=== PATIENT | female | born 1955 | race Caucasian/White ===

== ENCOUNTER 2017-01-24 13:56 | Inpatient (IN) | payer MEDICAID ==
[~2017-01-24] VITALS: Ht 160 cm; Wt 67.1 kg
[2017-01-24 14:07] VITALS: BP 159/74
[2017-01-24] MEDS ORDERED: ALBUTEROL 0.083% 2.5 MG/3 ML NEBU INH ONE (14:10)
[2017-01-24] MEDS ORDERED: IPRATROPIUM 0.02% 0.5 MG/2.5 ML NEBU INH ONE (14:10)
[2017-01-24] MEDS ORDERED: methylPREDNISolone SS 125 MG/2 ML VIAL IVP ONE (14:10)
[2017-01-24] MEDS ORDERED: ACETAMINOPHEN 325 MG SUPP RC ONE (14:15)
[2017-01-24] MEDS ORDERED: IBUPROFEN 600 MG TAB PO ONE (14:20)
[2017-01-24] MEDS ORDERED: cefTRIAXone 2,000 MG in DEXTROSE 5% 100 ML IV ONE (14:20)
[2017-01-24] MEDS ORDERED: cefTRIAXone 2,000 MG VIAL ONE (14:39)
[2017-01-24 14:40] LABS: HEMOGLOBIN 13.6 g/dL (12.0-16.0)
[2017-01-24 14:43] LABS: HEMATOCRIT 41.5 % (36-48); MEAN CORPUSCULAR HEMOGLOBIN 28 pg (27-31); MEAN CORPUSCULAR HGB CONC 33 g/dL (33-37); MEAN CORPUSCULAR VOLUME 84 fL (80-94); PLATELET COUNT (AUTO) 279 K/uL (140-450); RED BLOOD CELL COUNT(AUTO) 4.93 MIL/uL (4.20-5.40); WHITE BLOOD COUNT (AUTO) 12.2 K/uL (4.8-10.8)
[2017-01-24 14:58] LABS: BAND % (MANUAL) 24 % (0-8); LYMPHOCYTES % (MANUAL) 7 % (20-46); MONOCYTES % (MANUAL) 4 % (5-12); NEUTROPHILS % (MANUAL) 65 (43-65); PLATELET ESTIMATE ADEQUATE
[2017-01-24 15:06] LABS: INR 1.1 (0.8-1.2); PARTIAL THROMBOPLASTIN TIME 20.8 secs (22-35.6); PROTHROMBIN TIME 11.4 secs (10.8-13.4)
[2017-01-24 15:08] LABS: ANION GAP 17.2 (8-16); CALCIUM 9.8 mg/dL (8.5-10.1); CARBON DIOXIDE 23.9 mmol/L (21-32); CREATININE 0.8 mg/dL (0.6-1.3); POTASSIUM 4.1 mmol/L (3.5-5.1)
[2017-01-24 15:15] LABS: ALBUMIN 2.8 g/dL (3.4-5.0); TOTAL BILIRUBIN 0.5 mg/dL (0.0-1.0); TOTAL PROTEIN, SERUM 8.3 g/dL (6.4-8.2)
[2017-01-24 15:22] LABS: LACTIC ACID 2.5 mmol/L (0.4-2.0)
[2017-01-24] MEDS ORDERED: NACL 0.9% 1,000 ML IV ONE (15:25)
[2017-01-24] MEDS ORDERED: METO25TA GT (15:51)
[2017-01-24] MEDS ORDERED: SENN-72 GT (15:51)
[2017-01-24] MEDS ORDERED: ASCO500T45 GT (15:51)
[2017-01-24] MEDS ORDERED: CRAN450C GT (15:51)
[2017-01-24] MEDS ORDERED: KEP500L GT (15:51)
[2017-01-24] MEDS ORDERED: DOCU250S72 GT (15:51)
[2017-01-24] MEDS ORDERED: LACT1CAP92 GT (15:51)
[2017-01-24] MEDS ORDERED: MEDI237S4 GT (15:51)
[2017-01-24] MEDS ORDERED: MULT-2253 GT (15:51)
[2017-01-24] MEDS ORDERED: [UNRECOGNIZED DRUG - CODE] GT (15:51)
[2017-01-24] MEDS ORDERED: HYDROcodone/APAP 5/325 MG 1 TAB TAB GT PRN (16:25)
[2017-01-24] MEDS ORDERED: ACETAMINOPHEN 650 MG/20.3 ML UDC GT PRN (16:25)
[2017-01-24] MEDS: DEXT 5% /NACL 0.9% 1,000 ML IV SCH (16:25)
[2017-01-24] MEDS ORDERED: LORazepam 2 MG/ML VIAL IVP PRN (16:25)
[2017-01-24] MEDS ORDERED: ONDANSETRON 4 MG/2 ML VIAL IVP PRN (16:25)
[2017-01-24] MEDS ORDERED: ALBUTEROL SULFATE/IPRATROPIU 3 ML SOL IH PRN (16:45)
[2017-01-24 20:00] VITALS: BP 87/43
[2017-01-24] MEDS: AMANTADINE 100 MG CAP GT SCH (21:00)
[2017-01-24] MEDS ORDERED: LACTOBACILLUS ACIDOPHILUS GT SCH (21:00)
[2017-01-24] MEDS ORDERED: PIPERACILLIN/TAZOBACTAM 3.375 GM VIAL IV ONE (21:33)
[2017-01-24] MEDS: METOPROLOL 25 MG TAB GT SCH (21:36)
[2017-01-24] MEDS: SENNA 8.6 MG TAB GT SCH (21:36)
[2017-01-24] MEDS: ASCORBIC ACID 500 MG/5 ML ORASYR GT SCH (21:37)
[2017-01-24] MEDS: PIPERACILLIN/TAZOBACTAM 3.375 GM in DEXTROSE 5% 50 ML IV SCH (21:38)
[2017-01-24] MEDS ORDERED: DEXTROSE 50% 50 ML SYR IVP PRN (21:40)
[2017-01-24 22:00] VITALS: BP 90/48
[2017-01-25] VITALS (7 sets, daily range): BP systolic 97–124; BP diastolic 51–63
[2017-01-25 05:07] LABS: HEMATOCRIT 35.9 % (36-48); HEMOGLOBIN 11.5 g/dL (12.0-16.0); MEAN CORPUSCULAR HEMOGLOBIN 28 pg (27-31); MEAN CORPUSCULAR HGB CONC 32 g/dL (33-37); MEAN CORPUSCULAR VOLUME 86 fL (80-94); PLATELET COUNT (AUTO) 232 K/uL (140-450); RED BLOOD CELL COUNT(AUTO) 4.15 MIL/uL (4.20-5.40); RED CELL DISTRIBUTION WIDTH 13.2 % (11.6-13.7); WHITE BLOOD COUNT (AUTO) 12.4 K/uL (4.8-10.8)
[2017-01-25] MEDS: DEXT 5% /NACL 0.9% 1,000 ML IV SCH ×3 (05:11→22:25)
[2017-01-25] MEDS: PIPERACILLIN/TAZOBACTAM 3.375 GM in DEXTROSE 5% 50 ML IV SCH (05:11)
[2017-01-25 06:26] LABS: BAND % (MANUAL) 19 % (0-8); LYMPHOCYTES % (MANUAL) 22 % (20-46); MONOCYTES % (MANUAL) 8 % (5-12); NEUTROPHILS % (MANUAL) 51 (43-65)
[2017-01-25] MEDS: BLOOD GLUCOSE MONITORING 1 DEV DEV FS SCH ×4 (06:48→20:50)
[2017-01-25] MEDS: INSULIN LISPRO SLIDING SCALE 100 UNITS/ML VIAL SUBQ PRN ×4 (06:49→21:54)
[2017-01-25 06:55] LABS: ALBUMIN 2.2 g/dL (3.4-5.0); ANION GAP 12.5 (8-16); CALCIUM 9.2 mg/dL (8.5-10.1); CREATININE 0.6 mg/dL (0.6-1.3); POTASSIUM 3.5 mmol/L (3.5-5.1); TOTAL BILIRUBIN 0.4 mg/dL (0.0-1.0); TOTAL PROTEIN, SERUM 7.1 g/dL (6.4-8.2)
[2017-01-25] MEDS: METOPROLOL 25 MG TAB GT SCH ×2 (09:00→20:51)
[2017-01-25] MEDS ORDERED: PROBIOTIC SCREEN 1 EA MISC MC PRN (09:05)
[2017-01-25] MEDS: DOCUSATE 100 MG/10 ML UDC GT SCH (09:51)
[2017-01-25] MEDS: LACTOBACILLUS RHAMNOSUS GG 1 EACH CAP GT SCH ×2 (09:52→20:49)
[2017-01-25] MEDS: AMANTADINE 100 MG CAP GT SCH ×2 (09:52→20:50)
[2017-01-25] MEDS: levETIRAcetam 100 MG/ML ORASYR GT SCH (09:52)
[2017-01-25] MEDS: MULTIVITAMIN 5 ML ORASYR GT SCH (09:53)
[2017-01-25] MEDS: ASCORBIC ACID 500 MG/5 ML ORASYR GT SCH ×2 (09:53→20:49)
[2017-01-25 13:39] LABS: BLOOD GAS PCO2 39.4 mmHg (20-50); BLOOD GAS PH 7.411 (7.35-7.45); BLOOD GAS PO2 90.9 mmHg
[2017-01-25 13:40] LABS: BLOOD GAS BASE EXCESS -0.1 mmol/L (-2.0-2.0); BLOOD GAS HCO3 24.5 mmol/L
[2017-01-25 13:41] LABS: BLOOD GAS O2 SAT% 96.5 % (92.0-98.5)
[2017-01-25] MEDS: PIPER/TAZO 3.375GM/D5W PREMIX 50 ML IV SCH ×2 (14:44→20:49)
[2017-01-25] MEDS ORDERED: VANCOMYCIN PER PHARMACY MC PRN (16:55)
[2017-01-25] MEDS: VANCOMYCIN 750 MG in DEXTROSE 5% 250 ML IV SCH (19:10)
[2017-01-25] MEDS: SENNA 8.6 MG TAB GT SCH (20:49)
[2017-01-26] VITALS: BP 138/68
[2017-01-26 04:00] VITALS: BP 151/76
[2017-01-26] MEDS: PIPER/TAZO 3.375GM/D5W PREMIX 50 ML IV SCH ×3 (05:16→20:35)
[2017-01-26] MEDS: VANCOMYCIN 750 MG in DEXTROSE 5% 250 ML IV SCH (06:22)
[2017-01-26] MEDS: BLOOD GLUCOSE MONITORING 1 DEV DEV FS SCH ×4 (06:36→21:35)
[2017-01-26] MEDS: INSULIN LISPRO SLIDING SCALE 100 UNITS/ML VIAL SUBQ PRN ×4 (06:37→21:37)
[2017-01-26 08:00] VITALS: BP 121/52
[2017-01-26 08:25] LABS: ANION GAP 10.7 (8-16); CALCIUM 8.4 mg/dL (8.5-10.1); CREATININE 0.6 mg/dL (0.6-1.3)
[2017-01-26 08:54] LABS: POTASSIUM 2.7 mmol/L (3.5-5.1)
[2017-01-26] MEDS: METOPROLOL 25 MG TAB GT SCH ×2 (09:00→21:00)
[2017-01-26] MEDS: AMANTADINE 100 MG CAP GT SCH ×2 (09:04→21:24)
[2017-01-26] MEDS: levETIRAcetam 100 MG/ML ORASYR GT SCH (09:04)
[2017-01-26] MEDS: ASCORBIC ACID 500 MG/5 ML ORASYR GT SCH ×2 (09:04→21:25)
[2017-01-26] MEDS: DOCUSATE 100 MG/10 ML UDC GT SCH (09:04)
[2017-01-26] MEDS: LACTOBACILLUS RHAMNOSUS GG 1 EACH CAP GT SCH ×2 (09:05→21:24)
[2017-01-26] MEDS: MULTIVITAMIN 5 ML ORASYR GT SCH (09:05)
[2017-01-26] MEDS: KCL 20 MEQ/WATER INJ PREMIX 100 ML IV SCH ×2 (09:30→11:52)
[2017-01-26] MEDS: DEXT 5% /NACL 0.9% 1,000 ML IV SCH ×2 (11:48→18:25)
[2017-01-26 12:00] VITALS: BP 133/57
[2017-01-26] MEDS: CHLORHEXADINE GLUC 2% CLOTH TP SCH (12:00)
[2017-01-26] MEDS: MUPIROCIN 2% OINT 22 GM TUBE TP SCH (14:23)
[2017-01-26 16:00] VITALS: BP 122/57
[2017-01-26 20:00] VITALS: BP 148/64
[2017-01-26] MEDS: VANCOMYCIN 1GM/DEXT 5% PREMIX 200 ML IV SCH (20:52)
[2017-01-26] MEDS: SENNA 8.6 MG TAB GT SCH (21:24)
[2017-01-27] VITALS: BP 137/63
[2017-01-27 04:00] VITALS: BP 154/68
[2017-01-27] MEDS: PIPER/TAZO 3.375GM/D5W PREMIX 50 ML IV SCH ×3 (04:43→22:30)
[2017-01-27] MEDS: DEXT 5% /NACL 0.9% 1,000 ML IV SCH (04:44)
[2017-01-27] MEDS: INSULIN LISPRO SLIDING SCALE 100 UNITS/ML VIAL SUBQ PRN ×4 (06:43→23:01)
[2017-01-27] MEDS: BLOOD GLUCOSE MONITORING 1 DEV DEV FS SCH ×4 (06:43→21:00)
[2017-01-27 07:00] LABS: HEMATOCRIT 34.8 % (36-48); HEMOGLOBIN 11.5 g/dL (12.0-16.0); MEAN CORPUSCULAR HEMOGLOBIN 28 pg (27-31); MEAN CORPUSCULAR HGB CONC 33 g/dL (33-37); MEAN CORPUSCULAR VOLUME 85 fL (80-94); PLATELET COUNT (AUTO) 241 K/uL (140-450); RED BLOOD CELL COUNT(AUTO) 4.12 MIL/uL (4.20-5.40); RED CELL DISTRIBUTION WIDTH 12.9 % (11.6-13.7); WHITE BLOOD COUNT (AUTO) 12.9 K/uL (4.8-10.8)
[2017-01-27 07:21] LABS: ANION GAP 7.9 (8-16); CALCIUM 8.9 mg/dL (8.5-10.1); CREATININE 0.6 mg/dL (0.6-1.3)
[2017-01-27 07:24] LABS: POTASSIUM 2.9 mmol/L (3.5-5.1)
[2017-01-27 08:00] VITALS: BP 151/74
[2017-01-27] MEDS: AMANTADINE 100 MG CAP GT SCH ×2 (08:11→22:30)
[2017-01-27] MEDS: ASCORBIC ACID 500 MG/5 ML ORASYR GT SCH ×2 (08:11→22:30)
[2017-01-27] MEDS: VANCOMYCIN 1GM/DEXT 5% PREMIX 200 ML IV SCH ×2 (08:11→20:00)
[2017-01-27] MEDS: levETIRAcetam 100 MG/ML ORASYR GT SCH (08:11)
[2017-01-27] MEDS: MULTIVITAMIN 5 ML ORASYR GT SCH (08:11)
[2017-01-27] MEDS: DOCUSATE 100 MG/10 ML UDC GT SCH (08:12)
[2017-01-27] MEDS: METOPROLOL 25 MG TAB GT SCH ×2 (08:12→22:30)
[2017-01-27] MEDS: LACTOBACILLUS RHAMNOSUS GG 1 EACH CAP GT SCH ×2 (08:12→22:30)
[2017-01-27 09:52] LABS: BAND % (MANUAL) 4 % (0-8); EOSINOPHILS % (MANUAL) 3 % (0-4); LYMPHOCYTES % (MANUAL) 9 % (20-46); MONOCYTES % (MANUAL) 6 % (5-12); NEUTROPHILS % (MANUAL) 78 (43-65); PLATELET ESTIMATE ADEQUATE
[2017-01-27] MEDS: KCL 20 MEQ/WATER INJ PREMIX 200 ML IV SCH ×2 (11:14→14:09)
[2017-01-27] MEDS: MUPIROCIN 2% OINT 22 GM TUBE TP SCH (11:54)
[2017-01-27] MEDS: CHLORHEXADINE GLUC 2% CLOTH TP SCH (11:54)
[2017-01-27 12:00] VITALS: BP 146/76
[2017-01-27 16:00] VITALS: BP 141/113
[2017-01-27 20:00] VITALS: BP 121/68
[2017-01-27] MEDS: SENNA 8.6 MG TAB GT SCH (22:30)
[2017-01-28] VITALS: BP 136/68
[2017-01-28 04:00] VITALS: BP 129/68
[2017-01-28] MEDS: PIPER/TAZO 3.375GM/D5W PREMIX 50 ML IV SCH ×2 (04:08→12:17)
[2017-01-28] MEDS: BLOOD GLUCOSE MONITORING 1 DEV DEV FS SCH ×2 (06:25→12:16)
[2017-01-28] MEDS: INSULIN LISPRO SLIDING SCALE 100 UNITS/ML VIAL SUBQ PRN ×2 (06:28→12:24)
[2017-01-28 07:14] LABS: HEMATOCRIT 35.2 % (36-48); HEMOGLOBIN 11.6 g/dL (12.0-16.0); MEAN CORPUSCULAR HEMOGLOBIN 28 pg (27-31); MEAN CORPUSCULAR HGB CONC 33 g/dL (33-37); MEAN CORPUSCULAR VOLUME 85 fL (80-94); PLATELET COUNT (AUTO) 239 K/uL (140-450); RED BLOOD CELL COUNT(AUTO) 4.14 MIL/uL (4.20-5.40); RED CELL DISTRIBUTION WIDTH 12.8 % (11.6-13.7); WHITE BLOOD COUNT (AUTO) 12.5 K/uL (4.8-10.8)
[2017-01-28 07:44] LABS: ANION GAP 7.2 (8-16); CARBON DIOXIDE 30.1 mmol/L (21-32); CREATININE 0.5 mg/dL (0.6-1.3); POTASSIUM 3.3 mmol/L (3.5-5.1)
[2017-01-28 08:00] VITALS: BP 122/60
[2017-01-28 08:02] LABS: BAND % (MANUAL) 6 % (0-8); EOSINOPHILS % (MANUAL) 2 % (0-4); LYMPHOCYTES % (MANUAL) 19 % (20-46); MONOCYTES % (MANUAL) 5 % (5-12); NEUTROPHILS % (MANUAL) 60 (43-65)
[2017-01-28] MEDS: VANCOMYCIN 1GM/DEXT 5% PREMIX 200 ML IV SCH (08:52)
[2017-01-28] MEDS: MULTIVITAMIN 5 ML ORASYR GT SCH (08:53)
[2017-01-28] MEDS: levETIRAcetam 100 MG/ML ORASYR GT SCH (08:53)
[2017-01-28] MEDS: DOCUSATE 100 MG/10 ML UDC GT SCH (08:54)
[2017-01-28] MEDS: ASCORBIC ACID 500 MG/5 ML ORASYR GT SCH (08:55)
[2017-01-28] MEDS: METOPROLOL 25 MG TAB GT SCH (08:55)
[2017-01-28] MEDS: AMANTADINE 100 MG CAP GT SCH (08:55)
[2017-01-28] MEDS: LACTOBACILLUS RHAMNOSUS GG 1 EACH CAP GT SCH (08:55)
[2017-01-28 12:00] VITALS: BP 139/74
[2017-01-28] MEDS: CHLORHEXADINE GLUC 2% CLOTH TP SCH (12:16)
[2017-01-28] MEDS: MUPIROCIN 2% OINT 22 GM TUBE TP SCH (12:16)
== END 2017-01-28 15:00 | DRG 720 ==
LOC: MED 14:02 → MIC 16:34 → UNDOADMIN 18:15 → MIC 18:15 → MTU 01-25 17:15
PROVIDERS: ADMIT Preventive Medicine Preventive Medicine/Occupational Environmental Medicine; ATTEND Preventive Medicine Preventive Medicine/Occupational Environmental Medicine
DX: A41.9 Sepsis, unspecified organism (principal); J96.00 Acute respiratory failure, unspecified whether with hypoxia or hypercapnia; J69.0 Pneumonitis due to inhalation of food and vomit; R13.10 Dysphagia, unspecified; E11.65 Type 2 diabetes mellitus with hyperglycemia; E83.39 Other disorders of phosphorus metabolism; Z93.1 Gastrostomy status; I10 Essential (primary) hypertension; D64.9 Anemia, unspecified; E78.00 Pure hypercholesterolemia, unspecified; K44.9 Diaphragmatic hernia without obstruction or gangrene; N39.0 Urinary tract infection, site not specified; E87.6 Hypokalemia; Z98.2 Presence of cerebrospinal fluid drainage device; G40.909 Epilepsy, unspecified, not intractable, without status epilepticus; E78.5 Hyperlipidemia, unspecified; Z87.820 Personal history of traumatic brain injury; Z79.899 Other long term (current) drug therapy
CPT/HCPCS: 36415; 36600; 71010; 71260; 80048; 80053; 80202; 82553; 82803; 82948; 83605; 83880; 84484; 85025; 85610; 85651; 85730; 86140; 87040; 87070; 87081; 87086; 87205; 89220; 93005; 94640; 96374; 99285; J0696; J1815; J2543; J2930; J3370; J3480; J7030; J7042; J7060; J7613; J7644; Q0092; Q9967

== ENCOUNTER 2017-02-04 12:34 | Inpatient (IN) | payer MEDICAID ==
[~2017-02-04] VITALS: Ht 167.6 cm; Wt 67.6 kg
[~2017-02-04 12:34] MED LIST: ASCO500T45 GT; CRAN450C GT; DOCU250S72 GT; KEP500L GT; LACT1CAP92 GT; MEDI237S4 GT; METO25TA GT; MULT-2253 GT; SENN-72 GT; [UNRECOGNIZED DRUG - CODE] GT
--- NOTE | 2017-02-04 12:36 | NUR ---
Patient BIBA to bed 5 at this time.
[2017-02-04 12:37] VITALS: BP 125/71
--- NOTE | 2017-02-04 13:04 | NUR ---
61 YO FEMALE BIB EMS FROM [facility] FOR G TUBE REPLACEMENT; ACCORDING TO REPORT FROM ISHAAN MANAGER POWER, RN AT [facility] TRIED TO USE G-TUBE AND IT WOULDN'T FLUSHED, ALSO PT IS AT HER NEURO BASELINE; PT HAS HX OF TBI; NO DRAINAGE TO G-TUBE; SKIN IS PINK/WARM/DRY; LUNGS CLEAR BL; VSS; PATIENT POSITIONED FOR COMFORT; HOB ELEVATED; BEDRAILS UP X2; BED DOWN. ER MD MADE AWARE OF PT STATUS.
--- NOTE | 2017-02-04 14:00 | NUR ---
MD ATTEMPTING TO REPLACE G-TUBE; VSS; PT IN NO ACUTE DISTRESS; WILL CONTINUE TO MONITOR
[2017-02-04] MEDS ORDERED: DEXTROSE 50% 50 ML SYR IVP PRN (15:55)
[2017-02-04] MEDS ORDERED: HYDROcodone/APAP 5/325 MG 1 TAB TAB GT PRN (15:55)
[2017-02-04] MEDS ORDERED: ONDANSETRON 4 MG/2 ML VIAL IVP PRN (15:55)
[2017-02-04] MEDS ORDERED: ACETAMINOPHEN 325 MG TAB GT PRN (15:55)
[2017-02-04] MEDS ORDERED: LORazepam 2 MG/ML VIAL IVP PRN (15:55)
[2017-02-04] MEDS: BLOOD GLUCOSE MONITORING 1 DEV DEV FS SCH ×2 (16:30→21:32)
--- NOTE | 2017-02-04 17:45 | NUR ---
RECEIVED PATIENT FROM ER. PATIENT AWAKE AND ALERT, NO SIGNS OF ACUTE DISTRESS. PT APHASIC, LOCALIZES TO PAIN. DOESN'T FOLLOW COMMANDS. BOWEL SOUNDS ACTIVE IN ALL 4 QUADRANTS, BOWEL AND BLADDER INCONTINENCE. G-TUBE OUT OF ABDOMEN. SKIN INTACT. BEDBOUND. IV PATENT AND ASYMPTOMATIC. FLACC SCORE 0. ORIENTED PATIENT AND SON TO HOSPITAL AND TO UNIT, SON VERBALIZED UNDERSTANDING, PATIENT UNABLE TO COMPREHEND. BED IN LOW POSITION WITH BILATERAL HALF SIDE RAILS UP, CALL LIGHT WITHIN REACH. BED ALARM ON. VITAL SIGNS STABLE BLOOD PRESSURE 127/75, PULSE 84, TEMPERATURE 97.2, 97% OXYGEN SATURATION ON 2L O2 NC. WILL CONTINUE TO MONITOR.
[2017-02-04] MEDS: DEXT 5% /NACL 0.9% 1,000 ML IV SCH (18:22)
[2017-02-04] MEDS: INSULIN LISPRO SLIDING SCALE 100 UNITS/ML VIAL SUBQ PRN ×2 (18:26→21:33)
--- NOTE | 2017-02-04 18:30 | NUR ---
DR ACOSTA AT BEDSIDE. RE-INSERTED G-TUBE. PT TOLERATED PROCEDURE WELL. ORDERED KUB WITH GASTROGRAPHY TO ENSURE PLACEMENT. DO NOT USE G-TUBE UNTIL CALL Addendum: 02/04/17 at 1847 by Nelda Nova RN DR ACOSTA AT BEDSIDE. RE-INSERTED G-TUBE. PT TOLERATED PROCEDURE WELL. ORDERED KUB WITH GASTROGRAPHY TO ENSURE PLACEMENT. DO NOT USE G-TUBE UNTIL RESULTS. CALL DR AOCSTA WITH RESULTS.
--- NOTE | 2017-02-04 19:10 | NUR ---
PT AWAKE AND ALERT, NO SIGNS OF ACUTE DISTRESS. ENDORSED TO LAP CUTTER TRUER OPERATOR NURSE FOR CONTINUITY OF CARE.
--- NOTE | 2017-02-04 19:11 | NUR ---
RECEIVED REPORT FROM AM NURSE, PT IS AWAKE ALERT BUT APHASIC, RESPONDS TO PAINFUL STIMULI, NO S/S OF DISTRESS. FLACC - 0. NOTED WITH LEFT SKULL INDENTATION. G TUBE IN PLACE, AWAITING FOR KUB WITH CONTRAST PROCEDURE TO BE DONE. IS INCONTINENT, BLADDER AND BOWEL. SKIN INTACT. ON O2 VIA NC AT 2 L, WELL TOLERATED BY PT. BED LOW POSITION, SAFETY CHECKS IN PLACE. CALL LIGHT WITHIN REACH. REORIENTED PATIENT TO THE UNIT, NEEDS REINFORCEMENT. WILL CONTINUE TO MONITOR. ALL NEEDS ATTENDED
--- NOTE | 2017-02-04 20:00 | NUR ---
KUB WITH CONTRAST DONE AT BEDSIDE. WILL CONTINUE TO MONITOR.
[2017-02-04] MEDS ORDERED: AMANTADINE HCL GT SCH (21:00)
[2017-02-04] MEDS ORDERED: ASCORBIC ACID 500 MG TAB GT SCH (21:00)
[2017-02-04] MEDS ORDERED: DOCUSATE SODIUM 250 MG GELCAP PO SCH (21:00)
[2017-02-04] MEDS ORDERED: LACTOBACILLUS ACIDOPHILUS GT SCH (21:00)
[2017-02-04 21:17] VITALS: BP 154/96
[2017-02-04] MEDS: DOCUSATE 100 MG/10 ML UDC GT SCH (21:25)
[2017-02-04] MEDS: METOPROLOL 25 MG TAB GT SCH (21:25)
[2017-02-04] MEDS: SENNA 8.6 MG TAB GT SCH (21:25)
[2017-02-04] MEDS: LACTOBACILLUS RHAMNOSUS GG 1 EACH CAP GT SCH (21:26)
--- NOTE | 2017-02-04 21:30 | NUR ---
DUE MEDS GIVEN THROUGH G-TUBE. NO RESIDUAL NOTED. WILL CONTINUE TO MONITOR. ALL NEEDS ATTENDED. CALL LIGHT WITHIN REACH. SAFETY CHECKS IN PLACE.
[2017-02-04] MEDS: AMANTADINE 100 MG CAP GT SCH (21:46)
--- NOTE | 2017-02-04 22:40 | NUR ---
GAVE DR. ACOSTA THE RESULTS THAT THE G-TUBE IS IN PLACE. WILL CONTINUE TO MONITOR. Addendum: 02/04/17 at 2334 by Barbara Rodríguez RN GAVE RESULTS AT 1263
[2017-02-05] VITALS: BP 150/72
--- NOTE | 2017-02-05 | NUR ---
VITAL SIGNS STABLE. NO S/S OF DISTRESS. FLACC - 0. PT ASLEEP. WILL CONTINUE TO MONITOR. ALL NEEDS ATTENDED. CALL LIGHT WITHIN REACH. SAFETY CHECKS IN PLACE.
[2017-02-05] MEDS: DEXT 5% /NACL 0.9% 1,000 ML IV SCH ×3 (01:55→14:40)
--- NOTE | 2017-02-05 02:00 | NUR ---
MADE ROUNDS. PATIENT ASLEEP. NO S/S OF DISTRESS. FLACC - 0. WILL CONTINUE TO MONITOR.
--- NOTE | 2017-02-05 03:54 | NUR ---
MADE ROUNDS, PT ASLEEP. NO S/S OF DISTRESS. WILL CONTINUE TO MONITOR.
--- NOTE | 2017-02-05 04:00 | NUR ---
SEQUENTIALS APPLIED TO THE PATIENT. WILL CONTINUE TO MONITOR.
--- NOTE | 2017-02-05 04:30 | NUR ---
STARTED G TUBE FEEDING, 20 ML RESIDUAL NOTED. ELEVATED THE HEAD OF THE BED TO 30 DEGREES. WILL CONTINUE TO MONITOR. NO S/S OF DISTRESS. FLACC - 0. WILL CONTINUE TO MONITOR.
[2017-02-05 05:32] LABS: HEMATOCRIT 38.5 % (36-48); HEMOGLOBIN 12.2 g/dL (12.0-16.0); MEAN CORPUSCULAR HEMOGLOBIN 27 pg (27-31); MEAN CORPUSCULAR HGB CONC 32 g/dL (33-37); MEAN CORPUSCULAR VOLUME 85 fL (80-94); PLATELET COUNT (AUTO) 307 K/uL (140-450); RED BLOOD CELL COUNT(AUTO) 4.53 MIL/uL (4.20-5.40); RED CELL DISTRIBUTION WIDTH 13.2 % (11.6-13.7); WHITE BLOOD COUNT (AUTO) 19.5 K/uL (4.8-10.8)
[2017-02-05 05:56] LABS: CARBON DIOXIDE 31.1 mmol/L (21-32); CREATININE 0.7 mg/dL (0.6-1.3); POTASSIUM 4.1 mmol/L (3.5-5.1)
[2017-02-05] MEDS: INSULIN LISPRO SLIDING SCALE 100 UNITS/ML VIAL SUBQ PRN ×4 (06:22→20:40)
--- NOTE | 2017-02-05 06:25 | NUR ---
BLOOD SUGAR AT 209. GAVE 4 UNITS HUMALOG.
[2017-02-05 06:32] LABS: LYMPHOCYTES % (MANUAL) 10 % (20-46); MONOCYTES % (MANUAL) 5 % (5-12)
--- NOTE | 2017-02-05 07:15 | NUR ---
ENDORSED TO AM SHIFT NURSE FOR CONTINUITY OF CARE, IN STABLE CONDITION.
--- NOTE | 2017-02-05 07:16 | NUR ---
RECEIVED REPORT FROM THE ELECTRIC BLANKET PACKER NURSE AT BEDSIDE FOR CONTINUITY OF CARE. PT IS SLEEPING. PER ELECTRIC BLANKET PACKER NURSE, PT IS APHASIC AND ONLY RESPONDS WITH PAINFUL STIMULI. INTRODUCED MYSELF AND UPDATED THE BOARD. PT IS BEDBOUND AND INCONTINENT. PT HAS A NC O2 AT 2L FLOWING. GTUBE FEEDING IN PLACE. 50ML/HR AND 250ML FLUSH Q 6 HRS. SKIN IS INTACT, EXCEPT FOR THE GTUBE. NOTED THE INDENTATION ON THE L FRONTAL LOBE. S/P CRANIOTOMY. IV ON L HAND 24G, INFUSING D5 NS AT 100ML. PT TOLERATING WELL. V/S WITHIN NORMAL RANGE. WILL CONTINUE TO MONITOR PT.
[2017-02-05 08:00] VITALS: BP 145/85
[2017-02-05] MEDS ORDERED: ACETAMINOPHEN 650 MG/20.3 ML UDC GT PRN (08:02)
[2017-02-05] MEDS: BLOOD GLUCOSE MONITORING 1 DEV DEV FS SCH ×4 (08:16→20:34)
[2017-02-05] MEDS ORDERED: MULTIVITAMIN 1 TAB PO SCH (09:00)
[2017-02-05] MEDS: METOPROLOL 25 MG TAB GT SCH ×2 (09:22→20:52)
[2017-02-05] MEDS: MULTIVITAMIN 5 ML ORASYR GT SCH (09:22)
[2017-02-05] MEDS: LACTOBACILLUS RHAMNOSUS GG 1 EACH CAP GT SCH ×2 (09:22→20:43)
[2017-02-05] MEDS: ASCORBIC ACID 500 MG/5 ML ORASYR GT SCH ×2 (09:22→20:51)
[2017-02-05] MEDS: levETIRAcetam 100 MG/ML ORASYR GT SCH (09:22)
[2017-02-05] MEDS: DOCUSATE 100 MG/10 ML UDC GT SCH ×2 (09:22→20:43)
[2017-02-05] MEDS: AMANTADINE 100 MG CAP GT SCH ×2 (09:23→20:44)
--- NOTE | 2017-02-05 09:31 | NUR ---
ADMINISTERED MORNING MEDS. CHECKED FOR PLACEMENT, RESIDUAL (40ML), AND PATENCY. PT TOLERATED WELL. RESUMING TUBE FEEDING. IV STILL PATENT. PT IS AWAKE. TRACKING ME WITH HER EYES. NO SIGNS OF DISTRESS. FLACC-0. WILL CONTINUE TO MONITOR PT.
--- NOTE | 2017-02-05 11:18 | NUR ---
PATIENT HAS BEEN SCREENED AND CATEGORIZED HIGH NUTRITION RISK. PATIENT WILL BE SEEN WITHIN 1-2 DAYS OF ADMISSION. 02/05/17-02/06/[address]
--- NOTE | 2017-02-05 12:53 | NUR ---
FAMILY AT BEDSIDE. NO SIGNS OF DISTRESS. FLACC-0. WILL CONTINUE TO MONITOR PT.
--- NOTE | 2017-02-05 14:35 | NUR ---
PT RESTING COMFORTABLY. PT IS CLEAN AND JUST TURNED. FAMILY IS GONE. NEED HANG ANOTHER IV FLUID. WILL DO SO.
--- NOTE | 2017-02-05 14:40 | NUR ---
02/05/17 RD INITIAL ASSESSMENT COMPLETED PLEASE REFER TO NUTRITION ASSESSMENT UNDER CARE ACTIVITY FOR ESTIMATED NUTRITIONAL NEEDS. 1. CONTINUE DIABETISOURCE TUBE FEEDING AT GOAL RATE OF 50 ML WITH 250 ML OF FWF Q8H - THIS MEETS 85% OF KCAL, 100% OF PROTEIN, AND 100% OF FLUID NEEDS (PROVIDES 1440 KCAL AND 60GM OF PROTEIN AND 1734ML OF FLUID) 2. RD TO FOLLOW UP WITHIN 2-3 DAYS; HIGH RISK MASON MENDEZ RD
[2017-02-05 16:00] VITALS: BP 138/67
--- NOTE | 2017-02-05 17:07 | NUR ---
SEARCHLIGHT OPERATOR WITH PT. CHANGING AND TURNING PT. PT TOLERATING WELL. WILL CONTINUE TO MONITOR PT.
--- NOTE | 2017-02-05 19:20 | NUR ---
ENDORSED PT TO THE WEIGHT ENGINEER AT BEDSIDE FOR CONTINUITY OF CARE. PT IS IN STABLE CONDITION.
--- NOTE | 2017-02-05 19:21 | NUR ---
RECEIVED REPORT FROM AM NURSE. PT IS ASLEEP, BUT IS AWOKEN TO PAINFUL STIMULI AND IS APHASIC. PT IS BEDBOUND AND INCONTINENT. HAS O2 VIA NC AT 2 L. SKIN INTACT, WITH G TUBE FEEDING IN PLACE. NOTED WITH A LEFT SKULL INDENTATION. IV ON ON THE LEFT HAND G, INTACT AND PATENT. REORIENTED PATIENT TO THE UNIT, NEEDS REINFORCEMENT. WILL CONTINUE TO MONITOR. ALL NEEDS ATTENDED. CALL LIGHT WITHIN REACH. SAFETY CHECKS IN PLACE.
[2017-02-05 20:40] VITALS: BP 132/79
[2017-02-05] MEDS: SENNA 8.6 MG TAB GT SCH (20:52)
--- NOTE | 2017-02-05 21:00 | NUR ---
DUE MEDS GIVEN VIA G TUBE, NOTED WITH 20 ML RESIDUAL, WILL CONTINUE TO MONITOR. ALL NEEDS ATTENDED. CALL LIGHT WITHIN REACH. SAFETY CHECKS IN PLACE.
--- NOTE | 2017-02-05 22:43 | NUR ---
PAGED DR. Mary JOHNSTON, AWAITING CALL BACK.
--- NOTE | 2017-02-05 22:46 | NUR ---
DR. Mary JOHNSTON CALLED BACK, TOLD HIM THAT THE ORIGINAL ORDER OF THE FREE FLUSH OF 250 ML WAS EVERY 6 HOURS, BUT WHEN DIETARY CAME AND REASSESSED THE PATIENT AND SUGGESTED [address] JOHNSTON AGREED. ALSO TOLD DR. JOHNSTON THAT THE PT'S WBC WAS 19.5 BUT THERE WAS NO ANTIBIOTIC ORDERED. PUT IN ORDERS FOR A CONSULT WITH DR. EDWARDS, BLOOD CULTURE, AND URINALYSIS.
[2017-02-06] VITALS: BP 135/68
--- NOTE | 2017-02-06 | NUR ---
VITAL SIGNS STABLE. NO S/S OF DISTRESS. WILL CONTINUE TO MONITOR.
[2017-02-06] MEDS: DEXT 5% /NACL 0.9% 1,000 ML IV SCH ×3 (00:57→21:06)
--- NOTE | 2017-02-06 00:57 | NUR ---
IV FLUID FINISHED, HANGED A NEW BAG OF D5NS.
--- NOTE | 2017-02-06 02:00 | NUR ---
MADE ROUNDS. PATIENT ASLEEP, NO S/S OF DISTRESS. NO COMPLAINTS OF PAIN. WILL CONTINUE TO MONITOR. FOR CHANGES.
--- NOTE | 2017-02-06 04:30 | NUR ---
HANGED A NEW TUBE FEEDING OF DIABETISOURCE, CHANGED THE TUBING. NOTED A RESIDUAL OF 30 ML. WILL CONTINUE TO MONITOR FOR CHANGES.
[2017-02-06] MEDS: BLOOD GLUCOSE MONITORING 1 DEV DEV FS SCH ×4 (06:46→21:03)
[2017-02-06] MEDS: INSULIN LISPRO SLIDING SCALE 100 UNITS/ML VIAL SUBQ PRN ×3 (06:47→21:11)
--- NOTE | 2017-02-06 07:22 | NUR ---
ENDORSED TO AM SHIFT NURSE FOR CONTINUITY OF CARE, IN STABLE CONDITION
--- NOTE | 2017-02-06 07:25 | NUR ---
RECEIVED PATIENT REPORT AT BEDSIDE FROM NIGHT NURSE. PATIENT IS APHASIC AND NON VERBAL, FLACC IS 0. IV NOTED ON THE L HAND WITH IVF'S RUNNING HOWEVER LEFT HAND IS PUFFY AND IV IS INFILTRATED. WILL INSERT NEW IV. SKIN IS INTACT. PATIENT IS ON O2 2L VIA NC. PATIENT HAS GT FEEDING RUNNING AT 50ML/HR AND FREE WATER FLUSH 250 ML Q6H. GTUBE WAS CHECKED FOR PLACEMENT AND ASPIRATED 50 ML OF RESIDUAL WAS NOTED. GTUBE WAS FLUSHED WITH 100CC OF STERILE WATER. PATIENT CANNOT COMPREHEND POC, I WILL PERFORM HOURLY ROUNDS. WHEN PATIENT FAMILY ARRIVE WILL EDUCATED THEM ABOUT POC FOR TODAY. THE BED IS LOWERED WITH HOB AT 45 DEGREES. WILL CONTINUE TO MONITOR.
--- NOTE | 2017-02-06 07:25 | NUR ---
RECEIVED PATIENT REPORT AT BEDSIDE FROM NIGHT NURSE. PATIENT IS AAOX4 AND SHOWS NO S/S OF DISTRESS ON ROOM AIR. PATIENT SKIN IS INTACT. IV NOTED ON THE L AC WITH IVF'S INFUSING WELL. PATIENT WAS EXPLAINED POC FOR TODAY AND VERBALIZED UNDERSTANDING. BED IS LOWERED WITH CALL LIGHT WITHIN REACH. PATIENT VERBALIZED UNDERSTANDING ON HOW TO USE IT. WILL CONTINUE TO MONITOR. Addendum: 02/06/17 at 1437 by Celina Mejia RN WRONG PATIENT
[2017-02-06 07:34] LABS: BASOPHILS # (AUTO) 0.1 K/uL (0.00-0.22); BASOPHILS % (AUTO) 0.8 % (0.0-2.0); EOSINOPHILS # (AUTO) 0.3 K/uL (0-0.4); EOSINOPHILS % (AUTO) 2.4 % (0.0-4.0); HEMATOCRIT 37.1 % (36-48); HEMOGLOBIN 11.8 g/dL (12.0-16.0); LYMPHOCYTES # (AUTO) 1.4 K/uL (2.5-16.5); LYMPHOCYTES % (AUTO) 12.5 % (20.5-51.1); MEAN CORPUSCULAR HEMOGLOBIN 27 pg (27-31); MEAN CORPUSCULAR HGB CONC 32 g/dL (33-37); MEAN CORPUSCULAR VOLUME 85 fL (80-94); MONOCYTES # (AUTO) 0.7 K/uL (0.8-1.0); NEUTROPHILS # (AUTO) 8.7 K/uL (1.8-7.7); NEUTROPHILS % (AUTO) 78.3 % (42.2-75.2); PLATELET COUNT (AUTO) 204 K/uL (140-450); RED BLOOD CELL COUNT(AUTO) 4.36 MIL/uL (4.20-5.40); RED CELL DISTRIBUTION WIDTH 13.1 % (11.6-13.7); WHITE BLOOD COUNT (AUTO) 11.2 K/uL (4.8-10.8)
[2017-02-06 08:00] VITALS: BP 161/87
[2017-02-06 08:03] LABS: ANION GAP 9.5 (8-16); CREATININE 0.6 mg/dL (0.6-1.3); POTASSIUM 3.5 mmol/L (3.5-5.1)
--- NOTE | 2017-02-06 09:50 | NUR ---
PATIENT WAS REPOSITIONED AND GIVEN PERINEAL CARE. PATIENT WAS INCONTINENT OF URINE. PATIENT IS NOW LAYING ON HER R SIDE AND SHOWS NO S/S OF DISTRESS ON O2 2L VIA NC.
[2017-02-06] MEDS: MULTIVITAMIN 5 ML ORASYR GT SCH (10:34)
[2017-02-06] MEDS: AMANTADINE 100 MG CAP GT SCH ×2 (10:34→20:51)
[2017-02-06] MEDS: METOPROLOL 25 MG TAB GT SCH ×2 (10:34→20:50)
[2017-02-06] MEDS: DOCUSATE 100 MG/10 ML UDC GT SCH ×2 (10:34→20:51)
[2017-02-06] MEDS: levETIRAcetam 100 MG/ML ORASYR GT SCH (10:34)
[2017-02-06] MEDS: ASCORBIC ACID 500 MG/5 ML ORASYR GT SCH ×2 (10:34→20:52)
--- NOTE | 2017-02-06 10:34 | NUR ---
ADMINISTERED SCHEDULE MEDICATIONS. G TUBE WAS ASPIRATED WITH 10 ML OF RESIDUAL NOTED. MEDICATIONS WERE ADMINISTERED ONE BY ONE WITH 10 CC OF STERILE WATER TO FLUSH G TUBE BETWEEN EACH MEDICATION. TUBE FEEDING IS INFUSING WELL. THE HOB IS AT 45 DEGREES. PATIENT SHOWS NO S/S OF DISTRESS ON O2 2L VIA NC. WILL CONTINUE TO MONITOR.
[2017-02-06] MEDS: LACTOBACILLUS RHAMNOSUS GG 1 EACH CAP GT SCH ×2 (10:35→20:49)
--- NOTE | 2017-02-06 10:50 | NUR ---
PATIENT FAMILY IS AT BEDSIDE. FAMILY WAS EXPLAINED ABOUT PATIENT POC FOR TODAY. FAMILY VERBALIZED UNDERSTANDING.
--- NOTE | 2017-02-06 13:00 | NUR ---
THERE IS AN ORDER FOR URINALYSIS. PATIENT WAS GIVEN A STRAIGHT CATH. PATIENT VOIDED CLEAR YELLOW URINE. URINE SPECIMEN WAS COLLECTED AND SENT TO LAB.
[2017-02-06 13:40] LABS: APPEARANCE,URINE CLEAR (CLEAR); BILIRUBIN,URINE NEGATIVE (NEGATIVE); BLOOD, URINE NEGATIVE (NEGATIVE); COLOR,URINE YELLOW (YELLOW); LEUKOCYTE ESTERASE ,URINE NEGATIVE (NEGATIVE); NITRITE, URINE NEGATIVE (NEGATIVE); PH,URINE 7.5 (5.0-9.0); UGLUCOSE NEGATIVE (NEGATIVE)
--- NOTE | 2017-02-06 14:50 | NUR ---
PATIENT IS SLEEPING AND SHOWS NO S/S OF DISTRESS ON O2 2L VIA NC. GTUBE FEEDING IS INFUSING WELL. PATIENT HAS FLACC OF 0. THE BED IS LOWERED WITH CALL LIGHT WITHIN REACH.
[2017-02-06 16:00] VITALS: BP 149/80
--- NOTE | 2017-02-06 17:15 | NUR ---
PATIENT IS SLEEPING AND SHOWS NO S/S OF DISTRESS ON O2 2L VIA NC. THE BED IS LOWERED WITH HOB AT 45 DEGREES. G TUBE FEEDING IS INFUSING WELL AND IVF'S RUNNING WELL ALSO.
--- NOTE | 2017-02-06 19:25 | NUR ---
PATIENT REPORT WAS GIVEN AT BEDSIDE TO NIGHT NURSE. PATIENT IS SLEEPING AND SHOWS NO S/S OF DISTRESS ON O2 2L VIA NC. THE BED IS LOWERED WITH CALL LIGHT WITHIN REACH.
--- NOTE | 2017-02-06 19:30 | NUR ---
REPORT RECEIVED FROM AM NURSE. PT IS STABLE, APHASIC WITH FLACC-0. IV ACCESS ON LEFT WRIST 24G INFUSING FLUIDS AT 100ML/HR. G-TUBE CHECKED FOR PLACEMENT AND ASPIRATED, 50ML/HR AND FREE WATER FLUSH 250 ML Q6H. BED ON LOW POSITION WITH ALARM ACTIVATED. PT TURNED TO LATERAL POSITION, SDC IN PLACE. WILL CONTINUE TO MONITOR.
[2017-02-06 20:45] VITALS: BP 174/80
[2017-02-06] MEDS: SENNA 8.6 MG TAB GT SCH (20:50)
--- NOTE | 2017-02-06 21:00 | NUR ---
BLOOD GLUCOSE OF 183. 2 UNITS OF INSULIN ADMINISTERED.
--- NOTE | 2017-02-06 23:30 | NUR ---
PATIENT VOIDED, NO BM. CLEANED AND KEPT DRY. REPOSITIONED PT FOR COMFORT.
[2017-02-07 00:07] VITALS: BP 161/84
--- NOTE | 2017-02-07 00:45 | NUR ---
DR. EDWARDS CAME AND EXAMINED PT. NO NEW ORDER.
--- NOTE | 2017-02-07 01:45 | NUR ---
MADE ROUND. PT IS AWAKE WITH NO S/S OF DISCOMFORT NOTED.
[2017-02-07] MEDS: BLOOD GLUCOSE MONITORING 1 DEV DEV FS SCH ×3 (06:17→16:57)
[2017-02-07] MEDS: INSULIN LISPRO SLIDING SCALE 100 UNITS/ML VIAL SUBQ PRN ×3 (06:20→16:58)
--- NOTE | 2017-02-07 06:20 | NUR ---
BLOOD GLUCOSE CHECKED, RESULT 214. INSULIN COVERAGE GIVEN OF 4 UNITS.
[2017-02-07 07:00] LABS: HEMATOCRIT 35.6 % (36-48); HEMOGLOBIN 11.6 g/dL (12.0-16.0); MEAN CORPUSCULAR HEMOGLOBIN 28 pg (27-31); MEAN CORPUSCULAR HGB CONC 33 g/dL (33-37); MEAN CORPUSCULAR VOLUME 85 fL (80-94); PLATELET COUNT (AUTO) 291 K/uL (140-450); RED CELL DISTRIBUTION WIDTH 13.1 % (11.6-13.7); WHITE BLOOD COUNT (AUTO) 12.9 K/uL (4.8-10.8)
[2017-02-07 07:08] LABS: ANION GAP 7.3 (8-16); CARBON DIOXIDE 30.6 mmol/L (21-32); CREATININE 0.6 mg/dL (0.6-1.3)
[2017-02-07 07:21] LABS: POTASSIUM 2.9 mmol/L (3.5-5.1)
--- NOTE | 2017-02-07 07:23 | NUR ---
LAB CALLED @7802 FOR CRITICAL K LEVEL2.[address] Mary JOHNSTON . LEFT MESSAGE ON PAGER. WILL WAIT FOR CALL BACK. WILL ENDORSE TO AM NURSE.
--- NOTE | 2017-02-07 07:42 | NUR ---
ENDORSED TO AM NURSE FOR CONTINUITY OF CARE, PT IN STABLE CONDITION.
--- NOTE | 2017-02-07 07:45 | NUR ---
RECEIVED PATIENT REPORT AT BEDSIDE FROM NIGHT NURSE. PATIENT IS APHASIC AND NON VERBAL, FLACC IS 0. IV NOTED ON THE L WRIST WITH IVF'S RUNNING HOWEVER LEFT HAND IS PUFFY AND IV IS INFILTRATED. WILL INSERT NEW IV. SKIN IS INTACT. PATIENT IS ON O2 2L VIA NC. PATIENT HAS GT FEEDING RUNNING AT 50ML/HR AND FREE WATER FLUSH 250 ML Q8H. GTUBE WAS CHECKED FOR PLACEMENT AND ASPIRATED WITH 0 ML OF RESIDUAL WAS NOTED. GTUBE WAS FLUSHED WITH 100CC OF STERILE WATER. PATIENT CANNOT COMPREHEND POC, I WILL PERFORM HOURLY ROUNDS. WHEN PATIENT FAMILY ARRIVE WILL EDUCATED THEM ABOUT POC FOR TODAY. THE BED IS LOWERED WITH HOB AT 45 DEGREES. WILL CONTINUE TO MONITOR.
[2017-02-07 08:00] VITALS: BP 154/78
[2017-02-07 08:02] LABS: BASOPHILS % (MANUAL) 0 % (0-2); EOSINOPHILS % (MANUAL) 3 % (0-4); LYMPHOCYTES % (MANUAL) 11 % (20-46); MONOCYTES % (MANUAL) 5 % (5-12)
--- NOTE | 2017-02-07 08:40 | NUR ---
PAGED DR JOHNSTON REGARDING PATIENTS POTASSIUM OF 2.9. WILL AWAIT CALL BACK.
--- NOTE | 2017-02-07 09:37 | NUR ---
PAGED DR JOHNSTON AGAIN REGARDING PATIENT'S POTASSIUM OF 2.9. WILL AWAIT FOR CALL BACK.
[2017-02-07] MEDS: DOCUSATE 100 MG/10 ML UDC GT SCH (09:47)
--- NOTE | 2017-02-07 09:47 | NUR ---
CHECKED FOR G TUBE PLACEMENT AND ASPIRATED 0 ML OF RESIDUAL. FLUSHED 10 CC OF WATER AND ADMINISTERED SCHEDULED MEDICATIONS. G TUBE IS PATENT AND FLUSHES WELL TO GRAVITY. PATIENT TOLERATED ACTIVITY WELL. GT FEEDING IS INFUSING WELL AT 50 ML/HR. IV WAS DISCONTINUED AND NEW IV IS ON THE L FOREARM 24G WITH IVF'S INFUSING WELL. PATIENT WAS THEN REPOSITIONED AND GIVEN PERINEAL CARE. THE BED IS LOWERED WITH CALL LIGHT WITHIN REACH. WILL CONTINUE TO MONITOR.
[2017-02-07] MEDS: AMANTADINE 100 MG CAP GT SCH (09:48)
[2017-02-07] MEDS: MULTIVITAMIN 5 ML ORASYR GT SCH (09:48)
[2017-02-07] MEDS: levETIRAcetam 100 MG/ML ORASYR GT SCH (09:48)
[2017-02-07] MEDS: METOPROLOL 25 MG TAB GT SCH (09:48)
[2017-02-07] MEDS: LACTOBACILLUS RHAMNOSUS GG 1 EACH CAP GT SCH (09:48)
[2017-02-07] MEDS: ASCORBIC ACID 500 MG/5 ML ORASYR GT SCH (09:50)
--- NOTE | 2017-02-07 09:50 | NUR ---
RECEIVED ORDERS FROM DR JOHNSTON FOR ONE TIME DOSE OF K RIDER 40 MEQ WITH L[address]AINE. WILL PLACE ORDERS.
[2017-02-07] MEDS ORDERED: POTASSIUM CHLORIDE 40 MEQ, LIDOCAINE 1% 25 MG in NACL 0.9% 250 ML IV SCH (11:40)
--- NOTE | 2017-02-07 12:30 | NUR ---
PATIENT TUBE FEEDING WAS CHANGED WITH ALL NEW LINES. IT IS RUNNING WELL AT 50 ML/HR WITH FREE H20 FLUSH AT 250ML Q8H. ADMINISTERED SCHEDULED MEDICATION WELL AND IS INFUSING WELL. THE BED IS LOWERED AND HOB IS AT 45 DEGREES. PATIENT SHOWS NO S/S OF ACUTE DISTRESS ON O2 2L VIA NC. WILL CONTINUE TO MONITOR.
--- NOTE | 2017-02-07 13:00 | NUR ---
PATIENT IS BEING SEEN BY DR JOHNSTON. PATIENT IS RESTING AND SHOWS NO S/S OF ACUTE DISTRESS.
[2017-02-07] MEDS: DEXT 5% /NACL 0.9% 1,000 ML IV SCH (13:58)
--- NOTE | 2017-02-07 15:00 | NUR ---
PATIENT SHOWS NO S/S OF ACUTE DISTRESS ON O2 2L VIA NC. FLACC 0. THE BED IS LOWERED WITH CALL LIGHT WITHIN REACH. WILL CONTINUE TO MONITOR.
[2017-02-07 16:00] VITALS: BP 153/85
--- NOTE | 2017-02-07 17:00 | NUR ---
PATIENT WAS GIVEN PERINEAL CARE AND REPOSITIONED. PATIENT WAS CHANGED INTO ORANGE GOWN. IV WAS DISCONTINUED WITH CANNULA INTACT. GT FEEDING STILL INFUSING WELL. THE BED IS LOWERED WITH CALL LIGHT WITHIN REACH.
--- NOTE | 2017-02-07 17:10 | NUR ---
LEFT VOICEMAIL FOR UGO HAMILTON AT [phone] REGARDING PATIENT BEING TRANSFERRED TO [facility] AT 1900. LEFT [facility]'S PHONE NUMBER IF HE HAD FURTHER QUESTIONS.
--- NOTE | 2017-02-07 17:15 | NUR ---
SPOKE WITH MILANA FROM [facility] REGARDING PATIENT REPORT. MILANA VERBALIZED UNDERSTANDING AND ALL QUESTIONS WERE ANSWERED.
--- NOTE | 2017-02-07 19:40 | NUR ---
[facility] ARRIVED ONTO UNIT AND IS TRANSFERRING PATIENT TO SNF. PATIENT IS APHASIC AND NONVERBAL. SHE IS RESTING AND IS EASILY AWAKEN WITH VOICE. PATIENT WAS DISCONNECTED FROM TUBE FEEDING. PATIENT SHOWS NO S/S OF DISTRESS ON O2 2L VIA NC. PATIENT IS UNABLE TO SIGN DISCHARGE INSTRUCTIONS. TWO RN'S SIGNED DISCHARGE INSTRUCTIONS. ALL BELONGINGS ARE IN PATIENT'S POSSESSION. IV WAS DISCONTINUED. WRISTBANDS WERE REMOVED. PATIENT LEFT UNIT IN STABLE CONDITION.
== END 2017-02-07 19:40 | DRG 252 ==
LOC: MED 12:34 → MTU 15:56
PROVIDERS: ADMIT Preventive Medicine Preventive Medicine/Occupational Environmental Medicine; ATTEND Preventive Medicine Preventive Medicine/Occupational Environmental Medicine
PROC: 0D20XUZ Change Feeding Device in Upper Intestinal Tract, External Approach (ICD-10-PCS; principal; 2017-02-06)
DX: K94.23 Gastrostomy malfunction (principal); F07.81 Postconcussional syndrome; I10 Essential (primary) hypertension; E11.9 Type 2 diabetes mellitus without complications; D72.829 Elevated white blood cell count, unspecified; E87.6 Hypokalemia; G40.909 Epilepsy, unspecified, not intractable, without status epilepticus; J45.909 Unspecified asthma, uncomplicated; Y83.3 Surgical operation with formation of external stoma as the cause of abnormal reaction of the patient, or of later complication, without mention of misadventure at the time of the procedure; Z87.820 Personal history of traumatic brain injury; Y92.89 Other specified places as the place of occurrence of the external cause
CPT/HCPCS: 36415; 43760; 74241; 80048; 81003; 82948; 85025; 85651; 86140; 87040; 87081; 99285; J1815; J2001; J3480; J7030; J7042; Q0092

== ENCOUNTER 2017-02-15 18:31 | Inpatient (IN) | payer MEDICAID ==
[2017-02-15] VITALS (11 sets, daily range): BP systolic 110–134; BP diastolic 62–92
[~2017-02-15] VITALS: Ht 167.6 cm; Wt 70.8 kg
--- NOTE | 2017-02-15 18:31 | NUR ---
Patient BIBA ACLS, transferred to bed 3. Dr. Weber and RN evaluating patient at bedside.
--- NOTE | 2017-02-15 18:31 | NUR ---
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 ER MD MADE AWARE OF PT STATUS.
--- NOTE | 2017-02-15 18:32 | NUR ---
Dr. Weber, RT and RN at bedside for endotracheal intubation.
--- NOTE | 2017-02-15 18:39 | NUR ---
ETOMIDATE 2O MG WAS GIVEN BY CHARGE NURSE AT 1839;SUCCINYLCHOLINE WAS GIVEN AT 100 MG WAS GIVEN BY CHARGE NURSE AT AROUND 1840.
--- NOTE | 2017-02-15 18:41 | NUR ---
CASS GARCÍA INTUBATE PT;SUCCESSFULLY DONE BY CASS GARCÍA;
[2017-02-15] MEDS ORDERED: PROPOFOL 200 MG/20 ML VIAL IV ONE (18:45)
[2017-02-15] MEDS ORDERED: PROPOFOL 1000 MG/100 ML PREMIX 100 ML IV ONE ×2 (18:57→19:15)
[2017-02-15 19:00] LABS: HEMATOCRIT 37.7 % (36-48); MEAN CORPUSCULAR HEMOGLOBIN 27 pg (27-31); MEAN CORPUSCULAR VOLUME 86 fL (80-94); PLATELET COUNT (AUTO) 284 K/uL (140-450); RED BLOOD CELL COUNT(AUTO) 4.39 MIL/uL (4.20-5.40); RED CELL DISTRIBUTION WIDTH 14.4 % (11.6-13.7)
[2017-02-15] MEDS ORDERED: VANCOMYCIN PER PHARMACY MC PRN (19:05)
[2017-02-15] MEDS ORDERED: VANCOMYCIN 1GM/DEXT 5% PREMIX 200 ML IV ONE (19:05)
[2017-02-15] MEDS ORDERED: PIPERACILLIN/TAZOBACTAM 4.5 GM in DEXTROSE 5% 100 ML IV ONE (19:05)
--- NOTE | 2017-02-15 19:05 | NUR ---
1830 PT BROUGHT IN BY PARAMEDICS GETTING A HHNTX. PT WAS NOT ALERT. PT TAKEN TO BED 3 AND INTUBATED WITH 7.0 TUBE AT 22CM LIP. SXNED PT FOR SPUTUM SAMPLE AND WAS SENT TO LAB. PT ON AC 12 VT 450 PEEP 5 AND 50% FIO2.
[2017-02-15] MEDS ORDERED: NACL 0.9% 3,000 ML IV ONE (19:10)
[2017-02-15] MEDS ORDERED: ACETAMINOPHEN 325 MG TAB GT PRN (19:20)
[2017-02-15] MEDS ORDERED: LORazepam 2 MG/ML VIAL IVP PRN (19:20)
[2017-02-15] MEDS ORDERED: HYDROcodone/APAP 5/325 MG 1 TAB TAB GT PRN (19:20)
[2017-02-15] MEDS ORDERED: ONDANSETRON 4 MG/2 ML VIAL IVP PRN (19:20)
[2017-02-15] MEDS ORDERED: SUCCINYLCHOLINE CHLORIDE 200 MG/10 ML VIAL IVP ONE (19:25)
[2017-02-15] MEDS ORDERED: ETOMIDATE 20 MG/10 ML VIAL IVP ONE (19:25)
[2017-02-15] MEDS ORDERED: PIPERACILLIN/TAZOBACTAM 2.25 GM VIAL IV ONE (19:27)
[2017-02-15] MEDS ORDERED: VANCOMYCIN 1,000 MG VIAL ONE (19:29)
--- NOTE | 2017-02-15 19:29 | NUR ---
Patient will be admitted to care of Dr. Valadez. Admited to ICU. Will go to room ICU 1 . Belongings list completed. Report to Christel AGUSTIN.
--- NOTE | 2017-02-15 19:38 | NUR ---
Vancomycin not administer in er d/t pt currently receiving zosyn.
--- NOTE | 2017-02-15 19:45 | NUR ---
RECIEVED PATIENT FROM ER. PATIENT IS SEDATED.PATIENT ON ETT NO 7 CONNECT TO VENT WITH VENT SETTING FI02 50,TV 450,RATE 12 PEEP 5 TOLERATED WELL,NO SOB NOTED. PATEINT CONT ON PROFOPOL ORDERED.IV LINE INTACT WELL. ON RIGHT HAND G22 AND LEFT HAND G 22. CONT ON CARDIAC MONITORING SHOW SR. JOHN LUNGS SOUND CRACKLES. GT IN PLACE,NPO AT THIS TIME.ABD SOFT NON DISTENDED.F/C INPLACE WITH YELLOW CLEAR URINE.NO EDEMA NOTED..
--- NOTE | 2017-02-15 19:48 | NUR ---
1939 TRANSFERED PT TO ICU BED 1. PT BEING BAGGED WITH 100% FIO2. REPLACED PT BACK ON VENT. AC 12 VT 450 PEEP 5 AND FIO2 50%.
[2017-02-15 19:50] LABS: APPEARANCE,URINE CLOUDY (CLEAR); BILIRUBIN,URINE NEGATIVE (NEGATIVE); BLOOD, URINE 2+ (NEGATIVE); COLOR,URINE YELLOW (YELLOW); LEUKOCYTE ESTERASE ,URINE 3+ (NEGATIVE); NITRITE, URINE NEGATIVE (NEGATIVE); PH,URINE 6.5 (5.0-9.0); UGLUCOSE TRACE (NEGATIVE)
[2017-02-15 19:52] LABS: RBC,URINE 0-5 (RARE) /HPF (0-5)
[2017-02-15 19:53] LABS: WBC,URINE TOO MANY TO COUNT /HPF (0-5)
--- NOTE | 2017-02-15 20:30 | NUR ---
SPECIMEN MRSA NARES COLLECTED. BLOOD WAS DRAWN BY FRONT OFFICE AGENT.
[2017-02-15 20:41] LABS: WHITE BLOOD COUNT (AUTO) 21.1 K/uL (4.8-10.8)
[2017-02-15 20:42] LABS: ANION GAP 13.2 (8-16); CARBON DIOXIDE 27.4 mmol/L (21-32); CREATININE 0.9 mg/dL (0.6-1.3); HEMOGLOBIN 11.8 g/dL (12.0-16.0); MEAN CORPUSCULAR HGB CONC 31 g/dL (33-37); POTASSIUM 3.6 mmol/L (3.5-5.1)
[2017-02-15 20:44] LABS: EOSINOPHILS % (MANUAL) 2 % (0-4); LYMPHOCYTES % (MANUAL) 25 % (20-46); MONOCYTES % (MANUAL) 1 % (5-12)
[2017-02-15 20:48] LABS: ALBUMIN 2.7 g/dL (3.4-5.0); TOTAL BILIRUBIN 0.8 mg/dL (0.0-1.0)
[2017-02-15] MEDS: DEXT 5% /NACL 0.9% 1,000 ML IV SCH ×2 (21:00→21:32)
[2017-02-15] MEDS ORDERED: LACTOBACILLUS ACIDOPHILUS GT SCH (21:00)
[2017-02-15] MEDS ORDERED: AMANTADINE HCL GT SCH (21:00)
[2017-02-15] MEDS ORDERED: ASCORBIC ACID 500 MG TAB GT SCH (21:00)
[2017-02-15 21:06] LABS: PROTHROMBIN TIME 12.2 secs (10.8-13.4)
--- NOTE | 2017-02-15 21:16 | NUR ---
PAGED DR. Mary JOHNSTON TO RELAY CRITICAL LAB RESULT.
[2017-02-15] MEDS: METOPROLOL 25 MG TAB GT SCH (21:29)
--- NOTE | 2017-02-15 21:29 | NUR ---
DR. TIRADO RETURN MY PAGED; REPORTED THE CRITICAL LAB RESULT AND ASKED HIM IF WE ARE GOING TO CONTINUE THE 3 LITER NS BOLUS ORDERED FROM THE ER, HE ORDERED NO NEED SINCE PATIENT'S BP IS OK,120-130 SYSTOLIC.
[2017-02-15] MEDS: SENNA 8.6 MG TAB GT SCH (21:30)
--- NOTE | 2017-02-15 21:30 | NUR ---
MEDICATION GIVEN VIA GT SWETHA WELL.
--- NOTE | 2017-02-15 22:00 | NUR ---
APPLY SCD SWETHA WELL
--- NOTE | 2017-02-15 22:18 | NUR ---
PATIENT'S SON UGO INFORMED BY TELEPHONE THAT HER MOTHER IS ADMITTED IN THIS HOSPITAL.
[2017-02-16] VITALS (38 sets, daily range): BP systolic 107–145; BP diastolic 58–79
--- NOTE | 2017-02-16 | NUR ---
MOUTH CARE GIVEN
[2017-02-16] MEDS ORDERED: PROPOFOL 1000 MG/100 ML PREMIX 100 ML IV PRN (00:05)
--- NOTE | 2017-02-16 01:00 | NUR ---
PATIENT TRIES TO OPEN EYES WHEN CALLING HER NAME.
--- NOTE | 2017-02-16 03:00 | NUR ---
HAVE LARGE BM SOFT PASTE BROWN COLOR PERINEAL CARE GIVEN.
[2017-02-16] MEDS ORDERED: PIPERACILLIN/TAZOBACTAM 3.375 GM VIAL IV ONE (03:50)
[2017-02-16] MEDS ORDERED: PIPERACILLIN/TAZOBACTAM 3.375 GM in DEXTROSE 5% 50 ML IV SCH (04:00)
--- NOTE | 2017-02-16 05:00 | NUR ---
ZOSYN IV GIVEN ORDERED. AM CARE GIVEN.
--- NOTE | 2017-02-16 06:26 | NUR ---
REC'D PT ON [place]ES[place]E VENT SETTINGS AC12 VT450 PEEP 5 FIO2 50% ALARMS ON AND FUNCTIONING PROPERLY, AMBU BAG AT SIDE OF VENTILATOR AND VENTILATOR IS PLUGGED INTO RED OUTLET, SXN PT MODERATE AMT OF THICK YELLOW SECRETIONS, B\S ARE CLEAR BILATERALLY, PT IS ORALLY INTUBATED WITH 7.0 ET TUBE SECURED WITH ANCHOR FAST AT 22CM MIDLINE AND SKIN INTEGRITY IS INTACT, PT IS RESTING WITH NO SIGNS OF DISTRESS NOTED AT THIS TIME
--- NOTE | 2017-02-16 07:30 | NUR ---
RECEIVED REPORT FROM JEEPER OPERATOR RN. PT IS SEDATED, ON PROPOFOL 5MCG/KG/MIN, RASS -3. BEDSIDE MONITOR SHOWS SR. PT ETT TO VENT WITH SETTING FIO2 50%, RR 12, TV 450, PEEP 5. LUNGS SOUND CLEAR, ABDOMEN SOFT WITH ACTIVE BOWEL SOUND, IV SITE INTACT AND PATENT, CEDEÑO CATH IN PLACE WITH SMALL AMOUNT OF CLEAR YELLOW URINE. SCDS IN PLACE, RASHES NOTED TO CEZAR AREA. SIDE RAILS UP X2, HOB ELEVATED 30 DEGREES WITH LOW BED POSITION, WILL CONTINUE TO MONITOR.
[2017-02-16] MEDS: DEXT 5% /NACL 0.9% 1,000 ML IV SCH (07:40)
--- NOTE | 2017-02-16 07:40 | NUR ---
ORAL CARE AND CEZAR CARE GIVEN.
--- NOTE | 2017-02-16 08:10 | NUR ---
CALLED DR. MENESES. NOTIFIED OF CXR CRITICAL RESULT. STATES SHE WILL BE HERE TO SEE PT. AND CHECK THE CXR WHEN SHE COMES.
[2017-02-16] MEDS ORDERED: ACETAMINOPHEN 650 MG/20.3 ML UDC GT PRN (08:48)
[2017-02-16] MEDS ORDERED: PROBIOTIC SCREEN 1 EA MISC MC PRN (08:50)
[2017-02-16] MEDS: METOPROLOL 25 MG TAB GT SCH ×2 (08:59→20:19)
[2017-02-16] MEDS ORDERED: VANCOMYCIN PER PHARMACY MC PRN (09:00)
[2017-02-16] MEDS: LACTOBACILLUS RHAMNOSUS GG 1 EACH CAP GT SCH ×2 (09:00→20:18)
[2017-02-16] MEDS ORDERED: ASCORBIC ACID 500 MG/5 ML ORASYR GT SCH ×2 (09:00→21:00)
[2017-02-16] MEDS: levETIRAcetam 100 MG/ML ORASYR GT SCH (09:00)
[2017-02-16] MEDS: AMANTADINE 100 MG CAP GT SCH ×2 (09:09→20:19)
--- NOTE | 2017-02-16 09:36 | NUR ---
PT'S SON APOLINAR AND DAUGHTER CAME IN, UPDATED PT'S CONDITION AND QUESTIONS ANSWERED.
[2017-02-16] MEDS: PANTOPRAZOLE 40 MG INJ VIAL IVP SCH (09:54)
--- NOTE | 2017-02-16 10:00 | NUR ---
IN TO SEE PT. UPDATED PT'S CONDITION, PER DR. MENESES, D/C PROPOFOL DRIP, WILL CARRY OUT.
--- NOTE | 2017-02-16 10:08 | NUR ---
AT PTS BEDSIDE TO PULL ET TUBE BACK TO 21CM AT RIGHT CORNER OF MOUTH WITH THE HELP OF RT TEJA AND AT 1010 SNX PT FOR SECOND SPUTUM COLLECTION SMALL AMT OF THICK YELLOW SECRETIONS
--- NOTE | 2017-02-16 11:02 | NUR ---
VENT CHECK, NO SXN REQUIRED AT THIS TIME, B\S ARE CLEAR AND AIRWAY IS PATENT
--- NOTE | 2017-02-16 11:32 | NUR ---
PATIENT HAS BEEN SCREENED AND CATEGORIZED HIGH NUTRITION RISK. PATIENT WILL BE SEEN WITHIN 1-2 DAYS OF ADMISSION. 02/16/17-02/17/[address]
--- NOTE | 2017-02-16 12:05 | NUR ---
PT OPENS EYES, BUT UNABLE TO FOLLOW COMMANDS.
[2017-02-16] MEDS: PIPER/TAZO 3.375GM/D5W PREMIX 50 ML IV SCH ×2 (12:33→20:04)
--- NOTE | 2017-02-16 13:00 | NUR ---
STARTED PT ON TUBE FEEDING, PLACEMENT CHECKED.
--- NOTE | 2017-02-16 13:04 | NUR ---
02/16/17 RD INITIAL ASSESSMENT COMPLETED PLEASE REFER TO NUTRITION ASSESSMENT UNDER CARE ACTIVITY FOR ESTIMATED NUTRITIONAL NEEDS. 1. CONTINUE CURRENT ENTERAL NUTRITION SUPPORT - NUTREN PULMONARY AT 30 ML/HR + 50 ML FWF Q4H (PROVIDES 1080 KCAL, 48 G PROTEIN - MEETS 83% KCAL + 50% PROTEIN NEEDS) 2. ADD PROSOURCE VIA G-TUBE 3X/DAILY TO BETTER MEET PROTEIN NEEDS (PROVIDES ADDITIONAL 180 KCAL & 45 G PROTEIN) 3. RD TO FOLLOW-UP 2-3 DAYS, HIGH RISK MASON MENDEZ RD
--- NOTE | 2017-02-16 13:28 | NUR ---
VENT CHECK, SXN PT SMALL AMT OF YELLOW SECRETIONS, PT IS RESTING WITH NO SIGNS OF DISTRESS NOTED
--- NOTE | 2017-02-16 14:10 | NUR ---
REPOSITIONED PT, OFF LOAD PRESSURE AREA. NO S/S OF RESPIRATORY DISTRESS NOTED.
--- NOTE | 2017-02-16 15:03 | NUR ---
vent check, no sxn required at this time, b\s are clear and airway is patent
--- NOTE | 2017-02-16 16:55 | NUR ---
VENT CHECK, SXN PT SMALL AMT OF YELLOW SECRETIONS, PT IS RESTING WITH NO SIGNS OF DISTRESS NOTED AT THIS TIME
--- NOTE | 2017-02-16 18:10 | NUR ---
PT OPENS EYES, UNABLE TO FOLLOW COMMANDS, VITALS STABLE. NO SOB.
--- NOTE | 2017-02-16 19:04 | NUR ---
LOWERED FIO2 TO 40%. MOVED TUBE TO RT SIDE OF LIP. SXNED SMALL AMT CLEAR SECRETIONS.. NO SOB NOTED
--- NOTE | 2017-02-16 19:18 | NUR ---
REPORT GIVEN TO WHARFINGER CHIEF RN. PT IN STABLE CONDITION.
[2017-02-16] MEDS: SENNA 8.6 MG TAB GT SCH (20:18)
[2017-02-16] MEDS: DOCUSATE 100 MG/10 ML UDC GT SCH (20:18)
[2017-02-16] MEDS: ASCORBIC ACID 500 MG TAB GT SCH (20:18)
[2017-02-16] MEDS ORDERED: VANCOMYCIN 1GM/DEXT 5% PREMIX 200 ML IV SCH (21:00)
--- NOTE | 2017-02-16 21:10 | NUR ---
LOWERED FIO2 TO 30% SATS 99% NO SOB NOTED. PT IS MORE AWAKE
--- NOTE | 2017-02-16 22:00 | NUR ---
OPEN EYES TO TACTILE STIMULUS, SR ON THE MONITOR, ETT TO VENT, NO RESPIRATORY DISTRESS, GT FEEDING NUTREN PULMONARY AT 30 ML/HR, TOLERATING FEEDING WELL, NO GT RESIDUAL OBTAINED, HOB ELEVATED AT 30 DEGREES, GT DRESSING CHANGED.IV SITE ON RIGHT HAND NOTED SWOLLEN AND TENDER TO TOUCH, IVF OF D5 1/2 NS INFUSED TO IV SITE ON LEFT HAND G#22. CEDEÑO CATH DRAINING YELLOW URINE, CEDEÑO CATH CARE PROVIDED. TURNED AND REPOSITIONED, FLACC 0. Addendum: 02/17/17 at 0250 by Magdalena Dolan RN WRONG TIME ENTRY, NOT AT 2200, SHOULD BE 1999
--- NOTE | 2017-02-16 22:15 | NUR ---
IV SITE ON LEFT HAND NOTED RED, VANCOMYCIN IVPB INFUSING, STOPPED INFUSION AND PLACED NEW IV LINE ON LEFT WRIST G#22. PATIENT TURNED AND REPOSITIONED, FLACC 0.
[2017-02-17] VITALS (24 sets, daily range): BP systolic 107–140; BP diastolic 60–76
--- NOTE | 2017-02-17 00:21 | NUR ---
NO RESPIRATORY DISTRESS, GT FEEDING TOLERATING WELL, FLACC 0.
[2017-02-17] MEDS: DEXT 5% /NACL 0.9% 1,000 ML IV SCH ×3 (01:20→21:20)
--- NOTE | 2017-02-17 02:30 | NUR ---
RESTING COMFORTABLY, NO DISTRESS NOTED.
--- NOTE | 2017-02-17 04:00 | NUR ---
NEW IV PERIPHERAL LINE PLACED ON RIGHT HAND G#22 WITH GOOD BLOOD RETURN. ORAL CARE WITH VAP KIT PROVIDED, NO RESIDUAL OBTAINED FROM GT , NO RESPIRATORY DISTRESS, FLACC 0.
[2017-02-17 04:52] LABS: HEMATOCRIT 29.6 % (36-48); HEMOGLOBIN 9.3 g/dL (12.0-16.0); MEAN CORPUSCULAR HEMOGLOBIN 27 pg (27-31); MEAN CORPUSCULAR HGB CONC 31 g/dL (33-37); MEAN CORPUSCULAR VOLUME 86 fL (80-94); PLATELET COUNT (AUTO) 219 K/uL (140-450); RED BLOOD CELL COUNT(AUTO) 3.43 MIL/uL (4.20-5.40); RED CELL DISTRIBUTION WIDTH 14.6 % (11.6-13.7); WHITE BLOOD COUNT (AUTO) 18.2 K/uL (4.8-10.8)
[2017-02-17] MEDS: PIPER/TAZO 3.375GM/D5W PREMIX 50 ML IV SCH (04:55)
[2017-02-17 06:05] LABS: ANION GAP 9.6 (8-16); CREATININE 0.6 mg/dL (0.6-1.3)
[2017-02-17 06:09] LABS: POTASSIUM 2.6 mmol/L (3.5-5.1)
--- NOTE | 2017-02-17 06:20 | NUR ---
REC'D PT ON CARESCAPE VENT SETTINGS AC12 VT 450 PEEP 5 FIO2 30% ALARMS ON AND FUNCTIONING PROPERLY, AMBU BAG AT SIDE OF VENTILATOR AND VENTILATOR IS PLUGGED INTO RED OUTLET, SXN PT SMALL AMT OF THIN YELLOW SECRETIONS, B\S ARE CLEAR BILATERALLY, PT IS ORALLY INTUBATED WITH 7.0 ET TUBE SECURED WITH ANCHOR FAST AT 20 CM AT MIDLINE
[2017-02-17] MEDS ORDERED: NACL 0.9% IV SCH (06:30)
[2017-02-17] MEDS ORDERED: POTASSIUM CHLORIDE IV SCH (06:30)
--- NOTE | 2017-02-17 06:46 | NUR ---
AM CARE PROVIDED, GT FEEDING TOLERATED WELL, NO RESPIRATORY DISTRESS, TURNED AND REPOSITIONED, HOB ELEVATED, FLACC 0.
[2017-02-17 07:05] LABS: EOSINOPHILS % (MANUAL) 1 % (0-4); LYMPHOCYTES % (MANUAL) 8 % (20-46); MONOCYTES % (MANUAL) 4 % (5-12)
--- NOTE | 2017-02-17 07:20 | NUR ---
RECEIVED REPORT FROM NIGHT RN FOR CONTINUITY OF CARE.
[2017-02-17] MEDS ORDERED: COMMUNICATION ORDER MC PRN (07:25)
--- NOTE | 2017-02-17 08:58 | NUR ---
VENT CHECK, NO SXN REQUIRED AT THIS TIME, B\S CLEAR AND AIRWAY IS PATENT RN RAWI AT BEDSIDE
[2017-02-17] MEDS: POTASSIUM CHLORIDE 60 MEQ, LIDOCAINE 1% 25 MG in NACL 0.9% 500 ML IV SCH ×2 (09:05→15:13)
[2017-02-17] MEDS: levETIRAcetam 100 MG/ML ORASYR GT SCH (09:24)
[2017-02-17] MEDS: AMANTADINE 100 MG CAP GT SCH ×2 (09:24→21:46)
[2017-02-17] MEDS: DOCUSATE 100 MG/10 ML UDC GT SCH ×2 (09:24→21:35)
[2017-02-17] MEDS: LACTOBACILLUS RHAMNOSUS GG 1 EACH CAP GT SCH ×2 (09:24→21:36)
[2017-02-17] MEDS: PANTOPRAZOLE 40 MG INJ VIAL IVP SCH (09:24)
--- NOTE | 2017-02-17 09:24 | NUR ---
DR.DHAWAN Kee WAS NOTIFIED OF URINE CULTURE REPORT WITH E.COLI-ESBL AND MDRO. CONTINUE SAME ANTIBIOTICS PER . PLACED PATIENT ON CONTACT ISOLATION PRECAUTIONS.
[2017-02-17] MEDS: MULTIVITAMIN 5 ML ORASYR GT SCH (09:25)
[2017-02-17] MEDS: ASCORBIC ACID 500 MG TAB GT SCH ×2 (09:25→21:37)
[2017-02-17] MEDS: METOPROLOL 25 MG TAB GT SCH ×2 (09:26→21:39)
--- NOTE | 2017-02-17 11:14 | NUR ---
VENT CHECK, SXN PT SMALL AMT OF THIN YELLOW SECRETIONS, B\S ARE CLEAR AND AIRWAY IS PATENT PT IS RESTING
--- NOTE | 2017-02-17 11:27 | NUR ---
CHANGED VENT SETTINGS TO CPAP [address] MENESES FOR WEANING
--- NOTE | 2017-02-17 12:30 | NUR ---
PLACED PT BACK ON AC MODE DUE TO PT APNEIC
[2017-02-17] MEDS ORDERED: KCL 20 MEQ/WATER INJ PREMIX 200 ML IV ONE (12:45)
[2017-02-17] MEDS: Z-GUARD PASTE TP SCH (13:00)
--- NOTE | 2017-02-17 13:00 | NUR ---
WOUND CARE EVALUATION NOTES: REASON FOR EVALUATION: SACROCOCCYX ERYTHEMA COMPLETE SKIN ASSESSMENT DONE ON THIS 61 Y/O FEMALE PATIENT FROM [facility] TO [facility], WITH INITIAL DIAGNOSIS SOB, ALTERED MENTAL STATUS. PAST MEDICAL AND SURGICAL HISTORY INCLUDE HTN, SEIZURE, DM, G-TUBING, MULTIPLE SKULL FRACTURES AND CRANIECTOMY. ALL ABOVE INFORMATION WAS OBTAINED FROM THE ADMISSION H&P. LABS ARE WBC 18.2, H/H 9.3/29.6, GLUCOSE 289, PT/INR 12.2/1.2 AND PTT 21. CURRENT MEDS INCLUDE VANCOMYCIN, PIPERACILLIN, LORAZEPAM, LEVETIRACETAM AND HYDROCODONE. PT IS ON CONTACT PRECAUTION FOR E-COLI ESBL, MDRO. PATIENT IS NON-VERBAL, OPENS EYES WHEN TOUCHED. PT ABLE TO TRACK MOVEMENT. FC 16FR PATENT WITH CLEAR YELLOW URINE OUTPUT. SKIN WARM TO TOUCH WNL, S/P CRANIOTOMY LEFT SIDE OF HEAD, FULL HAIR GROWTH. +1 EDEMA BLE, CAPILLARY REFILLED <3 SEC. BILATERAL PEDAL PULSES PRESENT AND STRONG. LUQ G-TUBE PATENT AND RECEIVING NUTREN PULMONARY AT 30ML/HR + 50ML FWF Q4H. PT. NEEDS MAX ASSISTANCE IN TURNING. INITIAL PLAN OF CARE AND PRESSURE PREVENTIVE MEASURES DISCUSSED WITH PRIMARY CARE NURSE. INTEGUMENTARY: SKIN DRY AND INTACT MID ABDOMEN.-OLD SURGICAL SCAR RIGHT HAND-EDEMA( PREVIOUS IV SITE) SACROCOCCYX-BLANCHABLE REDNESS LEFT AND RIGHT MEDIAL THIGHS-INCONTINENT ASSOCIATE DERMATITIS PERINEAL- INCONTINENT ASSOCIATE DERMATITIS G-TUBE STOMA SITE DRY AND CLEAN RECOMMENDATIONS: -CLEANSE LEFT AND RIGHT MEDIAL THIGHS WITH SOAP AND WATER, PAT DRY, APPLY ANTIFUNGAL CREAM BID AND PRN IF SOILING, VIVIANA -CLEANSE PERINEAL AREA WITH SOAP AND WATER, PAT DRY, APPLY Z GUARD BID AND PRN IF SOILING, DIRECTOR OF RESTAURANT -ASSESS AND MONITOR BLANCHABLE REDNESS ON SACROCOCCYX AREA DURING POSITION CHANGE AND NOTIFY MD OF ANY ABNORMAL CHANGES -TURN AND REPOSITION PATIENT Q2H -OFFLOAD BILATERAL HEELS BY PLACING PILLOWS UNDER CALVES AT ALL TIMES, UNLESS OTHERWISE CONTRAINDICATED -KEEP SKIN CLEAN AND DRY AT ALL TIMES. -PRESSURE REDISTRIBUTION SURFACE THERAPY. -FOLLOW RD RECOMMENDATIONS TO MEET NUTRITIONAL/ HYDRATION NEEDS RECOMMENDATIONS DISCUSSED WITH PRIMARY RN. WILL FOLLOW UP PATIENT Q 7-10 DAYS AND PRN. PLEASE CONTACT WOUND CARE NURSE FOR ANY CONCERNS, QUESTIONS AND CHANGES IN SKIN CONDITION.
[2017-02-17] MEDS: MEROPENEM 1,000 MG in NACL 0.9% 100 ML IV SCH ×2 (13:20→21:42)
--- NOTE | 2017-02-17 13:20 | NUR ---
VENT CHECK, PT SLEEPING WITH NO SIGNS OF DISTRESS NOTED AT THIS TIME
--- NOTE | 2017-02-17 13:41 | NUR ---
SS NOTE: SENT CURRENT MICROBIOLOGY TO [facility], RECEIVED FAX CONFIRMATION
[2017-02-17] MEDS ORDERED: MILD SOAP AND WATER TP PRN (14:10)
--- NOTE | 2017-02-17 15:05 | NUR ---
VENT CHECK, NO SXN REQUIRED AT THIS TIME, B\S ARE CLEAR AND AIRWAY IS PATENT
--- NOTE | 2017-02-17 17:40 | NUR ---
VENT CHECK, NO SXN REQUIRED AT THIS TIME, PT IS RESTING
--- NOTE | 2017-02-17 19:06 | NUR ---
RECEIVED PT STABLE ON VENT SUPPORT AT DOCUMENTED SETTINGS, SXN'D SMALL THIN YELLOW SECRETIONS, NO RESP DISTRESS OR SOB NOTED, 7.0 ETT SECURED AT 20 CM AT THE LIP, ALARMS SET AND AUDIBLE, BAG MASK AT BEDSIDE, VENT PLUGGED INTO RED OUTLETS, WILL CONTINUE TO MONITOR.
--- NOTE | 2017-02-17 19:10 | NUR ---
Report taken from Day Nurse Kaylen - RN with resume care. Pt's on vent AC 12, TC 450, PEEP 5 via ETT 7.0 LIP 20 CM, tolerating well. PEG TUBE Feeding on Nutren rate at 40 mls , tolerating well. Hartman Cath insitu, gravity to floor, clear urine , light yellow, no odor noted. Keep HOB 30 , lung sound bi laterally diminish.
--- NOTE | 2017-02-17 20:00 | NUR ---
PT'S ASLEEP, REPOSITION DONE, KEEP HOB 30 WITH TOLERATING WELL. BACK RUB DONE , SKIN CARE DONE , SMEAR STOOL NOTED WITH MATTY ANAL CARE DONE . ORAL CARE DONE , WHITISH SECRETION NOTED.
--- NOTE | 2017-02-17 21:00 | NUR ---
DUE MEDICATION GIVEN ORDER WITH NO REACTION NOTED
--- NOTE | 2017-02-17 21:30 | NUR ---
DR EDWARDS VISIT TO PT, NO NEW AT THIS TIME
[2017-02-17] MEDS: SENNA 8.6 MG TAB GT SCH (21:38)
[2017-02-17] MEDS: MILD SOAP AND WATER TP SCH (21:43)
--- NOTE | 2017-02-17 22:00 | NUR ---
RE POSITION DONE , FEEDING TOLERATING WELL, NO STRESS, NO SIGN AND SYMPTOM OF PAIN, KEEP HOB @ 30 WITH TOLERATING WELL.
[2017-02-18] VITALS (24 sets, daily range): BP systolic 107–160; BP diastolic 60–86
--- NOTE | 2017-02-18 | NUR ---
ORAL CARE DONE, SUCTION DONE WITH WHITISH, MUCOUS NOTED, MODERATE AMOUNT NOTED. REPOSITION DONW , PARTIAL SKIN CARE GIVEN .
[2017-02-18] MEDS: Z-GUARD PASTE TP SCH ×2 (01:49→13:00)
--- NOTE | 2017-02-18 02:00 | NUR ---
PT'S ASLEEP , NO STRESS. NO PAIN, COMFORTABLE AT HOB 30 , FEEDING TOLERATING WELL
--- NOTE | 2017-02-18 04:00 | NUR ---
TOTAL CARE DONE, BED BATH GIVEN, BEDSHEET, ALL LINEN CHANGED CHANGED. ORAL CARE GIVEN. MATTY ANAL CARE DONE, CEDEÑO CATH GIVEN , WASH WITH SOAP AND WATER AT PUBIC AREA, SKIN CARE DONE . PEG TUBE CARE AND SURROUNDING SKIN CARE DONE , NEW DRESSING APPLIED. KEEP HOB AT 30 WITH TOLERATING WELL. PT'S RESTING WELL AFTER CARE WITH TOLERATING WELL.
[2017-02-18 04:53] LABS: BASOPHILS # (AUTO) 0.1 K/uL (0.00-0.22); BASOPHILS % (AUTO) 0.6 % (0.0-2.0); EOSINOPHILS # (AUTO) 0.3 K/uL (0-0.4); EOSINOPHILS % (AUTO) 2.1 % (0.0-4.0); HEMATOCRIT 28.4 % (36-48); HEMOGLOBIN 8.6 g/dL (12.0-16.0); LYMPHOCYTES # (AUTO) 1.1 K/uL (2.5-16.5); LYMPHOCYTES % (AUTO) 8.1 % (20.5-51.1); MEAN CORPUSCULAR HEMOGLOBIN 26 pg (27-31); MEAN CORPUSCULAR HGB CONC 31 g/dL (33-37); MEAN CORPUSCULAR VOLUME 86 fL (80-94); MONOCYTES # (AUTO) 0.7 K/uL (0.8-1.0); MONOCYTES % (AUTO) 5.7 % (1.7-9.3); NEUTROPHILS # (AUTO) 10.9 K/uL (1.8-7.7); NEUTROPHILS % (AUTO) 83.5 % (42.2-75.2); PLATELET COUNT (AUTO) 208 K/uL (140-450); RED BLOOD CELL COUNT(AUTO) 3.29 MIL/uL (4.20-5.40); RED CELL DISTRIBUTION WIDTH 14.8 % (11.6-13.7)
[2017-02-18] MEDS: MEROPENEM 1,000 MG in NACL 0.9% 100 ML IV SCH ×3 (05:10→22:26)
[2017-02-18 05:59] LABS: ANION GAP 11.4 (8-16); CREATININE 0.5 mg/dL (0.6-1.3); POTASSIUM 3.4 mmol/L (3.5-5.1)
--- NOTE | 2017-02-18 06:00 | NUR ---
MORNING CARE DONE . REFRESHMENT DONE. TOTAL URINE OUTPUT 1900 WITH ELLOW , CLEAR URINE, NO BM NOTED. KEEP HOB AT 30 WITH TOLERATING WELL.
[2017-02-18] MEDS: DEXT 5% /NACL 0.9% 1,000 ML IV SCH ×2 (07:20→12:43)
[2017-02-18 07:22] LABS: WHITE BLOOD COUNT (AUTO) 13.1 K/uL (4.8-10.8)
--- NOTE | 2017-02-18 07:45 | NUR ---
REPORT ENDORSE TO DAY NURSE MARCIAI -RN WITH RESUME CARE
--- NOTE | 2017-02-18 08:00 | NUR ---
RECEIVED PATIENT WITH STABLE CONDITION FROM THE NIGHT NURSE. PATIENT OPENS EYES TO NAME,BUT NOT TRACKING. DOES NOT FOLLOW COMMAND. ORALLY INTUBATED AND ON VENTILATOR FIO2=30%,TV 450 ML,AC 12,PEEP 5 CM. NO SIGN OF RESP DISTRESS. LUNG SOUNDS EQUAL WITH SOME RHONCHI IN BASES. SUCTIONED VIA ETT WITH SMALL THICK BLOOD TINGED MUCUS. WEAK COUGH NOTED. ORAL CARE GIVEN W/VAP ORAL CARE KIT. SINUS RHYTHM ON MONITOR. ABDOMEN IS SOFT. G-TUBE IN PLACE W/10 ML RESIDUAL. CONTINUE TUBE FEEDING NUTREN PULMONARY @ 40 ML/HR AND WATER FLUSH @ 50 ML Q4H. CEDEÑO CATH IN PLACE W/FAIR AMT OF CLEAR YELLOW URINE. GENERALIZED SEVERE WEAKNESS WITH STIFF LEGS. ERYTHEMA TO SACROCOCCYX TO PERINEAL AREA. 1+EDEMA OF BOTH ARMS AND FEET. PATIENT HAS IV OF D5/NS @ 100 ML/HR. REPOSITIONED,OFF LOAD PRESSURE AREA. CONTINUE TO MONITOR PATIENT.
[2017-02-18] MEDS: levETIRAcetam 100 MG/ML ORASYR GT SCH (09:45)
[2017-02-18] MEDS: DOCUSATE 100 MG/10 ML UDC GT SCH ×2 (09:45→22:26)
[2017-02-18] MEDS: LACTOBACILLUS RHAMNOSUS GG 1 EACH CAP GT SCH ×2 (09:45→22:27)
[2017-02-18] MEDS: METOPROLOL 25 MG TAB GT SCH ×2 (09:46→22:27)
[2017-02-18] MEDS: ASCORBIC ACID 500 MG TAB GT SCH ×2 (09:48→22:28)
[2017-02-18] MEDS: AMANTADINE 100 MG CAP GT SCH ×2 (09:48→22:26)
[2017-02-18] MEDS: MULTIVITAMIN 5 ML ORASYR GT SCH (09:48)
[2017-02-18] MEDS: PANTOPRAZOLE 40 MG INJ VIAL IVP SCH (09:49)
[2017-02-18] MEDS: MILD SOAP AND WATER TP SCH ×2 (09:51→21:00)
--- NOTE | 2017-02-18 10:00 | NUR ---
CONDITION IS UNCHANGED. SUCTIONED AND REPOSITIONED. OFF LOAD PRESSURE AREA.
--- NOTE | 2017-02-18 11:30 | NUR ---
RESP THERAPIST PLACED PATIENT ON CPAP WITH PRESSURE SUPPORT 15 , PEEP 5 CM AND FIO2=30%. CONTINUE TO MONITOR RESPIRATORY STATUS.
--- NOTE | 2017-02-18 12:00 | NUR ---
SINUS RHYTHM ON MONITOR. BP IS WITHIN NORMAL. BOTH ARMS 2+EDEMA. ELEVATED BOTH ARMS ON PILLOWS. ORAL CARE GIVEN,SUCTIONED AND REPOSITIONED. G-TUBE IN PLACE WITH 10 ML RESIDUAL. HANG NEW TUBE FEEDING BAG WITH NEW TUBING.
[2017-02-18] MEDS ORDERED: POTASSIUM CHLORIDE 10 MEQ TABER PO SCH (12:15)
--- NOTE | 2017-02-18 12:15 | NUR ---
REPORT GIVEN TO NURSE MARIA TERESA AGUSTIN FOR CONTINUITY OF CARE.
[2017-02-18] MEDS ORDERED: POTASSIUM CHLORIDE 20% 40 MEQ/15 ML UDC GT SCH (12:35)
--- NOTE | 2017-02-18 14:04 | NUR ---
PATIENT IS ON VENT WITH CPAP MODE. TOLERATING FAIRLY WELL. RESP RATE 18/MIN , O2 SAT 99%. CONT TO MONITOR PATIENT.
--- NOTE | 2017-02-18 16:09 | NUR ---
PT OPENS EYES, UNABLE TO FOLLOW COMMANDS. TURNED AND REPOSITIONED PT.NO S/S OF RESPIRATORY DISTRESS NOTED. ORAL CARE GIVEN.
--- NOTE | 2017-02-18 18:10 | NUR ---
PT AWAKE, NO S/S OF RESPIRATORY DISTRESS NOTED. VITALS STABLE. WILL CONTINUE TO MONITOR.
[2017-02-18] MEDS ORDERED: DEXTROSE 50% 50 ML SYR IVP PRN (18:15)
[2017-02-18] MEDS: BLOOD GLUCOSE MONITORING 1 DEV DEV FS SCH (18:53)
[2017-02-18] MEDS: INSULIN LISPRO SLIDING SCALE 100 UNITS/ML VIAL SUBQ PRN (19:01)
--- NOTE | 2017-02-18 19:15 | NUR ---
REPORT TAKEN FROM DAY NURSE WITH RESUME CARE, PT'S ON VENT AC 12 , TV 500, PEEP 5 , FIO2 30% VIA ETT 7.0, LIP 24 CM , TOLERATING WELL. KEEP HOB 30 WITH PREVENTION FROM ASPIRATION VIA PEG TUBE FEEDING . CONTINUE PEG TUBE FEEDING WITH NUTREN @30 MLS / HOURS , TOLERATING WELL. CEDEÑO CATH IN SITU , GRAVITY TO FLOOR , LIGHT YELLOW COLOR WITH CLEAR. PT'S CONTACT ISOLATION ESBL, MEDRO . FIRST VISIT TO PT, PT'S ASLEEP. NO PAIN DISTRESS, NO RESPIRATORY DISTRESS. KEEP HOB @ 30 WITH TOLERATING WELL.
--- NOTE | 2017-02-18 19:28 | NUR ---
REPORT GIVEN TO BRIM MOLDER RN. PT IN STABLE CONDITION AT THIS TIME.
--- NOTE | 2017-02-18 20:00 | NUR ---
ORAL CARE DONE. PARTIAL SKIN CARE GIVEN, LOTION APPLIED. REPOSITION DONE TO LEFT LATERAL, KEEP HOB @ 30 DEGREE WITH TOLERATING WELL. CLEAN WITH SOUP AND WATER AT PUBIC PART AND SKIN CARE APPLIED. FEEDING TOLERATING WELL, NO RESIDUAL NOTED.
--- NOTE | 2017-02-18 21:00 | NUR ---
REPOSITION DONE , DUE MEDS GIVEN
--- NOTE | 2017-02-18 22:00 | NUR ---
REPOSITION DONE , FEEDING TOLERATING WELL. DR EDWARDS CAME AND NO NEW ORDER
[2017-02-18] MEDS: SENNA 8.6 MG TAB GT SCH (22:27)
[2017-02-19] VITALS (24 sets, daily range): BP systolic 118–168; BP diastolic 60–82
--- NOTE | 2017-02-19 | NUR ---
PARTIAL SKIN CARE DONE , ORAL CARE DONE . REPOSITION DONE , KEEP HOB 30 WITH RESUME CARE
[2017-02-19] MEDS: INSULIN LISPRO SLIDING SCALE 100 UNITS/ML VIAL SUBQ PRN ×3 (00:43→13:04)
[2017-02-19] MEDS: BLOOD GLUCOSE MONITORING 1 DEV DEV FS SCH ×4 (00:44→18:02)
[2017-02-19] MEDS: Z-GUARD PASTE TP SCH ×2 (01:00→13:32)
--- NOTE | 2017-02-19 02:00 | NUR ---
PT IS ASLEEP WITH NO STRESS, NO GARCÍA
--- NOTE | 2017-02-19 04:00 | NUR ---
RE POSITION DONE, TOTAL CARE DONE , ORAL CARE DONE. LINEN CHANGED, BLOOD WORK DONE .PT'S ASLEEP, RESTING COMFORTABLE. KEEP HOB 30 WITH TOLERATING WELL.
[2017-02-19] MEDS: MEROPENEM 1,000 MG in NACL 0.9% 100 ML IV SCH ×3 (05:19→20:24)
--- NOTE | 2017-02-19 06:00 | NUR ---
ACCU CHECK DONE, SLIDING SCALE GIVEN
[2017-02-19 06:16] LABS: ANION GAP 11.5 (8-16); CARBON DIOXIDE 24.7 mmol/L (21-32); CREATININE 0.5 mg/dL (0.6-1.3); POTASSIUM 3.2 mmol/L (3.5-5.1)
--- NOTE | 2017-02-19 07:13 | NUR ---
REPORT ENDORSE TO DAY NURSE WITH RESUME CARE
--- NOTE | 2017-02-19 07:13 | NUR ---
RECEIVED PT STABLE ON VENT SUPPORT AT DOC. SETTINGS SUCTIONED SCANT AMOUNT CLEAR THIS SECRETIONS, NO RESPIRATORY /SOB NOTED. 7.0 ETT SECURED @20 CM @ LIP,ALARMS SET AN AUDOIBLE, BMV AT BEDSIDE,VENT PLUGGED INTO RED OUTLET, WILL CONT. TO MONITOR
--- NOTE | 2017-02-19 07:30 | NUR ---
RECEIVED REPORT FROM HUMAN RESOURCES ASSISTANT RN. PT OPENS EYES SPONTANEOUSLY, BEDSIDE MONITOR SHOWS SR. ETT TO VENT WITH FIO2 30%, TV 450, AC 12, PEEP 5, NO S/S OF RESPIRATORY DISTRESS NOTED. ABDOMEN SOFT, WITH ACTIVE BOWEL SOUND NOTED, G-TUBE IN PLACE, RESIDUAL CHECKED 20 ML, RETURNED IT BACK. SKIN ( SEE WOUND ASSESSMENT), CEDEÑO CATH IN PLACE WITH CLEAR YELLOW URINE NOTED. IV TO LEFT HAND AND WRIST, SITE INTACT AND PATENT. VITALS STABLE. WILL CONTINUE TO MONITOR.
[2017-02-19] MEDS: MILD SOAP AND WATER TP SCH ×2 (09:00→20:28)
--- NOTE | 2017-02-19 09:00 | NUR ---
DUE MEDS GIVEN, TOLERATED WELL
--- NOTE | 2017-02-19 09:22 | NUR ---
PLACED ON CPAP 5 PSV 15 FIO2 30% PER WEAN ORDER, MARIA TERESA AGSUTIN AWARE, WILL CONTINUE TO MONITOR.
[2017-02-19] MEDS: MULTIVITAMIN 5 ML ORASYR GT SCH (09:40)
[2017-02-19] MEDS: METOPROLOL 25 MG TAB GT SCH ×2 (09:41→20:28)
[2017-02-19] MEDS: AMANTADINE 100 MG CAP GT SCH ×2 (09:41→20:25)
[2017-02-19] MEDS: DOCUSATE 100 MG/10 ML UDC GT SCH ×2 (09:41→20:24)
[2017-02-19] MEDS: levETIRAcetam 100 MG/ML ORASYR GT SCH (09:41)
[2017-02-19] MEDS: LACTOBACILLUS RHAMNOSUS GG 1 EACH CAP GT SCH ×2 (09:42→20:24)
[2017-02-19] MEDS: ASCORBIC ACID 500 MG TAB GT SCH ×2 (09:42→20:25)
[2017-02-19] MEDS: PANTOPRAZOLE 40 MG INJ VIAL IVP SCH (09:43)
--- NOTE | 2017-02-19 12:00 | NUR ---
ORAL CARE GIVEN, TURNED AND REPOSITIONED PT. NO S/S OF RESPIRATORY DISTRESS NOTED.
[2017-02-19] MEDS: NACL 0.9% 1,000 ML IV SCH (12:25)
--- NOTE | 2017-02-19 12:27 | NUR ---
PAGED DR. Mary JOHNSTON REGARDING LOW POTASSIUM: 3.2. AWAITING CALLBACK.
--- NOTE | 2017-02-19 12:34 | NUR ---
RECEIVED CALLBACK FROM DR. Mary JOHNSTON, NEW ORDERS RECEIVED
--- NOTE | 2017-02-19 12:40 | NUR ---
02/19/17 RD FOLLOW-UP ASSESSMENT COMPLETED PLEASE REFER TO NUTRITION ASSESSMENT UNDER CARE ACTIVITY FOR ESTIMATED NUTRITIONAL NEEDS. 1. CONTINUE CURRENT ENTERAL NUTRITION SUPPORT VIA G-TUBE - NUTREN PULMONARY AT 30 ML/HR + 50 ML FWF Q4H 2. ADD PROSOURCE TID (PROVIDES ADDITIONAL 180 KCAL, 45G PROTEIN) TO BETTER MEET NUTRIENT NEEDS 3. RD TO FOLLOW-UP 2-3 DAYS, HIGH RISK MASON MENDEZ, JAY
[2017-02-19] MEDS: KCL 20 MEQ/WATER INJ PREMIX 100 ML IV SCH ×2 (13:32→15:21)
--- NOTE | 2017-02-19 14:00 | NUR ---
PT SLEEPING AT THIS TIME. VITALS STABLE.
--- NOTE | 2017-02-19 14:52 | NUR ---
CLINICAL REVIEW DONE.
--- NOTE | 2017-02-19 15:10 | NUR ---
PT PLACED ON CPAP 5 PS15 FIO2 30% PER DR MENESES WEAN ORDER, MARIA TERESA AGUSTIN AWARE
--- NOTE | 2017-02-19 16:35 | NUR ---
ABG RESULTS AND WEANING PARAMETERS REPORTED TO DR MENESES
--- NOTE | 2017-02-19 18:00 | NUR ---
TURNED AND REPOSITIONED PT, NO SOB, VITALS STABLE.
--- NOTE | 2017-02-19 18:40 | NUR ---
RCV'D PT INTUBATED WITH 7.0 ETT AT 20 AT LIP AND ON MECHANICAL VENTILATOR VENT SETTINGS ARE AC 12,450,5,30%. VENT IS CONNECTED TO RED OUTLET. ALARMS ARE WORKING AND AUDIBLE. AMBU BAG AT BEDSIDE. BS CLEAR. SPO2 98%. NO SOB OR DISTRESS NOTED. WILL CONTINUE TO MONITOR.
--- NOTE | 2017-02-19 19:05 | NUR ---
REPORT GIVEN TO FORGE SHOP MACHINE REPAIRER RN. PT IN STABLE CONDITION AT THIS TIME.
--- NOTE | 2017-02-19 19:10 | NUR ---
RECEIVED REPORT FROM VAMSI MOREL. PT IS A/O TO SELF ONLY. DOES NOT RESPOND TO VOICE/NAME. AWAKE TO GENTLE SHAKING. UNABLE TO ASSESS FOR PERRLA. PT DOES NOT FOLLOW COMMAND. BILATERAL PERRL NOTED. NO S/SX OF PAIN OR DISCOMFORT NOTED. NO S/SX OF SOB NOTED. PT IS 98 % TRACH TO VENT. TOLERATING WELL. SR ON MONITOR. BEDBOUND. UNABLE TO ASSESS MOBILITY OR STRENGTH. PT SKIN IS INTACT. REDNESS NOTED ON CEZAR AREA AND ON BILATERAL HEELS. BLANCHABLE. LEFT WRIST 22 GAUGE PERIPHERAL IV NOTED. INTACT AND PATENT. LEFT HAND 22 GAUGE IV NOTED. SALINE LOCKED. CONTINUE TUBE FEEDING ORDERED. 10 CC RESIDUAL NOTED. TOLERATING WELL. BOWEL SOUNDS HEARD ON ALL 4 QUADRANT. CEDEÑO CATHETER NOTED. DRAINING CLEAR YELLOW URINE. SAFETY PRECAUTION MAINTAINED. BED AT LOWEST SETTING. CALL LIGHT WITHIN REACH. WILL CONTINUE TO MONITOR. Addendum: 02/19/17 at 2112 by Adam Costa RN PT IS NOT TRACH TO VENT. PT IS ETT TO VENT
[2017-02-19] MEDS: SENNA 8.6 MG TAB GT SCH (20:28)
--- NOTE | 2017-02-19 20:29 | NUR ---
NOTED 10 CC RESIDUAL IN PEG TUBE. MEDICATION ADMINISTERED ORDERED. TOLERATED WELL. BP 112/60, P 65. WILL CONTINUE TO MONITOR.
--- NOTE | 2017-02-19 21:00 | NUR ---
PT SLEEPING AT BEDSIDE. A/O TO SELF. UNABLE TO FOLLOW COMMAND. NO S/SX OF PAIN OR DISCOMFORT. NO S/SX OF SOB. VITAL SIGNS STABLE. WILL CONTINUE TO MONITOR.
[2017-02-20] VITALS (21 sets, daily range): BP systolic 112–173; BP diastolic 60–96
--- NOTE | 2017-02-20 | NUR ---
PATIENT IN BED, BLOOD SUGAR 154, PATIENT WAS GIVEN 2 UNITS OF INSULIN.
--- NOTE | 2017-02-20 | NUR ---
Q2H TURN DONE. NOTED THAT BILATERAL ARMS APPEAR TO BE SWOLLEN. +2 PITTING EDEMA. BOTH ARM ELEVATED. L HAND 22 GAUGE D/C D/T SALINE LOCKED STATUS. L WRIST 22 GAUGE CHECKED. INTACT AND PATENT. NO SIGNS OF INFILTRATION. WILL CONTINUE TO MONITOR.
[2017-02-20] MEDS: BLOOD GLUCOSE MONITORING 1 DEV DEV FS SCH ×4 (00:01→18:46)
[2017-02-20] MEDS: Z-GUARD PASTE TP SCH ×2 (00:02→13:00)
[2017-02-20] MEDS: INSULIN LISPRO SLIDING SCALE 100 UNITS/ML VIAL SUBQ PRN ×3 (00:04→12:26)
--- NOTE | 2017-02-20 01:00 | NUR ---
PT NOTED IN BED APPEARS TO BE SLEEPING. NO S/SX OF ACUTE DISTRESS NOTED. PT APPEARS TO BE COMFORTABLE WILL CONTINUE TO MONITOR FOR CHANGES.
--- NOTE | 2017-02-20 02:00 | NUR ---
PT NOTED IN BED APPEARS TO BE SLEEPING. NO S/SX OF ACUTE DISTRESS NOTED. PT APPEARS TO BE COMFORTABLE WILL CONTINUE TO MONITOR FOR CHANGES.
--- NOTE | 2017-02-20 03:00 | NUR ---
PT NOTED IN BED APPEARS TO BE SLEEPING. NO S/SX OF ACUTE DISTRESS NOTED. PT APPEARS TO BE COMFORTABLE WILL CONTINUE TO MONITOR FOR CHANGES.
--- NOTE | 2017-02-20 03:15 | NUR ---
PATIENT SLEEPING, NO LONGER AGITATED
--- NOTE | 2017-02-20 04:33 | NUR ---
PT NOTED IN BED APPEARS TO BE SLEEPING. NO S/SX OF ACUTE DISTRESS NOTED. PT APPEARS TO BE COMFORTABLE WILL CONTINUE TO MONITOR FOR CHANGES.
[2017-02-20] MEDS: MEROPENEM 1,000 MG in NACL 0.9% 100 ML IV SCH ×3 (04:58→22:06)
--- NOTE | 2017-02-20 05:00 | NUR ---
HYGIENE CARE GIVEN. BED BATH AND ORAL CARE PROVIDED. LINEN CHANGED. PT TOLERATED WELL. WILL CONTINUE TO MONITOR.
--- NOTE | 2017-02-20 05:10 | NUR ---
ETT CUFF PRESSURE 26 CM H2O.
[2017-02-20 06:26] LABS: BASOPHILS # (AUTO) 0.1 K/uL (0.00-0.22); EOSINOPHILS # (AUTO) 0.6 K/uL (0-0.4); EOSINOPHILS % (AUTO) 5.5 % (0.0-4.0); HEMATOCRIT 29.7 % (36-48); HEMOGLOBIN 9.3 g/dL (12.0-16.0); LYMPHOCYTES # (AUTO) 1.6 K/uL (2.5-16.5); LYMPHOCYTES % (AUTO) 15.2 % (20.5-51.1); MEAN CORPUSCULAR HEMOGLOBIN 27 pg (27-31); MEAN CORPUSCULAR HGB CONC 31 g/dL (33-37); MEAN CORPUSCULAR VOLUME 86 fL (80-94); MONOCYTES # (AUTO) 0.8 K/uL (0.8-1.0); MONOCYTES % (AUTO) 7.4 % (1.7-9.3); NEUTROPHILS # (AUTO) 7.5 K/uL (1.8-7.7); NEUTROPHILS % (AUTO) 70.9 % (42.2-75.2); PLATELET COUNT (AUTO) 230 K/uL (140-450); RED BLOOD CELL COUNT(AUTO) 3.45 MIL/uL (4.20-5.40); RED CELL DISTRIBUTION WIDTH 14.6 % (11.6-13.7); WHITE BLOOD COUNT (AUTO) 10.6 K/uL (4.8-10.8)
[2017-02-20 06:37] LABS: ANION GAP 11.4 (8-16); CREATININE 0.5 mg/dL (0.6-1.3); POTASSIUM 3.4 mmol/L (3.5-5.1)
--- NOTE | 2017-02-20 06:44 | NUR ---
REC'D PT ON CARESCAPE VENT SETTINGS AC 12 VT 450 PEEP 5 FIO2 30% ALARMS ON AND FUNCTIONING PROPERLY, AMBU BAG AT SIDE OF VENTILATOR AND VENTILATOR IS PLUGGED INTO RED OUTLET, PT IS ORALLY INTUBATED WITH 7.0 ET TUBE SECURED WITH ANCHOR FAST AT 20 CM AT MIDLINE AND SKIN INTEGRITY IS INTACT PT IS RESTING WITH NO SIGNS OF DISTRESS NOTED
--- NOTE | 2017-02-20 07:30 | NUR ---
RECEIVED PATIENT FROM ENTRY OPERATOR NURSE, PT OPENS EYES BUT UNABLE TO FOLLOW COMMANDS. BEDSIDE MONITOR SHOWS SINUS RHYTHM. ON ETT TO VENT AND SETTING IS FiO2 30%, TV 450, AC 12, PEEP 5. NO S/Sx OF RESPIRATORY DISTRESS NOTED. ABDOMEN SOFT AND NONTENDER WITH ACTIVE BOWEL SOUNDS, G-TUBE FEEDING WITH NUTROPULMONARY AT 30CC/HR AND TOLERATES WELL. RESIDUAL 20CC NOTED. CEDEÑO CATHETER IN PLACE AND DRAINING CLEAR YELLOW URINE. EDEMA TO BILATERAL UPPER EXTREMITIES NOTED. HOB 30 DEGREE WITH BED TO LOWEST POSITION. WILL CONTINUE TO MONITOR.
[2017-02-20] MEDS: levETIRAcetam 100 MG/ML ORASYR GT SCH (08:44)
[2017-02-20] MEDS: MULTIVITAMIN 5 ML ORASYR GT SCH (08:44)
[2017-02-20] MEDS: PANTOPRAZOLE 40 MG INJ VIAL IVP SCH (08:45)
[2017-02-20] MEDS: DOCUSATE 100 MG/10 ML UDC GT SCH ×2 (08:45→22:07)
[2017-02-20] MEDS: METOPROLOL 25 MG TAB GT SCH ×2 (08:45→22:07)
[2017-02-20] MEDS: ASCORBIC ACID 500 MG TAB GT SCH ×2 (08:46→22:07)
[2017-02-20] MEDS: AMANTADINE 100 MG CAP GT SCH ×2 (08:46→21:55)
[2017-02-20] MEDS: LACTOBACILLUS RHAMNOSUS GG 1 EACH CAP GT SCH ×2 (08:46→22:07)
[2017-02-20] MEDS: MILD SOAP AND WATER TP SCH ×2 (09:00→21:55)
--- NOTE | 2017-02-20 09:00 | NUR ---
DUE MEDICATIONS GIVEN AND PT TOLERATED WELL. PROVIDED ORAL CARE.
--- NOTE | 2017-02-20 09:00 | NUR ---
VENT CHECK, NO SXN REQUIRED AT THIS TIME, B\S ARE CLEAR AND AIRWAY IS PATENT
[2017-02-20] MEDS ORDERED: KCL 20 MEQ/WATER INJ PREMIX 200 ML IV ONE (11:20)
--- NOTE | 2017-02-20 11:25 | NUR ---
VENT CHECK, SXN PT SMALL AMT OF YELLOW SECRETIONS FAMILY AT BEDSIDE
--- NOTE | 2017-02-20 12:00 | NUR ---
TURNED AND REPOSITION PT, NO S/S OF RESPIRATORY DISTRESS NOTED. WILL CONTINUE TO MONITOR.
[2017-02-20] MEDS: NACL 0.9% 1,000 ML IV SCH (12:37)
--- NOTE | 2017-02-20 13:20 | NUR ---
VENT CHECK, NO SXN REQUIRED B\S ARE CLEAR AND AIRWAY IS PATENT
--- NOTE | 2017-02-20 15:02 | NUR ---
vent check, no sxn required at this time b\s are clear
[2017-02-20] MEDS ORDERED: PROBIOTIC SCREEN 1 EA MISC MC PRN (15:40)
--- NOTE | 2017-02-20 17:01 | NUR ---
VENT CHECK, NO SXN REQUIRED AT THIS TIME, AIRWAY IS PATENT
--- NOTE | 2017-02-20 17:11 | NUR ---
DR. EDWARDS IN TO SEE PT, UPDATED PT'S CONDITION, WILL FOLLOW UP.
--- NOTE | 2017-02-20 17:12 | NUR ---
AT BEDSIDE CHANGED VENT SETTING TO CPAP 5 PS10 AND TO DO ABG IN 30 MINUTES
--- NOTE | 2017-02-20 18:00 | NUR ---
PT OPEN EYES, UNABLE TO FOLLOW COMMANDS. NO SOB.
--- NOTE | 2017-02-20 19:08 | NUR ---
REPORT GIVEN TO SAMY AGUSTIN. PT IN STABLE CONDITION AT THIS TIME.
--- NOTE | 2017-02-20 19:15 | NUR ---
REPORT RECEIVED FROM MARIA TERESA AGUSTIN
--- NOTE | 2017-02-20 19:18 | NUR ---
PATIENT IN BED, PATIENT ONLY OPENS EYES, NO TRACKING. LUNG SOUNDS DIMINISHED, PATIENT INTUBATED, ETT ON CPAP MODE, FIO2 30%, PEEP 5. GTUBE IN PLACE, WITH NUTREN PULMONARY TUBE FEEDING RUNNING AT 30ML/HR. PATIENT HAS A CEDEÑO CATHETER IN PLACE. NON AMBULATORY. EDEMA ON LEFT HAND, IV ON RIGHT HAND 22GAUGE. PATIENT CLOSE TO NURSING STATION. FREQUENT VISUAL CHECKS.
--- NOTE | 2017-02-20 19:20 | NUR ---
PT RECEIVED FROM DAYSHIFT ON CPAP 5 PS 10 FIO2 30% WITH ORDER TO EXTUBATE AND KEEP SATURATION ABOVE 92%. PT AWAKE, EXPLAINED PROCEDURE TO PT. PT'S VITAL PRE-EXTUBATION: HR 87, RR 14, SAT 100%, BREATH SOUNDS CLEAR, PT LAVAGED AND SUCTIONED SMALL AMOUNT PALE YELLOW SECRETIONS. PT GIVEN 100% FIO2 PRIOR TO EXTUBATION, ETT CUFF DEFLATED AND REMOVED WITHOUT COMPLICATIONS AND PT PLACED ON 3 L/M NC. PT'S VITALS POST EXTUBATON: HR 90 RR 23 SAT 99%. CONTINUOUS PROCESS COFFEE ROASTER, DWAYNE Galan AND PT'S RNSAMY NOTIFIED OF PT'S EXTUBATION.
--- NOTE | 2017-02-20 19:25 | NUR ---
PATIENT EXTUBATED BY MILADYS, RT AND ROE RT. PATIENT TOLERATED WELL. O2 SATURATION AT 100% ON 3L OF OXYGEN.
--- NOTE | 2017-02-20 20:30 | NUR ---
PATIENT TOLERATING EXTUBATION WELL. O2 SAT AT 100 ON 3L VIA. WILL CONTINUE TO MONITOR.
--- NOTE | 2017-02-20 21:16 | NUR ---
PATIENT IN BED, NO SIGNS OF DISTRESS.
[2017-02-20] MEDS: SENNA 8.6 MG TAB GT SCH (22:07)
--- NOTE | 2017-02-20 22:45 | NUR ---
PATIENT HAVE A MODERATE BOWEL MOVEMENT, SHE WAS CHANGED AND CLEANED. WILL CONTINUE TO MONITOR. PATIENTS CALL LIGHT WITHIN REACH.
--- NOTE | 2017-02-20 23:23 | NUR ---
PT CHECKED POST EXTUBATION, VITALS: HR 65, RR 17, SAT 100% ON 3 L/M NC. NO DISTRESS/SOB/WHEEZING NOTED.
[2017-02-21] VITALS (10 sets, daily range): BP systolic 119–141; BP diastolic 66–79
[2017-02-21] MEDS: BLOOD GLUCOSE MONITORING 1 DEV DEV FS SCH ×4 (00:01→18:00)
[2017-02-21] MEDS: INSULIN LISPRO SLIDING SCALE 100 UNITS/ML VIAL SUBQ PRN (00:06)
[2017-02-21] MEDS: Z-GUARD PASTE TP SCH ×2 (01:00→12:28)
--- NOTE | 2017-02-21 01:19 | NUR ---
PATIENT IN BED, NO SIGNS IF DISTRESS. CALL LIGHT WITHIN REACH.
--- NOTE | 2017-02-21 02:54 | NUR ---
PATIENT IN BED, RESTING, NO SIGN OF ACUTE DISTRESS.
--- NOTE | 2017-02-21 03:48 | NUR ---
PATIENT RESTING, NO DISTRESS NOTED. WILL CONTINUE TO MONITOR.
--- NOTE | 2017-02-21 04:15 | NUR ---
PATIENT WAS CLEANED
--- NOTE | 2017-02-21 05:00 | NUR ---
PATIENT RESTING IN BED, TOLERATED BATH WELL. WILL CONTINUE TO MONITOR
[2017-02-21] MEDS: MEROPENEM 1,000 MG in NACL 0.9% 100 ML IV SCH ×3 (05:10→22:11)
[2017-02-21 05:38] LABS: EOSINOPHILS # (AUTO) 0.4 K/uL (0-0.4)
[2017-02-21 05:55] LABS: ANION GAP 8.8 (8-16); CARBON DIOXIDE 27.6 mmol/L (21-32); CREATININE 0.5 mg/dL (0.6-1.3); POTASSIUM 3.4 mmol/L (3.5-5.1)
[2017-02-21 06:21] LABS: BASOPHILS # (AUTO) 0.1 K/uL (0.00-0.22); BASOPHILS % (AUTO) 1.5 % (0.0-2.0); EOSINOPHILS % (AUTO) 4.7 % (0.0-4.0); HEMOGLOBIN 9.6 g/dL (12.0-16.0); LYMPHOCYTES # (AUTO) 1.5 K/uL (2.5-16.5); LYMPHOCYTES % (AUTO) 16.6 % (20.5-51.1); MEAN CORPUSCULAR HEMOGLOBIN 27 pg (27-31); MEAN CORPUSCULAR HGB CONC 32 g/dL (33-37); MEAN CORPUSCULAR VOLUME 85 fL (80-94); MONOCYTES # (AUTO) 0.5 K/uL (0.8-1.0); MONOCYTES % (AUTO) 5.6 % (1.7-9.3); NEUTROPHILS # (AUTO) 6.8 K/uL (1.8-7.7); NEUTROPHILS % (AUTO) 71.6 % (42.2-75.2); PLATELET COUNT (AUTO) 252 K/uL (140-450); RED BLOOD CELL COUNT(AUTO) 3.52 MIL/uL (4.20-5.40); RED CELL DISTRIBUTION WIDTH 14.3 % (11.6-13.7); WHITE BLOOD COUNT (AUTO) 9.3 K/uL (4.8-10.8)
--- NOTE | 2017-02-21 06:50 | NUR ---
PATIENT SLEEPING, NO SIGNS OF DISTRESS.
--- NOTE | 2017-02-21 07:20 | NUR ---
REPORT GIVEN TO MARIA TERESA AGUSTIN
--- NOTE | 2017-02-21 07:25 | NUR ---
RECEIVED REPORT FROM SAMY AGUSTIN. PT OPENS EYES, NO TRACKING, BEDSIDE MONITOR SHOWS SR. ON O2 NC 3L/MIN, NO S/S OF RESPIRATORY DISTRESS NOTED. G-TUBE IN PLACE RUNNING NUTREN PULMONARY AT 30 ML/HR, RESIDUAL CHECKED ZERO. PT HAS IV TO RIGHT HAND, SITE INTACT AND PATENT, EDEMA NOTED TO UPPER EXTREMITIES,ABDOMEN SOFT WITH ACTIVE BOWEL SOUND. CEDEÑO CATH IN PLACE WITH PALE YELLOW URINE NOTED. PT UNABLE TO MOVE ALL HER EXTREMITIES, REPOSITIONED PT, OFF LOADING PRESSURE AREA. ORAL CARE GIVEN. WILL CONTINUE TO MONITOR.
--- NOTE | 2017-02-21 08:16 | NUR ---
[employer] R860 VENTILATOR IN ROOM AT BEDSIDE
--- NOTE | 2017-02-21 08:45 | NUR ---
DUE MEDS GIVEN, PT TOLERATED WELL.
[2017-02-21] MEDS: LACTOBACILLUS RHAMNOSUS GG 1 EACH CAP GT SCH ×2 (08:46→21:45)
[2017-02-21] MEDS: ASCORBIC ACID 500 MG TAB GT SCH ×2 (08:47→21:45)
[2017-02-21] MEDS: METOPROLOL 25 MG TAB GT SCH ×2 (08:47→21:45)
[2017-02-21] MEDS: DOCUSATE 100 MG/10 ML UDC GT SCH ×2 (08:47→21:45)
[2017-02-21] MEDS: AMANTADINE 100 MG CAP GT SCH ×2 (08:48→21:45)
[2017-02-21] MEDS: MULTIVITAMIN 5 ML ORASYR GT SCH (08:48)
[2017-02-21] MEDS: PANTOPRAZOLE 40 MG INJ VIAL IVP SCH (08:48)
[2017-02-21] MEDS: levETIRAcetam 100 MG/ML ORASYR GT SCH (08:49)
[2017-02-21] MEDS: MILD SOAP AND WATER TP SCH ×2 (09:00→21:45)
--- NOTE | 2017-02-21 10:15 | NUR ---
TURNED AND REPOSITIONED PT, NO S/S OF RESPIRATORY DISTRESS NOTED. WILL CONTINUE TO MONITOR PT.
[2017-02-21] MEDS ORDERED: KCL 20 MEQ/WATER INJ PREMIX 200 ML IV ONE (11:05)
[2017-02-21] MEDS: NACL 0.9% 1,000 ML IV SCH (12:28)
--- NOTE | 2017-02-21 12:42 | NUR ---
PT RESTING IN BED, NO RESPIRATORY DISTRESS NOTED.
--- NOTE | 2017-02-21 14:05 | NUR ---
IN TO SEE PT, WILL FOLLOW UP.
--- NOTE | 2017-02-21 16:15 | NUR ---
TURNED AND REPOSITIONED PT, NO SOB, NO FEVER, ORAL CARE GIVEN, WILL CONTINUE TO MONITOR.
--- NOTE | 2017-02-21 19:05 | NUR ---
ENDORSED PT TO SAMY AGUSTIN FOR THE CONTINUITY OF CARE.
--- NOTE | 2017-02-21 19:15 | NUR ---
RECEIVED REPORT FROM MARIA TERESA AGUSTIN
--- NOTE | 2017-02-21 19:20 | NUR ---
PATIENT IN BED, NO SIGNS OF DISTRESS. PATIENT HAD A LEFT SIDED CRANIOTOMY. PATIENT HAS NEURO DEFICITS, ONLY OPENS HER EYES. PATIENT ON 3L OF OXYGEN VIA NASAL CANNULA. PATIENT DOES NOT SPEAK, SOMETIMES MUMBLES. PATIENT SINUS RHYTHM ON THE MONITOR. ACTIVE BOWEL SOUNDS, GTUBE PRESENT. CEDEÑO CATHETER IN PLACE. PATIENT NONAMBULATORY. SCD'S IN PLACE. PATIENT CLOSE TO NURSES STATION. FREQUENT VISUAL CHECKS. IV 22 GAUGE ON RIGHT HAND. CALL LIGHT WITHIN REACH.
[2017-02-21] MEDS: SENNA 8.6 MG TAB GT SCH (21:45)
--- NOTE | 2017-02-21 21:50 | NUR ---
PATIENT SOILED THE BED AND HAD A BOWEL MOVEMENT, PATIENT WAS CHANGED AND CLEANED.
--- NOTE | 2017-02-21 22:10 | NUR ---
PATIENTS CEDEÑO CATHETER LEAKING, CEDEÑO CATHETER WAS CHANGED.
--- NOTE | 2017-02-21 23:00 | NUR ---
PATIENT SLEEPING, NO SIGNS OF DISTRESS. PATIENT CLOSE TO NURSING STATION. WILL CONTINUE TO MONITOR. O2 SATURATION 100%.
[2017-02-22] VITALS: BP 118/72
[2017-02-22] MEDS: BLOOD GLUCOSE MONITORING 1 DEV DEV FS SCH ×4 (00:59→17:47)
[2017-02-22] MEDS: Z-GUARD PASTE TP SCH ×2 (01:00→13:05)
--- NOTE | 2017-02-22 01:30 | NUR ---
PATIENT SLEEPING, NO SIGNS OF DISTRESS. WILL CONTINUE TO MONITOR.
--- NOTE | 2017-02-22 03:17 | NUR ---
PATIENT SLEEPING IN BED, TOLERATING 3L NC WELL. O2 SATUATION 100%
[2017-02-22 04:00] VITALS: BP 119/70
[2017-02-22] MEDS: MEROPENEM 1,000 MG in NACL 0.9% 100 ML IV SCH ×3 (05:00→20:59)
--- NOTE | 2017-02-22 05:00 | NUR ---
PATIENT GIVEN A BATH, TOLERATED WELL.
[2017-02-22 05:32] LABS: BASOPHILS # (AUTO) 0.1 K/uL (0.00-0.22); BASOPHILS % (AUTO) 1.1 % (0.0-2.0); EOSINOPHILS # (AUTO) 0.4 K/uL (0-0.4); EOSINOPHILS % (AUTO) 4.4 % (0.0-4.0); HEMATOCRIT 30.6 % (36-48); HEMOGLOBIN 9.8 g/dL (12.0-16.0); LYMPHOCYTES # (AUTO) 1.6 K/uL (2.5-16.5); LYMPHOCYTES % (AUTO) 16.8 % (20.5-51.1); MEAN CORPUSCULAR HEMOGLOBIN 27 pg (27-31); MEAN CORPUSCULAR HGB CONC 32 g/dL (33-37); MEAN CORPUSCULAR VOLUME 85 fL (80-94); MONOCYTES # (AUTO) 0.7 K/uL (0.8-1.0); MONOCYTES % (AUTO) 7.5 % (1.7-9.3); NEUTROPHILS # (AUTO) 6.4 K/uL (1.8-7.7); NEUTROPHILS % (AUTO) 70.2 % (42.2-75.2); PLATELET COUNT (AUTO) 321 K/uL (140-450); RED BLOOD CELL COUNT(AUTO) 3.59 MIL/uL (4.20-5.40); RED CELL DISTRIBUTION WIDTH 14.3 % (11.6-13.7); WHITE BLOOD COUNT (AUTO) 9.2 K/uL (4.8-10.8)
[2017-02-22 06:58] LABS: ALBUMIN 2.2 g/dL (3.4-5.0); ANION GAP 11.9 (8-16); CARBON DIOXIDE 25.7 mmol/L (21-32); CREATININE 0.4 mg/dL (0.6-1.3); POTASSIUM 3.6 mmol/L (3.5-5.1); TOTAL BILIRUBIN 0.2 mg/dL (0.0-1.0)
--- NOTE | 2017-02-22 07:36 | NUR ---
REPORT GIVEN TO SACHI AGUSTIN
[2017-02-22 08:00] VITALS: BP 148/84
--- NOTE | 2017-02-22 08:00 | NUR ---
INITIAL SHIFT ASSESSMENT DONE (SEE ASSESSMENT PART). OPEN EYES SPONTANEOUSLY BUT NOT FOLLOWING ANY COMMAND. HISTORY OF CRANIOTOMY ON LEFT SIDE. NOTED GENERALIZED SEVERE WEAKNESS. NO SIGNS OF PAIN OR DYSPNEA. O2 SAT 100% ON O2 AT 2 L/MIN VIA NC. SR ON MONITOR. SBP IN 140'S. NO ECTOPY NOTED. ON TUBE FEEDING VIA G-TUBE, TOLERATING WELL. NO RESIDUALS NOTED. HOB ELEVATED. UPDATED OF PLAN OF CARE. ON TELEMETRY STATUS, WAITING FOR A BED IN TELEMETRY UNIT. WILL CONTINUE TO MONITOR.
[2017-02-22] MEDS: ASCORBIC ACID 500 MG TAB GT SCH ×2 (09:16→20:59)
[2017-02-22] MEDS: LACTOBACILLUS RHAMNOSUS GG 1 EACH CAP GT SCH ×2 (09:16→20:58)
[2017-02-22] MEDS: PANTOPRAZOLE 40 MG INJ VIAL IVP SCH (09:16)
[2017-02-22] MEDS: levETIRAcetam 100 MG/ML ORASYR GT SCH (09:16)
[2017-02-22] MEDS: DOCUSATE 100 MG/10 ML UDC GT SCH ×2 (09:16→20:58)
[2017-02-22] MEDS: MULTIVITAMIN 5 ML ORASYR GT SCH (09:16)
[2017-02-22] MEDS: METOPROLOL 25 MG TAB GT SCH ×2 (09:17→20:59)
[2017-02-22] MEDS: AMANTADINE 100 MG CAP GT SCH ×2 (09:17→20:58)
[2017-02-22] MEDS: MILD SOAP AND WATER TP SCH ×2 (09:17→21:00)
--- NOTE | 2017-02-22 10:45 | NUR ---
DR JOHNSTON IS IN THE ROOM. UPDATED OF STATUS. NEW ORDERS RECEIVE.
--- NOTE | 2017-02-22 11:20 | NUR ---
FAMILY MEMBERS ARE IN THE ROOM. UPDATED OF STATUS AND PLAN OF CARE.
--- NOTE | 2017-02-22 11:25 | NUR ---
02/22/17 RD FOLLOW UP COMPLETED. PLEASE REFER TO NUTRITION PROGRESS NOTES UNDER CARE ACTIVITY FOR ESTIMATED NUTRITIONAL NEEDS. RD RECOMMENDATIONS: 1. CONTINUE CURRENT ENTERAL NUTRITION SUPPORT VIA G-TUBE - NUTREN PULMONARY AT 30 ML/HR + 100 ML WATER FLUSH Q4H 2. CONTINUE ADD PROSOURCE TID (PROVIDES ADDITIONAL 180 KCAL, 45G PROTEIN) TO BETTER MEET NUTRIENT NEEDS 3. RD TO FOLLOW-UP 2-3 DAYS, HIGH RISK RAMANA BARRIOS MBA, RD
--- NOTE | 2017-02-22 11:51 | NUR ---
RECEIVED ORDER FOR DISCHARGE PLANING TO [facility]. I CALLED [facility] AND SPOKE WITH VANESSA AND FAXED INFORMATION TO HER. I INFORMED HER NO DISCHARGE ORDER YET, ONLY DISCHARGE PLANNING. SHE SAID [facility] WILL TAKE HER BACK WHEN DISCHARGED.
[2017-02-22 12:00] VITALS: BP 139/79
--- NOTE | 2017-02-22 12:00 | NUR ---
REASSESSMENT DONE. NEURO STATUS UNCHANGED. NO SIGNS OF PAIN OR AGITATION NOTED. TOLERATING CURRENT VENTILATOR SETTINGS WELL. O2 SAT 99-100%. SR ON MONITOR. SBP IN 120'S-130'S. NO ECTOPY NOTED. TOLERATING TUBE FEEDING WELL. NO RESIDUALS NOTED. HOB ELEVATED. UPDATED OF PLAN OF CARE. WILL CONTINUE TO MONITOR.
--- NOTE | 2017-02-22 12:47 | NUR ---
SPOKE WITH VANESSA FROM [facility]. I ASKED HER WILL [facility] TAKE [place]IENT BACK IF OVER THE 7 DAY BED HOLD. SHE CALLED ME BACK AFTER SPEAKING WITH [facility] AND TOLD ME THAT THEY WILL TAKE THE PATIENT BACK EVEN AFTER THE 7 DAY BED HOLD. THEY WILL HAVE TO MAKE AN ISOLATION BED, BUT THEY WILL TAKE THE PATIENT BACK.
[2017-02-22] MEDS: NACL 0.9% 1,000 ML IV SCH (13:06)
[2017-02-22 16:00] VITALS: BP 131/75
--- NOTE | 2017-02-22 16:00 | NUR ---
REASSESSMENT DONE. NEURO STATUS STILL THE SAME. NO SIGNS OF PAIN OR DYSPNEA. O2 SAT 98-100% ON O2 AT 2 L/MIN VIA NC. SR ON MONITOR. SBP IN 120'S-130'S. NO ECTOPY NOTED. TOLERATING TUBE FEEDING WELL. NO RESIDUALS NOTED. HOB ELEVATED. UPDATED OF PLAN OF CARE. WILL CONTINUE TO MONITOR.
--- NOTE | 2017-02-22 18:30 | NUR ---
TRANSFER TO TELEMETRY ROOM 113 BY BED WITH PORTABLE CUSTOMS INSPECTOR AND O2 TANK, ACCOMPANIED BY TWO RN'S.
--- NOTE | 2017-02-22 18:40 | NUR ---
REPORT GIVEN TO FOOD SERVICE COORDINATOR JENNIFER AT BEDSIDE.
--- NOTE | 2017-02-22 18:40 | NUR ---
PT ARRIVED TO UNIT VIA GURNEY. RECEIVED REPORT FROM SACHI MINE SAFETY ENGINEER. NO SIGNS OF ACUTE DISTRESS NOTED AT THIS TIME. FLACC 0. PT IS APHASIC. OPENS EYES BUT DOES NOT FOLLOW COMMANDS. PT IS ON O2 2L/MIN NC. IV TO RIGHT HAND #22 PATENT AND INTACT. G TUBE IN PLACE TO TUBE FEEDING. CEDEÑO CATHETER IN PLACE TO GRAVITY DRAINAGE BAG. ERYTHEMA NOTED TO PERINEUM WELL BILATERAL LOWER EXTREMITIES. PT IS ON CONTACT ISOLATION WITH SIGNS POSTED OUTSIDE OF PT'S ROOM. SAFETY PRECAUTIONS IN PLACE WITH BED IN LOWEST POSITION AND SIDE RAILS UP X2. PT IS CURRENTLY SINUS RHYTHM ON THE MONITOR. CALL LIGHT WITHIN REACH. WILL CONTINUE TO MONITOR. TEMP: 97.0, BP: 119/71, O2: 98%, HR: 80, RR: 18. Addendum: 02/22/17 at 1919 by Lucia Coughlin RN LEFT CRANIOTOMY NOTED
--- NOTE | 2017-02-22 19:18 | NUR ---
ENDORSED CARE TO VAMSI GOULD. PT IN STABLE CONDITION.
--- NOTE | 2017-02-22 19:19 | NUR ---
RECEIVED REPORT FROM DAY RN FOR CONTINUITY OF CARE. PATIENT IS APHASIC, OPENS EYES TO STIMULUS, UNABLE TO FOLLOW COMMANDS. FLACC 0 AT THIS TIME, NO IMMEDIATE RESPIRATORY DISTRESS NOTED ON 2L NASAL CANNULA. IV PATENT AND INFUSING FLUIDS WELL. CEDEÑO CATHETER IN PLACE DRAINING LIGHT YELLOW URINE TO GRAVITY. G-TUBE NOTED WITH LESS THAN 10 ML RESIDUAL, TUBE FEEDING IN PLACED. ERYTHEMA NOTED TO CEZAR AREA. SAFETY/ CONTACT/ SEIZURE PRECAUTIONS IN PLACE. WILL CONTINUE TO MONITOR FREQUENTLY.
[2017-02-22 20:00] VITALS: BP 128/76
[2017-02-22] MEDS: SENNA 8.6 MG TAB GT SCH (20:59)
--- NOTE | 2017-02-22 20:59 | NUR ---
DUE MEDICATIONS ADMINISTERED PED MD ORDER VIA G TUBE, NO RESIDUAL NOTED. SAFETY PRECAUTIONS ENFORCED, SEIZURE PADS PLACED. WILL CONTINUE TO MONITOR FREQUENTLY.
--- NOTE | 2017-02-22 22:25 | NUR ---
PATIENT RESTING IN BED, OPENS EYES TO STIMULUS. SAFETY MEASURES ENFORCED, WILL CONTINUE TO MONITOR.
[2017-02-23] VITALS: BP 129/73
--- NOTE | 2017-02-23 00:06 | NUR ---
VITAL SIGNS STABLE. BLOOD SUGAR 140, NO COVERAGE NEEDED AT THIS TIME. PATIENT REPOSITIONED AND MADE COMFORTABLE. SAFETY PRECAUTIONS IN PLACE. WILL CONTINUE TO MONITOR.
[2017-02-23] MEDS: BLOOD GLUCOSE MONITORING 1 DEV DEV FS SCH ×4 (00:33→18:10)
[2017-02-23] MEDS: Z-GUARD PASTE TP SCH ×2 (00:57→13:55)
--- NOTE | 2017-02-23 02:12 | NUR ---
PROVIDED PATIENT WITH WARM BLANKET AND REPOSITIONED. CEDEÑO CATHETER DRAINING WELL. SAFETY MEASURES ENFORCED, CALL LIGHT WITHIN REACH.
[2017-02-23 04:00] VITALS: BP 115/65
--- NOTE | 2017-02-23 04:10 | NUR ---
TURNED AND REPOSITIONED PATIENT, AM CARE PROVIDED. IV PATENT AND INFUSING WELL. WILL CONTINUE TO MONITOR.
[2017-02-23] MEDS: MEROPENEM 1,000 MG in NACL 0.9% 100 ML IV SCH ×2 (04:22→12:56)
[2017-02-23] MEDS: INSULIN LISPRO SLIDING SCALE 100 UNITS/ML VIAL SUBQ PRN (06:01)
--- NOTE | 2017-02-23 06:01 | NUR ---
BLOOD SUGAR TAKEN AND INSULIN ADMINISTERED PER MD ORDER. SAFETY MEASURES IN PLACE, CALL LIGHT WITHIN REACH, WILL CONTINUE TO MONITOR.
[2017-02-23 06:33] LABS: BASOPHILS % (AUTO) 0.4 % (0.0-2.0); EOSINOPHILS # (AUTO) 0.4 K/uL (0-0.4); EOSINOPHILS % (AUTO) 4.2 % (0.0-4.0); HEMATOCRIT 32.1 % (36-48); HEMOGLOBIN 10.4 g/dL (12.0-16.0); LYMPHOCYTES # (AUTO) 1.8 K/uL (2.5-16.5); LYMPHOCYTES % (AUTO) 18.8 % (20.5-51.1); MEAN CORPUSCULAR HEMOGLOBIN 28 pg (27-31); MEAN CORPUSCULAR HGB CONC 33 g/dL (33-37); MEAN CORPUSCULAR VOLUME 85 fL (80-94); MONOCYTES # (AUTO) 0.8 K/uL (0.8-1.0); MONOCYTES % (AUTO) 8.4 % (1.7-9.3); NEUTROPHILS # (AUTO) 6.5 K/uL (1.8-7.7); NEUTROPHILS % (AUTO) 68.2 % (42.2-75.2); PLATELET COUNT (AUTO) 323 K/uL (140-450); RED BLOOD CELL COUNT(AUTO) 3.76 MIL/uL (4.20-5.40); RED CELL DISTRIBUTION WIDTH 14.4 % (11.6-13.7); WHITE BLOOD COUNT (AUTO) 9.5 K/uL (4.8-10.8)
[2017-02-23 06:54] LABS: ANION GAP 11.3 (8-16); CARBON DIOXIDE 27.1 mmol/L (21-32); CREATININE 0.4 mg/dL (0.6-1.3); POTASSIUM 3.4 mmol/L (3.5-5.1)
--- NOTE | 2017-02-23 07:15 | NUR ---
ENDORSED PATIENT TO DAY RN AT BEDSIDE, PATIENT IN STABLE CONDITION.
--- NOTE | 2017-02-23 07:15 | NUR ---
ASSUMED CONTINUITY OF CARE. NO SIGNS AND SYMPTOMS OF ACUTE DISTRESS NOTED. INITIAL ASSESSMENT DONE. HOB ELEVATED. CONTACT ISOLATION PRECAUTION, SEIZURE AND FALL PRECAUTION APPLIED. CALL LIGHT WITHIN REACH.
[2017-02-23 08:00] VITALS: BP 141/78
--- NOTE | 2017-02-23 08:00 | NUR ---
Patient's Plan of Care was discussed and reviewed with SENIOR TECHNICAL ARCHITECT: DEBRA CALIX
--- NOTE | 2017-02-23 08:55 | NUR ---
PT. DAUGHTER -LOLI AND PT. SON -HERNANDEZ CAME, EXPLAINED ABOUT CONTACT ISOLATION PRECAUTION. THEY VERBALIZED UNDERSTANDING.
[2017-02-23] MEDS: LACTOBACILLUS RHAMNOSUS GG 1 EACH CAP GT SCH (09:01)
[2017-02-23] MEDS: MULTIVITAMIN 5 ML ORASYR GT SCH (09:01)
[2017-02-23] MEDS: DOCUSATE 100 MG/10 ML UDC GT SCH (09:01)
[2017-02-23] MEDS: levETIRAcetam 100 MG/ML ORASYR GT SCH (09:01)
[2017-02-23] MEDS: METOPROLOL 25 MG TAB GT SCH (09:02)
[2017-02-23] MEDS: ASCORBIC ACID 500 MG TAB GT SCH (09:02)
[2017-02-23] MEDS: AMANTADINE 100 MG CAP GT SCH (09:02)
[2017-02-23] MEDS: MILD SOAP AND WATER TP SCH (09:03)
--- NOTE | 2017-02-23 10:39 | NUR ---
SPOKE WITH APRIL FROM [facility]. PATIENT CAN GO TO ROOM 34B UNDER DR. Lars JOHNSTON. ITZ AGUSTINMETAL HANGING HELPER NURSE AWARE.
[2017-02-23] MEDS: PANTOPRAZOLE 40 MG INJ VIAL IVP SCH (11:12)
--- NOTE | 2017-02-23 11:36 | NUR ---
DR. JOHNSTON [facility] CAME, SEEN PT. AND CHECKED PT. CHART. INFORMED OF PT. K 3.4.
[2017-02-23] MEDS ORDERED: POTASSIUM CHLORIDE 10 MEQ TABER PO SCH (11:44)
[2017-02-23 12:00] VITALS: BP 132/72
[2017-02-23] MEDS ORDERED: POTASSIUM CHLORIDE 20% 40 MEQ/15 ML UDC GT SCH (12:21)
[2017-02-23] MEDS: NACL 0.9% 1,000 ML IV SCH (12:25)
[2017-02-23 16:00] VITALS: BP 129/79
--- NOTE | 2017-02-23 16:56 | NUR ---
SAHIL HASKINS CAME, CHECKED PT. CHART.
--- NOTE | 2017-02-23 17:19 | NUR ---
CALLED APOLINAR HAMILTON AT REGARDING PT. TRANSFER TO [facility] [place]. LEFT MESSAGE AND CALL BACK NUMBER.
--- NOTE | 2017-02-23 17:25 | NUR ---
CALLED [facility] AND GAVE REPORT TO NAYLA ESTES REGARDING PT. TRANSFER. INFORMED CHARGE NURSE CRISTIANA MAHAN.
--- NOTE | 2017-02-23 17:33 | NUR ---
CALLED UGO HAMILTON AT REGARDING PT. TRANSFER TO [facility] [place]. LEFT MESSAGE AND CALL BACK NUMBER. INFORMED CHARGE NURSE CRISTIANA MAHAN.
--- NOTE | 2017-02-23 18:00 | NUR ---
SKIN ASSESSMENT DONE WITH ASSISTANCE FROM MONICA ROMO. PT. INCONTINENT DERMATITIS WAS HEALED AND NO ERYTHEMA NOTED ON PERINEAL AREA AND SACRALCOCCYX AREA. INFORMED CHARGE NURSE CRISTIANA MAHAN.
--- NOTE | 2017-02-23 18:35 | NUR ---
CALLED UGO HAMILTON PT. SON AND INFORMED THAT PT. WILL BE TRANSFER TO [facility]. UGO VERBALIZED UNDERSTANDING VIA PHONE.
--- NOTE | 2017-02-23 19:20 | NUR ---
D/C VIA GURNEY WITH MEDICAL TRANSPORTER. NO SIGNS AND SYMPTOMS OF ACUTE DISTRESS NOTED. IN STABLE CONDITION. INFORMED CHARGE NURSE.
== END 2017-02-23 19:20 | DRG 720 ==
LOC: MED 18:31 → MIC 19:22 → MTU 02-22 18:49
PROVIDERS: ADMIT Preventive Medicine Preventive Medicine/Occupational Environmental Medicine; ATTEND Preventive Medicine Preventive Medicine/Occupational Environmental Medicine
PROC: 0BH17EZ Insertion of Endotracheal Airway into Trachea, Via Natural or Artificial Opening (ICD-10-PCS; principal; 2017-02-15)
PROC: 5A1955Z Respiratory Ventilation, Greater than 96 Consecutive Hours (ICD-10-PCS; 2017-02-15)
DX: A41.9 Sepsis, unspecified organism (principal); J96.01 Acute respiratory failure with hypoxia; R65.21 Severe sepsis with septic shock; J69.0 Pneumonitis due to inhalation of food and vomit; J44.0 Chronic obstructive pulmonary disease with (acute) lower respiratory infection; Z99.11 Dependence on respirator [ventilator] status; J15.211 Pneumonia due to Methicillin susceptible Staphylococcus aureus; R13.10 Dysphagia, unspecified; E87.0 Hyperosmolality and hypernatremia; E11.22 Type 2 diabetes mellitus with diabetic chronic kidney disease; N39.0 Urinary tract infection, site not specified; I12.9 Hypertensive chronic kidney disease with stage 1 through stage 4 chronic kidney disease, or unspecified chronic kidney disease; N18.9 Chronic kidney disease, unspecified; E11.65 Type 2 diabetes mellitus with hyperglycemia; G40.909 Epilepsy, unspecified, not intractable, without status epilepticus; D64.9 Anemia, unspecified; B96.20 Unspecified Escherichia coli [E. coli] as the cause of diseases classified elsewhere; Z16.12 Extended spectrum beta lactamase (ESBL) resistance; E78.00 Pure hypercholesterolemia, unspecified; Z22.322 Carrier or suspected carrier of Methicillin resistant Staphylococcus aureus; F03.90 Unspecified dementia, unspecified severity, without behavioral disturbance, psychotic disturbance, mood disturbance, and anxiety; Z16.24 Resistance to multiple antibiotics; E87.6 Hypokalemia; Z87.820 Personal history of traumatic brain injury; Z93.1 Gastrostomy status; Z79.899 Other long term (current) drug therapy
CPT/HCPCS: 31500; 36415; 36600; 51702; 71010; 80048; 80053; 80202; 81001; 82803; 82948; 83605; 83735; 83880; 84484; 85025; 85610; 85651; 85730; 86140; 87040; 87070; 87077; 87081; 87086; 87186; 87205; 89220; 93005; 94002; 94003; 96374; 99291; C9113; J0330; J1815; J2001; J2185; J2543; J2704; J3370; J3480; J3490; J7030; J7042; J7060; Q0092

== ENCOUNTER 2017-03-02 13:51 | Inpatient (IN) | payer MEDICAID ==
[~2017-03-02] VITALS: Ht 157.5 cm; Wt 68.5 kg
[2017-03-02] VITALS (18 sets, daily range): BP systolic 92–136; BP diastolic 49–103
--- NOTE | 2017-03-02 13:51 | NUR ---
Patient BIBA ACLS accompanied by Frankie SHANKAR, transferred to bed 7. Dr. Madsen, RT and RN evaluating patient at bedside.
--- NOTE | 2017-03-02 13:55 | NUR ---
PT BIBA ON TX AT 10L BY MASK FOR SOB ABG WAS DRAWN ON RR WITHOUT INCIDENT AND RESULTS GIVEN TO AND THEN PLACED ON BIPAP FOR LOW O2 SAT, SETTINGS 12\6 RR12 FIO2 60% ALARMS ON AND FUNCTIONING PROPERLY. AMBU BAG AT SIDE OF BIPAP, BIPAP PLUGGED INTO RED OUTLET, I\L TX GIVEN WITH ALBUTEROL 5MG AND ATROVENT 0.5MG WITH NO ADVERSE REACTION, B\S ARE RHONCHI BILATERALLY, PT HAS MED FACE MASK ON AND SKIN INTEGRITY IS INTACT PT IS NON VERBAL AND NOT ALERT,
[2017-03-02] MEDS ORDERED: PIPERACILLIN/TAZOBACTAM 3.375 GM in DEXT 5% MINI-BAG PLUS 50 ML IV ONE (14:00)
[2017-03-02] MEDS ORDERED: ALBUTEROL 0.083% 2.5 MG/3 ML NEBU INH ONE (14:00)
[2017-03-02] MEDS ORDERED: IPRATROPIUM 0.02% 0.5 MG/2.5 ML NEBU INH ONE (14:00)
[2017-03-02] MEDS ORDERED: NACL 0.9% 2,500 ML IV ONE (14:00)
[2017-03-02] MEDS ORDERED: VANCOMYCIN 1,000 MG in DEXTROSE 5% 250 ML IV ONE (14:00)
--- NOTE | 2017-03-02 14:10 | NUR ---
PT BIBA FROM SNF FOR EVALUATION OF RESPIRATORY DISTRESS/DYSPNEA SINCE THIS AM. HX CHRONIC RESPIRATORY FAILURE, DM, HTN, SEIZURE DISORDER, TBI, PEG TUBE, PNA, MDRO URINE, UTI. DENIES N/V/D; SKIN IS PINK/WARM/DRY; LUNGS CLEAR BL; HR EVEN AND REGULAR; PT DENIES ANY FEVER, CP, OR COUGH AT THIS TIME; PATIENT NON VERBAL NO C/O PAIN AT THIS TIME; VSS; PATIENT POSITIONED FOR COMFORT; HOB ELEVATED; BEDRAILS UP X2; BED DOWN. ER MD MADE AWARE OF PT STATUS.
--- NOTE | 2017-03-02 14:16 | NUR ---
durable medical equipment technician at bedside.
[2017-03-02] MEDS ORDERED: PIPERACILLIN/TAZOBACTAM 3.375 GM VIAL IV ONE (14:22)
[2017-03-02] MEDS ORDERED: VANCOMYCIN 1,000 MG VIAL ONE (14:23)
[2017-03-02 14:34] LABS: HEMOGLOBIN 11.8 g/dL (12.0-16.0); MEAN CORPUSCULAR HEMOGLOBIN 27 pg (27-31); MEAN CORPUSCULAR HGB CONC 31 g/dL (33-37); MEAN CORPUSCULAR VOLUME 87 fL (80-94); PLATELET COUNT (AUTO) 176 K/uL (140-450); RED BLOOD CELL COUNT(AUTO) 4.35 MIL/uL (4.20-5.40); RED CELL DISTRIBUTION WIDTH 15.8 % (11.6-13.7); WHITE BLOOD COUNT (AUTO) 26.2 K/uL (4.8-10.8)
[2017-03-02] MEDS ORDERED: ACETAMINOPHEN 325 MG SUPP RC ONE (14:47)
[2017-03-02 14:48] LABS: LYMPHOCYTES % (MANUAL) 9 % (20-46)
[2017-03-02 14:49] LABS: ANION GAP 11.4 (8-16); CARBON DIOXIDE 29.3 mmol/L (21-32); CREATININE 0.9 mg/dL (0.6-1.3); POTASSIUM 3.7 mmol/L (3.5-5.1)
[2017-03-02 14:52] LABS: BILIRUBIN,URINE NEGATIVE (NEGATIVE); BLOOD, URINE 3+ (NEGATIVE); COLOR,URINE YELLOW (YELLOW); LEUKOCYTE ESTERASE ,URINE 2+ (NEGATIVE); NITRITE, URINE NEGATIVE (NEGATIVE); PH,URINE 5.5 (5.0-9.0); UGLUCOSE NEGATIVE (NEGATIVE)
[2017-03-02 14:57] LABS: APPEARANCE,URINE CLOUDY (CLEAR)
[2017-03-02 15:03] LABS: ALBUMIN 2.7 g/dL (3.4-5.0); TOTAL BILIRUBIN 0.4 mg/dL (0.0-1.0)
[2017-03-02 15:05] LABS: RBC,URINE 11-20 (MOD) /HPF (0-5); WBC,URINE 20-60 /HPF (0-5)
[2017-03-02 15:06] LABS: YEAST,URINE Many /HPF (None Seen)
--- NOTE | 2017-03-02 15:11 | NUR ---
PT INTUBATED BY FOR ALOC PLACED ON CARESCAPE VENT AT 1515 SETTINGS AC12 VT 500 PEEP 5 FIO2 60% ALARMS ON AND FUNCTIONING PROPERLY AMBU BAG AT SIDE OF VENT AND VENT IS PLUGGED INTO RED OUTLET, B\S ARE RHONCHI BILATERALLY, PT IS ORALLY INTUBATED WITH 7.5 ET TUBE SECURED AT 23 CM AT RIGHT CORNER OF MOUTH AND SKIN INTEGRITY IS INTACT, PT IS NON VERBAL UNABLE TO GET SPUTUM AT THIS TIME
[2017-03-02] MEDS ORDERED: PROPOFOL 1000 MG/100 ML PREMIX 100 ML IV ONE (15:15)
[2017-03-02] MEDS ORDERED: ROCURONIUM 50 MG/5 ML VIAL IV ONE (15:15)
[2017-03-02] MEDS ORDERED: ACETAMINOPHEN 650 MG SUPP RC ONE (15:15)
[2017-03-02] MEDS ORDERED: ETOMIDATE 20 MG/10 ML VIAL IVP ONE (15:15)
--- NOTE | 2017-03-02 16:14 | NUR ---
RASS SCORE -4 DR. RUVALCABA STILL WANTED TO START PROPOFOL AT 5MCG
[2017-03-02] MEDS ORDERED: HYDROcodone/APAP 5/325 MG 1 TAB TAB GT PRN (16:15)
[2017-03-02] MEDS ORDERED: LORazepam 2 MG/ML VIAL IVP PRN (16:15)
[2017-03-02] MEDS ORDERED: ACETAMINOPHEN 650 MG/20.3 ML UDC GT PRN (16:15)
[2017-03-02] MEDS ORDERED: ONDANSETRON 4 MG/2 ML VIAL IVP PRN (16:15)
--- NOTE | 2017-03-02 16:17 | NUR ---
WITH NARENDRA ET TUBE FROM 23 CM TO 20CM AND SECURED ET TUBE WITH ANCHOR FAST AT RIGHT CORNER OF MOUTH AND CRX DONE
[2017-03-02] MEDS ORDERED: VANCOMYCIN PER PHARMACY MC PRN (16:20)
--- NOTE | 2017-03-02 16:30 | NUR ---
Patient will be admitted to care of DR JOHNSTON. Admited to ICU. Will go to room ICU7. Belongings list completed. Report to VAMSI LEUNG.
--- NOTE | 2017-03-02 16:31 | NUR ---
RECEIVED REPORT FROM RALPH CUELLAR RN. AWAITING ARRIVAL OF PT TO UNIT.
--- NOTE | 2017-03-02 16:58 | NUR ---
PT MOVED TO ICU 7 PLACED BACK ON CARESCAPE VENT WITH SAME SETTINGS AND SPUTUM COLLECTION DONE SMALL AMT OF THICK YELLOW SECRETIONS.
--- NOTE | 2017-03-02 17:00 | NUR ---
PT ARRIVED TO UNIT VIA GURNEY. NO SIGNS OF ACUTE DISTRESS AT THIS TIME, FLACC 0. PT HAS LEFT SIDED CRANIOTOMY WITH SIGN POSTED NOT TO TURN PT TO LEFT SIDE. PT IS NONVERBAL, PT IS ON SEDATION. RASS -4. PT IS ON PROPOFOL DRIP. IV TO RIGHT AC #20 PATENT AND INTACT. IV TO LEFT FA #22 LEAKING, WILL DISCONTINUE. PT IS ETT TO VENT. FIO2: 60%, AC: 12, TV: 500, PEEP: 5. G TUBE IN PLACE. CEDEÑO CATHETER IN PLACE DRAINING TO GRAVITY DRAINAGE BAG. SKIN IS INTACT. SAFETY PRECAUTIONS IN PLACE WITH BED IN LOWEST POSITION AND SIDE RAILS UP. PT IS CURRENTLY SINUS TACHYCARDIA ON THE MONITOR. CALL LIGHT WITHIN REACH. WILL CONTINUE TO MONITOR. ADMISSION ASSESSMENT COMPLETE. MRSA SWAB OBTAINED. TEMP: 100.7, BP: 110/55, HR: 123, RR: 18, O2: 98%.
--- NOTE | 2017-03-02 17:16 | NUR ---
RECEIVED CALL FROM DR. EDWARDS. UPDATED HIM ON PT'S STATUS. INFORMED HE WILL BE IN TO SEE PT.
--- NOTE | 2017-03-02 17:33 | NUR ---
DR. EDWARDS AND DR. POSADA IN TO SEE PT. WILL FOLLOW UP ON ORDERS.
[2017-03-02] MEDS: METOPROLOL 25 MG TAB GT SCH (18:00)
--- NOTE | 2017-03-02 18:22 | NUR ---
IV TO LEFT AC #22 DC'ED WITH CANNULA INTACT. IV TO RIGHT AC #20 INFUSING WELL
--- NOTE | 2017-03-02 18:45 | NUR ---
RE-CHECKED TEMP: 99.4. COOLING MEASURES IN PLACE. NEW IV INSERTED TO RIGHT HAND #22, PATENT AND INTACT.
[2017-03-02] MEDS: DEXT 5% /NACL 0.9% 1,000 ML IV SCH (18:51)
--- NOTE | 2017-03-02 18:56 | NUR ---
PAGED DR. Mary JOHNSTON REGARDING PROPOFOL ORDER, AWAITING CALLBACK.
--- NOTE | 2017-03-02 19:02 | NUR ---
RECEIVED CALLBACK FROM DR. Mary JOHNSTON. NEW ORDERS RECEIVED.
[2017-03-02] MEDS ORDERED: PROPOFOL 1000 MG/100 ML PREMIX 100 ML IV PRN (19:05)
--- NOTE | 2017-03-02 19:25 | NUR ---
RECEIVED PT ON THE SAME VENT SETTINGS, ALARMS ON, SX LARGE CLOUDY SECRETION, NO DISTRESS NOTED
--- NOTE | 2017-03-02 19:32 | NUR ---
ENDORSED CARE TO KATI PEREZ RN. PT IS STABLE.
--- NOTE | 2017-03-02 20:00 | NUR ---
REPORT TAKEN FROM DAY NURSE WITH RESUME CARE
[2017-03-02] MEDS ORDERED: PIPER/TAZO 3.375GM/D5W PREMIX 50 ML IV SCH (21:00)
[2017-03-02] MEDS: AMANTADINE 100 MG CAP GT SCH (21:00)
[2017-03-02] MEDS: SENNA 8.6 MG TAB GT SCH (21:00)
[2017-03-02] MEDS: LACTOBACILLUS RHAMNOSUS GG 1 EACH CAP GT SCH (21:00)
[2017-03-02] MEDS: DOCUSATE 100 MG/10 ML UDC GT SCH (21:00)
[2017-03-02] MEDS ORDERED: ASCORBIC ACID 500 MG/5 ML ORASYR GT SCH (21:00)
--- NOTE | 2017-03-02 22:00 | NUR ---
ORAL CARE DONE , REPOSITION DONE .PT'S ASLEEP
--- NOTE | 2017-03-02 22:05 | NUR ---
PT STARTING TO DESAT TO 82%, INCREASED FIO2 TO 80%
[2017-03-03] VITALS (24 sets, daily range): BP systolic 91–226; BP diastolic 54–81
--- NOTE | 2017-03-03 | NUR ---
REPOSITION DONE , ORAL CARE DONE .
[2017-03-03] MEDS: PIPER/TAZO 3.375GM/D5W PREMIX 50 ML IV SCH ×4 (00:47→17:08)
--- NOTE | 2017-03-03 02:00 | NUR ---
PT'S ASLEEP. NO OTHERS C/O
[2017-03-03] MEDS: DEXT 5% /NACL 0.9% 1,000 ML IV SCH ×2 (02:16→04:56)
[2017-03-03 05:15] LABS: HEMATOCRIT 30.6 % (36-48); HEMOGLOBIN 9.9 g/dL (12.0-16.0); MEAN CORPUSCULAR HEMOGLOBIN 28 pg (27-31); MEAN CORPUSCULAR HGB CONC 32 g/dL (33-37); MEAN CORPUSCULAR VOLUME 87 fL (80-94); PLATELET COUNT (AUTO) 106 K/uL (140-450); RED BLOOD CELL COUNT(AUTO) 3.54 MIL/uL (4.20-5.40); RED CELL DISTRIBUTION WIDTH 15.9 % (11.6-13.7); WHITE BLOOD COUNT (AUTO) 15.4 K/uL (4.8-10.8)
--- NOTE | 2017-03-03 05:24 | NUR ---
PT ON 80% ALL NIGHT, VHANGED HME, NO DISTRESS NOTED.
[2017-03-03 05:31] LABS: ALBUMIN 2.1 g/dL (3.4-5.0); ANION GAP 10.6 (8-16); CARBON DIOXIDE 25.5 mmol/L (21-32); CREATININE 0.7 mg/dL (0.6-1.3); POTASSIUM 3.1 mmol/L (3.5-5.1); TOTAL BILIRUBIN 0.9 mg/dL (0.0-1.0)
[2017-03-03 06:37] LABS: LYMPHOCYTES % (MANUAL) 10 % (20-46); MONOCYTES % (MANUAL) 4 % (5-12)
--- NOTE | 2017-03-03 07:07 | NUR ---
REC'D PT ON CARESCAPE VENT SETTINGS AC12 VT 500 PEEP 5 FIO2 80% ALARMS ON AND FUNCTIONING PROPERLY, AMBU BAG AT SIDE OF VENT AND VENT IS PLUGGED INTO RED OUT LET, SXN PT SMALL AMT OF THICK YELLOW SECRETIONS, B\S ARE RHONCHI BILATERALLY, PT IS ORALLY INTUBATED WITH 7.5 ET TUBE, SECURED WITH ANCHOR FAST AT 20 CM AT MIDLINE WITH SKIN INTEGRITY INTACT PT IS RESTING WITH NO SIGNS OF DISTRESS NOTED CUFF PRESSURE MEASURED BY MOV 20 CM H20
--- NOTE | 2017-03-03 07:20 | NUR ---
REPORT ENDORSE TO DAY NURSE LUIS FERNANDO Pak RN WITH RESUME CARE
--- NOTE | 2017-03-03 07:25 | NUR ---
RECEIVED REPORT FROM VAMSI PEREZ. NO SIGNS OF ACUTE DISTRESS AT THIS TIME, FLACC 0. PT IS SEDATED. PT IS ON PROPOFOL DRIP. PT IS ETT TO VENT. FIO2: 60%, AC: 12, TV: 500, PEEP: 5. IV TO RIGHT AC #20 AND RIGHT HAND #22 PATENT AND INTACT. SKIN IS INTACT. LEFT CRANIOTOMY NOTED. G TUBE IN PLACE. CEDEÑO CATHETER IN PLACE DRAINING TO GRAVITY DRAINAGE BAG. SAFETY PRECAUTIONS IN PLACE WITH BED IN LOWEST POSITION AND SIDE RAILS UP. CALL LIGHT WITHIN REACH. WILL CONTINUE TO MONITOR. Addendum: 03/03/17 at 0918 by Lucia Coughlin RN CHARTED FIO2 60% IN ERROR, PT IS ON FIO2 80%. PT IS SINUS TACHYCARDIA ON THE MONITOR.
--- NOTE | 2017-03-03 07:29 | NUR ---
PT DOES NOT APPEAR TO REQUIRE PROPOFOL DRIP AT THIS TIME FOR SEDATION. PT APPEARS TO BE RESTING COMFORTABLY. HELD PROPOFOL DRIP AT THIS TIME. WILL CONTINUE TO MONITOR.
--- NOTE | 2017-03-03 07:53 | NUR ---
PAGED DR. Mary JOHNSTON REGARDING LOW POTASSIUM: 3.1 AND HIGH SODIUM: 155. AWAITING CALLBACK.
--- NOTE | 2017-03-03 08:00 | NUR ---
RECEIVED CALLBACK FROM DR. Mary JOHNSTON. NEW ORDERS RECEIVED.
--- NOTE | 2017-03-03 08:05 | NUR ---
RECEIVED CRITICAL RADIOLOGY REPORT REGARDING CHEST X RAY RESULTS. PAGED DR. Mary JOHNSTON, AWAITING CALLBACK.
[2017-03-03] MEDS ORDERED: POTASSIUM CHLORIDE 20% 40 MEQ/15 ML UDC GT SCH (08:16)
--- NOTE | 2017-03-03 08:26 | NUR ---
PULLED ET TUBE BACK TO 18CM AT LIP LINE AND SXN PT LARGE AMT OF BLOOD TINT SECRETIONS, CXR CALLED
--- NOTE | 2017-03-03 08:29 | NUR ---
VENT CHECK, SXN PT SMALL AMT OF BLOOD TINT SECRETIONS, PT NO RESTING
--- NOTE | 2017-03-03 08:29 | NUR ---
RECEIVED CALLBACK FROM Mary JOHNSTON. NEW ORDERS RECEIVED.
[2017-03-03] MEDS: LACTOBACILLUS RHAMNOSUS GG 1 EACH CAP GT SCH ×2 (08:40→21:00)
[2017-03-03] MEDS: AMANTADINE 100 MG CAP GT SCH ×2 (08:41→21:00)
[2017-03-03] MEDS: ASCORBIC ACID 500 MG TAB GT SCH ×2 (08:41→21:00)
[2017-03-03] MEDS: levETIRAcetam 100 MG/ML ORASYR GT SCH (08:41)
[2017-03-03] MEDS: MULTIVITAMIN 5 ML ORASYR GT SCH (08:41)
--- NOTE | 2017-03-03 08:41 | NUR ---
PATIENT HAS BEEN SCREENED AND CATEGORIZED HIGH NUTRITION RISK. PATIENT WILL BE SEEN WITHIN 1-2 DAYS OF ADMISSION. 03/03/17-03/04/[address]
[2017-03-03] MEDS: DOCUSATE 100 MG/10 ML UDC GT SCH ×2 (08:42→21:00)
[2017-03-03] MEDS: DEXT 5% / NACL 0.45% 1,000 ML IV SCH ×3 (08:42→21:37)
[2017-03-03] MEDS: METOPROLOL 25 MG TAB GT SCH ×2 (08:42→17:08)
--- NOTE | 2017-03-03 08:44 | NUR ---
G TUBE PLACEMENT CONFIRMED WITH AIR BOLUS. CHECKED HR: 112, BP: 140/74. ADMINISTERED MEDICATION ORDERED. PT TOLERATED WELL.
--- NOTE | 2017-03-03 09:30 | NUR ---
PT'S DAUGHTERS PRESENT AT BEDSIDE.
--- NOTE | 2017-03-03 09:47 | NUR ---
DR. Mary JOHNSTON IN TO SEE PT. WILL FOLLOW UP ON ORDERS.
--- NOTE | 2017-03-03 11:09 | NUR ---
VENT CHECK, SXN PT LARGE AMT OF BLOOD TINT SECRETIONS VAMSI GOULD AT BEDSIDE, MOVED ET TUBE TO MIDLINE OF MOUTH
--- NOTE | 2017-03-03 11:10 | NUR ---
03/03/17 RD INITIAL ASSESSMENT COMPLETED PLEASE REFER TO NUTRITION ASSESSMENT UNDER CARE ACTIVITY FOR ESTIMATED NUTRITIONAL NEEDS. 1. WHEN MEDICALLY FEASIBLE, INITIATE ENTERAL NUTRITION SUPPORT VIA G-TUBE - DIABETISOURCE AC TO START AT 30 ML/HR, ADVANCE 10 ML Q8H TO A GOAL RATE OF 50 ML/HR (PROVIDES 1440 KCAL, 72G PROTEIN, 981 ML FREE WATER - MEETS 100% KCAL + 69% PROTEIN ESTIMATED NEEDS). ADD PROSOURCE 2X/DAILY (PROVIDES ADDITIONAL 120 KCAL, 30G PROTEIN) 2. RD TO FOLLOW-UP 2-3 DAYS, HIGH RISK MASON MENDEZ RD
--- NOTE | 2017-03-03 11:11 | NUR ---
PT TOLERATED MEDS WELL.
--- NOTE | 2017-03-03 13:32 | NUR ---
VENT CHECK, NO SXN REQUIRED AT THIS TIME, PT RESTING
--- NOTE | 2017-03-03 14:52 | NUR ---
PT TOLERATED MEDS WELL. NO SIGNS OF ACUTE DISTRESS NOTED AT THIS TIME. FLACC 0. CALL LIGHT WITHIN REACH. WILL CONTINUE TO MONITOR.
[2017-03-03] MEDS ORDERED: VANCOMYCIN 1GM/DEXT 5% PREMIX 200 ML IV SCH (15:00)
--- NOTE | 2017-03-03 15:06 | NUR ---
VENT CHECK, NO SXN REQUIRED AT THIS TIME, B\S ARE RHONCHI AND PT IS RESTING WITH NO SIGNS OF DISTRESS NOTED AT THIS TIME, DECREASED FIO2 TO 60% AND VAMSI GOULD NOTIFIED OF CHANGES MADE
[2017-03-03] MEDS ORDERED: WARFARIN 5 MG TAB PO SCH (16:00)
--- NOTE | 2017-03-03 16:51 | NUR ---
VENT CHECK, SXN PT SMALL AMT OF BLOOD TINT SECRETIONS, B\S ARE RHONCHI AND AIRWAY IS PATENT
--- NOTE | 2017-03-03 17:19 | NUR ---
CHECKED HR: 107 AND BP: 128/64. ADMINISTERED METOPROLOL ORDERED PT TOLERATED WELL.
--- NOTE | 2017-03-03 17:20 | NUR ---
DR. EDWARDS IN TO SEE PT. WILL FOLLOW UP ON ORDERS.
--- NOTE | 2017-03-03 17:33 | NUR ---
DR. POSADA IN TO SEE PT. WILL FOLLOW UP ON ORDERS
--- NOTE | 2017-03-03 19:15 | NUR ---
REPORT TAKEN FROM DAY NURSE LUIS FERNANDO - RN WITH RESUME CARE, PT'S ON VENT AC 12,TV 500, PEEP 5, FIO2 60 % , VIA ETT 7.5 LIP @ 18 CM WITH PT'S TOLERATING WELL , O2 SAT 100% . KEEP PT HOB @ 30 UP WITH RESUME CARE. CEDEÑO CATH GRAVITY TO FLOOR, PEG TUBE IN SITU @ LUQ , PATENT DRESSING INTACT AND STILL NPO AT THIS TIME.
--- NOTE | 2017-03-03 19:15 | NUR ---
ENDORSED CARE TO VAMSI PEREZ. PT IN STABLE CONDITION.
--- NOTE | 2017-03-03 19:25 | NUR ---
RECEIVED PT ON SAME VENT SETTINGS, AC 12, 500, PEEP 5, 60%, SX PT LARGE [place] THICK AND BLOODY SECRETION, .I DID ORAL CARE , CHANGE ET THE POSITION FROM RIGHT SIDE TO MIDDLE, DUE TO REDNESS OF THE LIP. CHANGED HME AND ROBBINS.
--- NOTE | 2017-03-03 20:00 | NUR ---
TOTAL CARE DONE , REPOSITION TO SUPINE WITH ORAL CARE DONE . PT 'S TOLERATING WELL
[2017-03-03] MEDS: SENNA 8.6 MG TAB GT SCH (21:00)
--- NOTE | 2017-03-03 22:00 | NUR ---
REPOSITION WITH TOLERATING WELL
[2017-03-04] VITALS (24 sets, daily range): BP systolic 106–147; BP diastolic 50–78
--- NOTE | 2017-03-04 | NUR ---
DUE MEDICATION GIVEN, RE POSITION WITH SKIN CARE DONE . PT'S ASLEEP, REST IN COMFORTABLE
[2017-03-04] MEDS: PIPER/TAZO 3.375GM/D5W PREMIX 50 ML IV SCH ×4 (00:04→17:16)
--- NOTE | 2017-03-04 02:00 | NUR ---
REPOSITION DONE SKIN CARE DONE
--- NOTE | 2017-03-04 04:00 | NUR ---
ORAL CARE DONE , TOTAL CARE DONE BED BATH GIVEN , ARUN CHANGES, REPOSITION DONE , KEEP HOB 30 UP WITH TOLERATING WELL
[2017-03-04 05:02] LABS: HEMOGLOBIN 8.6 g/dL (12.0-16.0); MEAN CORPUSCULAR HEMOGLOBIN 28 pg (27-31); MEAN CORPUSCULAR HGB CONC 32 g/dL (33-37); MEAN CORPUSCULAR VOLUME 87 fL (80-94); PLATELET COUNT (AUTO) 127 K/uL (140-450); RED BLOOD CELL COUNT(AUTO) 3.11 MIL/uL (4.20-5.40); RED CELL DISTRIBUTION WIDTH 15.6 % (11.6-13.7); WHITE BLOOD COUNT (AUTO) 15.5 K/uL (4.8-10.8)
--- NOTE | 2017-03-04 05:12 | NUR ---
PT WAS STABLE ALL DURING THE NIGHT, DECREASED FIO2 TO 45%, PT WAS SAT 1005.
--- NOTE | 2017-03-04 06:00 | NUR ---
REPOSITION DONE , KEEP HOB AT 30 PT'S TOLERATING WELL
[2017-03-04 06:29] LABS: ANION GAP 11.7 (8-16); CARBON DIOXIDE 24.2 mmol/L (21-32); CREATININE 0.6 mg/dL (0.6-1.3)
[2017-03-04 06:53] LABS: POTASSIUM 2.9 mmol/L (3.5-5.1)
--- NOTE | 2017-03-04 07:15 | NUR ---
REPORT ENDORSE TO MARIA TERESA AGUSTIN WITH RESUME CARE.
--- NOTE | 2017-03-04 07:15 | NUR ---
RECEIVED ON A EVOFEMSCAPE R860 VENTILATOR ON AND FUNCTIONING WELL PLUGGED INTO RED OUTLET PATIENT TOLERATING WELL WITHOUT ADVERSE REACTIONS NOTED TO A PORTEX ENDOTRACHEAL TUBE #7.5 SECURED AR [id number] WITH AN ANCHOR FAST IRRITATION NOTED AT RIGHT SIDE OF MOUTH AMBU BAG NOTED AT HOB LOC ASLEEP BREATH SOUNDS CLEAR BILATERAL WITH GOOD CHEST RISE AIRWAY PATENT SATURATION 99% ON FIO2 OF 45% TITRATED FIO2 TO 40% MARIA TERESA/RN NOTIFIED
[2017-03-04 07:18] LABS: EOSINOPHILS % (MANUAL) 4 % (0-4); LYMPHOCYTES % (MANUAL) 10 % (20-46); MONOCYTES % (MANUAL) 4 % (5-12)
--- NOTE | 2017-03-04 07:30 | NUR ---
RECEIVED PT FROM PITCH FLAKER RN, PT OPENS EYES, UNABLE TO FOLLOW COMMANDS, BEDSIDE MONITOR SHOWS SR, ETT TO VENT, NO S/S OF RESPIRATORY DISTRESS NOTED. ABDOMEN SOFT WITH ACTIVE BOWEL SOUND, G-TUBE IN PLACE, PT NPO. CEDEÑO CATH IN PLACE WITH CLOUDY URINE NOTED. PT UNABLE TO TURN HERSELF. SKIN NON INTACT ( SACRAL AREA AND GROIN AREA SKIN MOIST NOTED. CLEANED PT, SMALL OPEN WOUND NOTED TO SACRAL AREA) OFF LOAD PRESSURE AREA, WILL CHECK PT FREQUENTLY, TURN PT Q2HR, WILL CONTINUE TO MONITOR.
[2017-03-04] MEDS ORDERED: KCL 20 MEQ/WATER INJ PREMIX 200 ML IV SCH (08:00)
[2017-03-04] MEDS: levETIRAcetam 100 MG/ML ORASYR GT SCH (08:10)
[2017-03-04] MEDS: DOCUSATE 100 MG/10 ML UDC GT SCH ×2 (08:10→21:22)
[2017-03-04] MEDS: PANTOPRAZOLE 40 MG INJ VIAL IVP SCH (08:10)
[2017-03-04] MEDS: MULTIVITAMIN 5 ML ORASYR GT SCH (08:10)
[2017-03-04] MEDS: METOPROLOL 25 MG TAB GT SCH ×2 (08:11→17:14)
[2017-03-04] MEDS: AMANTADINE 100 MG CAP GT SCH ×2 (08:11→21:26)
[2017-03-04] MEDS: LACTOBACILLUS RHAMNOSUS GG 1 EACH CAP GT SCH ×2 (08:12→21:22)
[2017-03-04] MEDS: ASCORBIC ACID 500 MG TAB GT SCH ×2 (08:12→21:22)
--- NOTE | 2017-03-04 09:27 | NUR ---
Social Service Note: I faxed inquiries to the following snfs: [facility] and [facility] : Per Ute, no beds available at this time. [facility] Dixie Torres
[2017-03-04] MEDS ORDERED: PROBIOTIC SCREEN 1 EA MISC MC PRN (09:45)
--- NOTE | 2017-03-04 09:50 | NUR ---
PT'S SON AND DAUGHTER AT BEDSIDE, UPDATED PT'S CONDITION, QUESTIONS ANSWERED.
--- NOTE | 2017-03-04 10:08 | NUR ---
ASLEEP RESTING COMFORTABLY NO EVIDENCE OF PULMONARY DISTRESS NOTED ENDOTRACHEAL SUCTION FOR MODERATE THICK YELLOW WITH BLOOD TINGE SECRETIONS AIRWAY PATENT SATURATION 99% ON FIO2 OF 40% TITRATED FIO2 TO 35% MARIA TERESA/RN NOTIFIED
--- NOTE | 2017-03-04 11:50 | NUR ---
NO SHORTNESS OF BREATH NOTED BREATH SOUNDS RHONCHI BILATERAL WITH GOOD CHEST RISE ENDOTRACHEAL SUCTION FOR MODERATE THICK YELLOW WITH BLOOD TINGE SECRETIONS AIRWAY PATENT
--- NOTE | 2017-03-04 11:58 | NUR ---
TURNED AND REPOSITIONED PT, NO SOB NOTED.
--- NOTE | 2017-03-04 13:37 | NUR ---
NO CHANGE LOC FROM 1150 NO EVIDENCE OF PULMONARY DISTRESS NOTED BREATH SOUNDS RHONCHI BILATERAL WITH GOOD CHEST RISE ENDOTRACHEAL SUCTION FOR MODERATE THIN YELLOW WITH BLOOD TINGE SECRETIONS AIRWAY PATENT
[2017-03-04] MEDS: DEXT 5% / NACL 0.45% 1,000 ML IV SCH (14:05)
[2017-03-04] MEDS: VANCOMYCIN 750 MG in DEXTROSE 5% 250 ML IV SCH (15:14)
--- NOTE | 2017-03-04 15:20 | NUR ---
AWAKE TOLERATING VENTILATOR SUPPORT WELL WITHOUT ADVERSE REACTIONS NOTED BREATH SOUNDS DIFFUSED RHONCHI BILATERAL GOOD CHEST RISE ENDOTRACHEAL SUCTION FOR MODERATE THIN YELLOW SECRETIONS WITH BLOOD TINGE SECRETIONS AIRWAY PATENT
--- NOTE | 2017-03-04 15:45 | NUR ---
TURNED AND REPOSITIONED PT, PT HAD LARGE AMOUNT OF YELLOW BROWNISH SOFT STOOL, CLEANED PT.
[2017-03-04] MEDS ORDERED: DEXTROSE 50% 50 ML SYR IVP PRN (16:50)
--- NOTE | 2017-03-04 17:00 | NUR ---
NOTIFIED DR. JOHNSTON, A PT 'S LAB REPORT, GLUC 301 AND NA 156. PER Lars HASKINS. DECREASE IVF D51/2 NS FROM 100 MLS/ HR TO 10 MLS/HR, CHECK FINGER BLOOD SUGAR Q 6HR, FOLLOW SLIDING SCALE INSULIN SUBQ AND START DIABETISOURCE AC FEEDING AT 30 ML/HR FREE WATER FLUSH 200 ML Q4HR. WILL CARRY OUT.
--- NOTE | 2017-03-04 17:03 | NUR ---
NO DISTRESS NOTED BREATH SOUNDS DIFFUSED RHONCHI BILATERAL WITH GOOD CHEST RISE ENDOTRACHEAL SUCTION FOR SMALL THIN YELLOW WITH SMALL SCATTERED BLOOD TINGE SECRETIONS AIRWAY PATENT SATURATION 100% ON FIO2 OF 35% TITRATED FIO2 TO 30% MARIA TERESA/RN NOTIFIED
[2017-03-04] MEDS: BLOOD GLUCOSE MONITORING 1 DEV DEV FS SCH (17:16)
[2017-03-04] MEDS: INSULIN LISPRO SLIDING SCALE 100 UNITS/ML VIAL SUBQ PRN (17:42)
--- NOTE | 2017-03-04 18:05 | NUR ---
PT OPENS EYES, NO S/S OF RESPIRATORY DISTRESS NOTED. SKIN CARE GIVEN. VITALS STABLE.
--- NOTE | 2017-03-04 20:00 | NUR ---
REPORT TAKEN FROM FRANKLYN Ga WITH RESUME CARE. PT'S AWAKE , ALERT, ORIENTED X 3, CEDEÑO CATH GRAVITY TO FLOOR. PT'S ON HEPRIN DRIP AT 1000 UNIT PER HOURS VIA TLC @ RIGHT SUBCLAVIAN , LINE PATENT Addendum: 03/05/17 at 0206 by Agency 03 RN RN DISREGARD, PREVIOUS NOTED, ERROR ENTRY . REPORT TAKEN FROM MARIA TERESA Pak RN WITH RESUME CARE. PT'S OPEN EYE, LEFT FINGER MOVING NOTED, CEDEÑO CATH GRAVITY TO FLOOR. PT'S ON VENT VIA ETT 7.5, LIP 18 CM WITH FIO2 30% RR 12 TV 500 PEEP 5 WITH TOLERATING WELL.
[2017-03-04] MEDS: SENNA 8.6 MG TAB GT SCH (21:22)
--- NOTE | 2017-03-04 22:00 | NUR ---
PT ASLEEP , REPOSITION DONE , SKIN CARE DONE
[2017-03-05] VITALS (24 sets, daily range): BP systolic 97–135; BP diastolic 44–76
--- NOTE | 2017-03-05 | NUR ---
REPOSITION DONE , ORAL CARE DONE . KEEP HOB 30 WITH TOLERATING WELL
[2017-03-05] MEDS: PIPER/TAZO 3.375GM/D5W PREMIX 50 ML IV SCH ×4 (00:01→17:38)
[2017-03-05] MEDS: BLOOD GLUCOSE MONITORING 1 DEV DEV FS SCH ×4 (00:04→18:04)
[2017-03-05] MEDS: INSULIN LISPRO SLIDING SCALE 100 UNITS/ML VIAL SUBQ PRN ×4 (00:07→18:06)
--- NOTE | 2017-03-05 02:00 | NUR ---
REPOSITION DONE, ORAL CARE GIVEN. SKIN CARE DONE .
[2017-03-05] MEDS: VANCOMYCIN 750 MG in DEXTROSE 5% 250 ML IV SCH ×2 (03:08→15:53)
--- NOTE | 2017-03-05 04:00 | NUR ---
REPOSITION DONE , ORAL CARE GIVEN , SKIN CARE DONE,PT'S TOLERATING WELL.
--- NOTE | 2017-03-05 05:11 | NUR ---
PT STABLE NO RESP DISTRESS NO SHORTNESS OF BREATH, NO CHANGE IN RESP STATUS AT THIS TIME. MIN AMOUNT OF SECRETIONS.
--- NOTE | 2017-03-05 06:00 | NUR ---
DUE MEDICATION GIVEN MD ORDER. ACCU CHECK DONE 197 MG/DL WITH HUMALOG 2 UNIT GIVEN NEEDED. PT'S TOLERATING WELL. REPOSITION DONE , KEEP HOB 30 WITH TOLERATING WELL.
--- NOTE | 2017-03-05 07:06 | NUR ---
RECEIVED INTUBATED PT WITH ETT SIZE 7.5 SECURED @18 TEETH/GUM ON VENT. SETTINGS AC 12, VT 500, PEEP 5 AND FIO2 30. PT SUCTIONED OBTAINED BROWN/REDDISH COLORED SECRETIONS, VISCOSITY IS THICK AND SMALL IN AMOUNT. AIRWAY IS PATENT, ETT IS SECURE. VENT ALARMS ARE ON AND FUNCTIONING. VENT IS PLUGGED INTO RED OUTLET WITH AMBU BAG PRESENT AT BEDSIDE. CUFF PRESSURE IS WNL. WILL CONTINUE TO MONITOR.
--- NOTE | 2017-03-05 07:09 | NUR ---
REPORT ENDORSE TO MIYA - RN WITH RESUME CARE.
--- NOTE | 2017-03-05 07:20 | NUR ---
RECEIVED PT FROM TEACHERS ASSISTANT RN, PT OPENS EYES, UNABLE TO FOLLOW COMMANDS, BEDSIDE MONITOR SHOWS SR, ETT TO VENT, NO S/S OF RESPIRATORY DISTRESS NOTED. ABDOMEN SOFT WITH ACTIVE BOWEL SOUND, G-TUBE IN PLACE WITH DIABETISOURCE AC RUNNING AT 30 ML/HR, RESIDUAL CHECKED, ZERO. CEDEÑO CATH IN PLACE WITH CLOUDY URINE NOTED. PT UNABLE TO TURN HERSELF. SKIN NON INTACT ( SEE WOUND ASSESSMENT). OFF LOAD PRESSURE AREA, WILL CONTINUE TO MONITOR.
--- NOTE | 2017-03-05 08:15 | NUR ---
TURNED AND REPOSITIONED PT, ORAL CARE GIVEN. PT HAD MODERATE AMOUNT OF BM, CLEANED PT.
[2017-03-05] MEDS: ASCORBIC ACID 500 MG TAB GT SCH ×2 (08:49→20:33)
[2017-03-05] MEDS: DOCUSATE 100 MG/10 ML UDC GT SCH ×2 (08:49→20:32)
[2017-03-05] MEDS: FLUCONAZOLE 100 MG TAB GT SCH (08:50)
[2017-03-05] MEDS: PANTOPRAZOLE 40 MG INJ VIAL IVP SCH (08:50)
[2017-03-05] MEDS: LACTOBACILLUS RHAMNOSUS GG 1 EACH CAP GT SCH ×2 (08:50→20:33)
[2017-03-05] MEDS: METOPROLOL 25 MG TAB GT SCH ×2 (08:50→17:38)
[2017-03-05] MEDS: levETIRAcetam 100 MG/ML ORASYR GT SCH (08:51)
[2017-03-05] MEDS: AMANTADINE 100 MG CAP GT SCH ×2 (08:51→20:33)
[2017-03-05] MEDS: MULTIVITAMIN 5 ML ORASYR GT SCH (08:52)
--- NOTE | 2017-03-05 10:11 | NUR ---
BY REQUEST OF PT PLACED ON CPAP 5 PS 10 FOR SBT. WILL MONITOR CLOSELY.
--- NOTE | 2017-03-05 10:43 | NUR ---
PT TOLERATED 30 MIN SBT ON CPAP 5 PS 10 FIO2 30%. WILL KEEP PT ON CPAP AND WILL MONITOR CLOSELY. DR POSADA AWARE OF FIRST 30 MIN SUCCESS. Addendum: 03/05/17 at 1044 by Agapito Mejia RT PT UNABLE TO FOLLOW COMMANDS OR RESPOND.
--- NOTE | 2017-03-05 11:00 | NUR ---
WOUND CARE EVALUATION NOTES: REASON FOR EVALUATION: SACROCOCCYX WOUND COMPLETE SKIN ASSESSMENT DONE ON THIS 61 Y/O FEMALE PATIENT FROM [facility] [place] TO [facility], WITH INITIAL DIAGNOSIS SOB. PAST MEDICAL AND SURGICAL HISTORY INCLUDE HTN, SEIZURE, DM, G-TUBING, MULTIPLE SKULL FRACTURES AND CRANIECTOMY. ALL ABOVE INFORMATION WAS OBTAINED FROM THE ADMISSION H&P. LABS ARE WBC 11.1, H/H 8.0/25.6, GLUCOSE 198. PT IS ON CONTACT PRECAUTION FOR E-COLI ESBL. PATIENT IS NON-VERBAL, OPENS EYES WHEN TOUCHED. PT ABLE TO TRACK MOVEMENT. FC 16FR PATENT WITH CLEAR YELLOW URINE OUTPUT. SKIN WARM TO TOUCH WNL, S/P CRANIOTOMY LEFT SIDE OF HEAD, FULL HAIR GROWTH. +1 EDEMA LLE, CAPILLARY REFILLED <3 SEC. BILATERAL PEDAL PULSES PRESENT AND STRONG. LUQ G-TUBE PATENT AND RECEIVING DIABETISOURCE 30ML/HR + 200ML FWF Q4H. PT. NEEDS MAX ASSISTANCE IN TURNING. INITIAL PLAN OF CARE AND PRESSURE PREVENTIVE MEASURES DISCUSSED WITH PRIMARY CARE NURSE. INTEGUMENTARY: SKIN DRY AND INTACT MID ABDOMEN.-OLD SURGICAL SCAR RIGHT HAND-EDEMA SACROCOCCYX-BLANCHABLE REDNESS, SKIN ALTERATION FROM FRICTION/INCONTINENCE ASSOCIATE 0.5X0.5 CM, PW PINK LEFT AND RIGHT GROINS-INCONTINENT ASSOCIATE DERMATITIS, FUNGAL RASHES PERINEAL- INCONTINENT ASSOCIATE DERMATITIS, FUNGAL RASHES G-TUBE STOMA SITE DRY AND CLEAN RECOMMENDATIONS: -CLEANSE LEFT AND RIGHT GROINS WITH SOAP AND WATER, PAT DRY, APPLY ANTIFUNGAL CREAM BID AND PRN IF SOILING, PROMOTIONS DIRECTOR -CLEANSE PERINEAL AREA WITH SOAP AND WATER, PAT DRY, APPLY Z GUARD BID AND PRN IF SOILING, PROMOTIONS DIRECTOR -CLEANSE SACROCOCCYX SKIN ALTERATION AREA WITH NS. PAT DRY , APPLY OPTIFORM CHANGE Q3 DAYS AND PRN IF SOILING -ASSESS AND MONITOR BLANCHABLE REDNESS ON SACROCOCCYX AREA DURING POSITION CHANGE AND NOTIFY MD OF ANY ABNORMAL CHANGES -TURN AND REPOSITION PATIENT Q2H -OFFLOAD BILATERAL HEELS BY PLACING PILLOWS UNDER CALVES AT ALL TIMES, UNLESS OTHERWISE CONTRAINDICATED -KEEP SKIN CLEAN AND DRY AT ALL TIMES. -PRESSURE REDISTRIBUTION SURFACE THERAPY. -FOLLOW RD RECOMMENDATIONS TO MEET NUTRITIONAL/ HYDRATION NEEDS RECOMMENDATIONS DISCUSSED WITH PRIMARY RN. WILL FOLLOW UP PATIENT Q 7-10 DAYS AND PRN. PLEASE CONTACT WOUND CARE NURSE FOR ANY CONCERNS AND CHANGES IN SKIN CONDITION.
[2017-03-05 11:13] LABS: CARBON DIOXIDE 23.4 mmol/L (21-32); CREATININE 0.5 mg/dL (0.6-1.3)
[2017-03-05 11:14] LABS: POTASSIUM 2.4 mmol/L (3.5-5.1)
[2017-03-05 11:17] LABS: HEMATOCRIT 25.6 % (36-48); MEAN CORPUSCULAR HEMOGLOBIN 27 pg (27-31); MEAN CORPUSCULAR HGB CONC 31 g/dL (33-37); MEAN CORPUSCULAR VOLUME 86 fL (80-94); PLATELET COUNT (AUTO) 146 K/uL (140-450); RED BLOOD CELL COUNT(AUTO) 2.97 MIL/uL (4.20-5.40); WHITE BLOOD COUNT (AUTO) 11.1 K/uL (4.8-10.8)
[2017-03-05 11:28] LABS: EOSINOPHILS % (MANUAL) 7 % (0-4); LYMPHOCYTES % (MANUAL) 8 % (20-46); MONOCYTES % (MANUAL) 5 % (5-12)
--- NOTE | 2017-03-05 11:40 | NUR ---
Received CRITICAL LAB REPORT K 2.4, CALLED DR.PALIWAL Mack WHO COVER DR. PRESTON Sousa [phone] AT [phone], VOICE MESSAGE LEFT REGARDING K LEVEL. CALLED OFFICE [phone] AGAIN AT [phone], WILL FOLLOW UP.
--- NOTE | 2017-03-05 12:09 | NUR ---
PT RETURNED TO ORIGINAL VENT SETTINGS. PT NOT SOB AND NOT IN RESPIRATORY DISTRESS AT THIS TIME. WILL CONTINUE TO MONITOR. Addendum: 03/05/17 at 1253 by Agapito Mejia RT DUE TO PT BECOMING TACHYPNEIC , SLIGHT INCREASE IN HR.
--- NOTE | 2017-03-05 12:15 | NUR ---
03/05/17 RD FOLLOW-UP ASSESSMENT COMPLETED PLEASE REFER TO NUTRITION ASSESSMENT UNDER CARE ACTIVITY FOR ESTIMATED NUTRITIONAL NEEDS. 1. CONTINUE EN SUPPORT - DIABETISOURCE AC AT 30 ML/HR + 200 ML FWF Q4H, ADVANCE TOLERATED TO A GOAL RATE OF 60 ML/HR 2. RD TO FOLLOW-UP 2-3 DAYS, HIGH RISK MASON MENDEZ, RD
--- NOTE | 2017-03-05 13:25 | NUR ---
CALLED DR.HOURANY Looney, NOTIFIED HIM K 2.4, ORDER RECEIVED, WILL CARRY OUT.
[2017-03-05] MEDS ORDERED: POTASSIUM CHLORIDE 20% 40 MEQ/15 ML UDC GT SCH ×2 (13:30→19:00)
[2017-03-05] MEDS ORDERED: KCL 20 MEQ/WATER INJ PREMIX 200 ML IV SCH (13:30)
--- NOTE | 2017-03-05 13:32 | NUR ---
PT SUCTIONED OBTAINED LARGE AMOUNT OF THICK SECRETIONS, AIRWAY IS PATENT AND ETT IS SECURE. NO BITING OR KINKING OF ETT. WILL CONTINUE TO MONITOR.
[2017-03-05] MEDS: POTASSIUM CHL 20 MEQ/D5-1/2NS 1,000 ML IV SCH (13:38)
--- NOTE | 2017-03-05 16:08 | NUR ---
TURNED AND REPOSITIONED PT, ORAL CARE GIVEN.
--- NOTE | 2017-03-05 17:24 | NUR ---
VENT CHECK COMPLETED NO CHANGES MADE TO VENT AT THIS TIME. PT SUCTIONED OBTAINED SMALL AMOUNT OF THICK SECRETIONS. AIRWAY IS PATENT. ETT REMAINS SECURE. VENT ALARMS ARE ON AND FUNCTIONING. PT IS NOT SOB AND NOT IN RESPIRATORY DISTRESS AT THIS TIME.
[2017-03-05] MEDS: NYSTATIN/TRIAMCINOLONE CRM 15 GM TUBE TP SCH (17:39)
--- NOTE | 2017-03-05 17:50 | NUR ---
PT HAD MODERATE AMOUNT OF LOOSE STOOL. CLEANED PT.
--- NOTE | 2017-03-05 18:30 | NUR ---
DR. JOHNSTON Y IN TO SEE PT, UPDATED LAB REPORT.
--- NOTE | 2017-03-05 19:10 | NUR ---
REPORT GIVEN TO RAND CEMENTER RN. PT IN STABLE CONDITION.
--- NOTE | 2017-03-05 19:30 | NUR ---
RECEIVED REPORT FROM RN AT BEDSIDE. RECEIVED PATIENT ON ETT TO VENT WITH SETTINGS ORDERED. SKIN WARM AND DRY TO TOUCH. RESPIRATIONS EVEN AND UNLABORED, NO APPARENT PHYSICAL DISTRESS. FLACC 0. LUNG SOUNDS EQUAL BILATERALLY. BOWEL SOUNDS ACTIVE. GT SITE INTACT AND PATENT, AUSCULTATED, ASPIRATED 40 ML RESIDUAL. ON CONTINUOUS FEEDING DIABETISOURCE @ 30 ML/HR. IV SITE TO RIGHT HAND AND RIGHT AC INTACT AND PATENT, NO SIGNS OF INFILTRATION NOTED. NOTED +1 EDEMA TO BILATERAL HANDS. SAFETY PRECAUTIONS MAINTAINED, CALL LIGHT WITHIN REACH, BED ON LOWEST POSITION. WILL CONTINUE TO MONITOR.
[2017-03-05] MEDS ORDERED: Z-GUARD PASTE TP ONE (20:00)
--- NOTE | 2017-03-05 20:15 | NUR ---
ALL DUE MEDS ADMINISTERED AT THIS TIME AND TOLERATED WELL. TURNED AND REPOSITIONED TO OFFLOAD PRESSURE AREAS. ORAL CARE DONE. SUCTIONED SECRETION VIA ETT.
[2017-03-05] MEDS: SENNA 8.6 MG TAB GT SCH (20:33)
--- NOTE | 2017-03-05 22:10 | NUR ---
TURNED AND REPOSITIONED PATIENT TO OFFLOAD PRESSURE AREAS.
[2017-03-06] VITALS (24 sets, daily range): BP systolic 102–157; BP diastolic 2–78
--- NOTE | 2017-03-06 00:15 | NUR ---
DUE MEDS ADMINISTERED. BLOOD SUGAR CHECK DONE: 240 MG/DL GIVEN COVERAGE OF 4 UNITS HUMALOG SUBQ ON RIGHT LOWER ABDOMEN. ORAL CARE PROVIDED. TURNED AND REPOSITIONED TO OFFLOAD PRESSURE AREAS.
[2017-03-06] MEDS: POTASSIUM CHL 20 MEQ/D5-1/2NS 1,000 ML IV SCH ×2 (00:25→19:20)
[2017-03-06] MEDS: PIPER/TAZO 3.375GM/D5W PREMIX 50 ML IV SCH ×4 (00:33→18:07)
[2017-03-06] MEDS: BLOOD GLUCOSE MONITORING 1 DEV DEV FS SCH ×4 (00:33→18:11)
[2017-03-06] MEDS: INSULIN LISPRO SLIDING SCALE 100 UNITS/ML VIAL SUBQ PRN ×4 (00:43→18:13)
--- NOTE | 2017-03-06 02:00 | NUR ---
TURNED AND REPOSITIONED PATIENT TO OFFLOAD PRESSURE AREAS. SAFETY PRECAUTIONS MAINTAINED AT ALL TIMES. BED AT LOWEST POSITION, CALL LIGHT WITHIN REACH. WILL CONTINUE TO MONITOR.
[2017-03-06] MEDS: VANCOMYCIN 750 MG in DEXTROSE 5% 250 ML IV SCH (02:59)
--- NOTE | 2017-03-06 03:15 | NUR ---
DUE IV VANCOCIN ADMINISTERED ORDERED.
--- NOTE | 2017-03-06 04:00 | NUR ---
ORAL CARE PROVIDED. SUCTIONED SMALL AMOUNT OF THICK BLOODY SECRETIONS. TURNED AND REPOSITIONED TO OFFLOAD PRESSURE AREAS. SAFETY PRECAUTIONS MAINTAINED AT ALL TIMES. WILL CONTINUE TO MONITOR.
--- NOTE | 2017-03-06 05:15 | NUR ---
MORNING CARE RENDERED, SPONGE BATH IN BED. INCONTINENT OF BM, CHANGED. TURNED AND REPOSITIONED TO OFFLOAD PRESSURE AREAS. SAFETY PRECAUTIONS MAINTAINED AT ALL TIMES. WILL CONTINUE TO MONITOR.
--- NOTE | 2017-03-06 05:40 | NUR ---
IV SITE TO RIGHT AC NOTED REDDENED, UNABLE TO START ANOTHER PERIPHERAL LINE. IVF D5 1/2 NS + 20 MEQ KCL HELD AT THIS TIME.
--- NOTE | 2017-03-06 05:50 | NUR ---
BANKING CENTER MANAGER HAVING A HARD TIME TO DRAW BLOOD. RIGHT HAND 22G SALINE LOCK INFILTRATED, REDNESS NOTED ON THE RIGHT AC IV ACCESS. DIFFICULTY OF GETTING ANOTHER IV ACCESS. DR. SAHIL JOHNSTON NOTIFIED WITH ORDERS MADE, FOR PICCLINE INSERTION. NURSE PLANT SUPERVISOR NOTIFIED.
--- NOTE | 2017-03-06 06:09 | NUR ---
SPOKE TO UGO, SON AND APOLINAR, DAUGHTER REGARDING PICLLINE INSERTION. BOTH THE CHILDREN CONSENT PICCLINE INSERTION. UGO WILL BE HERE TO SIGN CONSENT TODAY. NURSE YEAST TENDER AWARE.
--- NOTE | 2017-03-06 06:20 | NUR ---
DR. MYRICK AT BEDSIDE AND ASSESSED PATIENT, UPDATED OF PATIENT CONDITION. DR. MYRICK WOULD LIKE TO BE CALLED FOR ABNORMAL LAB RESULTS TO CALL HIM. WILL ENDORSE TO INCOMING SHIFT.
--- NOTE | 2017-03-06 07:42 | NUR ---
RECEIVED ON A [employer]APE R860 VENTILATOR PLUGGED INTO RED OUTLET TOLERATING WELL WITHOUT INCIDENT TO A PORTEX ENDOTRACHEAL TUBE #7.5 SECURED AT [id number] LIP LINE WITH AN ANCHOR PAST REPOSITIONED TO LEFT SIDE OF MOUTH CUFF PRESS CHECKED [id number] AMBU BAG NOTED AT HOB LOC ASLEEP EASILY AWAKENS WITH MOVEMENT BREATH SOUNDS DIFFUSED RHONCHI BILATERAL ENDOTRACHEAL SUCTION FOR SMALL THICK WITH BLOOD TINGE SECRETIONS AIRWAY PATENT
--- NOTE | 2017-03-06 07:58 | NUR ---
ARTERIAL BLOOD GAS PROCESSED ORDERED PUNCTURE SITE AT LEFT RADIAL PATIENT TOLERATED PROCEDURE WELL WITHOUT ADVERSE REACTIONS NOTED
[2017-03-06 08:13] LABS: ANION GAP 12.7 (8-16); CARBON DIOXIDE 24.5 mmol/L (21-32); CREATININE 0.5 mg/dL (0.6-1.3); POTASSIUM 3.2 mmol/L (3.5-5.1)
--- NOTE | 2017-03-06 08:30 | NUR ---
FAMILY AT BEDSIDE AT THIS TIME. CONSENT FOR PICC LINE INSERTION SIGNED BY SON UGO. CONCERNS AND QUESTIONS ANSWERED.
[2017-03-06] MEDS: levETIRAcetam 100 MG/ML ORASYR GT SCH (08:46)
[2017-03-06] MEDS: METOPROLOL 25 MG TAB GT SCH (08:46)
[2017-03-06] MEDS: MULTIVITAMIN 5 ML ORASYR GT SCH (08:47)
[2017-03-06] MEDS: FLUCONAZOLE 100 MG TAB GT SCH (08:47)
[2017-03-06] MEDS: AMANTADINE 100 MG CAP GT SCH ×2 (08:47→21:12)
[2017-03-06] MEDS: PANTOPRAZOLE 40 MG INJ VIAL IVP SCH (08:47)
[2017-03-06] MEDS: NYSTATIN/TRIAMCINOLONE CRM 15 GM TUBE TP SCH ×3 (08:48→17:00)
[2017-03-06] MEDS: ASCORBIC ACID 500 MG TAB GT SCH ×2 (08:48→21:13)
[2017-03-06] MEDS: LACTOBACILLUS RHAMNOSUS GG 1 EACH CAP GT SCH ×2 (08:48→21:12)
[2017-03-06] MEDS: DOCUSATE 100 MG/10 ML UDC GT SCH ×2 (08:56→21:12)
--- NOTE | 2017-03-06 09:08 | NUR ---
DR. JOHNSTON MADE AWARE OF THE PTT RESULT OF >150. NO ORDERS MADE AT THIS TIME
--- NOTE | 2017-03-06 09:30 | NUR ---
DR. JOHNSTON TALK TO PT SON UGO REGARDING PT CONDITION AND PLAN OF CARE.
--- NOTE | 2017-03-06 09:34 | NUR ---
PLACED ON SPONTANEOUS BREATHING TRIAL WITH SETTINGS NOTED BREATH SOUNDS DECREASED BILATERAL WITH GODD CHEST RISE AND AERATION THROUGHOUT AIRWAY PATENT DUE TO NEUROLOGICAL STATUS PATIENT UNABLE TO PERFORM NIF AND VC MEASURES LIV/RN NOTIFIED
[2017-03-06] MEDS ORDERED: KCL 20 MEQ/WATER INJ PREMIX 200 ML IV SCH (09:35)
[2017-03-06] MEDS: Z-GUARD PASTE TP SCH ×3 (09:46→17:00)
--- NOTE | 2017-03-06 10:00 | NUR ---
DR. JOHNSTON IN AND SEEN PATIENT. WITH ORDERS TO REDRAW PTT AND IF STILL HIGH WILL CONSULT DR. BARONE.
--- NOTE | 2017-03-06 10:05 | NUR ---
MANUAL WINDER AT BEDSIDE TO REDRAW PTT.
[2017-03-06 10:32] LABS: PROTHROMBIN TIME 11.9 secs (10.8-13.4)
--- NOTE | 2017-03-06 11:10 | NUR ---
PTT LEVEL CAME BACK 22.8. PICC LINE NURSE PEDRO INFORMED OF PT/INR, PTT LEVEL AND THAT CONSENT HAD BEEN SIGNED. SHE STATED THAT SHE WILL COME IN.
--- NOTE | 2017-03-06 11:40 | NUR ---
TOLERATING SPONTANEOUS BREATHING TRIAL WELL WITHOUT ANY EVIDENCE OF PULMONARY DISTRESS NOTED BREATH SOUNDS DECREASED BILATERAL WITH GOOD CHEST RISE ENDOTRACHEAL SUCTION FOR MODERATE THICK YELLOW WITH BLOOD STREAKED SECRETIONS AIRWAY PATENT OROPHARYNX SUCTION FOR COPIOUS THICK CLOUDY WITH YELLOW TINGE SECRETIONS
[2017-03-06] MEDS: POTASSIUM CHLORIDE 40 MEQ, LIDOCAINE 1% 25 MG in NACL 0.9% 250 ML IV SCH ×2 (12:06→16:23)
--- NOTE | 2017-03-06 12:20 | NUR ---
PICC LINE NURSE AT BEDSIDE DOING PICC LINE INSERTION WITH US TECH AT BEDSIDE. TIME OUT PERFORMED PRIOR TO PROCEDURE.
--- NOTE | 2017-03-06 13:15 | NUR ---
PICC PROCEDURE IN PROGRESS CELL MANAGER TO ATTEMPT PATIENT AND VENTILATOR ASSESSMENT AT A LATER TIME NO EVIDENCE OF PULMONARY DISTRESS NOTED
--- NOTE | 2017-03-06 13:57 | NUR ---
PICC LINE PROCEDURE IN PROGRESS PATIENT TOLERATING SPONTANEOUS BREATHING TRAIL WITHOUT PULMONARY DISTRESS NOTED GOOD CHEST RISE BREATH SOUNDS UNDETERMINED AT THIS TIME DO TO STERILE FIELD OF PICC LINE PROCEDURE
--- NOTE | 2017-03-06 16:08 | NUR ---
AWAKE STABLE NO EVIDENCE OF PULMONARY DISTRESS NOTED TOLERATING SPONTANEOUS BREATHING TRIAL WELL WITHOUT INCIDENT BREATH SOUNDS RHONCHI BILATERAL WITH GOOD CHEST RISE ENDOTRACHEAL SUCTION FOR MODERATE SCATTERED THICK YELLOW SECRETIONS AIRWAY PATENT
--- NOTE | 2017-03-06 16:40 | NUR ---
DR. EDWARDS IN AND SEEN PATIENT, NO NEW ORDERS MADE AT THIS TIME.
[2017-03-06] MEDS: VANCOMYCIN 500 MG in DEXTROSE 5% 100 ML IV SCH (17:00)
--- NOTE | 2017-03-06 17:48 | NUR ---
STABLE NO EVIDENCE OF PULMONARY DISTRESS NOTED TOLERATING SPONTANEOUS BREATHING TRIAL WITH ADVERSE REACTIONS NOTED BREATH SOUNDS DECREASED BILATERAL WITH GOOD CHEST RISE ENDOTRACHEAL TUBE SUCTION FOR SMALL THICK YELLOW SECRETIONS AIRWAY PATENT
--- NOTE | 2017-03-06 19:20 | NUR ---
REPORT GIVEN TO NIGHT RN FOR CONTINUITY OF CARE. PATIENT IN STABLE CONDITION.
--- NOTE | 2017-03-06 19:20 | NUR ---
RECEIVED PATIENT FROM LIV AGUSTIN. PATIENT AWAKE,OPEN HER EYES,NO EYES CONTACT. ON ETT TO VENT WITH CPAP SETTING TOLERATED WELL,NO S/S OF RESP DISTRESS AT THIS TIME. BILATERAL LUNGS SOUND CLEAR. YELLOW THICK SMALL SECRETION NOTED DURING ETT SUCTION. PICC LINE ON LEFT UPPER ARM 2 LUMENS INTACT WELL. CONT DIABETIC SOURCE AT 30 CC/HR,AND IV DEX 5% IN NACL 0.45% WITH 20 MEQ KCL AT 100 CC/HR. EDEMA BUE AND BLE . BOTH HANDS EDEMA +3 NON PITTING.BOTH HAND WITH DISCOLORATION. RIGHT UPPER ARM IV LINE NO 20 GAUGE. ABD SOFT NON DISTENDED.F/C NO 16 FR /[address] WITH YELLOW CLEAR URINE NOTED.DRY AND CLEAN DRESSING ON COCCYX AREA. Addendum: 03/06/17 at 2021 by Christel Lcoo RN EDEMA BOTH HANDS PITTING +3,ELEVATED BUE WITH PILLOWS.
--- NOTE | 2017-03-06 20:30 | NUR ---
PATIENT HAS MEDIUM BM SOFT,YELLOW COLOR.GOOD CEZAR ANAL CARE GIVEN.
[2017-03-06] MEDS: SENNA 8.6 MG TAB GT SCH (21:13)
--- NOTE | 2017-03-06 21:30 | NUR ---
INCREASE THE GT FEEDING DIABETIC SOURCE TO 40 CC/HR,PATIENT TOLERATED WELL,NO RESIDUAL NOTED,THE TARGET RATE IS 60CC/HR. RT PUT PATIENT BACK TO VENT AC 12, VT 500,FIO2 30 AND PEEP 3 TOLERATED WELL.
--- NOTE | 2017-03-06 22:00 | NUR ---
TURN PATIENT TO SUPINE POSITION. SUCTION GIVEN TOLERATED WELL, NO SOB, NO RESP DISTRESS.CONT ON ETT TO VENT WITH AC 12, FIO2 30,TV 500 AND 5 PEEP.
[2017-03-07] VITALS (24 sets, daily range): BP systolic 112–151; BP diastolic 64–77
--- NOTE | 2017-03-07 | NUR ---
TURN PATIENT TO RIGHT LATERAL POSITION. PATIENT SLEPT WELL.
[2017-03-07] MEDS: PIPER/TAZO 3.375GM/D5W PREMIX 50 ML IV SCH ×5 (00:07→23:09)
[2017-03-07] MEDS: BLOOD GLUCOSE MONITORING 1 DEV DEV FS SCH ×5 (00:08→23:39)
[2017-03-07] MEDS: INSULIN LISPRO SLIDING SCALE 100 UNITS/ML VIAL SUBQ PRN ×5 (00:11→23:37)
--- NOTE | 2017-03-07 01:00 | NUR ---
F/C BAG EMPTIED WITH 950 CC URINE YELLOW CLEAR COLOR NOTED.
[2017-03-07] MEDS: POTASSIUM CHL 20 MEQ/D5-1/2NS 1,000 ML IV SCH ×3 (01:26→15:20)
--- NOTE | 2017-03-07 01:30 | NUR ---
IV ABT ZOSYN GIVEN ORDERED. BLOOD SUGAR 195 AND 2 UNITS INSULIN GIVEN SQ ORDERED.
--- NOTE | 2017-03-07 01:30 | NUR ---
HANG NEW BAG FOR IV DEX 5 % IN 0.45 NS WITH 20 MEQ KCL AT 100 CC/HR TOLERATED WELL.
--- NOTE | 2017-03-07 02:00 | NUR ---
PATIENT HAS BM MEDIUM SOFT YELLOW COLOR.GOOD PERIANAL CARE GIVEN.
[2017-03-07] MEDS ORDERED: VANCOMYCIN 500 MG VIAL ONE (03:57)
--- NOTE | 2017-03-07 04:00 | NUR ---
TURN PATIENT TO RIGHT LATERAL,NO S/S OF RESP/DISTRESS,NO SOB. SLEPT WELL.
--- NOTE | 2017-03-07 05:00 | NUR ---
VANCOMYCIN 500 MG GIVEN ORDERED SWETHA WELL
[2017-03-07] MEDS: VANCOMYCIN 500 MG in DEXTROSE 5% 100 ML IV SCH ×2 (05:02→17:09)
[2017-03-07 06:00] LABS: ANION GAP 10.9 (8-16); CARBON DIOXIDE 25.1 mmol/L (21-32); CREATININE 0.4 mg/dL (0.6-1.3)
--- NOTE | 2017-03-07 06:00 | NUR ---
BLOOD SUGAR 223 AND 4 UNITS INSULIN GIVEN ORDERED TOLERATED WELL. ZOSYN GIVEN ORDERED.
[2017-03-07 06:01] LABS: HEMATOCRIT 24.3 % (36-48); HEMOGLOBIN 7.7 g/dL (12.0-16.0); MEAN CORPUSCULAR HEMOGLOBIN 27 pg (27-31); MEAN CORPUSCULAR HGB CONC 32 g/dL (33-37); MEAN CORPUSCULAR VOLUME 86 fL (80-94); PLATELET COUNT (AUTO) 191 K/uL (140-450); RED BLOOD CELL COUNT(AUTO) 2.84 MIL/uL (4.20-5.40); RED CELL DISTRIBUTION WIDTH 15.1 % (11.6-13.7); WHITE BLOOD COUNT (AUTO) 7.9 K/uL (4.8-10.8)
--- NOTE | 2017-03-07 06:17 | NUR ---
REC'D PT ON CARESCAPE VENT SETTINGS AC12 VT 500 PEEP 5 FIO2 30% ALARMS ON AND FUNCTIONING PROPERLY, AMBU BAG AT SIDE OF VENTILATOR AND VENTILATOR IS PLUGGED INTO RED OUTLET, SXN PT SMALL AMT OF THICK BLOOD TINT SECRETIONS, B\S ARE CLEAR BILATERALLY, PT IS ORALLY INTUBATED WITH 7.5 ET TUBE SECURED WITH ANCHOR FAST AT 18 CM MIDLINE AND SKIN INTEGRITY IS INTACT, PT IS RESTING WITH NO SIGNS OF DISTRESS NOTED AT THIS TIME
[2017-03-07 07:06] LABS: EOSINOPHILS % (MANUAL) 7 % (0-4); LYMPHOCYTES % (MANUAL) 8 % (20-46); MONOCYTES % (MANUAL) 5 % (5-12)
--- NOTE | 2017-03-07 07:15 | NUR ---
RECEIVED REPORT FROM NIGHT RN FOR CONTINUITY OF CARE. PATIENT IS ASLEEP. ON ETT TO VENT FI02 30%. SKIN WARM TO TOUCH, TOENAILS WNL, NO HAIR GROWTH, NO EDEMA AND +2 BILATERAL PEDAL PULSES. LEFT ARM PICC LINE WITH DRESSING AND INTACT. FC 16FR PATENT AND INTACT TO CLEAR YELLOW URINE IN MODERATE AMOUNT. LUQ G TUBE PATENT AND INTACT TO DIABETISOURCE AT 40 CC/H, TOLERATING WELL. CALL LIGHT WITHIN REACH. WILL MONITOR PATIENT.
[2017-03-07] MEDS: METOPROLOL 25 MG TAB GT SCH ×2 (08:23→17:08)
[2017-03-07] MEDS: DOCUSATE 100 MG/10 ML UDC GT SCH ×2 (08:24→20:58)
[2017-03-07] MEDS: FLUCONAZOLE 100 MG TAB GT SCH (08:24)
[2017-03-07] MEDS: LACTOBACILLUS RHAMNOSUS GG 1 EACH CAP GT SCH ×2 (08:24→20:58)
[2017-03-07] MEDS: AMANTADINE 100 MG CAP GT SCH ×2 (08:25→20:59)
[2017-03-07] MEDS: MULTIVITAMIN 5 ML ORASYR GT SCH (08:25)
[2017-03-07] MEDS: ASCORBIC ACID 500 MG TAB GT SCH ×2 (08:25→20:58)
[2017-03-07] MEDS: PANTOPRAZOLE 40 MG INJ VIAL IVP SCH (08:25)
[2017-03-07] MEDS: levETIRAcetam 100 MG/ML ORASYR GT SCH (08:25)
[2017-03-07] MEDS: NYSTATIN/TRIAMCINOLONE CRM 15 GM TUBE TP SCH ×3 (08:26→17:09)
[2017-03-07] MEDS: Z-GUARD PASTE TP SCH ×3 (08:26→17:09)
--- NOTE | 2017-03-07 09:05 | NUR ---
VENT SETTING CHANGED TO CPAP BY RT. WILL MONITOR PATIENT.
--- NOTE | 2017-03-07 09:06 | NUR ---
VENT CHECK, NO SXN REQUIRED AT THIS TIME AIRWAY IS PATENT AND PT IS RESTING WITH NO SIGNS OF DISTRESS NOTED Addendum: 03/07/17 at 0936 by Ludmila Guevara RT CHANGED TO CPAP5 PS 10
[2017-03-07] MEDS ORDERED: POTASSIUM CHLORIDE 40 MEQ, LIDOCAINE 1% 25 MG in NACL 0.9% 250 ML IV SCH (11:00)
--- NOTE | 2017-03-07 11:00 | NUR ---
DR. JOHNSTON IN AND SEEN PATIENT. MADE AWARE OF POTASSIUM LEVEL OF 3.0. WILL FOLLOW UP WITH NEW ORDERS.
--- NOTE | 2017-03-07 11:05 | NUR ---
VENT CHECK, SXN PT SMALL AMT OF WHITE SECRETIONS, PT DOING FINE ON CPAP MODE WITH NO SIGNS OF DISTRESS NOTED AT THIS TIME
--- NOTE | 2017-03-07 12:32 | NUR ---
VENT CHECK, SXN PT LARGE AMT OF THICK YELLOW BLOOD TINT SECRETIONS, PT IS RESTING AND DOING GOOD ON CPAP MODE WITH NO SIGNS OF DISTRESS NOTED AT THIS TIME
--- NOTE | 2017-03-07 15:06 | NUR ---
VENT CHECK, NO SXN NEEDED AT THIS TIME, AIRWAY IS PATENT AND PT IS RESTING WITH NO SIGNS OF DISTRESS NOTED
--- NOTE | 2017-03-07 15:30 | NUR ---
PATIENT HAD A LARGE BROWN PASTY STOOL. CLEANSED AND REPOSITIONED.
--- NOTE | 2017-03-07 16:30 | NUR ---
DR MYRICK IN AND SEEN PATIENT. WILL FOLLOW UP WITH NEW ORDERS.
--- NOTE | 2017-03-07 16:59 | NUR ---
vent check, sxn pt moderate amt of thick yellow blood tint secretions, airway is patent and pt is resting
[2017-03-07] MEDS: SENNA 8.6 MG TAB GT SCH (20:58)
--- NOTE | 2017-03-07 21:29 | NUR ---
REPORT GIVEN TO NIGHT RN FOR CONTINUITY OF CARE. PATIENT IN STABLE CONDITION.
--- NOTE | 2017-03-07 21:30 | NUR ---
RECEIVED PATIENT FROM VAMSI PECK FOR CONTINUITY OF CARE.
[2017-03-08] VITALS (24 sets, daily range): BP systolic 128–172; BP diastolic 68–83
--- NOTE | 2017-03-08 | NUR ---
ACCUCHECK DONE; 4 UNITS INSULIN GIVEN PER SLIDING SCALE.; TURNED AND REPOSITIONED PATIENT.
--- NOTE | 2017-03-08 01:54 | NUR ---
0139 PLACED PT BACK ON AC MODE DUE TO APNEA ALARMS.AC [id number] PEEP 5 AND 30%.
[2017-03-08] MEDS: POTASSIUM CHL 20 MEQ/D5-1/2NS 1,000 ML IV SCH (02:43)
[2017-03-08] MEDS: VANCOMYCIN 500 MG in DEXTROSE 5% 100 ML IV SCH (05:00)
[2017-03-08 06:02] LABS: ALBUMIN 1.7 g/dL (3.4-5.0); ANION GAP 9.1 (8-16); CARBON DIOXIDE 27.2 mmol/L (21-32); CREATININE 0.5 mg/dL (0.6-1.3); POTASSIUM 3.3 mmol/L (3.5-5.1); TOTAL BILIRUBIN 0.2 mg/dL (0.0-1.0)
[2017-03-08 06:05] LABS: BASOPHILS # (AUTO) 0.1 K/uL (0.00-0.22); BASOPHILS % (AUTO) 0.8 % (0.0-2.0); EOSINOPHILS # (AUTO) 0.6 K/uL (0-0.4); EOSINOPHILS % (AUTO) 7.6 % (0.0-4.0); HEMATOCRIT 23.1 % (36-48); HEMOGLOBIN 7.4 g/dL (12.0-16.0); LYMPHOCYTES # (AUTO) 1.3 K/uL (2.5-16.5); LYMPHOCYTES % (AUTO) 15.1 % (20.5-51.1); MEAN CORPUSCULAR HEMOGLOBIN 28 pg (27-31); MEAN CORPUSCULAR HGB CONC 32 g/dL (33-37); MEAN CORPUSCULAR VOLUME 86 fL (80-94); MONOCYTES # (AUTO) 0.5 K/uL (0.8-1.0); MONOCYTES % (AUTO) 5.6 % (1.7-9.3); NEUTROPHILS # (AUTO) 5.8 K/uL (1.8-7.7); NEUTROPHILS % (AUTO) 70.9 % (42.2-75.2); PLATELET COUNT (AUTO) 213 K/uL (140-450); WHITE BLOOD COUNT (AUTO) 8.3 K/uL (4.8-10.8)
[2017-03-08] MEDS: INSULIN LISPRO SLIDING SCALE 100 UNITS/ML VIAL SUBQ PRN ×5 (07:00→23:29)
[2017-03-08] MEDS: BLOOD GLUCOSE MONITORING 1 DEV DEV FS SCH ×4 (07:00→23:27)
--- NOTE | 2017-03-08 07:26 | NUR ---
RECEIVED PT STABLE ON VENT SUPPORT AT DOCUMENTED SETTINGS, SUCTIONED SCANT THICK YELLOW SECRETIONS, NO RESP DISTRESS OR SOB NOTED, 7.5 ETT SECURED AT 18 CM AT THE LIP, CUFF INFLATED, BAG MASK AT BEDSIDE, ALARMS SET AND AUDIBLE, VENT PLUGGED INTO RED OUTLET, WILL CONTINUE TO MONITOR.
--- NOTE | 2017-03-08 07:30 | NUR ---
ENDORSED TO AM SHIFT VAMSI GOULD FOR CONTINUITY OF CARE.
--- NOTE | 2017-03-08 07:35 | NUR ---
RECEIVED A REPORT FROM VAMSI RICE. NO S/SX OF ACUTE DISTRESS. CLOSED EYES AND NON VERBAL. FLACC 0. ETT TO VENT FiO2 30, TV 500, AC 12, PEEP 5. G-TUBE IN PLACE AND RESIDUAL 20 CC NOTED. CEDEÑO CATHETER DRAINING CLEAR YELLOW URINE. PICC LINE TO LT UPPER ARM WITH 2 LUMENS, PATENT AND INTACT. SR ON THE MONITOR. SKIN EXCORIATION TO COCCYX. LT CRANIOTOMY NOTED AND SIGN POSTED NOT TO TURN PT TO LEFT SIDE. PT IS ON CONTACT ISOLATION AND SIGN POSTED OUTSIDE AT PT'S ROOM. SAFETY PRECAUTION IN PLACE. BED IN LOW POSITION AND CALL LIGHT WITHIN REACH. WILL CONTINUE TO MONITOR.
[2017-03-08] MEDS: PIPER/TAZO 3.375GM/D5W PREMIX 50 ML IV SCH ×4 (07:39→23:54)
[2017-03-08] MEDS: MULTIVITAMIN 5 ML ORASYR GT SCH (08:50)
[2017-03-08] MEDS: PANTOPRAZOLE 40 MG INJ VIAL IVP SCH (08:50)
[2017-03-08] MEDS ORDERED: VANCOMYCIN PER PHARMACY MC PRN (08:50)
[2017-03-08] MEDS: ASCORBIC ACID 500 MG TAB GT SCH ×2 (08:51→21:10)
[2017-03-08] MEDS: DOCUSATE 100 MG/10 ML UDC GT SCH ×2 (08:51→21:13)
[2017-03-08] MEDS: LACTOBACILLUS RHAMNOSUS GG 1 EACH CAP GT SCH ×2 (08:51→21:09)
[2017-03-08] MEDS: FLUCONAZOLE 100 MG TAB GT SCH (08:52)
[2017-03-08] MEDS: METOPROLOL 25 MG TAB GT SCH ×2 (08:52→16:30)
[2017-03-08] MEDS: Z-GUARD PASTE TP SCH ×3 (09:00→17:22)
[2017-03-08] MEDS: FOAM DRESSING TP SCH (09:00)
[2017-03-08] MEDS: NYSTATIN/TRIAMCINOLONE CRM 15 GM TUBE TP SCH ×3 (09:00→16:34)
--- NOTE | 2017-03-08 09:00 | NUR ---
HR 72, BP 160/74. ADMINISTERED MEDICATION ORDERED AND PT TOLERATED MEDICATION WELL.
[2017-03-08] MEDS: levETIRAcetam 100 MG/ML ORASYR GT SCH (09:07)
[2017-03-08] MEDS: AMANTADINE 100 MG CAP GT SCH ×2 (09:07→21:11)
[2017-03-08] MEDS ORDERED: KCL 20 MEQ/WATER INJ PREMIX 200 ML IV SCH (10:45)
--- NOTE | 2017-03-08 12:00 | NUR ---
PT TOLERATED MEDICATION WELL.
--- NOTE | 2017-03-08 12:21 | NUR ---
03/08/17 RD FOLLOW-UP ASSESSMENT COMPLETED PLEASE REFER TO NUTRITION ASSESSMENT UNDER CARE ACTIVITY FOR ESTIMATED NUTRITIONAL NEEDS. 1. CONTINUE ENTERAL NUTRITION SUPPORT TUBE FEEDING VIA G-TUBE - DIABETISOURCE AC AT A GOAL RATE OF 60 ML/HR + 200 ML FREE WATER FLUSH Q4H 2. RD TO FOLLOW-UP 2-3 DAYS, HIGH RISK MASON MENDEZ, JAY
--- NOTE | 2017-03-08 15:37 | NUR ---
PAGED DR. MYRICK REGARDING CRITICAL CHEST XRAY REPORT. NOTIFIED RT. AWAITING CALLBACK.
--- NOTE | 2017-03-08 15:40 | NUR ---
PER RAMEZ BATISTA ADVANCE ET TUBE TO 22 CM AT LEFT CORNER OF MOUTH AND TO GET STAT CRX AND CALL DR. MYRICK WITH RESULTS FROM CRX
--- NOTE | 2017-03-08 15:40 | NUR ---
RECEIVED CALLBACK FROM DR. MYRICK. NEW ORDERS RECEIVED.
--- NOTE | 2017-03-08 15:52 | NUR ---
RECEIVED A CALL FROM DR. Martina JOHNSTON. UPDATED PT'S STATUS AND NEW ORDER RECEIVED.
[2017-03-08] MEDS ORDERED: amLODIPine 5 MG TAB GT SCH (16:01)
[2017-03-08] MEDS: VANCOMYCIN IV SCH (16:27)
[2017-03-08] MEDS: DEXTROSE 5% IV SCH (16:27)
--- NOTE | 2017-03-08 16:38 | NUR ---
PAGED DR. MYRICK REGARDING CRITICAL CHEST X-RAY. AWAITING CALLBACK.
--- NOTE | 2017-03-08 16:39 | NUR ---
RECEIVED CALLBACK FROM DR. MYRICK. RT NOTIFIED. WILL CARRY OUT ORDERS.
--- NOTE | 2017-03-08 16:41 | NUR ---
CXR RESULTS READ BACK TO DR. MYRICK AND INSTRUCTED TO PULLED BACK ET TUBE TO 21 CM AND GET STAT CRX AND CALL HIM WITH RESULTS
--- NOTE | 2017-03-08 16:50 | NUR ---
OBTAINED OB STOOL SPECIMEN AND SENT TO LAB.
--- NOTE | 2017-03-08 17:49 | NUR ---
SPOKE WITH DR. MYRICK AND INFORMED HIM THAT ETT IS NOW IN ADEQUATE POSITION.
--- NOTE | 2017-03-08 17:49 | NUR ---
DR. Mary JOHNSTON IN TO SEE PT. WILL FOLLOW UP ON ORDERS.
--- NOTE | 2017-03-08 19:15 | NUR ---
Received report from Lucia.
--- NOTE | 2017-03-08 19:35 | NUR ---
ENDORSED CARE TO KATI HOLGUIN RN. PT IN STABLE CONDITION.
--- NOTE | 2017-03-08 20:20 | NUR ---
RECEIVED ON A [employer] R860 VENTILATOR PLUGGED INTO RED OUTLET TOLERATING WELL WITHOUT ADVERSE REACTIONS NOTED TO A PORTEX ENDOTRACHEAL TUBE #7.5 SECURED AT 21cm WITH AN ANCHOR FAST CUFF PRESSURE MEASURED AT [id number] AMBU BAG NOTED AT HOB BREATH SOUNDS DIFFUSED RHONCHI BILATERAL DEEP ENDOTRACHEAL SUCTION FOR SMALL THIN YELLOW SECRETIONS AIRWAY PATENT DOT ETCHER TO MONITOR
[2017-03-08] MEDS: SENNA 8.6 MG TAB GT SCH (21:00)
--- NOTE | 2017-03-08 21:47 | NUR ---
RESTING COMFORTABLY WITH NO EVIDENCE OF PULMONARY DISTRESS BREATH SOUNDS CLEAR BILATERAL WITH GOOD AERATION THROUGHOUT AND CHEST RISE
--- NOTE | 2017-03-08 23:53 | NUR ---
NO DISTRESS NOTED GOOD CHEST RISE
[2017-03-09] VITALS (24 sets, daily range): BP systolic 114–172; BP diastolic 66–84
--- NOTE | 2017-03-09 00:47 | NUR ---
TOLERATING VENTILATORY SUPPORT WELL WITHOUT INCIDENT BREATH SOUNDS RHONCHI BILATERAL GOOD CHEST RISE ENDOTRACHEAL SUCTION FOR MODERATE THIN YELLOW WITH SCATTERED BLOOD STREAK SECRETIONS AIRWAY PATENT
--- NOTE | 2017-03-09 03:00 | NUR ---
RESTING WELL NO RESPIRATORY DISTRESS NOTED GOOD CHEST RISE
[2017-03-09] MEDS: VANCOMYCIN IV SCH (04:50)
[2017-03-09] MEDS: DEXTROSE 5% IV SCH (04:50)
[2017-03-09 05:08] LABS: BASOPHILS # (AUTO) 0.1 K/uL (0.00-0.22); BASOPHILS % (AUTO) 0.7 % (0.0-2.0); EOSINOPHILS # (AUTO) 0.7 K/uL (0-0.4); EOSINOPHILS % (AUTO) 5.1 % (0.0-4.0); HEMATOCRIT 27.8 % (36-48); LYMPHOCYTES % (AUTO) 14.5 % (20.5-51.1); MEAN CORPUSCULAR HEMOGLOBIN 28 pg (27-31); MEAN CORPUSCULAR HGB CONC 32 g/dL (33-37); MEAN CORPUSCULAR VOLUME 86 fL (80-94); MONOCYTES # (AUTO) 0.8 K/uL (0.8-1.0); MONOCYTES % (AUTO) 5.9 % (1.7-9.3); NEUTROPHILS # (AUTO) 10.4 K/uL (1.8-7.7); NEUTROPHILS % (AUTO) 73.8 % (42.2-75.2); PLATELET COUNT (AUTO) 288 K/uL (140-450); RED BLOOD CELL COUNT(AUTO) 3.24 MIL/uL (4.20-5.40); RED CELL DISTRIBUTION WIDTH 15.3 % (11.6-13.7)
--- NOTE | 2017-03-09 05:52 | NUR ---
NO DISTRESS NOTED BREATH SOUNDS CLEAR BILATERAL WITH GOOD AERATION THROUGHOUT LUNG BARNES AIRWAY PATENT
[2017-03-09] MEDS: BLOOD GLUCOSE MONITORING 1 DEV DEV FS SCH ×3 (05:56→17:36)
[2017-03-09] MEDS: INSULIN LISPRO SLIDING SCALE 100 UNITS/ML VIAL SUBQ PRN ×3 (05:56→17:28)
[2017-03-09] MEDS: PIPER/TAZO 3.375GM/D5W PREMIX 50 ML IV SCH ×3 (06:00→17:44)
[2017-03-09 06:34] LABS: CARBON DIOXIDE 26.4 mmol/L (21-32); CREATININE 0.5 mg/dL (0.6-1.3); POTASSIUM 3.4 mmol/L (3.5-5.1)
--- NOTE | 2017-03-09 06:49 | NUR ---
REC'D PT ON CARESCAPE VENT SETTINGS AC12 VT 500 PEEP 5 FIO2 39% ALARMS ON AND FUNCTIONING PROPELY, AMBU BAG IS AT SIDE OF VENTILATOR AND VENTILATOR IS PLUGGED INTO RED OUTLET SNX PT SMALL AMT OF THIN YELLOW SECRETIONS, B\S ARE CLEAR BILATERALLY PT IS ORALLY INTUBATED WITH 7.5 ET TUBE SECURED WITH ANCHOR FAST AT 21CM AT LEFT CORNER OF MOUTH AND SKIN INTEGRITY IS INTACT, PT IS RESTING WITH NO SIGNS OF DISTRESS NOTED AT THIS TIME
--- NOTE | 2017-03-09 07:30 | NUR ---
RECEIVED A REPORT FROM VAMSI MORTON. EYES ARE CLOSED AND NONVERBAL. UNABLE TO FOLLOW COMMANDS. ETT TO VENT SETTING AT FiO2 30, TV 500, AC 12, PEEP 5. FLACC 0. G-TUBE IN PLACE AND TUBE FEEDING ORDERED. 50ML RESIDUAL NOTED. CEDEÑO CATHETER DRAINING CLEAR YELLOW URINE. SKIN WARM TO TOUCH. OPEN WOUND TO COCCYX NOTED. PICC LINE 2LUMEN TO LEFT UPPER ARM. ON CONTACT ISOLATION AND SIGN POSTED OUTSIDE AT THE DOOR. SR ON THE MONITOR. SAFETY PRECAUTION. BED IN LOW POSITION AND CALL LIGHT WITHIN REACH. WILL CONTINUE TO MONITOR.
[2017-03-09] MEDS: METOPROLOL 25 MG TAB GT SCH ×2 (08:00→17:32)
[2017-03-09] MEDS: PANTOPRAZOLE 40 MG INJ VIAL IVP SCH (08:10)
[2017-03-09] MEDS: MULTIVITAMIN 5 ML ORASYR GT SCH (08:30)
[2017-03-09] MEDS: FLUCONAZOLE 100 MG TAB GT SCH (08:30)
[2017-03-09] MEDS: amLODIPine 5 MG TAB GT SCH (08:31)
[2017-03-09] MEDS: LACTOBACILLUS RHAMNOSUS GG 1 EACH CAP GT SCH ×2 (08:31→22:00)
[2017-03-09] MEDS: ASCORBIC ACID 500 MG TAB GT SCH ×2 (08:32→22:01)
[2017-03-09] MEDS: DOCUSATE 100 MG/10 ML UDC GT SCH ×2 (08:32→22:01)
[2017-03-09] MEDS: AMANTADINE 100 MG CAP GT SCH ×2 (08:32→22:01)
[2017-03-09] MEDS: levETIRAcetam 100 MG/ML ORASYR GT SCH (08:33)
[2017-03-09] MEDS: NYSTATIN/TRIAMCINOLONE CRM 15 GM TUBE TP SCH ×3 (08:35→17:35)
[2017-03-09] MEDS: Z-GUARD PASTE TP SCH ×3 (08:36→17:35)
--- NOTE | 2017-03-09 09:00 | NUR ---
HOLD LOPRESSOR FOR HR 58-60 NOTED. PT TOLERATED ALL OTHER MEDICATIONS WELL.
--- NOTE | 2017-03-09 09:18 | NUR ---
VENT CHECK, NO SXN REQUIRED AT THIS TIME, AIRWAY IS PATENT
--- NOTE | 2017-03-09 11:00 | NUR ---
VENT CHECK, SXN PT SMALL AMT OF YELLOW SECRETIONS, AIRWAY IS PATENT AND PT IS RESTING
[2017-03-09] MEDS: FOAM DRESSING TP SCH (11:25)
--- NOTE | 2017-03-09 12:00 | NUR ---
PT TOLERATED MEDICATION WELL.
--- NOTE | 2017-03-09 12:41 | NUR ---
DR. JOHNSTON AT BEDSIDE AND PT IS STABLE. WILL FOLLOW UP ON ORDERS
--- NOTE | 2017-03-09 12:54 | NUR ---
DR. MYRICK AT BEDSIDE AND WILL FOLLOW UP ON ORDERS.
--- NOTE | 2017-03-09 13:22 | NUR ---
VENT CHECK, SXN PT SMALL AMT OF YELLOW SECRETIONS, B\S ARE CLEAR AND AIRWAY IS PATENT PT IS RESTING WITH NO SIGNS OF DISTRESS NOTED AT THIS TIME
[2017-03-09] MEDS ORDERED: POTASSIUM CHLORIDE 40 MEQ, LIDOCAINE 1% 25 MG in NACL 0.9% 250 ML IV SCH (14:00)
--- NOTE | 2017-03-09 14:25 | NUR ---
JAYNE, BOTTOM WORKER, PRESENT TO JULISSA SAUCEDO.
--- NOTE | 2017-03-09 15:00 | NUR ---
PT IS STABLE. WILL CONTINUE TO MONITOR
--- NOTE | 2017-03-09 15:15 | NUR ---
VENT CHECK, SXN PT SMALL AMT OF YELLOW SECRETIONS, B\S ARE CLEAR AND AIRWAY IS PATENT PT IS RESTING
--- NOTE | 2017-03-09 15:30 | NUR ---
WOUND CARE RE-EVALUATION NOTE REASON FOR EVALUATION: CHANGE OF CONDITION ON SACRALCOCCYX AREA ASSESSMENT DONE ON SACRAL COCCYX : STAGE 2 PRESSURE ULCER WITH 2X2CM REDNESS SURROUNDING AREAS INDICATED FURTHER DAMAGE. RECOMMENDATIONS: -CLEANSE SACRALCOCCYX WITH NS, PAT DRY, APPLY HYDROGEL TO SACRALCOCCYX AND Z GUARD TO PW, COVER WITH FORM DRESSING BID AND PRN IF SOILING. -CONTINUE PREVIOUS PRESSURE ULCER PREVENTION AND SKIN CARES INTERVENTIONS COMORBIDITIES RELATED TO SKIN BREAKS: -INFECTION -DM -IMPAIRED OF MOBILITY -COGNITIVE IMPAIRMENT -CHRONIC BOWEL INCONTINENT -HOB ELEVATED THE MAJORITY OF THE DAY FOR MEDICAL CONDITION
--- NOTE | 2017-03-09 15:30 | NUR ---
URINE SPECIMEN COLLECTED AND SENT TO LAB.
--- NOTE | 2017-03-09 16:00 | NUR ---
DR. EDWARDS IN TO SEE PT. WILL FOLLOW UP ON ORDERS.
--- NOTE | 2017-03-09 16:18 | NUR ---
RECEIVED CALLBACK FROM PT'S SON, UGO REGARDING VOICEMAIL THAT DR. Mary JOHNSTON HAD LEFT REGARDING RECOMMENDATION THAT PT GET TRACHEOSTOMY. PAGED DR. Mary JOHNSTON REGARDING GIVING PT'S SON A CALLBACK DURING AVAILABLE TIME WINDOW AFTER 1640 TODAY. AWAITING CALLBACK.
[2017-03-09] MEDS: VANCOMYCIN 750 MG in DEXTROSE 5% 250 ML IV SCH (16:51)
--- NOTE | 2017-03-09 16:55 | NUR ---
VENT CHECK, NO SNX REQUIRED AT THIS TIME B\S ARE CLEAR AND AIRWAY IS PATENT
--- NOTE | 2017-03-09 16:56 | NUR ---
RE-PAGED DR. Mary JOHNSTON. AWAITING CALLBACK.
--- NOTE | 2017-03-09 16:58 | NUR ---
RECEIVED CALLBACK FROM DR. Mary JOHNSTON. INFORMED HIM THAT PT'S SON, UGO IS AVAILABLE NOW TO SPEAK WITH. PROVIDED DR. Mary JOHNSTON WITH UGO'S PHONE #.
--- NOTE | 2017-03-09 17:11 | NUR ---
RECEIVED CALL FROM PT'S SON UGO. HE CONSENT TO PT HAVING TRACHEOSTOMY. RECEIVED TELEPHONE CONSENT, WITNESSED BY A SECOND RN. CONSENT FORM SIGNED AND PLACED IN PT'S CHART.
--- NOTE | 2017-03-09 17:19 | NUR ---
PER DR. Mary JOHNSTON, PAGED THE BIOLOGICAL INSPECTOR SURGEON, DR. OWENS. INFORMED HIM OF CONSULT FOR TRACHEOSTOMY PLACEMENT.
--- NOTE | 2017-03-09 18:29 | NUR ---
PT TOLERATED MEDICATION WELL. FLACC 0. WILL CONTINUE TO MONITOR
--- NOTE | 2017-03-09 19:18 | NUR ---
ENDORSED TO VAMSI HOLGUIN. PT IS STABLE.
--- NOTE | 2017-03-09 19:30 | NUR ---
RECEIVED PT ON THE SAME VENT SETTINGS, PT ASLEEP, SX LARGE CLOUDY THIN SECRETION, VITALS STABLE,PT ASLEEP, NO DISTRESS NOTED
[2017-03-09] MEDS: SENNA 8.6 MG TAB GT SCH (22:00)
[2017-03-10] VITALS (23 sets, daily range): BP systolic 119–169; BP diastolic 62–94
[2017-03-10] MEDS: BLOOD GLUCOSE MONITORING 1 DEV DEV FS SCH ×5 (00:15→23:58)
[2017-03-10] MEDS: PIPER/TAZO 3.375GM/D5W PREMIX 50 ML IV SCH ×5 (00:18→23:56)
[2017-03-10] MEDS: FOAM DRESSING TP SCH ×2 (00:19→13:37)
[2017-03-10] MEDS: Z-GUARD PASTE TP SCH ×4 (00:21→13:38)
[2017-03-10] MEDS: SKINTEGRITY HYDROGEL TP SCH ×2 (00:22→13:38)
[2017-03-10] MEDS: INSULIN LISPRO SLIDING SCALE 100 UNITS/ML VIAL SUBQ PRN ×5 (00:30→23:58)
[2017-03-10 04:13] LABS: HEMATOCRIT 27.5 % (36-48); HEMOGLOBIN 8.4 g/dL (12.0-16.0); MEAN CORPUSCULAR HEMOGLOBIN 27 pg (27-31); MEAN CORPUSCULAR HGB CONC 31 g/dL (33-37); MEAN CORPUSCULAR VOLUME 87 fL (80-94); PLATELET COUNT (AUTO) 307 K/uL (140-450); RED BLOOD CELL COUNT(AUTO) 3.17 MIL/uL (4.20-5.40); RED CELL DISTRIBUTION WIDTH 16.2 % (11.6-13.7); WHITE BLOOD COUNT (AUTO) 14.6 K/uL (4.8-10.8)
[2017-03-10] MEDS: VANCOMYCIN 750 MG in DEXTROSE 5% 250 ML IV SCH (05:30)
--- NOTE | 2017-03-10 05:35 | NUR ---
VENT CK DONE, CHANGED HME AND ROBBINS, SX LARGE [place] THIN SECRETION, LARGE [place]ALLY, VITALS STABLE NO DISTRESS NOTED
[2017-03-10 05:43] LABS: CARBON DIOXIDE 29.5 mmol/L (21-32); CREATININE 0.5 mg/dL (0.6-1.3); POTASSIUM 3.5 mmol/L (3.5-5.1)
--- NOTE | 2017-03-10 07:13 | NUR ---
RECIVED PT ON VENT WITH SETTINGS CHARTED BREATH SOUNDS PRESENT BILAT CLEAR POST SXN MIN AMT YELLOWISH SECS PT INTTUBATED WITH 7.5 ETT 21 @GUM LINE VENT PLUGGED INTO RED OUTLET AMBU BAG AT BEDSIDE
--- NOTE | 2017-03-10 07:19 | NUR ---
RECEIVED REPORT FROM VAMSI HOLGUIN. NO SIGNS OF ACUTE DISTRESS AT THIS TIME. FLACC 0. PT IS NONVERBAL. PT IS ETT TO VENT. FIO2: 30%, AC: 12, TV: 500, PEEP: 5. PICC LINE IN PLACE TO LEFT UPPER ARM X2 LUMEN, PORTS PATENT AND INTACT. OPEN WOUND NOTED TO COCCYX, DRESSING DRY AND INTACT. RASH NOTED TO PERINEAL FOLDS. G TUBE TO TUBE FEEDING. CEDEÑO CATHETER IN PLACE DRAINING TO GRAVITY DRAINAGE BAG. PT IS CURRENTLY SINUS RHYTHM ON THE MONITOR. SAFETY PRECAUTIONS IN PLACE WITH BED IN LOWEST POSITION AND SIDE RAILS UP. CALL LIGHT WITHIN REACH. PT IS ON CONTACT ISOLATION WITH SIGNS POSTED OUTSIDE OF PT'S ROOM. WILL CONTINUE TO MONITOR. Addendum: 03/10/17 at 0954 by Lucia Coughlin RN LEFT CRANIOTOMY NOTED WITH SIGN POSTED NOT TO TURN PT TO LEFT SIGN PRESENT
--- NOTE | 2017-03-10 08:00 | NUR ---
CUFF PRESSURE 22
[2017-03-10 08:03] LABS: EOSINOPHILS % (MANUAL) 3 % (0-4); LYMPHOCYTES % (MANUAL) 14 % (20-46); MONOCYTES % (MANUAL) 6 % (5-12)
[2017-03-10] MEDS: POTASSIUM CHLORIDE 20% 40 MEQ/15 ML UDC GT SCH (09:00)
[2017-03-10] MEDS: MULTIVITAMIN 5 ML ORASYR GT SCH (09:00)
[2017-03-10] MEDS: DOCUSATE 100 MG/10 ML UDC GT SCH ×2 (09:00→21:21)
[2017-03-10] MEDS: levETIRAcetam 100 MG/ML ORASYR GT SCH (09:00)
[2017-03-10] MEDS: METOPROLOL 25 MG TAB GT SCH ×2 (09:01→17:09)
[2017-03-10] MEDS: LACTOBACILLUS RHAMNOSUS GG 1 EACH CAP GT SCH ×2 (09:01→21:20)
[2017-03-10] MEDS: ASCORBIC ACID 500 MG TAB GT SCH ×2 (09:01→21:21)
[2017-03-10] MEDS: amLODIPine 5 MG TAB GT SCH (09:01)
[2017-03-10] MEDS: FLUCONAZOLE 100 MG TAB GT SCH (09:01)
[2017-03-10] MEDS: AMANTADINE 100 MG CAP GT SCH ×2 (09:01→21:20)
[2017-03-10] MEDS: NYSTATIN/TRIAMCINOLONE CRM 15 GM TUBE TP SCH ×3 (09:02→17:09)
[2017-03-10] MEDS: PANTOPRAZOLE 40 MG INJ VIAL IVP SCH (09:06)
--- NOTE | 2017-03-10 09:20 | NUR ---
CHECKED TUBE FEEDING RESIDUAL: NONE NOTED. CHECKED HR: 88 AND BP: 121/67. ADMINISTERED METOPROLOL ORDERED. PT TOLERATED ALL OTHER MEDS WELL. WILL CONTINUE TO MONITOR.
--- NOTE | 2017-03-10 09:54 | NUR ---
PT'S SON, HERNANDEZ, PRESENT AT BEDSIDE.
--- NOTE | 2017-03-10 10:10 | NUR ---
CPAP TRIAL WILL CONTINUE TO MONITOR
--- NOTE | 2017-03-10 11:44 | NUR ---
PT TOLERATED MEDS WELL.
--- NOTE | 2017-03-10 12:29 | NUR ---
DR. OWENS IN TO SEE PT. WILL FOLLOW UP ON ORDERS.
--- NOTE | 2017-03-10 13:10 | NUR ---
PER DR. OWENS, TRACHEOSTOMY SCHEDULED FOR TOMORROW AROUND 1300.
--- NOTE | 2017-03-10 13:48 | NUR ---
PLACED PT BACK ON AC WITH SETTINGS CHARTED NO RESP DISTRESS NOTED
--- NOTE | 2017-03-10 14:29 | NUR ---
03/10/17 RD FOLLOW-UP ASSESSMENT COMPLETED PLEASE REFER TO NUTRITION ASSESSMENT UNDER CARE ACTIVITY FOR ESTIMATED NUTRITIONAL NEEDS. 1. CONTINUE ENTERAL NUTRITION SUPPORT- DIABETISOURCE AT GOAL RATE OF 60 ML/HR + 150 ML FWF Q6H 2. CONTINUE VITAMIN C SUPPLEMENT 3. RD TO FOLLOW-UP 3-5 DAYS, MODERATE RISK MASON MENDEZ, JAY
--- NOTE | 2017-03-10 14:46 | NUR ---
DR. MYRICK IN TO SEE PT. WILL FOLLOW UP ON ORDERS.
--- NOTE | 2017-03-10 16:11 | NUR ---
RE-PAGED DR. DANIELLE. AWAITING CALLBACK. Addendum: 03/10/17 at 1612 by Lucia Coughlin RN CHARTED ON WRONG PT
[2017-03-10] MEDS: VANCOMYCIN 1GM/DEXT 5% PREMIX 200 ML IV SCH (17:09)
--- NOTE | 2017-03-10 17:35 | NUR ---
CHECKED TUBE FEEDING, NO RESIDUAL NOTED. CHECKED HR: 96 AND BP: 137/76. ADMINISTERED METOPROLOL ORDERED. PT TOLERATED WELL. WILL CONTINUE TO MONITOR.
--- NOTE | 2017-03-10 17:44 | NUR ---
CONTINUED TO MONITOR PT ON VENT WITH SETTINGS CHARTED SXN PT WITH MIN AMT OFF WHITE SECS BREATH SOUNDS PRESENT BILAT WITH SCATTERD RALES VENT PLUGGED INTO RED OUTLET AMBUBAGAT BEDSIDE
--- NOTE | 2017-03-10 18:51 | NUR ---
PT TOLERATED MEDS WELL.
--- NOTE | 2017-03-10 19:11 | NUR ---
ENDORSED CARE TO VAMSI DUBON. PT IS STABLE.
--- NOTE | 2017-03-10 19:20 | NUR ---
RECEIVED REPORT FROM LUIS FERNANDO AGUSTIN. PATIENT AWAKE NON VERBAL. ETT TO VENT WITH VENT SETTING AC 12 FIO2 30 TV 500 AND PEEP 5. NO S/S OF RESP.DISTRESS,NO SOB NOTED. NO S/S OF PAIN/DISCOMFORT. HOB UP 30-45 DEGREE ALL THE TIMES. CONT ON GT FEEDING ORDER PEG ON LEFT ABD. PICC LINE TO LEFT UPPER ARM WITH 2 LUMEN PORT INTACT WELL. ABD SOFT NON DISTENDED. BILATERAL HAND EDEMA + 2 NON PITTING. F/C IN PLACE WITH YELLOW CLEAR URINE DRAINAGE BY GRAVITY. OPEN ARE ON COCCYX AREA COVER WITH DRY DRESSING.PER REPORT RESIDENT WILL HAVE SURGERY TRACHEOSTOMY BY AT 1 PM. NPO AFTER MID NIGHT. CONT TO MONITOR.
--- NOTE | 2017-03-10 19:23 | NUR ---
PT RECEIVED FROM [facility] ON NOTED VENT SETTINGS. PT AWAKE, HAS A #7.5 ETT SECURED AT 21 LIP LINE WITH AN ANCHOR FAST. BREATH SOUNDS APPEAR COARSE, PT LAVAGED AND SUCTIONED SMALL AMT THIN WHITE SECRETIONS. IMPROVED BREATH SOUNDS AFTER SUCTIONING. NO ADVERSE EFFECTS NOTED. NO DISTRESS/SOB/WHEEZING NOTED AT THIS TIME. VENT ALARMS ON AND AUDIBLE. VENT PLUGGED INTO RED ELECTRICAL OUTLET, AMBU BAG ON SIDE OF VENT.
--- NOTE | 2017-03-10 20:52 | NUR ---
MOUTH CARE GIVEN.REPOSITION FOR COMFORT. T 97.6.
[2017-03-10] MEDS: SENNA 8.6 MG TAB GT SCH (21:21)
--- NOTE | 2017-03-10 21:30 | NUR ---
MEDICATION GIVEN VIA G.TUBE TOLERATED WELL
--- NOTE | 2017-03-10 21:50 | NUR ---
DR. EDWARDS COME TO PATIENT,NO NEW ORDER GIVEN.
[2017-03-11] VITALS (24 sets, daily range): BP systolic 99–152; BP diastolic 62–85
--- NOTE | 2017-03-11 00:10 | NUR ---
BLOOD SUGAR 219-4 UNITS INSULIN GIVEN ORDERED. ZOSYN 3.375 GRAM GIVEN ORDERED.
--- NOTE | 2017-03-11 00:27 | NUR ---
GT TUBE FEEDING TURN OFF D/T PATIENT START NPO FOR PRE SURGERY TRACHEOSTOMY AT 1 PM.
[2017-03-11] MEDS: Z-GUARD PASTE TP SCH ×2 (01:00→13:38)
[2017-03-11] MEDS: SKINTEGRITY HYDROGEL TP SCH ×2 (01:00→13:38)
[2017-03-11] MEDS: FOAM DRESSING TP SCH ×3 (01:00→13:38)
--- NOTE | 2017-03-11 02:00 | NUR ---
PATIENT SLEEPING WELL,NO S/S OF SOB. NPO FOR SURGERY TRACHEOSTOMY TODAY.
--- NOTE | 2017-03-11 04:00 | NUR ---
BLOOD DRAWN FROM PICC LINE DONE,PICC LINE FLUSHED. PICC LINE DRESSING CHANGE DONE,NO S/S OF INFECTION ON THE SITE.BOTH LUMEN FLUSHED GOOD.
[2017-03-11] MEDS: VANCOMYCIN 1GM/DEXT 5% PREMIX 200 ML IV SCH ×2 (04:52→16:32)
[2017-03-11] MEDS: BLOOD GLUCOSE MONITORING 1 DEV DEV FS SCH ×3 (06:19→18:02)
[2017-03-11] MEDS: PIPER/TAZO 3.375GM/D5W PREMIX 50 ML IV SCH ×4 (06:22→23:38)
[2017-03-11 06:36] LABS: ANION GAP 11.1 (8-16); CARBON DIOXIDE 27.2 mmol/L (21-32); CREATININE 0.5 mg/dL (0.6-1.3); POTASSIUM 3.3 mmol/L (3.5-5.1)
--- NOTE | 2017-03-11 07:30 | NUR ---
RECEIVED REPORT FROM VAMSI DUBON. NO SIGN OR ACUTE DISTRESS AT THIS TIME. FLACC 0. PT IS TRACH TO VENT. SWITCHMAN SUPERVISOR SHOWS NORMAL SINUS RHYTHM. GT IN PLACE, RECEIVING TUBE FEEDING. PICC LINE TO THE LEFT ARM, PATENT AND INTACT. CEDEÑO CATH IN PLACE DRAINING TO GRAVITY GRAINAGE BAG. BED IN LOWEST POSITION. CALL LIGHT WITHIN REACH. WILL CONTINUE TO MONITOR. Addendum: 03/11/17 at 1103 by Noel Diggs RN PT IS ETT TO VENT
--- NOTE | 2017-03-11 07:31 | NUR ---
PT HAS BEEN NPO AFTER MIDNIGHT FOR SCHEDULED SURGERY.
--- NOTE | 2017-03-11 07:59 | NUR ---
RECIVED PT ON TONYA WITH SETTINGS CHARTED BREATH SOUNDS PESENT BILAT CLAR MILD COARSE PT INTUBTED WITH 7.5 21 AT GUM VENT PLUGGED INTO RED OUTLET AMBU BAG AT BEDSIDE
[2017-03-11] MEDS: DOCUSATE 100 MG/10 ML UDC GT SCH ×2 (08:30→21:09)
[2017-03-11] MEDS: PANTOPRAZOLE 40 MG INJ VIAL IVP SCH (08:31)
[2017-03-11] MEDS: amLODIPine 5 MG TAB GT SCH (08:31)
[2017-03-11] MEDS: LACTOBACILLUS RHAMNOSUS GG 1 EACH CAP GT SCH ×2 (08:31→21:10)
[2017-03-11] MEDS: ASCORBIC ACID 500 MG TAB GT SCH ×2 (08:32→21:11)
[2017-03-11] MEDS: FLUCONAZOLE 100 MG TAB GT SCH (08:32)
[2017-03-11] MEDS: MULTIVITAMIN 5 ML ORASYR GT SCH (08:32)
[2017-03-11] MEDS: levETIRAcetam 100 MG/ML ORASYR GT SCH (08:33)
[2017-03-11] MEDS: POTASSIUM CHLORIDE 20% 40 MEQ/15 ML UDC GT SCH (08:33)
[2017-03-11] MEDS: AMANTADINE 100 MG CAP GT SCH ×2 (08:33→21:12)
[2017-03-11] MEDS: METOPROLOL 25 MG TAB GT SCH ×2 (08:40→16:32)
[2017-03-11] MEDS: NYSTATIN/TRIAMCINOLONE CRM 15 GM TUBE TP SCH ×3 (09:17→17:32)
--- NOTE | 2017-03-11 09:30 | NUR ---
CALLED Mary HASKINS NOTIFIED PT K LEVEL 3.3 AND PT HAD ROUTINE ORDER KCL 20% PO 20 MEQ BY GT THIS MORNING NO ORDER RECEIVED. INFORMED DR.PALIWAL Sousa PT WILL HAVE TRACHEOSTOMY TODAY AT 1300, PER Mary HASKINS CHECK PT CBC ,PT, PTT, INR, WILL CARRY OUT.
--- NOTE | 2017-03-11 11:59 | NUR ---
CHECKED FINGER BLOOD SUGAR 190, WILL HOLD INSULIN SUBQ PT IS NPO, CHARGE NURSE ISAMAR AWARE.
[2017-03-11 12:20] LABS: HEMATOCRIT 30.4 % (36-48); HEMOGLOBIN 9.8 g/dL (12.0-16.0); MEAN CORPUSCULAR HEMOGLOBIN 28 pg (27-31); MEAN CORPUSCULAR HGB CONC 32 g/dL (33-37); MEAN CORPUSCULAR VOLUME 86 fL (80-94); PLATELET COUNT (AUTO) 342 K/uL (140-450); RED BLOOD CELL COUNT(AUTO) 3.53 MIL/uL (4.20-5.40); RED CELL DISTRIBUTION WIDTH 16.1 % (11.6-13.7); WHITE BLOOD COUNT (AUTO) 19.5 K/uL (4.8-10.8)
[2017-03-11] MEDS ORDERED: ROCURONIUM 50 MG/5 ML VIAL IV ONE (12:32)
[2017-03-11] MEDS ORDERED: SEVOFLURANE 250 ML BTL INH ONE (12:32)
--- NOTE | 2017-03-11 12:40 | NUR ---
PT TAKEN TO OR FOR PROCEDURE VIA AMBU BAG
--- NOTE | 2017-03-11 12:43 | NUR ---
PT TRANSFERRED TO OR, ACCOMPANIED BY RT, OR NURSE AND ANESTHESIOLOGIST.
[2017-03-11] MEDS ORDERED: fentaNYL 0.05 MG/ML VIAL ONE (13:02)
--- NOTE | 2017-03-11 13:30 | NUR ---
PT BACK TO ICU.
--- NOTE | 2017-03-11 13:40 | NUR ---
pt transported from or to icu 7 via ambu bag placed on vent with settings as charted pt trached with portex 7 fresh trach site trach secured with stiches yrach secure sxn pt with min amt reddish secs will continue to monitor pt on vent
[2017-03-11 13:56] LABS: EOSINOPHILS % (MANUAL) 2 % (0-4); LYMPHOCYTES % (MANUAL) 23 % (20-46); MONOCYTES % (MANUAL) 16 % (5-12)
--- NOTE | 2017-03-11 14:28 | NUR ---
TURNED AND REPOSITIONED PT, TRACH SITE IS CLEAN, NO S/S OF RESPIRATORY DISTRESS NOTED. WILL CONTINUE TO MONITOR.
--- NOTE | 2017-03-11 14:38 | NUR ---
Social Service Note: I called and spoke with Timothy from [facility] , informed her of [facility]olina. Per Timothy, patient's clinical information can be fax to . I faxed inquiry. I also faxed face sheet and order to [facility], fax number .
--- NOTE | 2017-03-11 15:19 | NUR ---
CHECKED ON PT. PT SLEEPING COMFORTABLY. NO SIGN OF ACUTE DISTRESS AT THIS TIME. FAMILY AT BEDSIDE. BED IN LOWEST POSITION. CALL LIGHT WITHIN REACH. WILL CONTINUE TO MONITOR.
--- NOTE | 2017-03-11 17:00 | NUR ---
TURNED AND REPOSITIONED PT, STARTED PT ON DIABETISOURCE AC TUBE FEEDING, NO VOMITING OR DISCOMFORT NOTED, WILL CONTINUE TO MONITOR.
[2017-03-11] MEDS: INSULIN LISPRO SLIDING SCALE 100 UNITS/ML VIAL SUBQ PRN ×2 (18:00→23:41)
--- NOTE | 2017-03-11 18:30 | NUR ---
TURNED AND REPOSITIONED PT. NO S/S OF RESPIRATORY DISTRESS NOTED.CHECKED TUNE FEEDING RESIDUAL, FIVE ML RESIDUAL NOTED. RETURNED IT BACK AND INCREASED TUBE FEEDING RATE FROM 30 ML/HR TO 40 ML/HR.
--- NOTE | 2017-03-11 19:02 | NUR ---
REPORT GIVEN TO LING, PT BP 121/75, HR 65, O2 SAT 99%.
--- NOTE | 2017-03-11 19:30 | NUR ---
RECEIVED PATIENT FROM MARIA TERESA RN, PATIENT AWAKE OPEN EYES,NO S/S OF RESP DISTRESS,NO SOB, NEWLY TRACH TO VENT TOLERATED WELL, NO S/S OF RES DISTRESS, NO SOB,NO BLEEDING NOTED. HOB UP 30-45 DEGREE ALL THE TIMES. VENT SETTING AC 12, FIO2 30,TV 500 PEEP 5 TOLERATED WELL. NO S/S OF PAIN OR DISCOMFORT NOTED. PICC LINE WITH 2 LUMEN TO LEFT UPPER ARM PORT INTACT WELL, NO S/S OF INFECTION ON THE SITE. GT INTACT WELL TO LEFT ABD,NO S/S OF INFECTION ON THE STOMA. GT FEEDING AT 40 CC/HR AT HIS TIME WITH 40 CC RESIDUAL NOTED. ABD SOFT NON DISTENDED. BOTH HAND EDEMA +1 NON PITTING AND FEET EDEMA +1 NON PITTING ELEVATED AREA WITH PILLOWS. F/C INTACT WELL WITH YELLOW CLEAR URINE INTACT WELL.
--- NOTE | 2017-03-11 19:40 | NUR ---
TRACHE NO 7 PORTEX HOLD BY 2 SUTURE ONE LEFT AND ONE RIGHT SITE OF TRACHE . RIGHT FACE DISCOLORATION NOTED AT THE START OF THE SHIFT.
[2017-03-11] MEDS: SENNA 8.6 MG TAB GT SCH (21:10)
--- NOTE | 2017-03-11 21:15 | NUR ---
MEDICATION GIVEN TOLERATED WELL.
--- NOTE | 2017-03-11 22:00 | NUR ---
DR. EDWARDS AT BED SIDE. WILL FOLLOW UP WITH ORDERS.
[2017-03-12] VITALS (25 sets, daily range): BP systolic 112–156; BP diastolic 65–83
--- NOTE | 2017-03-12 | NUR ---
GT TUBE FEEDING INCREASE TO 50 CC/HR SWETHA WELL. BLOOD SUGAR CHECK VIA FINGER STICK 162 -2 UNITS INSULIN GIVEN ORDER. IV ABT ZOSYN 3.375 GRAM GIVEN RUNNING ORDER.REPOSITION PATIENT FOR COMFORT. NO S/S OF DISTRESS OR PAIN.
[2017-03-12] MEDS: SKINTEGRITY HYDROGEL TP SCH ×2 (02:00→13:00)
[2017-03-12] MEDS: FOAM DRESSING TP SCH ×2 (02:00→14:00)
[2017-03-12] MEDS: Z-GUARD PASTE TP SCH ×2 (02:00→13:00)
--- NOTE | 2017-03-12 02:00 | NUR ---
PATIENT SLEEPING WELL, EASY TO AWAKE. REPOSITION RESIDENT FOR COMFORT.
[2017-03-12 04:33] LABS: HEMATOCRIT 31.4 % (36-48); MEAN CORPUSCULAR HEMOGLOBIN 28 pg (27-31); MEAN CORPUSCULAR HGB CONC 32 g/dL (33-37); MEAN CORPUSCULAR VOLUME 87 fL (80-94); PLATELET COUNT (AUTO) 348 K/uL (140-450); RED CELL DISTRIBUTION WIDTH 16.2 % (11.6-13.7); WHITE BLOOD COUNT (AUTO) 18.5 K/uL (4.8-10.8)
--- NOTE | 2017-03-12 04:42 | NUR ---
CRITICAL LAB, VANCO TROUGH RESULT IS HIGH 26.0; OUTSIDE PHARMACIST MARITZA NOTIFIED; ADVISED/ORDERED TO HOLD THE 0500H DOSE OF VANCOMYCIN; CARRIED OUT.
[2017-03-12] MEDS: VANCOMYCIN 1GM/DEXT 5% PREMIX 200 ML IV SCH (05:00)
[2017-03-12] MEDS: PIPER/TAZO 3.375GM/D5W PREMIX 50 ML IV SCH ×3 (05:09→17:43)
[2017-03-12] MEDS: BLOOD GLUCOSE MONITORING 1 DEV DEV FS SCH ×3 (05:24→12:23)
--- NOTE | 2017-03-12 06:00 | NUR ---
BLOOD SUGAR FINGER STICK DONE WITH RESULT 146 NO COVERAGE GIVEN. GT FEEDING TOLERATED WELL,NO RESIDUAL,INCREASE THE FEEDING TO 60 CC/HR .
[2017-03-12 06:31] LABS: EOSINOPHILS % (MANUAL) 3 % (0-4); LYMPHOCYTES % (MANUAL) 16 % (20-46); MONOCYTES % (MANUAL) 11 % (5-12)
[2017-03-12 06:54] LABS: ALBUMIN 2.1 g/dL (3.4-5.0); ANION GAP 18.4 (8-16); CARBON DIOXIDE 24.9 mmol/L (21-32); CREATININE 0.5 mg/dL (0.6-1.3); POTASSIUM 4.3 mmol/L (3.5-5.1); TOTAL BILIRUBIN 0.3 mg/dL (0.0-1.0)
--- NOTE | 2017-03-12 07:18 | NUR ---
REPORT GIVEN TO MARIA TERESA AGUSTIN, RESIDENT IS STABLE V/S BP 143/82,HR 70,R 12,SPO2 97%.
--- NOTE | 2017-03-12 07:30 | NUR ---
RECEIVED PT FROM SHEEP RANCHER RN. PT DOES NOT OPEN EYES BUT UNABLE TO FOLLOW COMMANDS, BEDSIDE MONITOR SHOWS SR, TRACH TO VENT WITH SETTING FIO2 30%,TV 500, AC 12, PEEP 5. NO S/S OF RESPIRATORY DISTRESS NOTED. G-TUBE IN PLACE RUNNING DIABETISOURCE AC AT 60 ML/HR, RESIDUAL CHECKED 5 ML, RETURNED IT BACK. CEDEÑO CATH IN PLACE DRAINAGE BY GRAVITY, YELLOW URINE NOTED, SCDS IN PLACE, PT UNABLE TO MOVE ALL HER EXTREMITIES, SKIN NON INTACT ( SEE WOUND ASSESSMENT), HOB 30 DEGREES WITH LOW BED POSITION, WILL CONTINUE TO MONITOR PT.
[2017-03-12] MEDS: levETIRAcetam 100 MG/ML ORASYR GT SCH (08:23)
[2017-03-12] MEDS: POTASSIUM CHLORIDE 20% 40 MEQ/15 ML UDC GT SCH (08:23)
[2017-03-12] MEDS: PANTOPRAZOLE 40 MG INJ VIAL IVP SCH (08:24)
[2017-03-12] MEDS: MULTIVITAMIN 5 ML ORASYR GT SCH (08:24)
[2017-03-12] MEDS: DOCUSATE 100 MG/10 ML UDC GT SCH (08:24)
[2017-03-12] MEDS: amLODIPine 5 MG TAB GT SCH (08:25)
[2017-03-12] MEDS: LACTOBACILLUS RHAMNOSUS GG 1 EACH CAP GT SCH (08:26)
[2017-03-12] MEDS: AMANTADINE 100 MG CAP GT SCH (08:26)
[2017-03-12] MEDS: METOPROLOL 25 MG TAB GT SCH ×2 (08:26→17:44)
[2017-03-12] MEDS: ASCORBIC ACID 500 MG TAB GT SCH (08:26)
[2017-03-12] MEDS: NYSTATIN/TRIAMCINOLONE CRM 15 GM TUBE TP SCH ×2 (09:00→13:00)
--- NOTE | 2017-03-12 09:02 | NUR ---
PER GONZALEZ -EDUCATION NURSE PT CANNOT GO TO [place] DUE TO INSURANCE .ALSO PER FAMILY PATIENT DOES NOT WANT PATIENT TO GO BACK TO [facility] [place] MYRICK MADE AWARE .EDUCATION NURSE WILL WORK ON [place].DR RAMEZ VOGT.
--- NOTE | 2017-03-12 09:10 | NUR ---
IN TO SEE PT, MAKE DR AWARE PT HAS MINIMAL BLEEDING IN THE TRACH SITE. PER , DON'T MOVE TRACH SITE TOO MUCH FOR 72 HRS POST TRACHEOSTOMY UNLESS NECESSARY. WILL CARRY OUT.
[2017-03-12] MEDS: INSULIN LISPRO SLIDING SCALE 100 UNITS/ML VIAL SUBQ PRN (12:24)
--- NOTE | 2017-03-12 14:00 | NUR ---
TURNED AND REPOSITIONED PT, PT HAS SMALL AMOUNT OF BM, CLEANED PT. NO S/S OF RESPIRATORY DISTRESS NOTED.
[2017-03-12] MEDS: PSYLLIUM 12.2 GM/PKT GT SCH (17:45)
--- NOTE | 2017-03-12 17:45 | NUR ---
FINGER GLUCOSE CHECKED 195, HUMALOG SLIDING SCALE 2 UNITS SUBQ GIVEN.
--- NOTE | 2017-03-12 18:15 | NUR ---
PT STAYING IN BED, NO S/S OF RESPIRATORY DISTRESS NOTED.
--- NOTE | 2017-03-12 19:10 | NUR ---
REPORT GIVEN TO AUTO ADJUDICATION SPECIALIST RN, PT IN STABLE CONDITION.
--- NOTE | 2017-03-12 20:00 | NUR ---
REPORT TAKEN FROM DAY NURSE WITH PT'S ON VENT WITH NEWLY TRACHEOSTOMY PORTEX 8.0 ON TONYA TOLERATING WELL.
--- NOTE | 2017-03-12 21:00 | NUR ---
DUE MED GIVEN ORDER WITH NO REACTION NOTED.
[2017-03-12] MEDS ORDERED: VANCOMYCIN PER PHARMACY MC PRN (21:25)
--- NOTE | 2017-03-12 22:00 | NUR ---
REPOSITION DONE ORAL CARE GIVEN
[2017-03-12] MEDS ORDERED: VANCOMYCIN 1GM/DEXT 5% PREMIX 200 ML IV SCH (23:25)
[2017-03-13] VITALS (23 sets, daily range): BP systolic 121–171; BP diastolic 69–105
--- NOTE | 2017-03-13 | NUR ---
PT HAD A BOWEL MOVEMENT WITH SKIN CARE DONE
[2017-03-13] MEDS: DOCUSATE 100 MG/10 ML UDC GT SCH ×3 (00:37→20:07)
[2017-03-13] MEDS: ASCORBIC ACID 500 MG TAB GT SCH ×3 (00:38→20:07)
[2017-03-13] MEDS: AMANTADINE 100 MG CAP GT SCH ×3 (00:38→20:07)
[2017-03-13] MEDS: LACTOBACILLUS RHAMNOSUS GG 1 EACH CAP GT SCH ×3 (00:38→20:07)
[2017-03-13] MEDS: SENNA 8.6 MG TAB GT SCH ×2 (00:39→20:07)
[2017-03-13] MEDS: PIPER/TAZO 3.375GM/D5W PREMIX 50 ML IV SCH ×5 (00:40→23:24)
[2017-03-13] MEDS: BLOOD GLUCOSE MONITORING 1 DEV DEV FS SCH ×6 (00:44→23:21)
[2017-03-13] MEDS: INSULIN LISPRO SLIDING SCALE 100 UNITS/ML VIAL SUBQ PRN ×4 (00:49→23:23)
[2017-03-13] MEDS: FOAM DRESSING TP SCH ×2 (01:31→13:00)
[2017-03-13] MEDS: Z-GUARD PASTE TP PRN ×2 (01:33→20:57)
[2017-03-13] MEDS: Z-GUARD PASTE TP SCH ×2 (01:43→13:00)
[2017-03-13] MEDS: SKINTEGRITY HYDROGEL TP SCH ×2 (01:44→13:00)
--- NOTE | 2017-03-13 02:00 | NUR ---
REPOSITION DONE , NO OTHERS C/O .
--- NOTE | 2017-03-13 04:00 | NUR ---
REPOSITION DONE , SKIN CARE DONE
[2017-03-13 05:38] LABS: HEMATOCRIT 29.1 % (36-48); HEMOGLOBIN 9.1 g/dL (12.0-16.0); MEAN CORPUSCULAR HEMOGLOBIN 27 pg (27-31); MEAN CORPUSCULAR HGB CONC 31 g/dL (33-37); MEAN CORPUSCULAR VOLUME 87 fL (80-94); PLATELET COUNT (AUTO) 439 K/uL (140-450); RED BLOOD CELL COUNT(AUTO) 3.36 MIL/uL (4.20-5.40); RED CELL DISTRIBUTION WIDTH 16.9 % (11.6-13.7); WHITE BLOOD COUNT (AUTO) 16.8 K/uL (4.8-10.8)
[2017-03-13 05:51] LABS: ANION GAP 11.4 (8-16); CARBON DIOXIDE 28.1 mmol/L (21-32); CREATININE 0.5 mg/dL (0.6-1.3); POTASSIUM 3.5 mmol/L (3.5-5.1)
--- NOTE | 2017-03-13 06:00 | NUR ---
ACCU CHECK DONE RESULT 206, HUMALOG 2 UNIT GIVEN NEEDED. MATTY ANAL, CEDEÑO CATH CLEAN AND WASH WELL DONE , TOLERATING WELL.
[2017-03-13 06:58] LABS: EOSINOPHILS % (MANUAL) 5 % (0-4); LYMPHOCYTES % (MANUAL) 11 % (20-46); MONOCYTES % (MANUAL) 2 % (5-12)
--- NOTE | 2017-03-13 07:16 | NUR ---
RECEIVED TRACH PT PORTEX 7 ON VENT. SETTINGS AC 12, VT 500, PEEP 5 AND FIO2 30%. BS CLEAR BILATERALLY. PT SUCTIONED OBTAINED SMALL AMOUNT OF THICK CLEAR/WHITE SECRETIONS, AIRWAY IS PATENT AND TRACH IS SECURE WITH STITCHES. PT IS NOT SOB AND NOT IN RESPIRATORY DISTRESS AT THIS TIME. AMBU BAG IS PRESENT AT BEDSIDE. VENT IS PLUGGED INTO RED OUTLET WITH ALARMS ON AND FUNCTIONING. MINIMAL LIGHT RED DRAINAGE FROM STOMA SITE. WILL CONTINUE TO MONITOR.
--- NOTE | 2017-03-13 07:16 | NUR ---
REPORT ENDORSE TO DAY NURSE WITH RESUME CARE
--- NOTE | 2017-03-13 07:30 | NUR ---
RECEIVED REPORT FROM VAMSI PEREZ. PT RESTING COMFORTABLY. NO SIGN OF ACUTE DISTRESS AT THIS TIME. PT IS TRACH TO VENT. PORTEX 7, FIO2 30%, VT 500, RR 12, PEEP 5. LUNGS SOUND CLEAR BILATERALLY. GT IN PLACE, RESIDUAL AND PLACEMENT CHECKED. DOUBLE LUMEN PICC LINE TO LEFT UPPER ARM, PATENT AND INTACT. CEDEOÑ IN PLACE DRAINING LIGHT YELLOW URINE. BED IN LOWEST POSITION, CALL LIGHT WITHIN REACH. WILL CONTINUE TO MONITOR.
[2017-03-13] MEDS: MULTIVITAMIN 5 ML ORASYR GT SCH (08:15)
[2017-03-13] MEDS: POTASSIUM CHLORIDE 20% 40 MEQ/15 ML UDC GT SCH (08:16)
[2017-03-13] MEDS: PSYLLIUM 12.2 GM/PKT GT SCH ×3 (08:16→17:52)
[2017-03-13] MEDS: levETIRAcetam 100 MG/ML ORASYR GT SCH (08:17)
[2017-03-13] MEDS: PANTOPRAZOLE 40 MG INJ VIAL IVP SCH (08:17)
[2017-03-13] MEDS: METOPROLOL 25 MG TAB GT SCH ×2 (08:18→17:52)
[2017-03-13] MEDS: amLODIPine 5 MG TAB GT SCH (08:19)
--- NOTE | 2017-03-13 08:59 | NUR ---
MORNING MEDICATIONS ADMINISTERED. PERFORMED ORAL CARE. REPOSITIONED PT. PT TOLERATED WELL. NO SOB OR ACUTE DISTRESS AT THIS TIME. WILL CONTINUE TO MONITOR.
[2017-03-13] MEDS ORDERED: DOCUSATE 100 MG/10 ML UDC GT SCH (09:00)
--- NOTE | 2017-03-13 11:20 | NUR ---
CHECKED ON PT. NO SOB OR ACUTE DISTRESS NOTED. RESTING COMFORTABLY AT THIS TIME. SON AT BEDSIDE. WILL CONTINUE TO MONITOR.
[2017-03-13] MEDS ORDERED: VANCOMYCIN 1GM/DEXT 5% PREMIX 200 ML IV SCH (12:00)
--- NOTE | 2017-03-13 13:46 | NUR ---
VENT CHECK COMPLETED NO CHANGES MADE AT THIS TIME. PT IS ASLEEP AT THIS TIME, NOT IN ANY DISTRESS. WILL CONTINUE TO MONITOR.
--- NOTE | 2017-03-13 14:29 | NUR ---
REPOSITIONED PT. PT IS ASLEEP AT THIS TIME. NO SIGNS OF ACUTE DISTRESS NOTED. BED IN LOWEST POSITION. CALL LIGHT WITHIN REACH.
--- NOTE | 2017-03-13 17:00 | NUR ---
CHECKED ON PT. PT IS ASLEEP AT THIS TIME. NO SIGNS OF DISTRESS NOTED. BED IN LOWEST POSITION. CALL LIGHT WITHIN REACH. WILL CONTINUE TO MONITOR.
--- NOTE | 2017-03-13 17:21 | NUR ---
VENT CHECK COMPLETED. PT IS NOT SOB AND NOT IN RESPIRATORY DISTRESS AT THIS TIME. TRACH REMAINS SECURE. VENT ALARMS REMAIN ON AND FUNCTIONING.
--- NOTE | 2017-03-13 19:24 | NUR ---
GAVE REPORT TO VAMSI BEST FOR CONTINUATION OF CARE. PT SLEEPING COMFORTABLE AT THIS TIME. NO SIGNS OF ACUTE DISTRESS NOTED.
--- NOTE | 2017-03-13 19:28 | NUR ---
RECEIVED ON A BurstlySCAPE R860 VENTILATOR PLUGGED INTO RED OUTLET TOLERATING WELL WITHOUT ADVERSE REACTIONS NOTED TO A TRACHEOSTOMY AIRWAY PORTEX DFEN #7 SUTURED AT RIGHT AND LEFT SIDE OF PLATE ALSO SECURED WITH A GALO TRACH TIE SITE GOOD AMBU ANTONIA NOTED AT HOB LOC AWAKE BREATH SOUNDS CLEAR BILATERAL WITH GOOD CHEST RISE AND AERATION THROUGHOUT LUNG BARNES AIRWAY PATENT
--- NOTE | 2017-03-13 19:30 | NUR ---
report received from VAMSI Cohen. Pt is awake and nonverbal. eye contact nonpurposeful. FLACC=0. Trach to Vent: AC 12, FiO2 30, TV 500, Peep 5. Bilateral lungs sound clear. Left upper arm with PICC line double lumens patent and no s/sx of infiltration or phlebitis. G-tube to feeding. G-tube in place and gastric residual of 10ml. HOB elevated 30 degrees. Bilateral lower legs with SCD and heels off loaded with pillows. Pedal pulse normal. Hartman catheter draining via gravity with clear yellow urine. Dressing on the Coccyx intact and dry. Will continue to reposition Q2 hrs. as tolerated. Call light in reach. Bed it to the lowest position. Bilateral S/R are up. All safety precautions are in place. Will continue to monitor.
--- NOTE | 2017-03-13 20:05 | NUR ---
PAGED DR. JOHNSTON TO RELAY TO MD PTT 21.4,INR 1.2,AND PT 12, TO ASK MD IF ITS OK TO GIVE HEPARIN, MD WILL CALL BACK.
--- NOTE | 2017-03-13 20:20 | NUR ---
DR. JOHNSTON CALLED BACK SAID OK TO GIVE HEPARIN SUBQ
--- NOTE | 2017-03-13 20:52 | NUR ---
PT TOLERATED ALL MEDS WELL. G-TUBE PATENT AND IN PLACE. RESIDUAL OF 5ML NOTED. PT HAD A BOWEL MOVEMENT. PROVIDED CEZAR-CARE AND RE-ENFORCED DRESSING AND WOUND CARE ON THE SACROCOCCYX AREA. PT TOLERATED WELL. FLACC=0. HOB ELEVATED TO 30 DEGREES. BED TO THE LOWEST POSITION. BILATERAL S/R UP. CALL LIGHT IN REACH. WILL CONTINUE TO MONITOR.
[2017-03-13] MEDS: FOAM DRESSING TP PRN (20:57)
--- NOTE | 2017-03-13 21:51 | NUR ---
AWAKE STABLE NO PULMONARY DISTRESS NOTED BREATH SOUNDS CLEAR BILATERAL WITH GOOD CHEST RISE
--- NOTE | 2017-03-13 23:30 | NUR ---
PT EYES CLOSED. NO ACUTE DISTRESS NOTED. CONTINUING WITH RACK WASHER. TRACH TO VENT. CALL LIGHT IN REACH. BED IS KEPT TO THE LOWEST POSITION. HOB KEPT ELEVATED TO 30 DEGREES. WILL CONTINUE TO MONITOR.
[2017-03-14] VITALS (15 sets, daily range): BP systolic 115–150; BP diastolic 62–79
--- NOTE | 2017-03-14 00:01 | NUR ---
RESTING WELL WITHOUT SOB NOTED BREATH SOUNDS DECREASED BILATERAL DEEP TRACHEAL SUCTION FOR SCANT YELLOW SECRETIONS AIRWAY PATENT
[2017-03-14] MEDS: FOAM DRESSING TP SCH ×3 (01:04→12:46)
[2017-03-14] MEDS: Z-GUARD PASTE TP SCH ×2 (01:04→12:47)
[2017-03-14] MEDS: SKINTEGRITY HYDROGEL TP SCH ×2 (01:04→12:47)
--- NOTE | 2017-03-14 01:22 | NUR ---
PT EYES CLOSED. FLACC=0. NO ACUTE DISTRESS NOTED. ALL SAFETY PRECAUTIONS CARRIED OUT. WILL CONTINUE TO MONITOR.
--- NOTE | 2017-03-14 01:37 | NUR ---
RESTING COMFORTABLY NO DISTRESS NOTED
[2017-03-14] MEDS: Z-GUARD PASTE TP PRN (03:00)
[2017-03-14] MEDS: FOAM DRESSING TP PRN (03:00)
--- NOTE | 2017-03-14 03:00 | NUR ---
PT HAD MODERATE AMOUNT OF A SOFT AND BROWN BOWEL MOVEMENT. INCONTINENCE CARE PROVIDED. DRESSING AND WOUND CARE PROVIDED DUE TO SOILED DRESSING. TOLERATED WELL. KEPT CLEAN AND DRY. RESTING IN BED WITH NO ACUTE DISTRESS. HOB ELEVATED TO 30 DEGREES. CALL LIGHT IN REACH. BED KEPT TO THE LOWEST POSITION. BILATERAL S/R UP. WILL CONTINUE TO MONITOR.
--- NOTE | 2017-03-14 03:35 | NUR ---
TOLERATING VENTILATORY SUPPORT WELL WITHOUT INCIDENT NI APPARENT RESPIRATORY DISTRESS NOTED GOOD CHEST RISE
[2017-03-14] MEDS ORDERED: VANCOMYCIN 1,000 MG VIAL ONE (03:42)
--- NOTE | 2017-03-14 05:00 | NUR ---
AM CARE PROVIDED. TOLERATED WELL. KEPT CLEAN AND DRY. NO ACUTE DISTRESS NOTED. FLACC=0. CALL LIGHT IN REACH. BED IS KEPT TO THE LOWEST POSITION. HOB ELEVATED TO 30 DEGREES. WILL CONTINUE TO MONITOR.
[2017-03-14] MEDS: BLOOD GLUCOSE MONITORING 1 DEV DEV FS SCH ×3 (05:02→17:38)
[2017-03-14] MEDS: PIPER/TAZO 3.375GM/D5W PREMIX 50 ML IV SCH ×3 (05:02→17:35)
[2017-03-14] MEDS: INSULIN LISPRO SLIDING SCALE 100 UNITS/ML VIAL SUBQ PRN ×3 (05:04→18:55)
[2017-03-14] MEDS: VANCOMYCIN 1GM/DEXT 5% PREMIX 200 ML IV SCH (05:28)
--- NOTE | 2017-03-14 05:45 | NUR ---
NO DISTRESS NOTED GOOD CHEST RISE WITH AERATION THROUGHOUT LUNG BARNES AIRWAY PATENT
--- NOTE | 2017-03-14 06:00 | NUR ---
PT EYES CLOSED. FLACC=0. CONTINUING WITH CARDIAC MONITORING. TRACH TO VENT: AC12, FIO2 30, TV 500, AND PEEP 5. CEDEÑO EMPTED AND CLEAR YELLOW URINE. BOWEL SOUNDS ACTIVE FROM ALL FOUR QUADS. ADMINISTERED IV ANTIBIOTICS FOR 0600 ORDERED. PICC LINE INTACT AND PATENT. NO S/SX OF INFILTRATION OR PHLEBITIS ON THE PICC LINE AREA. SACROCOCCYX DRESSING INTACT AND CLEAN. G-TUBE IN PLACE AND RESIDUAL CHECKED WITH 10ML. RESUMED G-TUBE FEEDING ORDERED. NO ACUTE DISTRESS NOTED. HOB ELEVATED TO 30 DEGREES. CALL LIGHT IN REACH. BED IS KEPT TO THE LOWEST POSITION. WILL CONTINUE TO MONITOR.
[2017-03-14 06:14] LABS: HEMATOCRIT 28.4 % (36-48); HEMOGLOBIN 8.9 g/dL (12.0-16.0); MEAN CORPUSCULAR HEMOGLOBIN 27 pg (27-31); MEAN CORPUSCULAR HGB CONC 32 g/dL (33-37); MEAN CORPUSCULAR VOLUME 86 fL (80-94); PLATELET COUNT (AUTO) 406 K/uL (140-450); RED BLOOD CELL COUNT(AUTO) 3.29 MIL/uL (4.20-5.40); RED CELL DISTRIBUTION WIDTH 16.6 % (11.6-13.7); WHITE BLOOD COUNT (AUTO) 13.4 K/uL (4.8-10.8)
[2017-03-14 06:29] LABS: ANION GAP 12.2 (8-16); CARBON DIOXIDE 29.2 mmol/L (21-32); CREATININE 0.5 mg/dL (0.6-1.3); POTASSIUM 3.4 mmol/L (3.5-5.1)
[2017-03-14 06:50] LABS: EOSINOPHILS % (MANUAL) 1 % (0-4); LYMPHOCYTES % (MANUAL) 13 % (20-46); MONOCYTES % (MANUAL) 9 % (5-12)
--- NOTE | 2017-03-14 07:05 | NUR ---
RECEIVED PT STABLE ON VENT SUPPORT AT DOCUMENTED SETTINGS, SUCTIONED SMALL AMOUNTS OF THIN CLEAR SECRETIONS, NO RESP DISTRESS OR SOB NOTED, PORTEX 7 TRACH SECURED WITH STITCHES WITH CUFF INFLATED, ALARMS SET AND AUDIBLE, AMBU BAG BEDSIDE, VENT PLUGGED INTO RED OUTLET, WILL CONTINUE TO MONITOR.
--- NOTE | 2017-03-14 07:09 | NUR ---
REPORT GIVEN TO VAMSI MOREL FOR CONTINUITY OF CARE. PT IS STABLE.
--- NOTE | 2017-03-14 07:30 | NUR ---
RECEIVED PT FROM FAMILY RESOURCE COORDINATOR RN. PT OPENS EYES, UNABLE TO FOLLOW COMMANDS. BEDSIDE MONITOR SHOWS SR, TRACH TO VENT WITH ORDERED SETTING, NO S/S OF RESPIRATORY DISTRESS NOTED, LUNG SOUND CLEAR. ABDOMEN SOFT WITH ACTIVE BOWEL SOUND, G-TUBE IN PLACE RUNNING DIABETICOURCE AC AT 60 ML/HR, RESIDUAL CHECKED ZERO, CEDEÑO CATH IN PLACE DRAINED BY GRAVITY WITH CLEAR YELLOW URINE NOTED. SCDS IN PLACE, PT UNABLE TO MOVE ALL HER EXTREMITIES, HOB 30 DEGREES, WILL CONTINUE TO MONITOR PT.
--- NOTE | 2017-03-14 08:10 | NUR ---
ORAL CARE GIVEN, REPOSITIONED PT.
[2017-03-14] MEDS: POTASSIUM CHLORIDE 20% 40 MEQ/15 ML UDC GT SCH (08:26)
[2017-03-14] MEDS: PSYLLIUM 12.2 GM/PKT GT SCH ×3 (08:26→17:00)
[2017-03-14] MEDS: LACTOBACILLUS RHAMNOSUS GG 1 EACH CAP GT SCH ×2 (08:26→20:53)
[2017-03-14] MEDS: DOCUSATE 100 MG/10 ML UDC GT SCH ×2 (08:26→20:52)
[2017-03-14] MEDS: levETIRAcetam 100 MG/ML ORASYR GT SCH (08:26)
[2017-03-14] MEDS: MULTIVITAMIN 5 ML ORASYR GT SCH (08:26)
[2017-03-14] MEDS: PANTOPRAZOLE 40 MG INJ VIAL IVP SCH (08:27)
[2017-03-14] MEDS: amLODIPine 5 MG TAB GT SCH (08:27)
[2017-03-14] MEDS: AMANTADINE 100 MG CAP GT SCH ×2 (08:27→20:53)
[2017-03-14] MEDS: ASCORBIC ACID 500 MG TAB GT SCH ×2 (08:28→20:53)
[2017-03-14] MEDS: METOPROLOL 25 MG TAB GT SCH ×2 (08:28→17:20)
--- NOTE | 2017-03-14 09:14 | NUR ---
DR.PALIWAL Sousa IN TO SEE PT. WILL FOLLOW UP
--- NOTE | 2017-03-14 10:00 | NUR ---
FOAM DRESSING CHANGED TO SACRAL AREA. PINPOINT WOUND NOTED AT THIS TIME.
--- NOTE | 2017-03-14 11:11 | NUR ---
REPORT GIVEN TO DONNIE AGUSTIN, PT WILL BE TRANSFERRED TO TELE 108 B .
--- NOTE | 2017-03-14 12:08 | NUR ---
ASSISTED PT TRANSFER TO ROOM 108-B WITH MARIA TERESA AGUSTIN
--- NOTE | 2017-03-14 12:37 | NUR ---
03/14/17 RD FOLLOW-UP ASSESSMENT COMPLETED PLEASE REFER TO NUTRITION ASSESSMENT UNDER CARE ACTIVITY FOR ESTIMATED NUTRITIONAL NEEDS. 1. CONTINUE ENTERAL NUTRITION SUPPORT- DIABETISOURCE AT GOAL RATE OF 60 ML/HR + 150 ML FWF Q6H 2. CONTINUE VITAMIN C SUPPLEMENT 3. RD TO FOLLOW-UP 3-5 DAYS, MODERATE RISK RAMANA BARRIOS MBA, RD
--- NOTE | 2017-03-14 13:36 | NUR ---
METAMUCIL NOT GIVEN D/T PT HAVING 2 L BM THIS MORNING.
--- NOTE | 2017-03-14 17:00 | NUR ---
R/T HERE TO ASSESS PT.
--- NOTE | 2017-03-14 17:27 | NUR ---
ADMINISTERED 1700 MED. LOPRESSOR ONLY. CHECKED FOR PLACEMENT AND PATENCY. NO RESIDUAL. PT TOLERATED WELL. HELD METAMUCIL. PT HAD 2 LARGE BM THIS MORNING.
--- NOTE | 2017-03-14 18:52 | NUR ---
RECEIVED PT ON THE SAME VENT SETTINGS, BS ARE BILAT CLEAR, NO DISTRESS NOTED
--- NOTE | 2017-03-14 19:39 | NUR ---
RECEIVED FROM AM RN IN BED WITH TRACH TO VENT. NONE VERBAL. CEDEÑO CATHETER IN PLACE AND DRAINING WELL WITH YELLO URINE. GT FEEDING IN PLACE WITH DIABETICSOURCE AT 60 ML/H WITH 150 ML PER 6 HOURS. NEEDS WILL BE ANTICIPATED AND WILL BE MET. PT. WITH PICC LINE ON KVO CHANTAL 2 LUMEN. INTACT AND PATENT. BED ALARM ON. WILL BE TURNED Q 2H.
[2017-03-14] MEDS: SENNA 8.6 MG TAB GT SCH (20:52)
--- NOTE | 2017-03-14 21:00 | NUR ---
PT. TURNED TO RIGHT SIDE WITH PILLOW SUPPORT TO PRESSURE AREAS. TOTAL CARE. FLACC 0-. HOB UP 30 DEGREES FOR ASPIRATION PRECAUTIONS.
[2017-03-15] VITALS (7 sets, daily range): BP systolic 113–150; BP diastolic 61–85
[2017-03-15] MEDS: BLOOD GLUCOSE MONITORING 1 DEV DEV FS SCH ×4 (00:52→18:03)
[2017-03-15] MEDS: PIPER/TAZO 3.375GM/D5W PREMIX 50 ML IV SCH ×4 (00:52→18:11)
[2017-03-15] MEDS: INSULIN LISPRO SLIDING SCALE 100 UNITS/ML VIAL SUBQ PRN ×4 (00:56→18:05)
[2017-03-15] MEDS: Z-GUARD PASTE TP SCH ×2 (01:00→13:00)
[2017-03-15] MEDS: FOAM DRESSING TP SCH ×2 (01:00→13:00)
[2017-03-15] MEDS: SKINTEGRITY HYDROGEL TP SCH ×2 (01:00→13:00)
--- NOTE | 2017-03-15 01:12 | NUR ---
PT. AWAKE AT THIS TIME. EYES OPEN. BLINKS. NONE VERBAL. TURNED TO RIGHT SIDE. PILLOW SUPPORT TO PRESSURE AREAS. HOB UP 30 DEGREES FOR ASPIRATION PRECAUTION. NO RESIDUAL FROM GT AND NO NOTED VOMITING OR COUGHING AT THIS TIME. AFEBRILE.RESPIRATORY THERAPIST IN HERE TO CHECK ON PT. TRACH TO VENT WITH F102 OF 30 %. Addendum: 03/15/17 at 0531 by Olya May RN FIO2 24% AND NOT 30 %.
--- NOTE | 2017-03-15 03:00 | NUR ---
NO RESTLESSNESS . TRACH TO VENT. 02 SAT 100 %. TELEMETRY MONITORING. NEEDS ANTICIPATED. PICC LINE INTACT AND PATENT.
--- NOTE | 2017-03-15 05:20 | NUR ---
TRACH CARE DONE, CHANGE DRESSING, HME AND ROBBINS, PT RESTING CALM WITHOUT ANY RESP DISTRESS, NO CHANGES IN VENT SETTINGS OR PT STATUS, VITALS STABLE
[2017-03-15] MEDS: VANCOMYCIN 1GM/DEXT 5% PREMIX 200 ML IV SCH (05:41)
[2017-03-15 06:03] LABS: HEMATOCRIT 29.5 % (36-48); HEMOGLOBIN 9.4 g/dL (12.0-16.0); MEAN CORPUSCULAR HEMOGLOBIN 28 pg (27-31); MEAN CORPUSCULAR HGB CONC 32 g/dL (33-37); MEAN CORPUSCULAR VOLUME 87 fL (80-94); PLATELET COUNT (AUTO) 275 K/uL (140-450); RED BLOOD CELL COUNT(AUTO) 3.42 MIL/uL (4.20-5.40); RED CELL DISTRIBUTION WIDTH 16.4 % (11.6-13.7); WHITE BLOOD COUNT (AUTO) 15.2 K/uL (4.8-10.8)
--- NOTE | 2017-03-15 06:35 | NUR ---
PT. SLEEPING AT THIS TIME. NEEDS ANTICIPATED AND MET. TURNED Q 2H TO LEFT SIDE AND SUPINE ONLY. PILLOWS TO PRESSURE AREAS. HOB UP 30 DEGREES FOR ASPIRATION PRECAUTIONS. TELEMETRY MONITORING.
[2017-03-15 06:36] LABS: ALBUMIN 2.2 g/dL (3.4-5.0); ANION GAP 13.5 (8-16); CREATININE 0.5 mg/dL (0.6-1.3); POTASSIUM 3.5 mmol/L (3.5-5.1); TOTAL BILIRUBIN 0.2 mg/dL (0.0-1.0)
--- NOTE | 2017-03-15 06:55 | NUR ---
RECEIVED TRACH PT PORTEX 7 TRACH ON VENT. SETTINGS AC 12, VT 500, PEEP 5 AND FIO2 24%. PT IS NOT SOB AND NOT IN RESPIRATORY DISTRESS AT THIS TIME. TRACH IS SECURE WITH SUTURES. PT SUCTIONED OBTAINED SMALL AMOUNT OF THICK WHITE/CLEAR SECRETIONS, AIRWAY IS PATENT. VENT ALARMS ARE ON AND FUNCTIONING WITH AMBU BAG PRESENT AT BEDSIDE. VENT IS PLUGGED INTO A RED OUTLET. WILL CONTINUE TO MONITOR.
--- NOTE | 2017-03-15 07:15 | NUR ---
RECEIVED PATIENT REPORT AT BEDSIDE. PATIENT AWAKE BUT APHASIC. PATIENT TRACH TO VENT. NO S/S OF DISTRESS NOTED. PATIENT ON 24% FIO2. PATIENT ON CONTINUOUS PULSE OX MONITORING. O2 SAT 99% AT THIS TIME. CEDEÑO CATHETER IN PLACE DRAINING CLEAR YELLOW URINE. G-TUBE IN PLACE WITH TUBE FEEDING RUNNING. PICC NOTED TO THE LEFT UPPER ARM. PATIENT ON TELE MONITORING. BED LOWERED WITH CALL LIGHT WITHIN REACH. WILL CONTINUE TO MONITOR
[2017-03-15 07:22] LABS: LYMPHOCYTES % (MANUAL) 19 % (20-46); MONOCYTES % (MANUAL) 13 % (5-12)
[2017-03-15] MEDS: LACTOBACILLUS RHAMNOSUS GG 1 EACH CAP GT SCH ×2 (09:03→20:47)
[2017-03-15] MEDS: ASCORBIC ACID 500 MG TAB GT SCH ×2 (09:03→20:47)
[2017-03-15] MEDS: METOPROLOL 25 MG TAB GT SCH ×2 (09:03→18:12)
[2017-03-15] MEDS: levETIRAcetam 100 MG/ML ORASYR GT SCH (09:03)
[2017-03-15] MEDS: amLODIPine 5 MG TAB GT SCH (09:03)
[2017-03-15] MEDS: DOCUSATE 100 MG/10 ML UDC GT SCH ×2 (09:03→20:47)
[2017-03-15] MEDS: AMANTADINE 100 MG CAP GT SCH ×2 (09:11→20:56)
[2017-03-15] MEDS: MULTIVITAMIN 5 ML ORASYR GT SCH (09:11)
[2017-03-15] MEDS: PSYLLIUM 12.2 GM/PKT GT SCH ×3 (09:11→18:12)
[2017-03-15] MEDS: POTASSIUM CHLORIDE 20% 40 MEQ/15 ML UDC GT SCH (09:11)
--- NOTE | 2017-03-15 09:11 | NUR ---
ADMINISTERED SCHEDULED MEDS VIA G-TUBE. NO RESIDUALS NOTED. PATIENT TOLERATED WELL
[2017-03-15] MEDS: PANTOPRAZOLE 40 MG INJ VIAL IVP SCH (09:12)
--- NOTE | 2017-03-15 09:25 | NUR ---
VENT CHECK COMPLETED, NO CHANGES MADE AT THIS TIME. PT NOT IN RESPIRATORY DISTRESS. WILL CONTINUE TO MONITOR.
--- NOTE | 2017-03-15 09:30 | NUR ---
PATIENT REPOSITIONED FOR COMFORT. OPTIFORM DRESSING TO THE SACRUM CLEAN, DRY AND INTACT
--- NOTE | 2017-03-15 11:00 | NUR ---
WOUND CARE RE-EVALUATION NOTE REASON FOR EVALUATION: FOLLOW UP CHANGE OF CONDITION ON SACROCOCCYX AREA ASSESSMENT DONE ON SACRAL COCCYX : STAGE 2 PRESSURE ULCER 1X1 CM WITH 10% GRANULATING TISSUE AND 90% EPITHELIUM TISSUE, AREA DRY AND PW PALE PINK RECOMMENDATIONS: -CLEANSE SACROCOCCYX WITH NS, PAT DRY, APPLY HYDROGEL TO SACROCOCCYX AND THIN LAYER OF Z GUARD TO PW, COVER WITH FORM DRESSING BID AND PRN IF SOILING. -KEEP AREA DRY AND CLEAN AT ALL TIME -TURN AND REPOSITION Q2 HR OFF LOAD SACROCOCCYX AREA -ASSESS AND MONITOR SKIN CONDITION DURING POSITION CHANGE, PLEASE PAT ATTENTION TO ELBOWS, SACROCOCCYX AND HEELS -OFFLOAD HEELS BY PLACING PILLOWS UNDER CALVES AT ALL TIMES ,UNLESS OTHERWISE CONTRAINDICATED -PRESSURE REDISTRIBUTION SURFACE THERAPY. COMORBIDITIES RELATED TO SKIN BREAKS: -INFECTION -DM -IMPAIRED OF MOBILITY -COGNITIVE IMPAIRMENT -CHRONIC BOWEL INCONTINENT -HOB ELEVATED THE MAJORITY OF THE DAY FOR MEDICAL CONDITION RECOMMENDATIONS DISCUSS TO PRIMARY RN AND DAUGHTER APOLINAR AT BED SIDE VERBALIZE UNDERSTANDING WILL FOLLOW UP PT. Q 7-10 DAYS AND PRN. PLEASE CONTACT WOUND CARE NURSE FOR ANY CONCERNS AND CHANGE IN SKIN CONDITION.
--- NOTE | 2017-03-15 12:50 | NUR ---
PT SUCTIONED OBTAINED VERY MINIMAL AMOUNT OF CLEAR THICK SECRETIONS, AIRWAY IS PATENT, TRACH IS SECURE. WILL CONTINUE TO MONITOR.
--- NOTE | 2017-03-15 13:10 | NUR ---
PATIENT ASLEEP IN BED. NO S/S OF DISTRESS NOTED
--- NOTE | 2017-03-15 17:45 | NUR ---
NO CHANGES MADE TO VENT AT THIS TIME, PT REMAINS ON DOCUMENTED SETTINGS. PT SUCTIONED OBTAINED SCANT AMOUNT OF CLEAR SECRETIONS. AIRWAY IS PATENT AND TRACH REMAINS SECURE. PT IS IN BED EYES OPEN AND NOT IN RESPIRATORY DISTRESS. VENT ALARMS REMAIN ON AND FUNCTIONING.
--- NOTE | 2017-03-15 19:31 | NUR ---
PATIENT REPORT GIVEN AT BEDSIDE. PATIENT ENDORSED IN STABLE CONDITION
--- NOTE | 2017-03-15 19:35 | NUR ---
RECEIVED PT IN STABLE CONDITION FROM AM NURSE. ON TELE MONITOR. AWAKE, BUT NON VERBAL. WITH TRACH TO VENT. NO ACUTE RESPIRATORY DISTRESS NOTED. LUNG SOUNDS CLEAR AT THIS TIME. WITH IVF INFUSING WELL ON THE LT UPPER ARM PICC LINE,CLEAR AND PATENT. ON GT FEEDING. CHECKED RESIDUAL ONLY 10 ML. PLACEMENT GOOD. WITH CEDEÑO CATHETER TO GRAVITY WITH CLEAR YELLOW URINE OUTPUT. ON BEDREST. BED ON LOW POSITION. FREQUENT ROUNDS NEEDED. WILL CONTINUE TO MONITOR.
--- NOTE | 2017-03-15 20:40 | NUR ---
RESIDUAL ON GT FEEDING RECHECKED .NONE NOTED. . ALL NIGHT MEDS GIVEN THROUGH GT.
[2017-03-15] MEDS: SENNA 8.6 MG TAB GT SCH (20:47)
--- NOTE | 2017-03-15 22:48 | NUR ---
HAS BEEN REPOSITIONED FOR COMFORT. NO RESPIRATORY DISTRESS NOTED.
[2017-03-16] VITALS (11 sets, daily range): BP systolic 136–159; BP diastolic 66–99
[2017-03-16] MEDS: BLOOD GLUCOSE MONITORING 1 DEV DEV FS SCH ×4 (00:37→17:34)
[2017-03-16] MEDS: INSULIN LISPRO SLIDING SCALE 100 UNITS/ML VIAL SUBQ PRN ×4 (00:37→17:54)
--- NOTE | 2017-03-16 00:37 | NUR ---
BLOOD SUGAR WAS CHECKED RESULT 190. INSULIN COVERAGE GIVEN SUBQ .
[2017-03-16] MEDS: SKINTEGRITY HYDROGEL TP SCH ×2 (01:39→12:01)
[2017-03-16] MEDS: FOAM DRESSING TP SCH ×2 (01:39→12:01)
[2017-03-16] MEDS: Z-GUARD PASTE TP SCH ×2 (01:40→12:01)
--- NOTE | 2017-03-16 02:00 | NUR ---
SLEEPING AT THIS TIME. NO S/S OF ANY RESPIRATORY DISTRESS NOTED.
--- NOTE | 2017-03-16 04:00 | NUR ---
SUCTIONED PT , OBTAINED VERY SCANTY THIN WHITISH SECRETION. HAD LARGE SOFT YELLOWISH BOWEL MOVEMENT. CLEANED AND KEPT DRY. REPOSITIONED FOR COMFORT.
[2017-03-16] MEDS: PIPER/TAZO 3.375GM/D5W PREMIX 50 ML IV SCH ×4 (05:24→17:42)
--- NOTE | 2017-03-16 06:19 | NUR ---
BLOOD SUGAR THIS AM 181. INSULIN COVERAGE SUBQ GIVEN.
--- NOTE | 2017-03-16 06:21 | NUR ---
VANCOMYCIN TROUGH LEVEL THIS AM 10.0, TO GIVE THE DOSE THIS AM.
[2017-03-16] MEDS: VANCOMYCIN 1GM/DEXT 5% PREMIX 200 ML IV SCH (06:24)
--- NOTE | 2017-03-16 06:56 | NUR ---
RCV'D PT ON MECHANICAL VENTILATOR WITH SETTINGS AC 12,500,5,24%. PT IS TRACHED WITH PORTEX 7. TRACH IS IN PLACE AND SECURED. STOMA IS CLEAN. VENT IS PLUGGED INTO RED OUTLET. ALARMS ARE AUDIBLE. AMBU BAG AT BEDSIDE. NO SOB OR DISTRESS NOTED. WILL CONTINUE TO MONITOR.
--- NOTE | 2017-03-16 07:18 | NUR ---
ENDORSED PT IN STABLE CONDITION TO AM NURSE FOR CONTINUITY OF CARE.
--- NOTE | 2017-03-16 07:20 | NUR ---
RECEIVED PT REPORT AT BEDSIDE FROM NIGHT NURSE. PT IS SLEEPING, FLACC 0, AND SHOWS NO S/S OF ACUTE DISTRESS ON TRACH TO VENT, FIO2 @ 24%, VT 500, RATE 12, PEEP 5, O2 SAT 99%. PATIENT HAS SCD'S IN PLACE, ASPIRATION PRECAUTIONS, AND FALL PRECAUTION PROTOCOL. ON TELE MONITOR. GT IS PATENT, ASPIRATED WITH NO RESIDUAL NOTED, CHECKED FOR PLACEMENT, AND FLUSHED WITH 10 CC STERILE WATER. DIABETI SOURCE AT 60 ML/HR AND PT TOLERATING WELL. NOTED DRESSING ON THE SACRUM CLEAN DRY AND INTACT. CEDEÑO CATHETER IN PLACE WITH CLEAR YELLOW URINE.THE BED IS IN LOW POSITION HIGH FOWLERS, AND CALL LIGHT WITHIN REACH. WILL CONTINUE TO MONITOR.
[2017-03-16 07:33] LABS: BASOPHILS # (AUTO) 0.1 K/uL (0.00-0.22); BASOPHILS % (AUTO) 0.5 % (0.0-2.0); EOSINOPHILS # (AUTO) 0.3 K/uL (0-0.4); EOSINOPHILS % (AUTO) 1.8 % (0.0-4.0); HEMATOCRIT 27.8 % (36-48); LYMPHOCYTES % (AUTO) 14.6 % (20.5-51.1); MEAN CORPUSCULAR HEMOGLOBIN 28 pg (27-31); MEAN CORPUSCULAR HGB CONC 32 g/dL (33-37); MEAN CORPUSCULAR VOLUME 86 fL (80-94); MONOCYTES # (AUTO) 0.7 K/uL (0.8-1.0); NEUTROPHILS # (AUTO) 10.9 K/uL (1.8-7.7); NEUTROPHILS % (AUTO) 78.1 % (42.2-75.2); PLATELET COUNT (AUTO) 484 K/uL (140-450); RED BLOOD CELL COUNT(AUTO) 3.23 MIL/uL (4.20-5.40); RED CELL DISTRIBUTION WIDTH 16.4 % (11.6-13.7)
[2017-03-16 07:49] LABS: ANION GAP 13.1 (8-16); CARBON DIOXIDE 27.3 mmol/L (21-32); CREATININE 0.5 mg/dL (0.6-1.3); POTASSIUM 3.4 mmol/L (3.5-5.1)
--- NOTE | 2017-03-16 08:08 | NUR ---
PAGED DR JOHNSTON REGARDING POTASSIUM OF 3.4. WILL AWAIT CALL BACK
--- NOTE | 2017-03-16 08:30 | NUR ---
DR JOHNSTON WAS NOTIFIED OF POTASSIUM OF 3.4. DR PLACED ORDERS TO GIVE 40 MEQ KDUR FOR GT.
[2017-03-16] MEDS ORDERED: POTASSIUM CHLORIDE 20% 40 MEQ/15 ML UDC GT SCH (09:00)
[2017-03-16] MEDS: DOCUSATE 100 MG/10 ML UDC GT SCH ×2 (09:16→21:35)
[2017-03-16] MEDS: METOPROLOL 25 MG TAB GT SCH ×2 (09:16→16:30)
[2017-03-16] MEDS: LACTOBACILLUS RHAMNOSUS GG 1 EACH CAP GT SCH ×2 (09:17→21:35)
[2017-03-16] MEDS: PSYLLIUM 12.2 GM/PKT GT SCH ×3 (09:17→16:30)
[2017-03-16] MEDS: amLODIPine 5 MG TAB GT SCH (09:17)
[2017-03-16] MEDS: levETIRAcetam 100 MG/ML ORASYR GT SCH (09:17)
[2017-03-16] MEDS: AMANTADINE 100 MG CAP GT SCH ×2 (09:18→21:35)
[2017-03-16] MEDS: POTASSIUM CHLORIDE 20% 40 MEQ/15 ML UDC GT SCH (09:18)
[2017-03-16] MEDS: ASCORBIC ACID 500 MG TAB GT SCH ×2 (09:19→21:35)
[2017-03-16] MEDS: MULTIVITAMIN 5 ML ORASYR GT SCH (09:19)
[2017-03-16] MEDS: PANTOPRAZOLE 40 MG INJ VIAL IVP SCH (09:19)
--- NOTE | 2017-03-16 10:00 | NUR ---
ADMINISTERED SCHEDULED MEDICATIONS. TF WAS HELD, PT ON HIGH FOWLERS. PT GT WAS CHECKED FOR RESIDUAL. NO RESIDUAL NOTED. GT WAS CHECKED FOR PLACEMENT LUQ, ASPIRATED, AND FLUSH WITH 10 CC OF STERILE WATER. MEDIATIONS WERE CRUSHED INDIVIDUALLY AND ADMINISTERED WITH 10 CC OF STERILE WATER. PATIENT TOLERATED ACTIVITY WELL. FLACC IS 0 AND NO S/S OF ACUTE DISTRESS NOTED. PATIENT WAS REPOSITIONED ON R LATERAL SIDE AND GIVEN PERINEAL AND CEDEÑO CATHETER CARE. HOB IS AT 45 DEGREES. TF RESUMED. BED IN LOW POSITION WITH CALL LIGHT WITHIN REACH.
--- NOTE | 2017-03-16 12:05 | NUR ---
ADMINISTERED SCHEDULED MEDICATIONS. TF WAS HELD, PT ON HIGH FOWLERS. PT GT WAS CHECKED FOR RESIDUAL. 50 ML RESIDUAL NOTED AND ADMINISTERED BACK. GT WAS CHECKED FOR PLACEMENT LUQ, ASPIRATED, AND FLUSH WITH 10 CC OF STERILE WATER. MEDIATIONS WERE INDIVIDUALLY ADMINISTERED WITH STERILE WATER. PATIENT TOLERATED ACTIVITY WELL. FLACC IS 0 AND NO S/S OF ACUTE DISTRESS NOTED. PATIENT WAS REPOSITIONED ON SUPINE. THE BED IS IN LOW POSITION, HIGH FOWLERS, TF RESUMED, IV ABX INFUSING WELL AND CALL LIGHT WITHIN REACH.
--- NOTE | 2017-03-16 13:15 | NUR ---
PATIENT WAS GIVEN WOUND CARE. CLEANSED AREA WITH NS, APPLIED HYDROGEL AND Z GAURD, AND COVERED WITH FOAM DRX. PATIENT WAS REPOSITIONED. PATIENT TOLERATED ACTIVITY WELL. PATIENT SHOWS NO S/S OF ACUTE DISTRESS ON TRACH TO VENT. WILL CONTINUE TO MONITOR.
--- NOTE | 2017-03-16 14:20 | NUR ---
PATIENT IS SLEEPING AND SHOWS NO S/S OF ACUTE DISTRESS ON TRACH TO VENT. O2 SAT AT 99% WITH FI02 24%. BED IN LOW POSITION WITH CALL LIGHT WITHIN REACH, FLACC 0.
--- NOTE | 2017-03-16 16:02 | NUR ---
PATIENT IS SLEEPING AND SHOWS NO S/S OF ACUTE DISTRESS ON TRACH TO VENT, O2 SAT IS 98%.
--- NOTE | 2017-03-16 17:45 | NUR ---
PATIENT IS AWAKE AND SHOWS NO S/S OF ACUTE DISTRESS ON TRACH TO VENT, O2 SAT 97%, HR 77, RESPIRATIONS 21. IV ABX INFUSING WELL ON THE L UPPER ARM DOUBLE LUMEN PICC LINE. BED IN LOW POSITION WITH CALL LIGHT WITHIN REACH. WILL CONTINUE TO MONITOR.
--- NOTE | 2017-03-16 18:55 | NUR ---
RECEIVED PT ON AV 12, VT 500, PEEP 5, 24%FIO2. PT QUIET, ALARMS ON, SX SMALL CLEAR THIN SECRETION, NO DISTRESS NOTED
--- NOTE | 2017-03-16 19:18 | NUR ---
PATIENT REPORT WAS GIVEN AT BEDSIDE TO NIGHT NURSE. PT IS AWAKE AND SHOWS NO S/S OF ACUTE DISTRESS ON TRACH TO VENT OF FIO2 24%, RESP 14, O2 SAT 98%, HR 88. PATIENT ENDORSED IN STABLE CONDITION.
--- NOTE | 2017-03-16 19:30 | NUR ---
RECEIVED OR IN STABLE CONDITION FROM AM NURSE. AWAKE, BUT APHASIC. ON TELE MONITOR. WITH NO ACUTE RESPIRATORY DISTRESS NOTED. ON TRACH TO VENT. O2 SAT 97%. BEDREST. WITH CEDEÑO CATH TO GRAVITY. GT FEEDING TOLERATING WELL. IV ACCESS PICC LINE ON THE LT UPPER ARM DOUBLE LUMEN , BOTH CLEAR AND PATENT. BED ON LOW POSITION, FREQUENT ROUNDS NEEDED. CALL LIGHT PLACED WITHIN REACH. WILL CONTINUE TO MONITOR.
--- NOTE | 2017-03-16 20:30 | NUR ---
REPOSITIONED FOR COMFORT. NO DISTRESS NOTED.
[2017-03-16] MEDS: SENNA 8.6 MG TAB GT SCH (21:41)
--- NOTE | 2017-03-16 23:15 | NUR ---
GT FEEDING DIABETIC SOURCE BAG DONE. NEW FEEDING BAG STARTED. NO RESIDUAL NOTED.
[2017-03-17] VITALS (8 sets, daily range): BP systolic 119–149; BP diastolic 70–87
[2017-03-17] MEDS ORDERED: VANCOMYCIN 1GM/DEXT 5% PREMIX 200 ML IV SCH
--- NOTE | 2017-03-17 00:15 | NUR ---
MADE ROUNDS. ASLEEP. NO RESPIRATORY DISTRESS NOTED. WILL CONTINUE TO MONITOR.
[2017-03-17] MEDS: BLOOD GLUCOSE MONITORING 1 DEV DEV FS SCH ×4 (01:06→18:38)
[2017-03-17] MEDS: INSULIN LISPRO SLIDING SCALE 100 UNITS/ML VIAL SUBQ PRN ×4 (01:06→18:39)
[2017-03-17] MEDS: FOAM DRESSING TP SCH ×3 (01:08→13:00)
[2017-03-17] MEDS: SKINTEGRITY HYDROGEL TP SCH ×2 (01:08→13:00)
[2017-03-17] MEDS: Z-GUARD PASTE TP SCH ×2 (01:09→13:00)
--- NOTE | 2017-03-17 04:00 | NUR ---
HAS BEEN TURNED TO RT SIDE AND SUPINE . NO DISCOMFORT NOTED.
--- NOTE | 2017-03-17 05:16 | NUR ---
VENT CK DONE, CHANGED HME, ROBBINS , TRACH CARE DONE, SX SMALL WHITE THIN SECRETION, NO RESPIRATORY DISTRESS NOTED
--- NOTE | 2017-03-17 05:30 | NUR ---
GT FEEDING TOLERATING WELL. NO RESIDUAL NOTED AT THIS TIME. WILL CONTINUE TO MONITOR.
--- NOTE | 2017-03-17 05:58 | NUR ---
BLOOD SUGAR THIS AM 154. INSULIN COVERAGE GIVEN.
[2017-03-17 06:42] LABS: BASOPHILS # (AUTO) 0.1 K/uL (0.00-0.22); BASOPHILS % (AUTO) 0.6 % (0.0-2.0); EOSINOPHILS # (AUTO) 0.2 K/uL (0-0.4); EOSINOPHILS % (AUTO) 1.6 % (0.0-4.0); HEMATOCRIT 28.8 % (36-48); HEMOGLOBIN 9.5 g/dL (12.0-16.0); LYMPHOCYTES # (AUTO) 2.1 K/uL (2.5-16.5); MEAN CORPUSCULAR HEMOGLOBIN 28 pg (27-31); MEAN CORPUSCULAR HGB CONC 33 g/dL (33-37); MEAN CORPUSCULAR VOLUME 85 fL (80-94); MONOCYTES # (AUTO) 0.8 K/uL (0.8-1.0); MONOCYTES % (AUTO) 5.7 % (1.7-9.3); NEUTROPHILS # (AUTO) 10.2 K/uL (1.8-7.7); NEUTROPHILS % (AUTO) 76.1 % (42.2-75.2); PLATELET COUNT (AUTO) 452 K/uL (140-450); RED CELL DISTRIBUTION WIDTH 16.4 % (11.6-13.7); WHITE BLOOD COUNT (AUTO) 13.4 K/uL (4.8-10.8)
--- NOTE | 2017-03-17 06:52 | NUR ---
REC'D PT ON CARESCAPE VENT SETTINGS AC12 VT 500 PEEP 5 FIO2 24% ALARMS ON AND FUNCTIONING PROPERLY, AMBU BAG AT SIDE OF VENT AND VENT IS PLUGGED INTO RED OUTLET, SXN PT SMALL AMT OF WHITE SECRETIONS, B\S ARE CLEAR BILATERALLY, PT IS TRACH WITH PORTEX 7 AND SKIN INTEGRITY IS INTACT PT IS RESTING WITH NO SIGNS OF DISTRESS NOTED AT THIS TIME
--- NOTE | 2017-03-17 07:30 | NUR ---
RECEIVED PT ON BED, APHASIC, NO SOB NOTED. NO SIGNS OF PAIN NOTED WELL. ON TRACH TO VENTILATOR WITH 02 SATS 98%. WITH LT UPPER ARM PICC LINE PATENT AND INTACT. CHEST DIMINISHED AIR ENTRY TO THE BASES, SECRETIONS SUCTIONED NEEDED. ABDOMEN SOFT, BOWEL SOUNDS PRESENT, ON G-TUBE FEEDING AT 60 MLS/HR WITH DIABETIC SOURCE, RESIDUAL OF 10 MLS NOTED. FOAM DRESSING TO SACRAL AREA DRY AND INTACT. SCD'S IN PLACE. NO EDEMA NOTED ON BLE. WILL REPOSITION PT EVERY 2 HRS.
--- NOTE | 2017-03-17 07:30 | NUR ---
ENDORSED PT IN STABLE CONDITION TO AM NURSE FOR CONTINUITY OF CARE.
[2017-03-17 07:39] LABS: CARBON DIOXIDE 27.9 mmol/L (21-32); CREATININE 0.5 mg/dL (0.6-1.3); POTASSIUM 3.9 mmol/L (3.5-5.1)
--- NOTE | 2017-03-17 09:04 | NUR ---
VENT CHECK, SXN PT SMALL AMT OF THIN WHITE SECRETIONS, PT IS RESTING WITH NO SIGNS OF DISTRESS NOTED AT THIS TIME
[2017-03-17] MEDS: MULTIVITAMIN 5 ML ORASYR GT SCH (09:34)
[2017-03-17] MEDS: DOCUSATE 100 MG/10 ML UDC GT SCH ×2 (09:34→20:37)
[2017-03-17] MEDS: levETIRAcetam 100 MG/ML ORASYR GT SCH (09:34)
[2017-03-17] MEDS: PANTOPRAZOLE 40 MG INJ VIAL IVP SCH (09:34)
[2017-03-17] MEDS: POTASSIUM CHLORIDE 20% 40 MEQ/15 ML UDC GT SCH (09:35)
[2017-03-17] MEDS: AMANTADINE 100 MG CAP GT SCH ×2 (09:35→20:37)
[2017-03-17] MEDS: PSYLLIUM 12.2 GM/PKT GT SCH ×3 (09:35→18:30)
[2017-03-17] MEDS: LACTOBACILLUS RHAMNOSUS GG 1 EACH CAP GT SCH ×2 (09:36→20:37)
[2017-03-17] MEDS: ASCORBIC ACID 500 MG TAB GT SCH ×2 (09:36→20:37)
[2017-03-17] MEDS: amLODIPine 5 MG TAB GT SCH (09:36)
[2017-03-17] MEDS: METOPROLOL 25 MG TAB GT SCH ×2 (09:36→18:33)
--- NOTE | 2017-03-17 11:00 | NUR ---
VENT CHECK, NO SXN REQUIRED AT THIS TIME, AIRWAY IS PATENT AND PT IS RESTING
--- NOTE | 2017-03-17 12:00 | NUR ---
PT AWAKE, APHASIC, NO SOB NOTED. DAUGHTERS AT THE BEDSIDE VISITING. PLAN OF CARE EXPLAINED TO FAMILY, VERBALIZED UNDERSTANDING.
--- NOTE | 2017-03-17 13:00 | NUR ---
SACROCOCCYGEAL FOAM DRESSING DRY AND INTACT, NO DRESSING CHANGE NEEDED AT THIS TIME. FOAM DRESSING IS CHANGE Q3 DAYS AND PRN FOR SOILING. LAST DRESSING CHANGED WAS 03/16/2017.
--- NOTE | 2017-03-17 13:14 | NUR ---
VENT CHECK, SXN PT SMALL AMT OF CLEAR SECRETIONS, B\S ARE CLEAR AND AIRWAY IS PATENT CHANGED TRACH GAUZE
--- NOTE | 2017-03-17 15:06 | NUR ---
VENT CHECK, NO SXN NEEDED AT THIS TIME, AIRWAY IS PATENT AND PT IS RESTING WITH NO SIGNS OF DISTRESS NOTED
--- NOTE | 2017-03-17 16:36 | NUR ---
VENT CHECK, NO SXN NEEDED AT THIS TIME, CHANGED TRACH GAUZE AGAIN AND STITCHES ARE IN PLACE PT IS RESTING WITH NO SIGNS OF DISTRESS NOTED AT THIS TIME
--- NOTE | 2017-03-17 18:50 | NUR ---
RECEIVED PT ON AC 12, VT 500, PEEP 5, 24FIO2.PT STABLE SX SMALL CLEAR THIN SECRETION, NO DISTRESS NOTED
--- NOTE | 2017-03-17 18:54 | NUR ---
PT RESTING. NO SOB NOTED. NO SIGNS OF PAIN. WILL ENDORSE TO NEXT SHIFT NURSE FOR CONTINUITY OF CARE.
--- NOTE | 2017-03-17 19:30 | NUR ---
RECEIVED PT IN STABLE CONDITION FROM AM NURSE. PT IS AWAKE BUT APHASIC. OPEN EYES. NO RESPIRATORY DISTRESS NOTED. WITH TRACH TO VENT, O2 SAT 98%. BEDREST. ON TELE MONITOR. HAS GT FEEDING TOLERATING WELL. CEDEÑO CATH TO GRAVITY. SACRAL COCCYGEAL DRESSING CLEAN AND DRY. ON WOUND CARE BED. PICC LINE LT UPPER ARM , CLEAR AND PATENT. REPOSITIONED FOR COMFORT. BED ON LOW POSITION. FREQUENT ROUNDS NEEDED. WILL CONTINUE TO MONITOR.
[2017-03-17] MEDS: SENNA 8.6 MG TAB GT SCH (20:43)
--- NOTE | 2017-03-17 21:00 | NUR ---
NIGHT MEDS GIVEN THROUGH GT. NO RESIDUAL NOTED ON GT .
[2017-03-18] VITALS (8 sets, daily range): BP systolic 125–140; BP diastolic 45–78
[2017-03-18] MEDS: BLOOD GLUCOSE MONITORING 1 DEV DEV FS SCH ×4 (00:56→18:11)
--- NOTE | 2017-03-18 00:57 | NUR ---
BLOOD SUGAR WAS CHECKED RESULT 148. NO INSULIN NEEDED.
[2017-03-18] MEDS: FOAM DRESSING TP SCH ×2 (00:59→12:30)
[2017-03-18] MEDS: SKINTEGRITY HYDROGEL TP SCH ×2 (00:59→12:30)
[2017-03-18] MEDS: Z-GUARD PASTE TP SCH ×2 (00:59→12:17)
--- NOTE | 2017-03-18 01:00 | NUR ---
HAD A MODERATE AMOUNT OF SOFT STOOL . SACRAL DRESSING SOILED. CHANGED ORDERED.
--- NOTE | 2017-03-18 04:00 | NUR ---
PT HAS BEEN REPOSITIONED FOR COMFORT Q2HRS. NO RESPIRATORY DISTRESS NOTED.
[2017-03-18] MEDS: INSULIN LISPRO SLIDING SCALE 100 UNITS/ML VIAL SUBQ PRN ×3 (05:42→18:11)
[2017-03-18 05:44] LABS: BASOPHILS # (AUTO) 0.1 K/uL (0.00-0.22); BASOPHILS % (AUTO) 0.4 % (0.0-2.0); EOSINOPHILS # (AUTO) 0.1 K/uL (0-0.4); EOSINOPHILS % (AUTO) 1.1 % (0.0-4.0); HEMATOCRIT 29.5 % (36-48); HEMOGLOBIN 9.4 g/dL (12.0-16.0); LYMPHOCYTES # (AUTO) 2.1 K/uL (2.5-16.5); LYMPHOCYTES % (AUTO) 15.3 % (20.5-51.1); MEAN CORPUSCULAR HEMOGLOBIN 28 pg (27-31); MEAN CORPUSCULAR HGB CONC 32 g/dL (33-37); MEAN CORPUSCULAR VOLUME 86 fL (80-94); MONOCYTES # (AUTO) 0.7 K/uL (0.8-1.0); MONOCYTES % (AUTO) 5.4 % (1.7-9.3); NEUTROPHILS # (AUTO) 10.5 K/uL (1.8-7.7); NEUTROPHILS % (AUTO) 77.8 % (42.2-75.2); PLATELET COUNT (AUTO) 469 K/uL (140-450); RED BLOOD CELL COUNT(AUTO) 3.42 MIL/uL (4.20-5.40); RED CELL DISTRIBUTION WIDTH 16.8 % (11.6-13.7); WHITE BLOOD COUNT (AUTO) 13.5 K/uL (4.8-10.8)
--- NOTE | 2017-03-18 05:51 | NUR ---
VENT CK DONE, TRACH CARE DONE, CHANGED HNE, DRESSING CHANGE, NO BLEEDING ,PT STABLE, NO DISTRESS, BS ARE BILAT CLEAR, SX VERY SMALL CLEAR THIN SECRTION.
--- NOTE | 2017-03-18 06:00 | NUR ---
PICC LINE DRESSING DUE FOR DRESSING CHANGED. DONE BY ASEPTIC TECHNIQUE.
--- NOTE | 2017-03-18 07:10 | NUR ---
ENDORSED PT IN STABLE CONDITION TO AM NURSE.
--- NOTE | 2017-03-18 07:15 | NUR ---
RECEIVED BESIDE REPORT FROM VAMSI KOCH. PT SLEEPING IN BED. PT IS APHASIC. NO S/S OF ACUTE DISTRESS. FLACC-0. IV SITE PATENT AND INTACT. G-TUBE NOTED. PT TOLERATING FEEDING WELL. NO RESIDUAL. CEDEÑO CATHETER PATENT. TRACH IN PLACE. HOB ELEVATED 45. CALL LIGHT WITHIN REACH. SAFETY MEASURES ENSURED. WILL CONTINUE TO MONITOR.
--- NOTE | 2017-03-18 07:49 | NUR ---
recived pt on vent with setings as charted breath sounds present bilat clear pt trached with portex 7 trach secuer sxn pt with min amt white secs no hhn rx indicated at this time vent plugged into red outlet ambu bag at bedside will continue to monitor pt
[2017-03-18] MEDS: LACTOBACILLUS RHAMNOSUS GG 1 EACH CAP GT SCH ×2 (08:23→21:18)
[2017-03-18] MEDS: levETIRAcetam 100 MG/ML ORASYR GT SCH (08:23)
[2017-03-18] MEDS: METOPROLOL 25 MG TAB GT SCH ×2 (08:23→17:19)
[2017-03-18] MEDS: DOCUSATE 100 MG/10 ML UDC GT SCH ×2 (08:23→21:17)
[2017-03-18] MEDS: POTASSIUM CHLORIDE 20% 40 MEQ/15 ML UDC GT SCH (08:24)
[2017-03-18] MEDS: MULTIVITAMIN 5 ML ORASYR GT SCH (08:24)
[2017-03-18] MEDS: ASCORBIC ACID 500 MG TAB GT SCH ×2 (08:24→21:17)
[2017-03-18] MEDS: PSYLLIUM 12.2 GM/PKT GT SCH ×3 (08:24→17:19)
[2017-03-18] MEDS: amLODIPine 5 MG TAB GT SCH (08:24)
[2017-03-18] MEDS: AMANTADINE 100 MG CAP GT SCH ×2 (08:24→21:17)
[2017-03-18] MEDS: PANTOPRAZOLE 40 MG INJ VIAL IVP SCH (08:25)
--- NOTE | 2017-03-18 08:35 | NUR ---
AM MEDICATIONS GIVEN WITH EDUCATION. PT UNABLE TO VERBALIZE UNDERSTANDING. PT TOLERATING FEEDING WELL. WILL CONTINUE TO MONITOR.
--- NOTE | 2017-03-18 08:58 | NUR ---
0830 LEFT FOR PT'S SON UGO TO CALL. UGO RETURNED CALL. DISCUSSED DISCHARGE PLAN TO [facility] UNIT. UGO INDICATED THAT HE AND MOST OF HIS SIBLINGS LIVE IN THE [facility] AREA AND WOULD LIKE A FACILITY IN THAT AREA. DISCUSSED WITH HIM THAT THE ISSUE MAY BE AMBULANCE TRANSPORT AND THAT IF THERE IS A BED AVAILABLE CLOSER THE TRANSPORTATION TO [facility] MAY NOT BE COVERED. UGO STATED THAT HE AND HIS SIBLINGS MAY BE ABLE TO COVER THE COST AND REQUESTED THAT AN ATTEMPT IS MADE TO FIND A FACILITY IN OR NEAR [facility] AND GET A RADER QUOTE FOR TRANSPORT. INFORMED HIM THAT HIS REQUEST WOULD BE FOLLOWED UP ON.
[2017-03-18 09:03] LABS: ANION GAP 11.8 (8-16); CARBON DIOXIDE 25.8 mmol/L (21-32); CREATININE 0.5 mg/dL (0.6-1.3); POTASSIUM 3.6 mmol/L (3.5-5.1)
--- NOTE | 2017-03-18 10:29 | NUR ---
PT RESTING IN BED. NO S/S OF ACUTE DISTRESS. FLACC-0. CALL LIGHT WITHIN REACH. SAFETY MEASURES ENSURED. WILL CONTINUE TO MONITOR.
--- NOTE | 2017-03-18 12:16 | NUR ---
PT RESTING IN BED. NO S/S OF ACUTE DISTRESS. FLACC-0. PT TOLERATED TUBE FEEDING WELL. CALL LIGHT WITHIN REACH. WILL CONTINUE TO MONITOR.
--- NOTE | 2017-03-18 12:35 | NUR ---
DRESSING DRY AND INTACT.
--- NOTE | 2017-03-18 12:57 | NUR ---
CM NOTE INQUIRED ABOUT [facility] ([phone]). DO NOT ACCEPT MEDI-ANU RESTRICTED. Addendum: 03/18/17 at 1335 by Torey Vasquez RN PER [facility] FROM [facility] ([phone]), NO BED AVAILABLE PER MARINE FROM [facility] ([phone]), NO BED AVAILABLE
[2017-03-18] MEDS: NACL 0.45% 1,000 ML IV SCH (13:11)
--- NOTE | 2017-03-18 14:25 | NUR ---
PT RESTING IN BED. NO S/S OF ACUTE DISTRESS. WILL CONTINUE TO MONITOR.
--- NOTE | 2017-03-18 16:46 | NUR ---
continued to monitor pt on vent with settings as charted sxn pt with min amt white secs breath sounds present bilat clear trach care done trach portex 7 secure vent plugged into red outlet ambu bag at bedside
--- NOTE | 2017-03-18 17:00 | NUR ---
PT RESTING IN BED. NO S/S OF ACUTE DISTRESS. FLACC-0. CALL LIGHT WITHIN REACH. WILL CONTINUE TO MONITOR.
--- NOTE | 2017-03-18 17:33 | NUR ---
TRACH SUTURES REMOVED PER DR MENESES NO ILL EFFECTS NOTED
--- NOTE | 2017-03-18 19:19 | NUR ---
ENDORSED PLAN OF CARE TO NIGHT RN AT [facility]. WILL CONTINUE TO MONITOR.
--- NOTE | 2017-03-18 19:25 | NUR ---
RECEIVED PT FROM OSCAR RN PT APHASIC, BEDBOUND HOB 45 DEGREE TRACH TO VENT TV 500 FIO2 24% PEEP 5 RR12 NOT DISTRESS NOTED, IV FLUIDS INFUSING WELL ON LEFT ARM ON PICC LINE, G TUBE FEEDING WELL TOLERATED ,K CEDEÑO CATH DRAINING WELL YELLOW URINE, REPOSITIONED INITIAL ASSESSMENT DONE
[2017-03-18] MEDS: SENNA 8.6 MG TAB GT SCH (21:18)
[2017-03-19] VITALS (11 sets, daily range): BP systolic 112–167; BP diastolic 64–85
--- NOTE | 2017-03-19 | NUR ---
BLOOD SUGAR CHECK DONE WITH RESULT 199 AND 2 UNITS OF HUMALOG INSULIN GIVEN SQ AT RIGHT ARM. ORAL CARE GIVEN TOLERATED WELL. NO S/S OF RESP.DISTRESS,NO S/S OF ASPIRATION. HOB UP 30-45 DEGREE ALL THE TIME.
[2017-03-19] MEDS: BLOOD GLUCOSE MONITORING 1 DEV DEV FS SCH ×4 (00:19→17:47)
[2017-03-19] MEDS: INSULIN LISPRO SLIDING SCALE 100 UNITS/ML VIAL SUBQ PRN ×5 (00:20→23:46)
[2017-03-19] MEDS: SKINTEGRITY HYDROGEL TP SCH ×2 (01:00→12:33)
[2017-03-19] MEDS: Z-GUARD PASTE TP SCH ×2 (01:00→12:34)
[2017-03-19] MEDS: FOAM DRESSING TP SCH ×3 (01:00→12:33)
--- NOTE | 2017-03-19 01:00 | NUR ---
HOB 45 DEGREE ORAL CARE GIVEN WITH VAP KIT, REPOSITIONED NOT DITRESS NOTED ON TRACH TO VENT SAME SETTING
--- NOTE | 2017-03-19 04:00 | NUR ---
REPOSITION PT FOR COMFORT AND FOR GOOD CIRCULATION, PT AWAKE NON VERBAL, NO S/S OF RESP DISTRESS,CONT ON TRACH TO VENT SWETHA WELL. KEPT HOB UP 30-45 DEGREE ALL THE TIMES. GT INTACT WELL WITH FEEDING RUNNING ORDERED. NO REDNESS AT GT STOMA AREA. AM CARE GIVEN. PT HAS SMALL SOFT BM, GOOD PERIANAL/PERINEAL CARE GIVEN. KEPT PT CLEAN AND DRY.
--- NOTE | 2017-03-19 05:00 | NUR ---
HOB 45 DEGREE ORAL CARE GIVEN WITH VAP KIT KIT , SPONGE BATH GIVEN, LINEN CHANGED, REPOSITIONED G TUBE FEEDING WELL TOLERATED ON TELEMETRY SR
--- NOTE | 2017-03-19 06:11 | NUR ---
BLOOD SUGAR TEST 186 WAS COVERAGE WITH 2 UNITS HUMALOG ON LEFT ARM SUBQ REMAIN STABLE TRACH TO VENT SAME SETTING ON TELMETRY SR REPOSITIONED Q2H
[2017-03-19 06:25] LABS: BASOPHILS # (AUTO) 0.1 K/uL (0.00-0.22); BASOPHILS % (AUTO) 0.9 % (0.0-2.0); EOSINOPHILS # (AUTO) 0.1 K/uL (0-0.4); EOSINOPHILS % (AUTO) 1.1 % (0.0-4.0); HEMOGLOBIN 9.9 g/dL (12.0-16.0); LYMPHOCYTES % (AUTO) 16.7 % (20.5-51.1); MEAN CORPUSCULAR HEMOGLOBIN 27 pg (27-31); MEAN CORPUSCULAR HGB CONC 32 g/dL (33-37); MEAN CORPUSCULAR VOLUME 86 fL (80-94); MONOCYTES % (AUTO) 8.1 % (1.7-9.3); NEUTROPHILS # (AUTO) 8.8 K/uL (1.8-7.7); NEUTROPHILS % (AUTO) 73.2 % (42.2-75.2); PLATELET COUNT (AUTO) 443 K/uL (140-450); RED BLOOD CELL COUNT(AUTO) 3.61 MIL/uL (4.20-5.40)
--- NOTE | 2017-03-19 06:58 | NUR ---
recived pt on vent with settings as charted breath sounds present bilat clar sxn pt with min amt thin secs trach portex 7 secure vent plugged into red outlet ambu bag at bedside
[2017-03-19 07:11] LABS: ALBUMIN 2.5 g/dL (3.4-5.0); CREATININE 0.5 mg/dL (0.6-1.3); POTASSIUM 3.6 mmol/L (3.5-5.1); TOTAL BILIRUBIN 0.2 mg/dL (0.0-1.0)
[2017-03-19 07:29] LABS: ANION GAP 13.2 (8-16); CARBON DIOXIDE 25.4 mmol/L (21-32)
--- NOTE | 2017-03-19 08:00 | NUR ---
RECEIVED PT ON BED WITH EYES CLOSED, AROUSABLE, APHASIC. NO SOB NOTED. NO SIGNS OF PAIN NOTED AT THIS TIME. WITH TRACHEOSTOMY TO VENTILATOR WITH 02 SATS 97%. WITH LT UPPER ARM PICC LINE PATENT AND INTACT. CHEST DIMINISHED AIR ENTRY TO THE BASES, SECRETIONS SUCTIONED NEEDED. ABDOMEN SOFT, BOWEL SOUNDS PRESENT, ON G-TUBE FEEDING AT 60 MLS/HR WITH DIABETIC SOURCE, RESIDUAL OF 10 MLS NOTED. WITH FOAM DRESSING TO SACRAL AREA, DRY AND INTACT. SCD'S IN PLACE. WILL REPOSITION PT EVERY 2 HRS. BED ON LOW POSITION, WITH 3 SIDED RAILS UP.
--- NOTE | 2017-03-19 08:52 | NUR ---
placed pt on cpap as tolerated per dr garrett rn aware pt seems to be tolerating well at this time breath sounds present bilat clear pt unable to weaning test nif vc rsbi 35 will continue to monitor no resp distress at this time
[2017-03-19] MEDS: LACTOBACILLUS RHAMNOSUS GG 1 EACH CAP GT SCH ×2 (08:59→20:07)
[2017-03-19] MEDS: METOPROLOL 25 MG TAB GT SCH ×2 (08:59→17:47)
[2017-03-19] MEDS: levETIRAcetam 100 MG/ML ORASYR GT SCH (09:00)
[2017-03-19] MEDS: PSYLLIUM 12.2 GM/PKT GT SCH ×3 (09:00→17:47)
[2017-03-19] MEDS: amLODIPine 5 MG TAB GT SCH (09:00)
[2017-03-19] MEDS: ASCORBIC ACID 500 MG TAB GT SCH ×2 (09:00→20:07)
[2017-03-19] MEDS: DOCUSATE 100 MG/10 ML UDC GT SCH ×2 (09:00→20:08)
[2017-03-19] MEDS: POTASSIUM CHLORIDE 20% 40 MEQ/15 ML UDC GT SCH (09:00)
[2017-03-19] MEDS: MULTIVITAMIN 5 ML ORASYR GT SCH (09:01)
[2017-03-19] MEDS: PANTOPRAZOLE 40 MG INJ VIAL IVP SCH (09:01)
[2017-03-19] MEDS: NACL 0.45% 1,000 ML IV SCH (09:02)
[2017-03-19] MEDS: AMANTADINE 100 MG CAP GT SCH ×2 (09:18→20:08)
--- NOTE | 2017-03-19 10:57 | NUR ---
03/19/17 RD FOLLOW-UP ASSESSMENT COMPLETED PLEASE REFER TO NUTRITION ASSESSMENT UNDER CARE ACTIVITY FOR ESTIMATED NUTRITIONAL NEEDS. 1. CONTINUE ENTERAL NUTRITION SUPPORT VIA G-TUBE - DIABETISOURC AT 60 ML/HR + 150 ML FWF Q6H 2. CONTINUE MVI/VITAMIN C SUPPLEMENT 3. RD TO FOLLOW-UP 7 DAYS, LOW RISK MASON MENDEZ, RD
--- NOTE | 2017-03-19 12:00 | NUR ---
CEDEÑO CATHETER LEAKING. REINSERTED A NEW CEDEÑO CATHETER. TOLERATED BY PT.
--- NOTE | 2017-03-19 14:31 | NUR ---
INQUIRY FAXED TO [facility] AT FAX [phone] AND ALSO TO [facility] [phone]
--- NOTE | 2017-03-19 15:12 | NUR ---
PT WAS ON CPAP MODE, VENTILATOR BACK UP MODE WENT ON AND PLACED PT BACK ON AC 12, VT 500, PEEP 5 AND FIO2 24% DUE TO PT BECOMING APNEIC.
--- NOTE | 2017-03-19 15:15 | NUR ---
PT TOLERATED CPAP MODE FOR 6 HRS. NOW PT BACK TO AC MODE. PER RESPIRATORY THERAPIST, TRIAL WILL BE DONE AGAIN TOMORROW DAYB SHIFT AND SEE IF PT CAN TOLERATE CPAP.
--- NOTE | 2017-03-19 15:33 | NUR ---
VENT CHECK COMPLETED. VENT ALARMS ARE ON AND FUNCTIONING. PT IS NOT SOB AND NOT IN RESPIRATORY DISTRESS AT THIS TIME.
--- NOTE | 2017-03-19 17:39 | NUR ---
continued to monitor pt on vent with settings as charted breath sounds present bilat clear trach secure sxn pt with min amt white thin secs vent plugged into red outlet ambu bag at bedside
--- NOTE | 2017-03-19 18:50 | NUR ---
PT RESTING. NO SOB NOTED. NO SIGNS OF PAIN AT THIS TIME. WILL ENDORSE TO NEXT SHIFT NURSE FOR CONTINUITY OF CARE.
--- NOTE | 2017-03-19 19:17 | NUR ---
PT RECEIVED FROM [facility] ON NOTED VENT SETTINGS. PT ASLEEP, HAS A #7 PORTEX TRACH SECURE IN PLACE. BREATH SOUNDS APPEAR CLEAR/DIMINISHED IN BASES. PT LAVAGED AND SUCTIONED SCANT AMOUNT THIN WHITE SECRETIONS. NO ADVERSE EFFECTS NOTED. VENT ALARMS ON AND AUDIBLE. VENT PLUGGED INTO RED ELECTRICAL OUTLET. AMBU BAG ON FRONT ON VENT.
--- NOTE | 2017-03-19 19:30 | NUR ---
RECEIVED PT FROM AM SHIFT. PT AWAKE NON VERBAL. ON TRACHE TO VENT WITH VENT SETTING AC 12 FIO2 24,TV 500 AND PEEP 5. SPO2 96%,NO S/S OF RESP.DISTRESS,NO SOB. HOB UP 30-45 DEGREE ALL THE TIMES. JOHN LUNGS SOUND CLEAR. PICC LINE TO LEFT UPPER ARM WITH 2 LUMENS PORT INTACT WELL,NO REDNESS ON THE AREA. GT TO LEFT ABD SIDE.GT FEEDING DIABETIC SOURCE AT 60 CC/HR WITH 3 CC RESIDUAL. EDEMA NOTED BUE PITTING +1 AND BLE NON PITTING. ELEVATED BUE/BLE WITH PILLOWS.DRY CLEAN DREESING INTACT ON SACROCOCCYX AREA.KEPT CLEAN AND DRY.
[2017-03-19] MEDS: SENNA 8.6 MG TAB GT SCH (20:08)
--- NOTE | 2017-03-19 21:00 | NUR ---
PM MEDS GIVEN TOLERATED WELL.
--- NOTE | 2017-03-19 21:20 | NUR ---
VENT CHECKED. PT ASLEEP, NO DISTRESS/SOB NOTED. BREATH SOUNDS APPEAR CLEAR, NO SUCTIONING DONE AT THIS TIME.
--- NOTE | 2017-03-19 21:30 | NUR ---
COME TO SEE PT,NO NEW ORDER.
--- NOTE | 2017-03-19 23:30 | NUR ---
VENT CHECKED. PT LAVAGED AND SUCTIONED SCANT AMOUNT THIN WHITE SECRETIONS. NO ADVERSE EFFECTS NOTED.
[2017-03-20] VITALS (7 sets, daily range): BP systolic 0–144; BP diastolic 0–79
--- NOTE | 2017-03-20 | NUR ---
BLOOD SUGAR 219 AND 4 UNIT HUMALOG INSULIN GIVEN SQ TO RIGHT ARM.
[2017-03-20] MEDS: BLOOD GLUCOSE MONITORING 1 DEV DEV FS SCH ×4 (00:31→17:40)
--- NOTE | 2017-03-20 00:32 | NUR ---
PT SLEPT WELL,CONT ON TRACH TO VENT ,NO S/S OF RESP DISTRESS,NO SOB.SKIN WARM TO TOUCH.CONTINUE FREQUENTLY MONITOR.
[2017-03-20] MEDS: FOAM DRESSING TP SCH ×3 (01:52→13:00)
[2017-03-20] MEDS: Z-GUARD PASTE TP SCH ×2 (01:52→13:00)
[2017-03-20] MEDS: SKINTEGRITY HYDROGEL TP SCH ×2 (01:52→13:00)
--- NOTE | 2017-03-20 02:30 | NUR ---
PATIENT RESTING COMFORTABLE, NO SIGN OF DISTRESS, FLACC-0, WILL CONTINUE TO FREQUENTLY MONITOR
--- NOTE | 2017-03-20 04:00 | NUR ---
PT TRACH TO VENT TOLERATED WELL, NO RESP.DISTRESS,NO SOB. HOB UP 30-45 DEGREE ALL THE TIMES.ORAL CARE VIA VAP KIT DONE.CATALOG LIBRARIAN SR.
[2017-03-20] MEDS: INSULIN LISPRO SLIDING SCALE 100 UNITS/ML VIAL SUBQ PRN ×3 (06:01→17:31)
--- NOTE | 2017-03-20 07:01 | NUR ---
REC'D PT ON CARESCAPE VENT SETTINGS AC12 VT 500 PEEP 5 FIO2 24% ALARMS ON AND FUNCTIONING PROPERLY, AMBU BAG AT SIDE OF VENT AND VENT IS PLUGGED INTO RED OUTLET, SXN PT SMALL AMT OF THIN WHITE SECRETIONS B\S ARE CLEAR BILATERALLY, PT IS TRACH WITH PORTEX 7 AND SKIN INTEGRITY IS INTACT PT IS RESTING WITH NO SIGNS OF DISTRESS NOTED
[2017-03-20 07:10] LABS: BASOPHILS # (AUTO) 0.3 K/uL (0.00-0.22); BASOPHILS % (AUTO) 2.2 % (0.0-2.0); EOSINOPHILS # (AUTO) 0.2 K/uL (0-0.4); EOSINOPHILS % (AUTO) 1.4 % (0.0-4.0); HEMATOCRIT 29.4 % (36-48); HEMOGLOBIN 9.5 g/dL (12.0-16.0); LYMPHOCYTES # (AUTO) 1.7 K/uL (2.5-16.5); MEAN CORPUSCULAR HEMOGLOBIN 28 pg (27-31); MEAN CORPUSCULAR HGB CONC 32 g/dL (33-37); MEAN CORPUSCULAR VOLUME 86 fL (80-94); MONOCYTES # (AUTO) 0.9 K/uL (0.8-1.0); MONOCYTES % (AUTO) 7.5 % (1.7-9.3); NEUTROPHILS % (AUTO) 74.9 % (42.2-75.2); PLATELET COUNT (AUTO) 397 K/uL (140-450); RED BLOOD CELL COUNT(AUTO) 3.43 MIL/uL (4.20-5.40); RED CELL DISTRIBUTION WIDTH 17.2 % (11.6-13.7); WHITE BLOOD COUNT (AUTO) 12.1 K/uL (4.8-10.8)
--- NOTE | 2017-03-20 07:16 | NUR ---
ENDORSED PATIENT TO DAY RN AT BEDSIDE, PATIENT IN STABLE CONDITION
--- NOTE | 2017-03-20 07:17 | NUR ---
RECEIVED HANDOFF REPORT FROM PM RN. PATIENT SLEEPING. TRACH TO VENT PATIENT. G-TUBE PATENT AND INTACT. CEDEÑO PATENT AND INTACT. PICC LINE PATENT AND INTACT. DRESSING DRY AND INTACT. NO SIGNS OR SYMPTOMS OF ACUTE DISTRESS NOTED. SAFETY MEASURES ENSURED. WILL CONTINUE TO MONITOR.
[2017-03-20 07:21] LABS: ANION GAP 9.3 (8-16); CARBON DIOXIDE 29.4 mmol/L (21-32); CREATININE 0.4 mg/dL (0.6-1.3); POTASSIUM 3.7 mmol/L (3.5-5.1)
[2017-03-20] MEDS: LACTOBACILLUS RHAMNOSUS GG 1 EACH CAP GT SCH ×2 (08:37→21:31)
[2017-03-20] MEDS: ASCORBIC ACID 500 MG TAB GT SCH ×2 (08:37→21:32)
[2017-03-20] MEDS: METOPROLOL 25 MG TAB GT SCH ×2 (08:38→17:18)
[2017-03-20] MEDS: amLODIPine 5 MG TAB GT SCH (08:38)
[2017-03-20] MEDS: levETIRAcetam 100 MG/ML ORASYR GT SCH (08:39)
[2017-03-20] MEDS: PSYLLIUM 12.2 GM/PKT GT SCH ×3 (08:39→17:18)
[2017-03-20] MEDS: DOCUSATE 100 MG/10 ML UDC GT SCH ×2 (08:39→21:31)
[2017-03-20] MEDS: AMANTADINE 100 MG CAP GT SCH ×2 (08:39→21:32)
[2017-03-20] MEDS: MULTIVITAMIN 5 ML ORASYR GT SCH (08:40)
[2017-03-20] MEDS: PANTOPRAZOLE 40 MG INJ VIAL IVP SCH (08:40)
[2017-03-20] MEDS: POTASSIUM CHLORIDE 20% 40 MEQ/15 ML UDC GT SCH (08:40)
--- NOTE | 2017-03-20 09:08 | NUR ---
vent check, no sxn required at this time, family at bedside
--- NOTE | 2017-03-20 10:15 | NUR ---
PATIENT RESTING. FLACC 0. NO SIGNS OR SYMPTOMS OF ACUTE DISTRESS NOTED. SAFETY MEASURES ENSURED. CALL LIGHT WITHIN REACH. WILL CONTINUE TO MONITOR.
--- NOTE | 2017-03-20 11:22 | NUR ---
VENT CHECK, NO SXN REQUIRED AT THIS TIME, AIRWAY IS PATENT AND NO SIGNS OF DISTRESS NOTED AT THIS TIME
--- NOTE | 2017-03-20 12:55 | NUR ---
CEDEÑO CATHETER LEAKING. DR. JOHNSTON MADE AWARE. PER NEW CEDEÑO STARTED.
--- NOTE | 2017-03-20 13:21 | NUR ---
RECEIVED ON A [employer] R860 VENTILATOR PLUGGED INTO RED OUTLET TOLERATING WELL WITHOUT ADVERSE REACTIONS NOTED TO A PORTEX DFEN #7 AIRWAY SECURED WITH A GALO TRACH TIE CUFF PRESSURE CHECKED NOTED AMBU BAG NOTED AT HON LOC QUIET BREATH SOUNDS CLEAR BILATERAL WITH GOOD CHEST RISE AND AERATION THROUGHOUT PULMONARY BARNES AIRWAY PATENT
--- NOTE | 2017-03-20 13:25 | NUR ---
ATTEMPTED WEANING OF CPAP WITH PEEP 5cmH20 and ps [id number] PATIENT FAILED X2 ATTEMPTS APNEIC AT 20 SECONDS
--- NOTE | 2017-03-20 13:56 | NUR ---
PATIENT RESTING IN BED. FLACC 0. NO SIGNS OR SYMPTOMS OF ACUTE DISTRESS NOTED. CALL LIGHT WITHIN REACH. SAFETY MEASURES ENSURED. WILL CONTINUE TO MONITOR.
--- NOTE | 2017-03-20 15:05 | NUR ---
VENT CHECK, SXN PT SMALL AMT OF WHITE SECRETIONS B\S ARE CLEAR AND PT IS RESTING WITH NO SIGNS OF DISTRESS NOTED
--- NOTE | 2017-03-20 16:44 | NUR ---
PATIENT RESTING IN BED. FLACC 0. NO SIGNS OR SYMPTOMS OF ACUTE DISTRESS NOTED. CALL LIGHT WITHIN REACH. WILL CONTINUE TO MONITOR.
--- NOTE | 2017-03-20 19:13 | NUR ---
ENDORSED PLAN OF CARE TO PM RN. PATIENT IN STABLE CONDITION. SAFETY MEASURES ENSURED.
--- NOTE | 2017-03-20 19:15 | NUR ---
RECEIVED PT FROM VAUGHN RN PT OPEN EYES NONVERBAL S/P LEFT BRAIN INJURY ON HOB 45 DEGREE TRACH TO VENT FI02 24% TV 500 PEEP 5 G TUBE FEEDING WELL TOLERATED NOT RESIDUAL PICC LINE ON LEFT UA PATENT CEDEÑO CATH DRAINING YELLOW URINE, PT REPOSITIONED INITIAL ASSESSMENT DONE.
--- NOTE | 2017-03-20 20:00 | NUR ---
HOB 45 ORAL CARE GIVE WITH VAP KIT SUCTIONES NECESSARY, ON TELEMETRY SR, REPOSITIONED Q2H TRACH VENT SETTING REMAIN STABLE
[2017-03-20] MEDS: SENNA 8.6 MG TAB GT SCH (21:32)
--- NOTE | 2017-03-20 22:00 | NUR ---
NOT DISTRESS NOTED HOB 45 DEGREE G TUBE FEEDING WELL TOLERATED ON TELE SR
[2017-03-21] VITALS (12 sets, daily range): BP systolic 0–145; BP diastolic 0–90
--- NOTE | 2017-03-21 | NUR ---
PT HAS BEEN MONITORING CLOSE RESTING COMFORTABLE NOT DISTRESS NOTED G TUBE FEEDDING WELL TOLERATED ON TELE SR TRACH TO VENT REMAIN SAME SETTING
[2017-03-21] MEDS: FOAM DRESSING TP SCH ×2 (01:00→12:09)
[2017-03-21] MEDS: BLOOD GLUCOSE MONITORING 1 DEV DEV FS SCH ×5 (01:45→23:47)
[2017-03-21] MEDS: Z-GUARD PASTE TP SCH ×2 (01:45→12:10)
[2017-03-21] MEDS: SKINTEGRITY HYDROGEL TP SCH ×2 (01:46→12:09)
[2017-03-21] MEDS: INSULIN LISPRO SLIDING SCALE 100 UNITS/ML VIAL SUBQ PRN ×4 (01:50→23:50)
--- NOTE | 2017-03-21 02:19 | NUR ---
PT SUCTIONED As necessary on tele sr trach to jarred remain stalbe repositoned q2h
--- NOTE | 2017-03-21 04:00 | NUR ---
HOB 45 DEGREE ORAL CARE GIVENWITH VAP KIT TRACH TO VENT SETTING REMAIN FIO2 24% TV 500 PEEP 5 RR12 REPOSITIONED G TUBE FEEDING WELL TOLERATED REPOSITIONED Q2H
--- NOTE | 2017-03-21 06:37 | NUR ---
BLOOD SUGAR TEST 144 NOT COVERAGE OK AFEBRILE ON TELE SR, NOT DISTRESS NOTED REPOSITIONED [id number] TO VENT REMAIN STABLE SETTING
[2017-03-21 06:58] LABS: BASOPHILS # (AUTO) 0.1 K/uL (0.00-0.22); BASOPHILS % (AUTO) 0.9 % (0.0-2.0); EOSINOPHILS # (AUTO) 0.3 K/uL (0-0.4); EOSINOPHILS % (AUTO) 2.1 % (0.0-4.0); HEMATOCRIT 30.8 % (36-48); HEMOGLOBIN 9.8 g/dL (12.0-16.0); LYMPHOCYTES # (AUTO) 1.9 K/uL (2.5-16.5); LYMPHOCYTES % (AUTO) 16.2 % (20.5-51.1); MEAN CORPUSCULAR HEMOGLOBIN 27 pg (27-31); MEAN CORPUSCULAR HGB CONC 32 g/dL (33-37); MEAN CORPUSCULAR VOLUME 86 fL (80-94); MONOCYTES % (AUTO) 8.1 % (1.7-9.3); NEUTROPHILS # (AUTO) 8.6 K/uL (1.8-7.7); NEUTROPHILS % (AUTO) 72.7 % (42.2-75.2); PLATELET COUNT (AUTO) 392 K/uL (140-450); RED BLOOD CELL COUNT(AUTO) 3.59 MIL/uL (4.20-5.40); RED CELL DISTRIBUTION WIDTH 16.4 % (11.6-13.7); WHITE BLOOD COUNT (AUTO) 11.9 K/uL (4.8-10.8)
--- NOTE | 2017-03-21 07:00 | NUR ---
RECEIVED ON A [employer]SCAPE R860 VENTILATOR PLUGGED INTO RED OUTLET TOLERATING WELL WITHOUT ADVERSE REACTIONS NOTED TO A PORTEX FEN #7 AIRWAY SECURED WITH A GALO TRACH TIE CUFF PRESSURE CHECKED NOTED AMBU BAG NOTED AT HOB LOC AWAKE SKIN TONE PINK BREATH SOUNDS DIFFUSED RHONCHI AT LEFT SIDE CLEAR AT RIGHT SIDE GOOS CHEST RISE DEEP TRACHEAL SUCTION FOR SMALL THICK YELLOW SECRETIONS AIRWAY PATENT
[2017-03-21 07:24] LABS: ANION GAP 12.3 (8-16); CARBON DIOXIDE 27.4 mmol/L (21-32); CREATININE 0.5 mg/dL (0.6-1.3); POTASSIUM 3.7 mmol/L (3.5-5.1)
--- NOTE | 2017-03-21 07:32 | NUR ---
RECEIVED REPORT AT BEDSIDE FROM NIGHT RN. PT RESTING IN BED. PT IS APHASIC. NO S/S OF ACUTE DISTRESS. FLACC-0. PICC LINE NOTED TO LEFT UPPER ARM PATENT AND INTACT. PT TOLERATING G-TUBE FEEDING WELL. 5ML RESIDUAL. CEDEÑO CATHETER PATENT. DRESSING DRY AND INTACT. PT IS TRACH TO VENT. CALL LIGHT WITHIN REACH. SAFETY MEASURES ENSURED. WILL CONTINUE TO MONITOR.
[2017-03-21] MEDS: PSYLLIUM 12.2 GM/PKT GT SCH ×3 (08:41→17:31)
[2017-03-21] MEDS: POTASSIUM CHLORIDE 20% 40 MEQ/15 ML UDC GT SCH (08:41)
[2017-03-21] MEDS: levETIRAcetam 100 MG/ML ORASYR GT SCH (08:41)
--- NOTE | 2017-03-21 08:41 | NUR ---
AM MEDS GIVEN. PT TOLERATED WELL. WILL CONTINUE TO MONITOR.
[2017-03-21] MEDS: AMANTADINE 100 MG CAP GT SCH ×2 (08:42→21:00)
[2017-03-21] MEDS: METOPROLOL 25 MG TAB GT SCH ×2 (08:42→17:31)
[2017-03-21] MEDS: LACTOBACILLUS RHAMNOSUS GG 1 EACH CAP GT SCH ×2 (08:43→21:00)
[2017-03-21] MEDS: ASCORBIC ACID 500 MG TAB GT SCH ×2 (08:43→21:00)
[2017-03-21] MEDS: amLODIPine 5 MG TAB GT SCH (08:43)
[2017-03-21] MEDS: DOCUSATE 100 MG/10 ML UDC GT SCH ×2 (08:43→21:00)
[2017-03-21] MEDS: MULTIVITAMIN 5 ML ORASYR GT SCH (08:44)
[2017-03-21] MEDS: PANTOPRAZOLE 40 MG INJ VIAL IVP SCH (08:44)
--- NOTE | 2017-03-21 09:18 | NUR ---
RESTING WELL WITHOUT PULMONARY DISTRESS NOTED BREATH SOUNDS CLEAR BILATERAL WITH GOOD CHEST RISE PATIENT FAILED WEANING OF CPAP/PS [id number] PEEP 5 cmH20 APNEIC 20 SECONDS
--- NOTE | 2017-03-21 10:13 | NUR ---
Social Service Note: Subacute placement follow up: Per Emil from [facility] , no beds available in their subacute unit at this time. Per Faina from [facility] , they do not accept admissions on weekends, stated our case management dept needed to call tomorrow, Wednesday03/22/17. Per Kaylen from [facility] , they do not have any female beds available in their subacute unit at this time, but requested inquiry to be fax to # in case a bed becomes available. I faxed inquiry. Per Malika from [facility] , they do not have any beds available in their subacute unit at this time. Addendum: 03/21/17 at 1029 by Jojo PINON Per Nga from [facility] , no female beds available in their subacute at this time. Addendum: 03/21/17 at 1032 by Jojo PINON Per Anitha [facility] , no beds available at this time. Addendum: 03/21/17 at 1204 by Jojo PINON Per Ismael from [facility] , , no beds available at this time.
--- NOTE | 2017-03-21 11:03 | NUR ---
AWAKE TOLERATING VENTILATOR SUPPORT WELL WITH NO ADVERSE REACTIONS NOTED BREATH SOUNDS CLEAR BILATERAL WITH GOOD CHEST RISE AND AERATION THROUGHOUT LUNG BARNES
--- NOTE | 2017-03-21 12:10 | NUR ---
MEDICATIONS GIVE. PT TOLERATED WELL. NO S/S OF ACUTE DISTRESS. FLACC-0. DRESSING DRY AND INTACT. CHANGED YESTERDAY.
--- NOTE | 2017-03-21 13:40 | NUR ---
RESTING COMFORTABLY NO DISTRESS NOTED BREATH SOUNDS CLEAR BILATERAL WITH GOOD CHEST RISE AND AERATION THROUGHOUT PULMONARY BARNES WEANING TRIAL OF CPAP/PS [id number] PEEP 5 cmH20 RSBI 43 L/min FAMILY LIVING EDUCATOR TO NOTIFY OSCAR/RN OF WEANING TRIAL VERONICA RADICAL-7 CONTINUOS PULE OXIMETER AT BEDSIDE ON ADN FUNCTIONING WELL LOW SATURATION SET AT 92%
--- NOTE | 2017-03-21 13:53 | NUR ---
TOLERATING WEANING TRIAL NO DISTRESS NOTED OSCAR/VAMSI AWARE
--- NOTE | 2017-03-21 15:31 | NUR ---
AWAKE TOLERATING WEANING TRIAL WELL WITHOUT DISTRESS NOTED BREATH SOUNDS CLEAR BILATERAL GOOD CHEST RISE
--- NOTE | 2017-03-21 16:16 | NUR ---
PT RESTING IN BED. NO S/S OF ACUTE DISTRESS. SON AT BEDSIDE. FLACC-0. CALL LIGHT WITHIN REACH. SAFETY MEASURES ENSURED. WILL CONTINUE TO MONITOR.
--- NOTE | 2017-03-21 17:10 | NUR ---
RESTING COMFORTABLY NO RESPIRATORY DISTRESS NOTED GOOD CHEST RISE AIRWAY PATENT
--- NOTE | 2017-03-21 19:06 | NUR ---
ENDORSED PLAN OF CARE TO NIGHT RN. PT REMAINS STABLE.
--- NOTE | 2017-03-21 19:12 | NUR ---
RECEIVED PATIENT REPORT FROM MORNING NURSE. PATIENT IS RESTING COMFORTABLY IN BED. PATIENT IS APHASIC. NO SIGNS AND SYMPTOMS OF DISTRESS NOTED. PICC LINE NOTED ON LEFT UPPER ARM. G-TUBE FEEDING INFUSING, PATIENT TOLERATING THE FEEDING WELL. CEDEÑO CATHETER IN PLACE. PATIENT IS TRACH TO VENT. BED IN FOWLERS POSITION, SIDE RAILS UP AND CALL LIGHT WITHIN REACH. WILL CONTINUE TO MONITOR.
[2017-03-21] MEDS: SENNA 8.6 MG TAB GT SCH (21:00)
--- NOTE | 2017-03-21 21:30 | NUR ---
MEDICATIONS GIVEN VIA G-TUBE. PATIENT TOLERATED IT WELL. NO SIGNS AND SYMPTOMS OF DISTRESS NOTED
--- NOTE | 2017-03-21 23:06 | NUR ---
CHECKED ON PATIENT, PATIENT IS ASLEEP. NO SIGNS AND SYMPTOMS OF DISTRESS NOTED. HOB KEPT AT 45 DEGREES. CONTINUOS G-TUBE FEEDING INFUSING WELL. WILL CONTINUE TO MONITOR.
--- NOTE | 2017-03-21 23:30 | NUR ---
PATIENT SEEN BY RESPIRATORY THERAPIST, KRISTINE, DUE TO VENTILATOR ALARM REPEATEDLY GOING OFF. RT KRISTINE CHANGED VENTILATOR SETTINGS FOLLOWS: AC, RESP-12, TIDAL VOLUME-500, PEEP-5, FIO2 24%. NO SIGNS AND SYMPTOMS OF DISTRESS NOTED WITH PATIENT. WILL CONTINUE TO MONITOR
[2017-03-22] VITALS: BP 129/77
[2017-03-22] MEDS: FOAM DRESSING TP SCH ×2 (01:00→12:31)
[2017-03-22] MEDS: SKINTEGRITY HYDROGEL TP SCH ×2 (01:00→12:31)
[2017-03-22] MEDS: Z-GUARD PASTE TP SCH ×2 (01:00→12:32)
--- NOTE | 2017-03-22 01:00 | NUR ---
DRESSING CHANGED. SACRALCOCCYX CLEANSED WITH NS AND PAT DRIED. Z GUARD APPLIED TO PW. WOUND COVERED WITH FOAM DRESSING. SKINTEGRITY HYDROGEL NOT AVAILABLE. SNUBBER NOTIFIED. WILL FOLLOW UP. PATIENT TOLERATED DRESSING CHANGE WELL, NO SIGNS AND SYMPTOMS OF DISTRESS NOTED.
[2017-03-22 04:00] VITALS: BP 133/89
[2017-03-22] MEDS: BLOOD GLUCOSE MONITORING 1 DEV DEV FS SCH ×4 (05:47→23:11)
[2017-03-22 05:54] LABS: BASOPHILS # (AUTO) 0.1 K/uL (0.00-0.22); BASOPHILS % (AUTO) 0.7 % (0.0-2.0); EOSINOPHILS # (AUTO) 0.2 K/uL (0-0.4); HEMATOCRIT 31.2 % (36-48); HEMOGLOBIN 10.1 g/dL (12.0-16.0); LYMPHOCYTES # (AUTO) 1.8 K/uL (2.5-16.5); LYMPHOCYTES % (AUTO) 17.4 % (20.5-51.1); MEAN CORPUSCULAR HEMOGLOBIN 28 pg (27-31); MEAN CORPUSCULAR HGB CONC 32 g/dL (33-37); MEAN CORPUSCULAR VOLUME 86 fL (80-94); MONOCYTES # (AUTO) 0.9 K/uL (0.8-1.0); MONOCYTES % (AUTO) 8.8 % (1.7-9.3); NEUTROPHILS # (AUTO) 7.2 K/uL (1.8-7.7); NEUTROPHILS % (AUTO) 71.1 % (42.2-75.2); PLATELET COUNT (AUTO) 314 K/uL (140-450); RED BLOOD CELL COUNT(AUTO) 3.63 MIL/uL (4.20-5.40); RED CELL DISTRIBUTION WIDTH 16.8 % (11.6-13.7); WHITE BLOOD COUNT (AUTO) 10.2 K/uL (4.8-10.8)
[2017-03-22] MEDS: INSULIN LISPRO SLIDING SCALE 100 UNITS/ML VIAL SUBQ PRN ×4 (05:58→23:11)
[2017-03-22 06:36] LABS: ALBUMIN 2.3 g/dL (3.4-5.0); ANION GAP 11.8 (8-16); CARBON DIOXIDE 27.7 mmol/L (21-32); CREATININE 0.5 mg/dL (0.6-1.3); POTASSIUM 3.5 mmol/L (3.5-5.1); TOTAL BILIRUBIN 0.2 mg/dL (0.0-1.0)
--- NOTE | 2017-03-22 07:27 | NUR ---
PATIENT REPORT GIVEN TO MORNING NURSE AT BEDSIDE. PATIENT IN STABLE CONDITION.
--- NOTE | 2017-03-22 07:28 | NUR ---
RECEIVED REPORT FROM THE LADLE PULLER NURSE. INTRODUCED MYSELF AND UPDATED THE BOARD. PT IS APHASIC. PT HAS EYES CLOSED. NO SIGNS OF DISTRESS. TRACH TO VENT. RESP 12. O2 SAT AT 98%. GTUBE FEEDING ON HOLD. PICC LINE, DOUBLE LUMEN SL. CEDEÑO CATH IN PLACE. 400 CLEAR YELLOW IN BAG. SCD'S ON. SACRAL DRESSING INTACT AND DRY. REPLACED NEW FLUSHING SYRINGE. WILL CONTINUE TO MONITOR PT.
--- NOTE | 2017-03-22 07:30 | NUR ---
Placed patient on CPAP- PS 10 PEEP5 fio2 24 around 0730 hours. Patient failed weaning after 5 min her resp rate went below 8 and spont tidal volume was 122 her min vent 4.3 and spo2 decreased to 90 while heart rate was normal. Back up safety alarms were going off and RT returned patient back to orginal setting AC R12 vt 500 p5 24%. Patient is unable to wean today. Patient is stable on orginal settings spo2 98 heart rate 88.
[2017-03-22] MEDS: POTASSIUM CHLORIDE 20% 40 MEQ/15 ML UDC GT SCH (07:53)
[2017-03-22] MEDS: PANTOPRAZOLE 40 MG INJ VIAL IVP SCH (07:53)
[2017-03-22] MEDS: METOPROLOL 25 MG TAB GT SCH ×2 (07:53→17:01)
[2017-03-22] MEDS: ASCORBIC ACID 500 MG TAB GT SCH ×2 (07:54→20:52)
[2017-03-22] MEDS: DOCUSATE 100 MG/10 ML UDC GT SCH ×2 (07:54→20:52)
[2017-03-22] MEDS: LACTOBACILLUS RHAMNOSUS GG 1 EACH CAP GT SCH ×2 (07:54→20:52)
[2017-03-22] MEDS: amLODIPine 5 MG TAB GT SCH (07:54)
[2017-03-22] MEDS: AMANTADINE 100 MG CAP GT SCH ×2 (07:55→20:52)
[2017-03-22] MEDS: PSYLLIUM 12.2 GM/PKT GT SCH ×3 (07:55→17:02)
[2017-03-22] MEDS: MULTIVITAMIN 5 ML ORASYR GT SCH (07:55)
[2017-03-22] MEDS: levETIRAcetam 100 MG/ML ORASYR GT SCH (07:55)
[2017-03-22 08:00] VITALS: BP 135/78
--- NOTE | 2017-03-22 08:20 | NUR ---
LATE ENTRY FOR 03/19/17 1601 CALL RECEIVED FROM NICOLE AT [facility] [place] AND HE INQUIRED IF PT WOULD BE SKILLED AND IF SO PT IS MEDICAL RESTRICTED AND SKILLED CARE IS NOT COVERED. INFORMED HIM THAT PT IS A NEW TRACH AND CURRENTLY ON VENTILATOR SUPPORT BUT NOT ON IV ABX. NICOLE STATED THAT THEY ARE NOT ABLE TO ACCEPT PT AT THIS TIME.
--- NOTE | 2017-03-22 08:26 | NUR ---
STOPPED TUBE FEEDING. ADMINISTERED MORNING MEDS. CHECKED FOR PLACEMENT, RESIDUAL (0), AND PATENCY. G TUBE FLUSHING WELL. ADMINISTERED ALL MEDS, FLUSHED WITH TOTAL OF 300MLS OF WATER. PT TOLERATED WELL. FLUSHED PICC LINE WITH 30CC OF NS. BOTH FLUSHING WELL. RESTARTED FEEDING. PT TOLERATED WELL. WILL CONTINUE TO MONITOR PT.
--- NOTE | 2017-03-22 10:35 | NUR ---
FAMILY MEMBERS HERE. VENT ALARM GOING OFF ON AND OFF. FAMILY CONCERNED. PAGED R/T. THEY CAME BY AND EXPLAINED TO FAMILY. PT IN STABLE CONDITION. WILL CONTINUE TO MONITOR PT.
[2017-03-22 12:00] VITALS: BP 135/72
--- NOTE | 2017-03-22 12:16 | NUR ---
ASSISTED TECHNOLOGY INFUSION SPECIALIST TO REPOSITION PT. CHECKED THE SACRAL FOAM DRESSING. INTACT AND DRY. NOT SOILED. NO REDNESS IN PERINEAL AREAS NOTED. GAVE ORAL CARE. SUCTIONED PT. PT TOLERATED WELL. WILL CONTINUE TO MONITOR PT.
--- NOTE | 2017-03-22 12:29 | NUR ---
SPOKE WITH CORBY FROM [facility] AND SHE SAID JUST FAX HER THE FACE SHEET. TO [phone]
--- NOTE | 2017-03-22 12:34 | NUR ---
CALLED [facility] AND SPOKE WITH SCOTT. NO SUBACUTE BEDS.
--- NOTE | 2017-03-22 14:27 | NUR ---
PT SLEEPING SOUNDLY. NO SIGNS OF DISTRESS. WILL CONTINUE TO MONITOR PT.
--- NOTE | 2017-03-22 14:31 | NUR ---
Faxed medical record to Katiuska at [facility]. per request at [phone] do have Subacute female bed.
--- NOTE | 2017-03-22 14:41 | NUR ---
Spoke to Kaylen at [facility], no subacute bed available at this time. Left a message to Janine at [facility]. if there a sub-acute female bed available to call back at [phone] [place] [facility].
--- NOTE | 2017-03-22 14:52 | NUR ---
Spoke to Ismael at [facility], No sub-acute bed available.
--- NOTE | 2017-03-22 15:13 | NUR ---
Called [facility] for a female bed available, and left a message to call case managers back.
[2017-03-22 16:00] VITALS: BP 117/66
--- NOTE | 2017-03-22 16:30 | NUR ---
RECEIVED A CALL FROM LAUREEN FROM [facility] IN [place]. KERRI TAKE MEDICAL PATIENT.
--- NOTE | 2017-03-22 17:22 | NUR ---
RN STUDENT AND INSTRUCTOR ADMINISTERED 1700 MEDS, ADMINISTERED NEW FEEDING BAG OF DIABETESOURCE, AND ORAL CARE AND SUCTIONING FOR PT. PT TOLERATED WELL.
--- NOTE | 2017-03-22 19:13 | NUR ---
ENDORSED PT TO THE PROFESSIONAL SYSTEM ADMINISTRATOR NURSE AT BEDSIDE FOR CONTINUITY OF CARE. PT IS RESTING COMFORTABLY. NO DISTRESS NOTED. PT IS IN STABLE CONDITION.
--- NOTE | 2017-03-22 19:15 | NUR ---
RECEIVED PT ON BED WITH EYES CLOSED, APHASIC, ON TRACH TO VENT, SAT-97%, AFEBRILE, LEFT UPPER ARM PICC LINE IN PLACE, DRESSING DRY AND INTACT, WITH G-TUBE FEEDING AT 60ML/H, MAINTAINED HOB ELEVATED AT ALL TIMES, CEDEÑO CATHETER WITH LIGHT YELLOW OUTPUT, REPOSITION Q2H AND OFFLOAD PRESSURE AREAS, SAFETY MEASURES IN PLACE, CALL LIGHT WITHIN REACH.
[2017-03-22 20:00] VITALS: BP 122/68
[2017-03-22] MEDS: SENNA 8.6 MG TAB GT SCH (20:52)
--- NOTE | 2017-03-22 21:00 | NUR ---
NO TUBE FEEDING RESIDUAL NOTED, DUE MEDICATIONS ADMINISTERED VIA G-TUBE AFTER PLACEMENT VERIFIED, ORAL CARE DONE BY STUDENT RN WITH SUPERVISION, ALL NEEDS ANTICIPATED.
--- NOTE | 2017-03-22 22:13 | NUR ---
ROUNDED ON PT, SEEN AWAKE WITH EYES OPEN, APHASIC, NO SIGNS OF DISTRESS, MONITORED CLOSELY.
[2017-03-23] VITALS: BP 126/68
[2017-03-23] MEDS: SKINTEGRITY HYDROGEL TP SCH ×2 (01:00→13:00)
[2017-03-23] MEDS: FOAM DRESSING TP SCH ×2 (01:00→09:00)
[2017-03-23] MEDS: Z-GUARD PASTE TP SCH ×2 (01:00→13:00)
--- NOTE | 2017-03-23 01:07 | NUR ---
PT REPOSITIONED AND OFFLOAD PRESSURE AREAS, SACRAL DRESSING DRY AND INTACT, NO SIGNS OF PAIN, MONITORED CLOSELY.
--- NOTE | 2017-03-23 03:50 | NUR ---
VITAL SIGNS STABLE, NO SIGNS OF PAIN OR SOB, ORAL CARE DONE, TOLERATED WELL, CONTINUE TO REPOSITION Q2H AND OFFLOAD PRESSURE AREAS.
[2017-03-23 04:00] VITALS: BP 121/71
[2017-03-23] MEDS: BLOOD GLUCOSE MONITORING 1 DEV DEV FS SCH ×4 (05:23→23:35)
--- NOTE | 2017-03-23 05:30 | NUR ---
BM WITH SOFT STOOL MODERATE AMOUNT, SUCTION PRN WITH SMALL WHITE SECRETION NOTED, BLOOD SUGAR CHECKED WITH 150 RESULT, NO COVERAGE NEEDED, NO DISTRESS NOTED, MONITORED CLOSELY.
[2017-03-23 06:00] LABS: BASOPHILS # (AUTO) 0.1 K/uL (0.00-0.22); BASOPHILS % (AUTO) 0.8 % (0.0-2.0); EOSINOPHILS # (AUTO) 0.2 K/uL (0-0.4); EOSINOPHILS % (AUTO) 2.5 % (0.0-4.0); HEMATOCRIT 29.6 % (36-48); HEMOGLOBIN 9.5 g/dL (12.0-16.0); LYMPHOCYTES # (AUTO) 1.9 K/uL (2.5-16.5); LYMPHOCYTES % (AUTO) 24.9 % (20.5-51.1); MEAN CORPUSCULAR HEMOGLOBIN 28 pg (27-31); MEAN CORPUSCULAR HGB CONC 32 g/dL (33-37); MEAN CORPUSCULAR VOLUME 86 fL (80-94); MONOCYTES # (AUTO) 0.7 K/uL (0.8-1.0); MONOCYTES % (AUTO) 8.4 % (1.7-9.3); NEUTROPHILS # (AUTO) 4.9 K/uL (1.8-7.7); NEUTROPHILS % (AUTO) 63.4 % (42.2-75.2); PLATELET COUNT (AUTO) 287 K/uL (140-450); RED BLOOD CELL COUNT(AUTO) 3.45 MIL/uL (4.20-5.40); RED CELL DISTRIBUTION WIDTH 16.6 % (11.6-13.7); WHITE BLOOD COUNT (AUTO) 7.8 K/uL (4.8-10.8)
[2017-03-23 06:34] LABS: ANION GAP 9.9 (8-16); CARBON DIOXIDE 28.5 mmol/L (21-32); CREATININE 0.4 mg/dL (0.6-1.3); POTASSIUM 3.4 mmol/L (3.5-5.1)
--- NOTE | 2017-03-23 07:13 | NUR ---
RECEIVED PT STABLE ON VENT SUPPORT AT DOCUMENTED SETTINGS, SXN SCANT CLEAR SECRETIONS, NO RESP DISTRESS OR SOB NOTED, PORTEX 7 TRACH SECURED/MIDLINE/PATENT, ALARMS SET AUDIBLE, AMBU BAG BEDSIDE, VENT PLUGGED INTRO RED OUTLET, CONT PULSE OX ON, WILL CONTINUE TO MONITOR.
--- NOTE | 2017-03-23 07:17 | NUR ---
PT SLEEPING, NO SIGNS OF DISTRESS, REPORT GIVEN TO VAMSI BELL FOR CONTINUITY OF CARE.
--- NOTE | 2017-03-23 07:20 | NUR ---
RECEIVED PT REPORT AT BEDSIDE, PT ASLEEP, NO S/S OF DISTRESS NOTED. PATIENT TRACH TO VENT AT 24% FIO2. PATIENT ON CONTINUOUS O2 MONITORING, O2 SAT 97% AT THIS TIME. G TUBE IN PLACE WITH FEEDING RUNNING. CEDEÑO CATH IN PLACE, DRAINING CLEAR YELLOW URINE. PICC NOTED TO THE LEFT UPPER ARM, DOUBLE LUMEN. PICC LINE FLUSHED WITH NS, BLOOD RETURN NOTED. PT ON TELE MONITORING. BED LOWERED, HEAD ELEVATED, CALL LIGHT WITHIN REACH.
[2017-03-23 08:00] VITALS: BP 124/86
[2017-03-23] MEDS: DOCUSATE 100 MG/10 ML UDC GT SCH ×2 (08:11→20:52)
[2017-03-23] MEDS: PSYLLIUM 12.2 GM/PKT GT SCH ×3 (08:11→17:14)
[2017-03-23] MEDS: MULTIVITAMIN 5 ML ORASYR GT SCH (08:11)
[2017-03-23] MEDS: AMANTADINE 100 MG CAP GT SCH ×2 (08:12→20:52)
[2017-03-23] MEDS: PANTOPRAZOLE 40 MG INJ VIAL IVP SCH (08:12)
[2017-03-23] MEDS: POTASSIUM CHLORIDE 20% 40 MEQ/15 ML UDC GT SCH (08:12)
[2017-03-23] MEDS: LACTOBACILLUS RHAMNOSUS GG 1 EACH CAP GT SCH ×2 (08:13→20:52)
[2017-03-23] MEDS: levETIRAcetam 100 MG/ML ORASYR GT SCH (08:14)
[2017-03-23] MEDS: amLODIPine 5 MG TAB GT SCH (08:14)
[2017-03-23] MEDS: ASCORBIC ACID 500 MG TAB GT SCH ×2 (08:14→20:52)
[2017-03-23] MEDS: METOPROLOL 25 MG TAB GT SCH ×2 (08:14→17:14)
--- NOTE | 2017-03-23 08:30 | NUR ---
SCHEDULED PO MED ADMINISTERED VIA G-TUBE. NO RESIDUALS NOTED. PT TOLERATING FEEDING WELL.
--- NOTE | 2017-03-23 09:00 | NUR ---
HYDRAGAURD APPLIED TO THE SACRAL WOUND. PATIENT REPOSITIONED FOR COMFORT
--- NOTE | 2017-03-23 09:00 | NUR ---
SACRAL WOUND EVALUATED WITH WOUND CARE NURSE. NEW FOAM DRESSING APPLIED.
--- NOTE | 2017-03-23 09:07 | NUR ---
PT PLACED ON CPAP MODE FOR WEANING TRIALS, TOLERATING WELL, RAY AGUSTIN AWARE
--- NOTE | 2017-03-23 09:25 | NUR ---
SPOKE WITH CORBY FROM [facility], SHE ASKED ME TO FAX THE INQUIRY TO HER AT [phone], WHICH I DID.
--- NOTE | 2017-03-23 09:50 | NUR ---
WOUND CARE RE-EVALUATION NOTE REASON FOR EVALUATION: FOLLOW UP CHANGE OF CONDITION ON SACROCOCCYX AREA ASSESSMENT DONE ON SACRAL COCCYX : 100% RE-EPITHELIUM TISSUE NOTICE, AREA DRY AND PINK. IAD TO GROINS: CLEAR, NO RASHES, SKIN INTACT. RECOMMENDATIONS: -CLEANSE SACROCOCCYX WITH NS, PAT DRY, COVER WITH FORM DRESSING Q3DAY AND PRN IF SOILING. -CLEANSE GROINS AND CEZAR- ANNUAL AREA WITH SOAP AND WATER, PAT DRY,APPLY HYDRAGUARD BID AND PRN IF SOILING -KEEP SKIN DRY AND CLEAN AT ALL TIME -TURN AND REPOSITION Q2 HR OFF LOAD SACROCOCCYX AREA -ASSESS AND MONITOR SKIN CONDITION DURING POSITION CHANGE, PLEASE PAT ATTENTION TO ELBOWS, SACROCOCCYX AND HEELS -OFFLOAD HEELS BY PLACING PILLOWS UNDER CALVES AT ALL TIMES ,UNLESS OTHERWISE CONTRAINDICATED -PRESSURE REDISTRIBUTION SURFACE THERAPY. COMORBIDITIES RELATED TO SKIN BREAKS: -DM -IMPAIRED OF MOBILITY -COGNITIVE IMPAIRMENT -CHRONIC BOWEL INCONTINENT -HOB ELEVATED THE MAJORITY OF THE DAY FOR MEDICAL CONDITION RECOMMENDATIONS DISCUSS TO PRIMARY RN AND DAUGHTER APOLINAR AT BED SIDE VERBALIZE UNDERSTANDING WILL FOLLOW UP PT. Q 7-10 DAYS AND PRN. PLEASE CONTACT WOUND CARE NURSE FOR ANY CONCERNS AND CHANGE IN SKIN CONDITION. Addendum: 03/23/17 at 1011 by Chey Calzada RN (Grace) PLAN OF CARE DISCUSSED WITH PRIMARY RN CONTINUE RD RECOMMENDATION FOR TUBE FEEDING
[2017-03-23] MEDS ORDERED: FOAM DRESSING TP PRN (10:25)
[2017-03-23] MEDS ORDERED: HYDRAGUARD CREAM TP PRN (10:25)
[2017-03-23] MEDS: HYDRAGUARD CREAM TP SCH (11:55)
[2017-03-23 12:00] VITALS: BP 102/65
[2017-03-23] MEDS: INSULIN LISPRO SLIDING SCALE 100 UNITS/ML VIAL SUBQ PRN ×3 (12:28→23:33)
[2017-03-23] MEDS ORDERED: POTASSIUM CHLORIDE 20% 40 MEQ/15 ML UDC GT SCH (13:00)
--- NOTE | 2017-03-23 13:00 | NUR ---
ORAL CARE GIVEN. MOISTURIZER APPLIED. PT TOLERATED WELL. NO S/S DISTRESS NOTED.
[2017-03-23 16:05] VITALS: BP 127/69
--- NOTE | 2017-03-23 16:08 | NUR ---
DID SPEAK WITH CORBY FROM [facility], . THEY CAN ACCEPT THE PATIENT TOMORROW. ROOM 32A UNDER DR[address] JOHNSON PHONE REPORT TO [phone].
--- NOTE | 2017-03-23 17:16 | NUR ---
WEANING TRIALS TOLERATED WELL, PLACED BACK ON AC MODE FOR NOC, RAY AGUSTIN AWARE
--- NOTE | 2017-03-23 19:27 | NUR ---
PT REPORT GIVEN AT BEDSIDE. PT ENDORSED TO THE NEXT SHIFT. PT IN STABLE CONDITION.
--- NOTE | 2017-03-23 19:28 | NUR ---
RECEIVED PT AWAKE, APHASIC, ON TRACH TO VENT, VITAL SIGNS STABLE, SAT-98%, FLACC-0, AFEBRILE, LEFT UPPER ARM PICC LINE IN PLACE, DRESSING DRY AND INTACT, WITH G-TUBE FEEDING AT 60ML/H, MAINTAINED HOB ELEVATED AT ALL TIMES, CEDEÑO CATHETER WITH LIGHT YELLOW OUTPUT, REPOSITION Q2H AND OFFLOAD PRESSURE AREAS, ON PRESSURE REDUCTION MATTRESS, SAFETY MEASURES IN PLACE, CALL LIGHT WITHIN REACH.
[2017-03-23 20:00] VITALS: BP 133/75
[2017-03-23] MEDS: SENNA 8.6 MG TAB GT SCH (20:52)
--- NOTE | 2017-03-23 21:00 | NUR ---
NO TUBE FEEDING RESIDUAL NOTED, DUE MEDICATIONS ADMINISTERED VIA G-TUBE AFTER PLACEMENT VERIFIED, ORAL CARE DONE USING VAP KIT, ALL NEEDS ANTICIPATED.
[2017-03-24] VITALS (9 sets, daily range): BP systolic 0–142; BP diastolic 0–79
[2017-03-24] MEDS: HYDRAGUARD CREAM TP SCH ×2 (00:46→09:00)
[2017-03-24] MEDS: SKINTEGRITY HYDROGEL TP SCH ×2 (00:46→11:23)
[2017-03-24] MEDS: Z-GUARD PASTE TP SCH ×2 (00:46→11:23)
--- NOTE | 2017-03-24 00:50 | NUR ---
SACRAL FOAM DRESSING DRY AND INTACT, PERINEAL CARE DONE, HYDRAGUARD APPLIED ORDERED, CONTINUE TO REPOSITION Q2H AND OFFLOAD PRESSURE AREAS.
--- NOTE | 2017-03-24 02:05 | NUR ---
NO G-TUBE RESIDUAL NOTED, NEW BAG OF DIABETISOURCE G-TUBE FEEDING STARTED AT SAME RATE OF 60ML/H, PT SLEEPING, NO DISTRESS NOTED, MONITORED CLOSELY.
--- NOTE | 2017-03-24 04:00 | NUR ---
PT OPEN EYES TO TOUCH, VITAL SIGNS STABLE, NO DISTRESS NOTED, SUCTION SECRETION PRN, ORAL CARE DONE USING VAP KIT, MONITORED CLOSELY.
[2017-03-24] MEDS: INSULIN LISPRO SLIDING SCALE 100 UNITS/ML VIAL SUBQ PRN ×2 (05:23→13:21)
[2017-03-24] MEDS: BLOOD GLUCOSE MONITORING 1 DEV DEV FS SCH ×2 (05:23→12:35)
--- NOTE | 2017-03-24 05:30 | NUR ---
AM LABS DRAWN VIA PICC LINE RED LUMEN WITH GOOD BLOOD RETURN, BLOOD SUGAR CHECKED WITH 169 RESULT, COVERAGE GIVEN, MONITORED CLOSELY.
[2017-03-24 06:02] LABS: BASOPHILS # (AUTO) 0.1 K/uL (0.00-0.22); BASOPHILS % (AUTO) 1.2 % (0.0-2.0); EOSINOPHILS # (AUTO) 0.2 K/uL (0-0.4); EOSINOPHILS % (AUTO) 3.1 % (0.0-4.0); HEMATOCRIT 29.5 % (36-48); HEMOGLOBIN 9.5 g/dL (12.0-16.0); LYMPHOCYTES # (AUTO) 1.7 K/uL (2.5-16.5); LYMPHOCYTES % (AUTO) 20.7 % (20.5-51.1); MEAN CORPUSCULAR HEMOGLOBIN 28 pg (27-31); MEAN CORPUSCULAR HGB CONC 32 g/dL (33-37); MEAN CORPUSCULAR VOLUME 87 fL (80-94); MONOCYTES # (AUTO) 0.7 K/uL (0.8-1.0); MONOCYTES % (AUTO) 9.1 % (1.7-9.3); NEUTROPHILS # (AUTO) 5.3 K/uL (1.8-7.7); NEUTROPHILS % (AUTO) 65.9 % (42.2-75.2); PLATELET COUNT (AUTO) 287 K/uL (140-450); RED BLOOD CELL COUNT(AUTO) 3.42 MIL/uL (4.20-5.40)
[2017-03-24 06:23] LABS: ANION GAP 11.5 (8-16); CARBON DIOXIDE 28.3 mmol/L (21-32); CREATININE 0.5 mg/dL (0.6-1.3); POTASSIUM 3.8 mmol/L (3.5-5.1)
--- NOTE | 2017-03-24 07:21 | NUR ---
RECEIVED ON A [employer] CARESCAPE R860 VENTILATOR PLUGGED INTO RED OUTLET TOLERATING WELL WITHOUT ADVERSE REACTIONS NOTED TO A PORTEX FEN #7 AIRWAY SECURED WITH A GALO TRACH TIE CUFF PRESSURE CHECKED NOTED DANIKA PETERSEN-7 CONTINUOS PULSE OXIMETRY AT BEDSIDE ON AND FUNCTIONING WELL LOW SATURATION ALARM SET AT 92% AMBU BAG NOTED AT HOB LOC QUIET BREATH SOUND CLEAR AT LEFT SIDE TO DIFFUSED RHONCHI AT RIGHT SIDE GOOD CHEST RISE DEEP TRACHEAL SUCTION FOR SMALL THICK YELLOW SECRETIONS AIRWAY PATENT
--- NOTE | 2017-03-24 07:25 | NUR ---
RECEIVED PT AT BEDSIDE, PT IS AWAKE, APHASIC, ON TRACH TO VENT, AC/VC, FIO2 24%, RR 12. VITAL SIGNS STABLE, SAT-98%, FLACC-0, AFEBRILE, LEFT UPPER ARM PICC LINE IN PLACE, WITH G-TUBE FEEDING AT 60ML/H, CEDEÑO IN PLACE, YELLOW, CLEAR URINE DRAINING. BED LOWERED, HOB ELEVATED, CALL LIGHT WITHIN REACH.
--- NOTE | 2017-03-24 07:26 | NUR ---
PT SLEEPING, NO SIGNS OF DISTRESS, REPORT GIVEN TO VAMSI BELL FOR CONTINUITY OF CARE.
--- NOTE | 2017-03-24 07:30 | NUR ---
SPOKE WITH DR JOHNSTON AND INFORMED HIM THAT THERE IS ALREADY AN ACCEPTING PLACE FOR THE PATIENT. DOCTOR CLEARS THE PATIENT FOR DISCHARGE
[2017-03-24] MEDS: MULTIVITAMIN 5 ML ORASYR GT SCH (08:05)
[2017-03-24] MEDS: DOCUSATE 100 MG/10 ML UDC GT SCH (08:05)
[2017-03-24] MEDS: levETIRAcetam 100 MG/ML ORASYR GT SCH (08:06)
[2017-03-24] MEDS: PANTOPRAZOLE 40 MG INJ VIAL IVP SCH (08:07)
[2017-03-24] MEDS: PSYLLIUM 12.2 GM/PKT GT SCH ×2 (08:07→12:23)
[2017-03-24] MEDS: LACTOBACILLUS RHAMNOSUS GG 1 EACH CAP GT SCH (08:07)
[2017-03-24] MEDS: POTASSIUM CHLORIDE 20% 40 MEQ/15 ML UDC GT SCH (08:08)
[2017-03-24] MEDS: METOPROLOL 25 MG TAB GT SCH (08:08)
[2017-03-24] MEDS: amLODIPine 5 MG TAB GT SCH (08:08)
[2017-03-24] MEDS: AMANTADINE 100 MG CAP GT SCH (08:08)
[2017-03-24] MEDS: ASCORBIC ACID 500 MG TAB GT SCH (08:08)
--- NOTE | 2017-03-24 09:40 | NUR ---
SHERRI/HENOK AT BEDSIDE FOR PATIENT PHYSICAL HYGIENE AND REPOSITION NO SOB NOTED DRILL OPERATOR TO ATTEMPT VENTILATOR AND PATIENT ASSESSMENT AT A LATER TIME
[2017-03-24] MEDS ORDERED: POTA40SO5 GT (10:07)
[2017-03-24] MEDS ORDERED: ACET650S53 GT (10:07)
[2017-03-24] MEDS ORDERED: METPCK GT (10:07)
[2017-03-24] MEDS ORDERED: VITC500 GT (10:07)
[2017-03-24] MEDS ORDERED: AMLO5TAB4 GT (10:07)
[2017-03-24] MEDS ORDERED: ONDA2SOL45 IVP (10:07)
--- NOTE | 2017-03-24 10:15 | NUR ---
RESTING COMFORTABLY WITH NO EVIDENCE OF PULMONARY DISTRESS NOTED CHANGED MODE TO CPAP/PEEP 5cmH20 PS 17cfS60 FOR WEANING TRAIL DUE TO COGNITIVE ABILITIES PATIENT UNABLE TO PERFORM WEANING PARAMETERS: NIF AND VC RUSS/RN NOTIFIED
--- NOTE | 2017-03-24 11:35 | NUR ---
HOT DIP PLATING SUPERVISOR'S AT BEDSIDE FOR PATIENT REPOSITION CONFORMAL PAD FORMER TO ATTEMPT ASSESSMENT AT A LATER TIME PATIENT PRESENTING WITH NO SOB AT THIS TIME
--- NOTE | 2017-03-24 12:05 | NUR ---
NO PULMONARY DISTRESS NOTED TOLERATING WEANING TRIAL WELL WITHOUT INCIDENT BREATH SOUNDS DIFFUSED RHONCHI BILATERAL DEEP TRACHEAL SUCTION FOR SMALL THICK YELLOW SECRETIONS AIRWAY PATENT
--- NOTE | 2017-03-24 13:04 | NUR ---
NO DISTRESS NOTED TOLERATING WEANING TRIAL WELL WITHOUT INCIDENT BREATH SOUNDS DIFFUSED RHONCHI BILATERAL WITH GOOD CHEST RISE DEEP TRACHEAL SUCTION FOR SCANT THICK YELLOW SECRETIONS AIRWAY PATENT
--- NOTE | 2017-03-24 14:39 | NUR ---
CALLED OL[facility] AND GAVE PATIENT REPORT TO SIRIA
--- NOTE | 2017-03-24 14:39 | NUR ---
1330 SPOKE WITH PT'S SON UGO AND INFORMED HIM THAT [facility] HAS A BED FOR TODAY AND AT THIS TIME THIS IS THE ONLY SUBACUTE UNIT THAT HAS AN AVAILABLE BED. [facility] HAS ACCEPTED PT FOR ADMISSION BUT AT THIS TIME THERE IS NO BED AVAILABLE. UGO STATED THAT HE IS IN AGREEMENT WITH THE TRANSFER TO [facility]. PROVIDED HIM WITH THE FACILITY ADDRESS [id number], [place] [address] AND PHONE [phone]. INFORMED HIM THAT THE FACILITY WOULD CALL HIM REGARDING ADMISSION PAPERWORK AND TO EXPECT THEIR CALL. CALLED CORBY AT [facility] AND INFORMED HER THAT SON UGO IS IN AGREEMENT WITH TRANSFER AND THAT I HAD INFORMED HIM THAT THE FACILITY WOULD CONTACT HIM REGARDING ADMISSION PAPERWORK. UGO EXPRESSED HIS APPRECIATION FOR CM ATTEMPTS TO ACCOMMODATE HIS REQUESTS. 1410 CALL TO [facility] [place] AND REQUESTED CCT, SPOKE WITH ASHLEY AND TRANSPORT SCHEDULED FOR [facility] [facility] IN APPROX 45 MINS.
--- NOTE | 2017-03-24 14:49 | NUR ---
SPOKE WITH UGO ALFONSO, PATIENT'S SON, AND INFORMED HIM THAT PATIENT WILL BE TRANSFERRED TO [facility]
--- NOTE | 2017-03-24 15:07 | NUR ---
NO EVIDENCE OF RESPIRATORY DISTRESS NOTED TOLERATING WEANING TRIAL WELL WITHOUT INCIDENT BREATH SOUNDS DIFFUSED RHONCHI BILATERAL WITH GOOD CHEST RISE DEEP TRACHEAL SUCTION FOR SCANT THICK YELLOW SECRETIONS AIRWAY PATENT
--- NOTE | 2017-03-24 15:57 | NUR ---
PT DISCHARGED WITH [facility] TO [facility], VITAL SIGNS STABLE, O2 SAT 98%, HR 85. CEDEÑO CATH EMPTIED, OUTPUT 800ML. LEFT UPPER ARM PICC LINE LEFT INTACT. DISCHARGE PHOTOS TAKEN. PHOTO FILED IN THE CHART. PT LEFT WITH ALL HER DISCHARGE PAPER AND BELONGINGS. PT LEFT IN STABLE CONDITION.
[2017-03-26] MEDS ORDERED: FOAM DRESSING TP SCH (09:00)
== END 2017-03-24 15:35 | DRG 5 ==
LOC: MED 13:51 → MIC 16:17 → MTU 03-14 11:40
PROVIDERS: ADMIT Preventive Medicine Preventive Medicine/Occupational Environmental Medicine; ATTEND Preventive Medicine Preventive Medicine/Occupational Environmental Medicine
PROC: 5A1955Z Respiratory Ventilation, Greater than 96 Consecutive Hours (ICD-10-PCS; 2017-03-02)
PROC: 0BH17EZ Insertion of Endotracheal Airway into Trachea, Via Natural or Artificial Opening (ICD-10-PCS; 2017-03-02)
PROC: 5A09357 Assistance with Respiratory Ventilation, Less than 24 Consecutive Hours, Continuous Positive Airway Pressure (ICD-10-PCS; 2017-03-02)
PROC: 02HV33Z Insertion of Infusion Device into Superior Vena Cava, Percutaneous Approach (ICD-10-PCS; 2017-03-06)
PROC: B548ZZA Ultrasonography of Superior Vena Cava, Guidance (ICD-10-PCS; 2017-03-06)
PROC: 0B110F4 Bypass Trachea to Cutaneous with Tracheostomy Device, Open Approach (ICD-10-PCS; principal; 2017-03-11 13:00)
DX: A41.9 Sepsis, unspecified organism (principal); J69.0 Pneumonitis due to inhalation of food and vomit; G93.41 Metabolic encephalopathy; E43 Unspecified severe protein-calorie malnutrition; J15.211 Pneumonia due to Methicillin susceptible Staphylococcus aureus; J95.851 Ventilator associated pneumonia; J96.21 Acute and chronic respiratory failure with hypoxia; E87.0 Hyperosmolality and hypernatremia; R13.11 Dysphagia, oral phase; J96.00 Acute respiratory failure, unspecified whether with hypoxia or hypercapnia; D68.59 Other primary thrombophilia; E11.65 Type 2 diabetes mellitus with hyperglycemia; F03.90 Unspecified dementia, unspecified severity, without behavioral disturbance, psychotic disturbance, mood disturbance, and anxiety; E87.8 Other disorders of electrolyte and fluid balance, not elsewhere classified; G93.89 Other specified disorders of brain; E83.52 Hypercalcemia; E78.00 Pure hypercholesterolemia, unspecified; D75.89 Other specified diseases of blood and blood-forming organs; E87.1 Hypo-osmolality and hyponatremia; B37.49 Other urogenital candidiasis; D64.9 Anemia, unspecified; E87.6 Hypokalemia; J44.0 Chronic obstructive pulmonary disease with (acute) lower respiratory infection; K44.9 Diaphragmatic hernia without obstruction or gangrene; Y84.8 Other medical procedures as the cause of abnormal reaction of the patient, or of later complication, without mention of misadventure at the time of the procedure; I10 Essential (primary) hypertension; G40.909 Epilepsy, unspecified, not intractable, without status epilepticus; F07.81 Postconcussional syndrome; Z87.81 Personal history of (healed) traumatic fracture; Z68.27 Body mass index [BMI] 27.0-27.9, adult; Z99.11 Dependence on respirator [ventilator] status; Z93.1 Gastrostomy status; Z86.14 Personal history of Methicillin resistant Staphylococcus aureus infection; Z79.899 Other long term (current) drug therapy
CPT/HCPCS: 31500; 36415; 36600; 43760; 71010; 80048; 80053; 80202; 81001; 82272; 82803; 82948; 83605; 84484; 85025; 85610; 85651; 85730; 86140; 87040; 87070; 87077; 87081; 87086; 87186; 87205; 89220; 93005; 94002; 94003; 96365; 96366; 96367; 96375; 99291; A6248; C1751; C9113; J1644; J1815; J2001; J2543; J2704; J3010; J3370; J3480; J3490; J7030; J7042; J7060; J7613; J7644; Q0092